=== PATIENT | male | born 1955 | race Caucasian/White ===

== ENCOUNTER 2018-06-28 07:19 | Emergency (ER) | payer MEDICAID, SELFPAY ==
[2018-06-28] VITALS (34 sets, daily range): BP systolic 137–163; BP diastolic 65–87; PULSE 65–80; RESP 13–34; TEMP 36; O2SAT 84–98
--- NOTE | 2018-06-28 07:36 | DI.RPTCT_ITS ---
SYMPTOMS/DIAGNOSIS: VERTIGO NONCONTRAST HEAD CT: There are no prior comparison exams. There is an old right parietal infarct. No acute infarct, hemorrhage or mass is seen. The ventricles are normal in size. There is no evidence of skull fracture. The sinuses appear clear. IMPRESSION: Old right parietal infarct. No acute abnormality.
[2018-06-28] MEDS: Normal Saline 1,000 ML 150 ML IV (07:43)
[2018-06-28] MEDS: Ondansetron 4 MG/2 ML VIAL IVP (07:44)
[2018-06-28 07:45] LABS: Abs Immature Grans 0.04 k/cumm (0.0-0.09); Absolute Basophil Count 0.03 k/cumm (0.0-0.2); Absolute Eosinophil Count 0.27 k/cumm (0.0-0.7); Absolute Lymphocyte Count 2.46 k/cumm (1.2-3.4); Absolute Monocyte Count 1.19 k/cumm (0.11-0.7); Basophils % 0.3; Eosinophils % 2.4; HCT 48.4 % (40.0-50.0); HGB 16.5 g/dL (13.5-17.5); Immature Grans % 0.4; Lymphocytes % 21.9; Mean Corp. HGB Concentration 34.1 g/dL (32.0-36.0); Mean Corpuscular Volume 85.1 fL (80-95); Mean Platelet Volume 10.6 fL (8.0-11.0); Monocytes % 10.6; Neutrophils % 64.4; Platelet Count 197 x1000/uL (130-400); RBC 5.69 m/cumm (4.50-6.00); RBC Distribution Width 14.9 % (11.8-14.1); White Blood Cell Count 11.25 k/cumm (4.4-10.8)
[2018-06-28 07:46] LABS: Absolute Neutrophil Count 7.25 k/cumm (1.2-6.7)
[2018-06-28 08:00] LABS: ALT 47 U/L (12-78); AST 25 U/L (15-37); Albumin 3.7 g/dL (3.4-5.0); Alkaline Phosphatase 72 U/L (46-116); Anion Gap 10.2 mmol/L (3-11); BUN 27 mg/dL (7-18); Bilirubin, Total 0.6 mg/dL (0.2-1.0); CO2 26.8 mmol/L (21.0-32.0); CREATININE 0.74 mg/dL (0.70-1.30); Calcium 9.5 mg/dL (8.5-10.1); Chloride 105 mmol/L (98-107); Glucose 179 mg/dL (70-100); Potassium 4.2 mmol/L (3.5-5.1); Sodium 142 mmol/L (136-145); Total Protein 7.6 g/dL (6.4-8.2)
[2018-06-28 08:02] LABS: Troponin I < 0.02 ng/mL (0.00-0.06)
--- NOTE | 2018-06-28 09:30 | DI.VRAD_ITS ---
EXAM: CT Head Without Intravenous Contrast EXAM DATE/TIME: 06/28/2018 7:38 AM CLINICAL HISTORY: 63 years old, male; Signs and symptoms; Other: Vertigo TECHNIQUE: Axial computed tomography images of the head/brain without intravenous contrast. All CT scans at this facility use at least one of these dose optimization techniques: automated exposure control; mA and/or kV adjustment per patient size (includes targeted exams where dose is matched to clinical indication); or iterative reconstruction. Coronal and sagittal reformatted images were created and reviewed. COMPARISON: No relevant prior studies available. FINDINGS: Brain: No acute intracranial hemorrhage. Well delineated low attenuation in the posterior right parietal region consistent with prior infarction. There is mild diffuse heterogeneity of the white matter attenuation, consistent with chronic white matter ischemic changes. Mild cerebral atrophy Ventricles: Normal. No ventriculomegaly. Bones/joints: Normal. No acute fracture. Sinuses: Minimal mucosal thickening in the ethmoid sinuses. Mastoid air cells: Normal as visualized. No mastoid effusion. Soft tissues: Normal. Vasculature: Falcine calcifications IMPRESSION: 1. No acute intracranial hemorrhage. 2. Well delineated low attenuation in the posterior right parietal region consistent with prior infarction. Dictated and Authenticated by: Abe Hart MD. Ordering:ISABEL RAYO MD
--- NOTE | 2018-06-28 10:12 | ED.GENADUL_ITS ---
Disposition Clinical Impression: Vertigo Disposition: HOME Condition: Good Instructions: Vertigo (ED) Additional Instructions: Drink plenty of fluids and get plenty of rest. Take your regular medications as directed. Take the meclizine as needed and directed for any further dizziness. Follow-up with your primary care doctor within the next week. Return to the emergency department with any worsening or new concerning symptoms. Prescriptions: Meclizine [Antivert] 12.5 mg PO TID PRN #12 tab PRN Reason: Vertigo Medical Decision Making - Lab Data Laboratory Tests 06/28/18 06/28/18 07:35 07:35 WBC 11.25 H RBC 5.69 Hgb 16.5 Hct 48.4 MCV 85.1 MCH 29.0 MCHC 34.1 RDW 14.9 H Plt Count 197 MPV 10.6 Immature Gran % 0.4 Neutrophils % 64.4 Lymphocytes % 21.9 Monocytes % 10.6 Eosinophils % 2.4 Basophils % 0.3 Absolute Neutrophils 7.25 H Absolute Lymphocytes 2.46 Absolute Monocytes 1.19 H Absolute Eosinophils 0.27 Absolute Basophils 0.03 Sodium 142 Potassium 4.2 Chloride 105 Carbon Dioxide 26.8 Anion Gap 10.2 BUN 27 H Creatinine 0.74 Estimated GFR/1.73 m2 >= 60.00 Glucose 179 H Calcium 9.5 Magnesium 2.0 Total Bilirubin 0.6 AST 25 ALT 47 Alkaline Phosphatase 72 Troponin I < 0.02 Total Protein 7.6 Albumin 3.7 06/28/18 0730: 71bpm. Sinus. PVCs. T-wave inversion in V3 to V3 and right bundle branch block which have been seen in previous EKG. No acute ST elevation. - Radiology Data Radiology results: report reviewed, image reviewed CT head: 1. No acute intracranial hemorrhage. 2. Well delineated low attenuation in the posterior right parietal region consistent with prior infarction. - Medical Decision Making 0800 -- 63-year-old male w/ CVA, diabetes, chronic cluster migraines, hypertension, hyperlipidemia, obesity and obstructive sleep apnea who presents with an episode of near syncope and vertigo this morning. Patient admitted to a spinning sensation and almost passing out after getting up suddenly out of bed this morning. Patient had 10 episodes of vomiting this morning but none here in the emergency department. He states he felt great yesterday and walked 4 miles and mowed the lawn and plan to do this this morning until he felt his symptoms upon getting out of bed. Patient had labs, CT head, IV fluids and Valium ordered per Dr. Schulz prior to my arrival. Plan was for reassessment and follow-up on workup. 1000 --labs and imaging reviewed. No acute significant findings. CT head notes an old infarction but no acute findings. Patient feels much better and is requesting to go home. He has no focal deficits. Patient was given sekou emeterio and crackers and was able to ambulate in room and feels much better. Discussed with patient that his symptoms may be due to BPPV, vasovagal syncope, dehydration, etc. We will send home with prescription for meclizine, encouraged increased fluid intake and to call the primary care doctor's office tomorrow to schedule follow-up appointment for reevaluation and return here with any concerns. History of Present Illness - General Chief complaint: Dizzy/Sync Stated complaint: VOMITING/ DIZZINESS Time Seen by Provider: 06/28/18 07:36 Source: patient Mode of arrival: ambulatory Limitations: no limitations - History of Present Illness Initial comments: A 63-year-old male with a history of asthma, diabetes, chronic cluster migraines , hypertension, hyperlipidemia, obesity and obstructive sleep apnea who presents with an episode of vertigo this morning. Patient states he sat up quickly in bed and fell backwards due to a spinning sensation and almost passed out. States he vomited 10 times as well as dry heaving after this. Patient denies any chest pain, shortness of breath or palpitations at anytime this morning or at present. Patient admits to chronic daily cluster migraines which she has had for several years and states it has been at his baseline 5/10 all morning and no worse than usual. Patient had lab work, CT and fluids and Valium ordered by Dr. Schulz prior to my arrival. Plan was for reevaluation after workup and meds. - Related Data Aspirin [Ecotrin] 1 tab PO DAILY tab-cap 02/05/13 Botox 50 unit IJ [id number] 02/05/13 Promethazine HCl 1 supp.rect RC Q6H PRN supp 02/05/13 C Pap 04/08/16 Candesartan Cilexetil 16 mg PO DAILY #60 cap 07/06/17 Sitagliptin Phosphate [Januvia] 100 mg PO DAILY #90 tab-cap 01/13/18 Albuterol Sulfate [Proair Hfa] 2 puff IH QID PRN #3 inh 02/09/18 Blood Sugar Diagnostic [Onetouch Ultra Blue Test Strp] 1 each MC QID #100 strip 02/09/18 Lancets [Freestyle Lancets] 1 each ID QID #100 each 02/09/18 Empagliflozin [Jardiance] 25 mg PO DAILY #30 cap 04/01/18 Diltiazem HCl [Cardizem Cd] 1 cap PO DAILY #90 cap 04/15/18 MetFORMIN [Glucophage] 1 tab PO BID #180 tab-cap 04/15/18 Glyburide 5 mg PO BID #360 tab-cap 04/20/18 Naproxen 1 tab PO TID PRN #270 tab-cap 04/22/18 Meclizine [Antivert] 12.5 mg PO TID PRN #12 tab 06/28/18 Allergies Allergy/AdvReac Type Severity Reaction Status Date / Time No Known Allergies Allergy Unverified 06/15/18 15:18 Review of Systems Constitutional: denies: chills, fever Eyes: denies: eye pain ENT: denies: ear pain, dental pain Respiratory: denies: cough, shortness of breath Cardiovascular: denies: chest pain, dyspnea on exertion Gastrointestinal: denies: abdominal pain, nausea, vomiting Genitourinary: denies: urgency, dysuria, frequency Musculoskeletal: denies: back pain Skin: denies: rash, lesions Neurological: vertigo. denies: headache, weakness, numbness Past Medical History - Past Medical History Medical history: asthma, CVA/TIA, diabetes, hyperlipidemia, hypertension Migraine, Obesity, LEAH Surgical history: other (Toe surgery, Eye surgery) - Social History Smoking status: never smoker Alcohol use: none Drug use: none General Exam - General Limitations: no limitations General appearance: alert, in no apparent distress - Eye Eye exam: Present: PERRL, EOMI - ENT ENT exam: Present: mucous membranes moist - Respiratory Respiratory exam: Present: normal lung sounds bilaterally. Absent: respiratory distress, wheezes, rales, rhonchi, stridor - Cardiovascular Cardiovascular Exam: Present: regular rate, normal rhythm. Absent: bradycardia , tachycardia - GI/Abdominal GI/Abdominal exam: Present: soft, normal bowel sounds. Absent: distended, tenderness, guarding, rebound, rigid - Neurological Exam Neurological exam: Present: alert, oriented X3, other (MS 5/5 b/l UE/LE). Absent: motor sensory deficit - Psychiatric Psychiatric exam: Present: normal affect - Skin Skin exam: Present: warm, dry, intact Course Vital Signs - 24 hr 06/28/18 06/28/18 06/28/18 07:20 07:22 07:28 Temperature 96.8 F L Pulse 69 71 Respiratory 25 H 27 H 20 Rate Blood Pressure 155/71 155/71 Pulse Oximetry 94 L 98 06/28/18 06/28/18 06/28/18 07:30 07:31 07:40 Temperature Pulse 70 Respiratory 15 Rate Blood Pressure 155/73 Pulse Oximetry 96 95 97 06/28/18 06/28/18 06/28/18 07:46 07:55 08:09 Temperature Pulse 73 Respiratory 19 20 16 Rate Blood Pressure 146/74 Pulse Oximetry 84 L 94 L 06/28/18 06/28/18 06/28/18 08:10 08:11 08:16 Temperature Pulse 73 71 Respiratory 22 20 Rate Blood Pressure 155/74 148/65 Pulse Oximetry 93 L 94 L 96 06/28/18 06/28/18 06/28/18 08:20 08:30 08:32 Temperature Pulse 72 Respiratory 21 13 21 Rate Blood Pressure 157/81 Pulse Oximetry 88 L 90 L 89 L 06/28/18 06/28/18 06/28/18 08:40 08:47 08:50 Temperature Pulse 74 Respiratory 20 18 25 H Rate Blood Pressure 163/87 Pulse Oximetry 90 L 97 94 L 06/28/18 06/28/18 06/28/18 09:00 09:04 09:10 Temperature Pulse 72 Respiratory 23 24 16 Rate Blood Pressure 150/82 Pulse Oximetry 91 L 91 L 96 06/28/18 06/28/18 06/28/18 09:16 09:20 09:30 Temperature Pulse 72 Respiratory 34 H 13 18 Rate Blood Pressure 155/78 Pulse Oximetry 92 L 94 L 95 06/28/18 06/28/18 06/28/18 09:31 09:40 09:46 Temperature Pulse 75 72 Respiratory 30 H 19 18 Rate Blood Pressure 137/86 143/84 Pulse Oximetry 97 90 L 93 L 08/12/18 09:50 Temperature Pulse Respiratory 19 Rate Blood Pressure Pulse Oximetry 92 L
== END 2018-06-28 10:56 | disposition home or self-care (01) ==
PROVIDERS: Emergency Medicine; Emergency Provider Physician Assistant; PCP Internal Medicine
DX: R42 Dizziness and giddiness (principal); R11.10 Vomiting, unspecified; E11.9 Type 2 diabetes mellitus without complications; Z79.84 Long term (current) use of oral hypoglycemic drugs; I10 Essential (primary) hypertension
CPT/HCPCS: 36415; 80053; 93005; 96361; 96374; 96375; 99285; 70450; 83735; 84484; 85025; 93010; J2405

== ENCOUNTER → 2018-07-07 03:00 | Outpatient (CLI) | payer MEDICAID, SELFPAY ==
[2018-07-07 08:24] LABS: Abs Immature Grans 0.05 k/cumm (0.0-0.09); Absolute Lymphocyte Count 2.21 k/cumm (1.2-3.4); Absolute Monocyte Count 1.09 k/cumm (0.11-0.7); Absolute Neutrophil Count 7.71 k/cumm (1.2-6.7); Basophils % 0.4; Eosinophils % 2.6; HCT 48.4 % (40.0-50.0); HGB 16.5 g/dL (13.5-17.5); Immature Grans % 0.4; Lymphocytes % 19.4; Mean Corp. HGB Concentration 34.1 g/dL (32.0-36.0); Mean Corpuscular Hemoglobin 28.6 pg (27.0-33.0); Mean Platelet Volume 10.4 fL (8.0-11.0); Monocytes % 9.6; Neutrophils % 67.6; Platelet Count 186 x1000/uL (130-400); RBC 5.76 m/cumm (4.50-6.00); RBC Distribution Width 14.9 % (11.8-14.1)
[2018-07-07 08:25] LABS: Absolute Basophil Count 0.05 k/cumm (0.0-0.2)
[2018-07-07 08:37] LABS: Hemoglobin A1C 6.7 % (4.5-6.2)
[2018-07-07 09:48] LABS: ALT 61 U/L (12-78); AST 31 U/L (15-37); Albumin 3.8 g/dL (3.4-5.0); Alkaline Phosphatase 56 U/L (46-116); Anion Gap 9.2 mmol/L (3-11); BUN 28 mg/dL (7-18); CO2 27.8 mmol/L (21.0-32.0); CREATININE 0.81 mg/dL (0.70-1.30); Calcium 8.9 mg/dL (8.5-10.1); Chloride 105 mmol/L (98-107); Glucose 88 mg/dL (70-100); Potassium 4.3 mmol/L (3.5-5.1); Sodium 142 mmol/L (136-145); Total Protein 7.4 g/dL (6.4-8.2)
[2018-07-07 09:54] LABS: COMMENT (LAB VIEW ONLY) 118.01 mg/dL; Microalb ug/mg Crea 712.7 ug/mg Cr
[2018-07-07 10:14] LABS: Bilirubin, Total 0.7 mg/dL (0.2-1.0)
== END ==
PROVIDERS: PCP Internal Medicine; Visit Provider Internal Medicine
DX: E11.65 Type 2 diabetes mellitus with hyperglycemia (principal); D64.9 Anemia, unspecified
CPT/HCPCS: 36415; 80053; 82043; 82570; 83036; 85025

== ENCOUNTER 2018-07-29 14:30 | Outpatient (CLI) | payer MEDICAID, SELFPAY ==
--- NOTE | 2018-07-29 14:42 | DI.RAD_ITS ---
SYMPTOMS/DIAGNOSIS: RIGHT KNEE PAIN BONE LENGTH EXAMINATION: The right lower extremity measures 91 cm in length, the left lower extremity measures 91.5 cm. There is narrowing of the medial femorotibial joint spaces bilaterally. Degenerative changes of the hips are seen bilaterally.
== END 2018-07-29 14:50 ==
PROVIDERS: PCP Internal Medicine; Visit Provider Physician Assistant
DX: M25.561 Pain in right knee (principal); M16.0 Bilateral primary osteoarthritis of hip
CPT/HCPCS: 77073

== ENCOUNTER 2018-08-19 11:34 | Outpatient (CLI) | payer MEDICAID, SELFPAY ==
[2018-08-19 14:09] LABS: ALT 50 U/L (12-78); AST 24 U/L (15-37); Albumin 3.7 g/dL (3.4-5.0); Alkaline Phosphatase 61 U/L (46-116); Anion Gap 9.2 mmol/L (3-11); BUN 26 mg/dL (7-18); Bilirubin, Total 0.5 mg/dL (0.2-1.0); CO2 26.8 mmol/L (21.0-32.0); CREATININE 0.65 mg/dL (0.70-1.30); Chloride 105 mmol/L (98-107); Glucose 154 mg/dL (70-100); Potassium 4.3 mmol/L (3.5-5.1); Sodium 141 mmol/L (136-145); Total Protein 6.9 g/dL (6.4-8.2)
== END 2018-08-19 11:54 ==
PROVIDERS: PCP Internal Medicine; Visit Provider Internal Medicine
DX: E11.9 Type 2 diabetes mellitus without complications (principal)
CPT/HCPCS: 36415; 80053

== ENCOUNTER 2018-09-16 14:12 | Outpatient (CLI) | payer MEDICAID, SELFPAY ==
[2018-09-16 16:46] LABS: HCT 47.4 % (40.0-50.0); HGB 16.3 g/dL (13.5-17.5); Mean Corp. HGB Concentration 34.4 g/dL (32.0-36.0); Mean Corpuscular Hemoglobin 28.8 pg (27.0-33.0); Mean Corpuscular Volume 83.9 fL (80-95); Mean Platelet Volume 10.5 fL (8.0-11.0); Platelet Count 231 x1000/uL (130-400); RBC 5.65 m/cumm (4.50-6.00); RBC Distribution Width 15.1 % (11.8-14.1)
[2018-09-16 17:19] LABS: Hemoglobin A1C 6.2 % (4.5-6.2)
[2018-09-16 19:33] LABS: BUN 30 mg/dL (7-18); CREATININE 0.75 mg/dL (0.70-1.30); Chloride 104 mmol/L (98-107); Glucose 82 mg/dL (70-100); Potassium 4.2 mmol/L (3.5-5.1); Sodium 141 mmol/L (136-145)
--- NOTE | 2018-09-17 18:40 | W.PREOPHP ---
Date of service: 09/16/18 Assessment and Plan (1) Primary osteoarthritis of right knee: Current visit: Yes Status: Acute Right total knee replacement. Details of surgery were discussed with patient as well as risks and pertinent anatomy. All questions were answered. History of Present Illness Chief Complaint: Right knee pain Narrative: Jose is a 63-year-old male who is been complaining of right knee pain for a couple of years. He has had multiple orthopedic complaints over the last 2 years, however his right knee has been the most significant. He states that it bothers him with every step at this point, but also increases when he goes up stairs or gets up from a seated position. He has resorted to walking with a walking stick. X-rays show severe arthritis of the right knee, with 0 joint space in the medial side. There are bone spurs and bony cyst throughout. Due to his altered gait because of pain in his right knee, he has had hip pain that is bothering him as well. He has been struggling with controlling his diabetes and weight over the past 3 years, however over the past many months he has met with a dietitian who has helped him with both. He has made significant progress in both weight loss and his diabetes control. Injections have helped with the knee pain in the past, however they do not last very long anymore. At this point he was instructed that he needed a total knee replacement in order to control his pain. He has been working on his diet and exercise in order to show a decrease in weight and better control of his diabetes in order to have this joint replacement. Since he is now stable in both regards, he would like to move forward with a right total knee replacement. Pertinent Surgical Information Jose has had an incidental finding of a stroke on a CAT scan after routine CAT scan regarding his Botox injections. He has never had symptoms from this. Jose been able to control his diabetes to under 7.0 hemoglobin A1c in the last 4 months, his most recent hemoglobin A1c done on 09/16/2018 was 6.2. 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 He also has severe migraines and cluster headaches, for which she previously used Botox injections however now he is going to start on Aimovig, however he was instructed not to start this until after his total knee replacement because of its immune depressant properties. Patient denies history of CA, angina, asthma, COPD, renal or liver disorders, hepatitis, bleeding disorders, immune or thyroid disorders. No complications from anesthesia. Review of Systems Review of Systems All systems reviewed & are unremarkable except as noted in HPI and below Constitutional Denies fever(s) ENT Denies dizziness and Denies sore throat Cardiovascular Denies chest pain, Denies palpitations and Denies dyspnea Respiratory Denies dyspnea Gastrointestinal Denies abdominal pain, Denies melena, Denies hematochezia, Denies diarrhea, Denies nausea and Denies vomiting Genitourinary Denies hematuria and Denies dysuria Neurologic Denies dizziness Endocrine Denies palpitations PFS Family History Mother Depression Hyperlipidemia Father Heart disease Sister No problems noted. 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 frequency: does not exercise Smoking/Tobacco Use Status: Former Tobacco Use second hand exposure: Yes substance use type: does not use barbara/catholic: [employer] special barbara needs: No Surgical History History of ankle surgery (Chronic) Tonsillectomy Meds Home Medications Medication Instructions Recorded Confirmed Type Botox 50 unit IJ [id number] 02/05/13 09/16/18 History aspirin [Ecotrin Low Strength] 1 tab PO DAILY tab-cap 02/05/13 09/16/18 History promethazine 1 supp.rect RC Q6H PRN supp 02/05/13 09/16/18 History C Pap 04/08/16 09/16/18 History sitagliptin [Januvia] 100 mg PO DAILY #90 tab-cap 01/13/18 09/16/18 Rx albuterol sulfate [ProAir HFA] 2 puff INHALATION QID PRN #3 inh 02/09/18 09/16/18 History blood sugar diagnostic [OneTouch #100 strip 02/09/18 09/16/18 Rx Ultra Test] lancets [FreeStyle Lancets] #100 ea 02/09/18 09/16/18 Rx empagliflozin [Jardiance] 25 mg PO DAILY #30 cap 04/01/18 09/16/18 Rx diltiazem HCl [Cardizem CD] 1 cap PO DAILY #90 cap 04/15/18 09/16/18 Rx metformin [Glucophage] 1 tab PO BID #180 tab-cap 04/15/18 09/16/18 Rx glyburide 5 mg PO BID #360 tab-cap 04/20/18 09/16/18 Rx naproxen 1 tab PO TID PRN #270 tab-cap 04/22/18 09/16/18 History meclizine [Antivert] 12.5 mg PO TID PRN #12 tab 06/28/18 09/16/18 Rx candesartan 16 mg tablet 16 mg PO DAILY #90 tab 08/13/18 09/16/18 Rx Allergies Allergy/AdvReac Type Severity Reaction Status Date / Time No Known Allergies Allergy Unverified 09/16/18 14:34 Exam [facility] Head: normocephalic and atraumatic General nose exam: no nasal discharge Throat: uvula midline and no uvular edema Other: soft palate rises symmetrically, no erythema Eyes Conjunctivae: conjunctivae normal Sclera: sclerae normal Pupils: PERRL Resp Effort & Inspection: normal respiratory effort Auscultation: clear to auscultation bilaterally and no wheezes Cardio Rate: regular rate Rhythm: regular rhythm Heart Sounds: S1 normal, S2 normal and no murmurs Other: BP: 138/70 Results Labs : 09/16/18 16:23 09/16/18 16:23 Laboratory Results - last 24 hr 09/16/18 16:23 Sodium 141 Potassium 4.2 Chloride 104 Carbon Dioxide 25.0 Anion Gap 12.0 H BUN 30 H Creatinine 0.75 Estimated GFR/1.73 m2 >= 60.00 Glucose 82 Calcium 10.0
--- NOTE | 2018-09-17 18:43 | HPE_ITS ---
Date of service: 09/16/18 Assessment and Plan (1) Primary osteoarthritis of right knee: Current visit: Yes Status: Acute Right total knee replacement. Details of surgery were discussed with patient as well as risks and pertinent anatomy. All questions were answered. History of Present Illness Chief Complaint: Right knee pain Narrative: Jose is a 63-year-old male who is been complaining of right knee pain for a couple of years. He has had multiple orthopedic complaints over the last 2 years, however his right knee has been the most significant. He states that it bothers him with every step at this point, but also increases when he goes up stairs or gets up from a seated position. He has resorted to walking with a walking stick. X-rays show severe arthritis of the right knee, with 0 joint space in the medial side. There are bone spurs and bony cyst throughout. Due to his altered gait because of pain in his right knee, he has had hip pain that is bothering him as well. He has been struggling with controlling his diabetes and weight over the past 3 years, however over the past many months he has met with a dietitian who has helped him with both. He has made significant progress in both weight loss and his diabetes control. Injections have helped with the knee pain in the past, however they do not last very long anymore. At this point he was instructed that he needed a total knee replacement in order to control his pain. He has been working on his diet and exercise in order to show a decrease in weight and better control of his diabetes in order to have this joint replacement. Since he is now stable in both regards, he would like to move forward with a right total knee replacement. Pertinent Surgical Information Jose has had an incidental finding of a stroke on a CAT scan after routine CAT scan regarding his Botox injections. He has never had symptoms from this. Jose been able to control his diabetes to under 7.0 hemoglobin A1c in the last 4 months, his most recent hemoglobin A1c done on 09/16/2018 was 6.2. 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 He also has severe migraines and cluster headaches, for which she previously used Botox injections however now he is going to start on Aimovig, however he was instructed not to start this until after his total knee replacement because of its immune depressant properties. Patient denies history of [place], angina, asthma, COPD, renal or liver disorders, hepatitis, bleeding disorders, immune or thyroid disorders. No complications from anesthesia. Review of Systems Review of Systems All systems reviewed & are unremarkable except as noted in HPI and below Constitutional Denies fever(s) ENT Denies dizziness and Denies sore throat Cardiovascular Denies chest pain, Denies palpitations and Denies dyspnea Respiratory Denies dyspnea Gastrointestinal Denies abdominal pain, Denies melena, Denies hematochezia, Denies diarrhea, Denies nausea and Denies vomiting Genitourinary Denies hematuria and Denies dysuria Neurologic Denies dizziness Endocrine Denies palpitations PFS Family History Mother Depression Hyperlipidemia Father Heart disease Sister No problems noted. 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 frequency: does not exercise Smoking/Tobacco Use Status: Former Tobacco Use second hand exposure: Yes substance use type: does not use barbara/catholic: Taoist special barbara needs: No Surgical History History of ankle surgery (Chronic) Tonsillectomy Meds Home Medications Medication Instructions Recorded Confirmed Type Botox 50 unit IJ [id number] 02/05/13 09/16/18 History aspirin [Ecotrin Low Strength] 1 tab PO DAILY tab-cap 02/05/13 09/16/18 History promethazine 1 supp.rect RC Q6H PRN supp 02/05/13 09/16/18 History C Pap 04/08/16 09/16/18 History sitagliptin [Januvia] 100 mg PO DAILY #90 tab-cap 01/13/18 09/16/18 Rx albuterol sulfate [ProAir HFA] 2 puff INHALATION QID PRN #3 inh 02/09/18 History blood sugar diagnostic [OneTouch #100 strip 02/09/18 09/16/18 Rx Ultra Test] lancets [FreeStyle Lancets] #100 ea 02/09/18 09/16/18 Rx empagliflozin [Jardiance] 25 mg PO DAILY #30 cap 04/01/18 09/16/18 Rx diltiazem HCl [Cardizem CD] 1 cap PO DAILY #90 cap 04/15/18 09/16/18 Rx metformin [Glucophage] 1 tab PO BID #180 tab-cap 04/15/18 09/16/18 Rx glyburide 5 mg PO BID #360 tab-cap 04/20/18 09/16/18 Rx naproxen 1 tab PO TID PRN #270 tab-cap 04/22/18 09/16/18 History meclizine [Antivert] 12.5 mg PO TID PRN #12 tab 06/28/18 09/16/18 Rx candesartan 16 mg tablet 16 mg PO DAILY #90 tab 08/13/18 09/16/18 Rx Allergies Allergy/AdvReac Type Severity Reaction Status Date / Time No Known Allergies Allergy Unverified 09/16/18 14:34 Exam [facility] Head: normocephalic and atraumatic General nose exam: no nasal discharge Throat: uvula midline and no uvular edema Other: soft palate rises symmetrically, no erythema Eyes Conjunctivae: conjunctivae normal Sclera: sclerae normal Pupils: PERRL Resp Effort & Inspection: normal respiratory effort Auscultation: clear to auscultation bilaterally and no wheezes Cardio Rate: regular rate Rhythm: regular rhythm Heart Sounds: S1 normal, S2 normal and no murmurs Other: BP: 138/70 Results Labs : 09/16/18 16:23 09/16/18 16:23 Laboratory Results - last 24 hr 09/16/18 16:23 Sodium 141 Potassium 4.2 Chloride 104 Carbon Dioxide 25.0 Anion Gap 12.0 H BUN 30 H Creatinine 0.75 Estimated GFR/1.73 m2 >= 60.00 Glucose 82 Calcium 10.0
== END 2018-09-16 14:32 ==
PROVIDERS: PCP Internal Medicine; Visit Provider Student in an Organized Health Care Education/Training Program
DX: M16.11 Unilateral primary osteoarthritis, right hip (principal); M25.551 Pain in right hip; Z01.818 Encounter for other preprocedural examination
CPT/HCPCS: 36415; 80048; 85027; NC; 83036

== ENCOUNTER 2018-09-22 08:34 | Inpatient (IN) | payer MEDICAID, SELFPAY ==
[2018-09-16 14:40] VITALS: BP 138/70; PULSE 72; RESP 18; TEMP 37.2; O2SAT 96
--- NOTE | 2018-09-16 15:38 | CMPROGNOTE_ITS ---
- If Service Date Differs Date of service: 09/16/18 Time of Service: 15:31 Care Management Progress Note Jose will be having a R knee surgery with Dr. Hopson on 09/22/2018. 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 He is independent with his ADLs and transportation. Jose has access to a walker and raised toilet seat so will not be needing equipment upon discharge. Jose will transport home via private vehicle with his friend, Milena. CM will offer support to patient and family regarding discharge planning and disposition upon Jose's arrival at [facility].
[2018-09-22] VITALS (13 sets, daily range): BP systolic 100–154; BP diastolic 53–80; PULSE 55–68; RESP 14–20; TEMP 35.6–36.7; O2SAT 92–98
[2018-09-22] MEDS: oxyCODONE-CR 10 MG TABCR PO (09:30)
[2018-09-22] MEDS: Celecoxib 200 MG CAP 400 MG PO (09:30)
[2018-09-22] MEDS: Lactated Ringers 1,000 ML 80 ML IV ×3 (09:30→14:45)
[2018-09-22] MEDS: Acetaminophen 500 MG TAB 1000 MG PO ×3 (09:30→20:46)
[2018-09-22] MEDS: Gabapentin 300 MG CAP PO ×2 (09:31→21:34)
[2018-09-22] MEDS: Bupivacaine LIPOSOME/PF 133 MG/10 ML VIAL IJ ×2 (10:19→12:10)
[2018-09-22] MEDS: Bupivacaine 0.25% Pres-Free 30 ML VIAL (12:10)
[2018-09-22] MEDS: Ketorolac 30 MG/ML VIAL (12:10)
--- NOTE | 2018-09-22 13:53 | W.PM.OP ---
Date of service: 09/22/18 Time of Service: 13:53 Operative Note DATE OF PROCEDURE: 09/22/18 PRE-OP DIAGNOSIS: Right knee osteoarthritis POST-OP DIAGNOSIS: same PROCEDURE: Right Total Knee Replacement SURGEON: Torsten Hopson INTERACTIVE DEVELOPER: Eugenia Luz ANESTHESIA: regional and spinal ESTIMATED BLOOD LOSS: 100 PATHOLOGY: none sent TOURNIQUET TIME: 27 COMPLICATIONS: None Patient was transported to: PACU Patient's condition: stable Implants: 1. Depuy Attune Posterior Stabilized Femoral Component, Size 7 2. Depuy Attune Fixed Platform Tibial Component, Size 6 3. Depuy Attune 7 x 7 mm fixed, Stabilized Poly 4. Depuy Attune Patellar Component, Size 35 mm Indications: I have seen Jose in clinic for symptoms of RIGHT knee arthritis, confirmed with radiographic findings. Jose has exhausted nonoperative methods and was having significant limitations in daily function and desired better function and less pain. I discussed the technical details of a knee replacement. I explained the risks of the procedure to include, but not limited to, bleeding, infection, pain, stiffness, fracture, damage to nerves and vessels, damage to muscles and tendons, loosening, need for repeat procedure, blood clot and cardiopulmonary demise. Despite these risks, he elected to proceed. Findings: There was significant signs of arthritis throughout the knee. Procedure Description: Jose was greeted in the preoperative holding area where the correct side was identified and marked. The consent was reviewed with the patient and signed. The history and physical was updated. All questions were answered. Preoperative mediacations were administered: Acetaminophen 1000mg, Celebrex 400mg, Gabapentin 300mg, and Oxycontin 10mg. An adductor canal block was then administered by the anesthesia team in the PACU. He was taken back to the operating room. A spinal anesthestic was then administered. The patient was placed into the supine position on the operating room table. A nonsterile tourniquet was placed high onto the leg but only used for cementing. Posts were placed for positioning during the procedure. All bony prominences were well padded. Prophylactic antibiotics in the form of cefazolin were administered. 1g of Tranxemic Acid was given intravenously within 30 minutes of incision. The right leg was then prepped with Chloraprep and draped in a standard fashion with impervious stockinette and extremity drape with Iodine impregnated skin protection. A timeout to confirm correct identity, side and site, procedure, allergies, anesthesia, and medical concerns was performed. With the knee in some flexion, a midline incision was made overlying the knee. Full thickness skin flaps were raised once the extensor mechanism was encountered. These were raised medially and laterally. Any bleeding was controlled with electrocautery. Once the extensor mechanism was fully exposed, a medial parapatellar arthrotomy was performed in a flexed position. All bleeding from the arthrotomy and the geniculate arteries was coagulated. A medial subperiosteal peel was performed with electrocautery to the midcoronal plane. The fat pad was removed while keeping the patellar tendon protected. The anterior distal femur synovium was removed for later visualization. The ACL and PCL were resected and the anterior horn of the lateral meniscus was transected. The knee was then flexed with the patella everted. Large osteophytes from the tibia were removed. Large osteophytes from the femur were removed. Using a step drill, and based on preoperative templating, the femoral canal was entered. This was done with a step drill without any difficulty. The intramedullary distal femoral cut guide was inserted, set to a 6 degree valgus cut and 10mm cut thickness. There was some hypoplasia of the lateral femoral condyle and any remnant cartilage of the medial femoral condyle was removed for appropriate thickness. The distal femoral cut guide was then held in position and pinned. With the soft tissues protected, the distal cut was performed. This was passed over a few times to ensure a planar cut. I then turned attention to the tibia. The extramedullary guide was placed onto the leg. The distal aspect was slid medial to adjust for position of center of ankle and stay in line with shaft of the tibia. Approximately 3-5 degrees of posterior slope was kept in the proximal cutting guide. The center of the guide was aligned with the PCL. The stylus was used to assess cut thickness. The medial side, most involved side, was set for a 5mm cut. This was then held in position and pinned into place with 2 additional pins and a cross pin for stability. The medial and lateral collateral ligaments were protected and the cut was performed. With this completed, it was assessed and noted to be of appropriate dimensions. The guide was removed. A spacer block was inserted and the knee was brought into extension. The 6mm spacer block provided full extension, without hyperextension and with stability of both the medial and lateral collateral ligaments was assessed. The pins from the femur and the tibia were then removed. The distal femur was then sized. The anterior stylus was placed onto the lateral ridge of the anterior femur. This indicated a size 7 femur. The external rotation of the guide was adjusted to 5 degrees to match the epicondylar axis, perpendicular to Solange?s line. The 4-in-1 cutting guide was the placed. The posterior medial femur cut was evaluated and appeared of good thickness. The spacer block was inserted underneath the cutting guide and stability was confirmed in 90 degrees of flexion. An jeffery wing was used to confirm appropriate position of the anterior cut to avoid notching. This cutting guide was ensured to be flush on the cut surface and then pinned into place with headed pins. While protecting the soft tissues, quad tendon, and collateral ligaments, the anterior and posterior cuts were performed with a saw. The central two pins were removed and the posterior and anterior chamfers were cut next. The notch-cutting guide was placed. This was pinned to lateralize the femoral component as much as possible while keeping it flush on the cut surface. This was then pinned into position. A reciprocating saw was used to make the notch cut. A rasp smoothed the cut surfaces. A trial posterior stabilized femoral component was then inserted, impacted down to the cut surfaces, and the lug holes were drilled. A provisional trial tibial component was placed and the knee was brought through range of motion. The polyethylene was trialed until there was good flexion and extension with excellent stability to the medial and lateral collaterals. The patella was tracking without thumbs. The tibial cut surface was fully exposed. The medial and lateral menisci were removed. The tibia was then sized as a 6. The tibia had been previously marked during trialing to correspond to the center of the tibial component to help with rotation. The trial was aligned to this eugenia, approximately rotated to the medial 1/3rd of the tibial tubercle. The trial was pinned into place. The tibia was prepared with a reamer and a keel punch. The knee was then brought into extension and the patella was measured as 25 mm. Using the patellar clamp and cut guide, this was resected to a flat surface with at least 13mm of thickness remaining. The size 35 mm patella fit the best. This was oriented and then clamped into position. The lugs were drilled. The trial components were removed. The final components, except for the polyethylene were opened on the back table. The periosteal and capsular tissues, especially posteriorly, around the knee were then systematically injected with a periarticular cocktail consisting of 50cc 0.25% Marcaine, 30mg Ketorolac, 20cc of Exparal and 50cc of injectable saline. The tourniquet was then inflated to 275mmHg. The knee was thoroughly irrigated with a pulse lavage and dried. On the back table, with the implants opened, the cement was mixed. 2 batches of antibiotic laden cement were prepared with vacuum assistance. After the cement was ready a small amount was placed on to the back side of the tibial component at the keel. A small amount was placed onto the posterior flange of the femur. Cement was manual pressurized and impregnated into the cut surface of the tibia. The tibial component was then inserted into the cut surface and impacted into position. Excess cement was removed and the component was reimpacted. Again, excess cement was removed and our attention was then turned to the femur. The femoral cut surface was once again dried and cement was manually impacted into the cut surface. The femoral component was lined with the lug holes and impacted. Excess cement was removed. It was ensured to be down against the cut surface. The trial polyethylene was then inserted and the leg was brought out into full extension for the duration of the cement curing process, approximately 15min. Cement was lastly manually impacted into the cut surface of the patella and the patellar button was clamped into position and held. During this process attention was turned to the gutters of the knee and for all interfaces for any excess cement. After the cement had finally cured, approximately 15min, the clamp was removed from the patella and the knee was taken through range of motion. A size 6mm polyethylene component provided the best range of motion and stability with less than 2mm gapping with medial and lateral stress and full extension without significant hyperextension. The patella was tracking with a no-thumbs technique. The trial poly was removed and once again the knee was checked for any loose, excess, or errant cement. The poly component was then inserted and impacted into position after cleaning and drying the tibial tray. The capsule was then reapproximated with a No. 1 Vicryl at multiple locations. The capsule was finally closed with a No. 2 Stratafix, barbed suture. The tourniquet was then released and the arthrotomy appeared watertight without significant bleeding. The second dosing of 1g TXA was started. Deep tissues were then reapproximated with 0 Vicryl and 2-0 Vicryl. The skin was closed with a running 3-0 Monocryl in a subcuticular fashion. This was reinforced with skin glue. A Mepilex silver dressing was applied along with a yczj-on-ikoea SANDY wrap. A CryoCuff was applied. Jose was transferred to the hospital bed without difficulty an suffering no apparent complication. He has a good prognosis. Physical therapy will start today and without restrictions, weight-bearing as tolerated. Aspirin 81mg BID will be used for DVT prophylaxis.
--- NOTE | 2018-09-22 14:00 | HOME_ITS ---
Home Ventilator Equipment Home care company [employer] Reason: Obstructive Sleep Apnea Make: Respironics Model: System One Mask type: Face mask Mask size: Medium Mode: BiPAP Settings: IPAP - 16 / EPAP - 12 Oxygen bleed in (lpm): 0 Condition: Good Date last checked: 09/22/18 Year of last sleep study: 2010 Compliance Daily Comments:
--- NOTE | 2018-09-22 15:20 | PT.INIE ---
Date of service: 09/22/18 Time of Service: 15:21 PT Notes Inpatient Physical Therapy Evaluation Date: 09/22/18 Referring Doctor: Torsten Hopson PT Orders: PT CONSULT: s/p R TKA Precautions: WBAT R LE Patient Profile/Admitting Diagnosis: Pt is a 63yr old male s/p right total knee arthroplasty by Dr. Hopson 09/22/18 PMHX: osteoarthritis right knee, obesity, trochanteric bursitis right hip, traumatic eye injury legally blind left eye, diabetes mellitus, cerebrovascular accident, migraines, asthma, sleep apnea, restless leg syndrome, hypertension Social History/Home Situation: Lives in handicap accessible home, ramp to enter no stairs, baseline mobility independent gait with no device occasionally uses walking stick, independent with ADLS Equipment Owned/DME: FWW, raised toilet seat, walking stick Subjective: Pt lying in bed with lights off, shade closed. Agreeable to PT Consult. Objective: General Observation: IV L UE, sabrina wrap R LE, cryocuff R LE, valiente catheter Mental Status: A&O x3 Pain: no c/o pain Bed Mobility/Transfers: Supine-sit: HOB 30 degrees, independent Sit-stand: CGA with FWW Stand-sit: minAX1 due to lightheadedness Sit-supine: HOB flat, Karin for LE's Gait: Pt stood at bedside with CGA/minAx1 support for 10 seconds then became lightheaded and began to lean forward requiring therapist to weight shift him posteriorly to sit on bed to prevent falling. Pt states he felt dizzy, transferred back to bed with RN in room to assess vital signs. Therex: ankle pumps, quad sets, glute sets x 20 reps. Pt has issued home exercise program. Balance: Static Sitting:normal Dynamic Sitting: normal Static Standing: fair Dynamic Standing: fair Special Tests: Mobility Limitations Standardized Measure [facility] AM-PAC 6 clicks Basic Mobility Inpatient Short Form: Raw Score: 13 Standardized Score: 36.74 CMS Score: 64.91% CMS Modifier: CL Informed Consent/Education: Patient instructed in purpose of PT consult and plan of care. Assessment: Pt is a 63yr old male s/p right total knee arthroplasty by Dr. Hopson 09/22/18 in setting of osteoarthritis right knee, obesity, trochanteric bursitis right hip, traumatic eye injury legally blind left eye, diabetes mellitus. Patient presents with the following impairment level findings: lightheaded, dizzy symptoms post operatively limiting his mobility, decreased strength R LE, decreased strength with bed transfers requiring assist to lift leg into bed, decreased strength and balance with standing transfers requiring one person assist for stability to prevent falls and unable to gait train at time of evaluation. Pt will benefit from skilled therapy intervention for strengthening and progressive mobility training. Anticipate return to home setting once goals met. Impairments are contributing to the following functional limitations: AMPAC score CMS Score: 64.91% Patient is assessed as a High [id number] complexity based on the following: History: see above Examination: see above Presentation: evolving Decision Making: AMPAC score CMS Score: 64.91% Goals: Goals X1 week 1. Supine-Sit : independent 2. Sit-Supine : independent 3. Sit-Stand : supervision with FWW 4. Stand-Sit : supervision with FWW 5. Bed-Chair : SBA with FWW 6. Chair-Bed : SBA with FWW 7. Gait : SBA with FWW 75ft WBAT R LE Plan of Care/Treatment Plan: 1-2x/day, 7 days/week x 1 week. Plan of care has been reviewed with the STORE DETECTIVE providing the service under Physical Therapy direction. Initiate Physical Therapy intervention for strengthening, bed mobility, transfers, gait, stairs, balance training, use of assistive device. DISCHARGE RECOMMENDATIONS: Home TREATMENT CODE/TIME: 24 IE 1319 G Codes in the area mobility of walking and moving around: current status [id number] []; projected status GP [id number]-[]. Discharge status (if discharging) GP [id number] CL based on AMPAC score CMS Score: 64.91% Katheryn Gibbs PT
--- NOTE | 2018-09-22 15:34 | IN_ITS ---
Date of service: 09/22/18 Time of Service: 15:21 PT Notes Inpatient Physical Therapy Evaluation Date: 09/22/18 Referring Doctor: Torsten Hopson PT Orders: PT CONSULT: s/p R TKA Precautions: WBAT R LE Patient Profile/Admitting Diagnosis: Pt is a 63yr old male s/p right total knee arthroplasty by Dr. Hopson 09/22/18 PMHX: osteoarthritis right knee, obesity, trochanteric bursitis right hip, traumatic eye injury legally blind left eye, diabetes mellitus, cerebrovascular accident, migraines, asthma, sleep apnea, restless leg syndrome, hypertension Social History/Home Situation: Lives in handicap accessible home, ramp to enter no stairs, baseline mobility independent gait with no device occasionally uses walking stick, independent with ADLS Equipment Owned/DME: FWW, raised toilet seat, walking stick Subjective: Pt lying in bed with lights off, shade closed. Agreeable to PT Consult. Objective: General Observation: IV L UE, sabrina wrap R LE, cryocuff R LE, valiente catheter Mental Status: A&O x3 Pain: no c/o pain Bed Mobility/Transfers: Supine-sit: HOB 30 degrees, independent Sit-stand: CGA with FWW Stand-sit: minAX1 due to lightheadedness Sit-supine: HOB flat, Karin for LE's Gait: Pt stood at bedside with CGA/minAx1 support for 10 seconds then became lightheaded and began to lean forward requiring therapist to weight shift him posteriorly to sit on bed to prevent falling. Pt states he felt dizzy, transferred back to bed with RN in room to assess vital signs. Therex: ankle pumps, quad sets, glute sets x 20 reps. Pt has issued home exercise program. Balance: Static Sitting:normal Dynamic Sitting: normal Static Standing: fair Dynamic Standing: fair Special Tests: Mobility Limitations Standardized Measure [facility] AM-PAC 6 clicks Basic Mobility Inpatient Short Form: Raw Score: 13 Standardized Score: 36.74 CMS Score: 64.91% CMS Modifier: CL Informed Consent/Education: Patient instructed in purpose of PT consult and plan of care. Assessment: Pt is a 63yr old male s/p right total knee arthroplasty by Dr. Hopson 09/22/18 in setting of osteoarthritis right knee, obesity, trochanteric bursitis right hip, traumatic eye injury legally blind left eye, diabetes mellitus. Patient presents with the following impairment level findings: lightheaded, dizzy symptoms post operatively limiting his mobility, decreased strength R LE, decreased strength with bed transfers requiring assist to lift leg into bed, decreased strength and balance with standing transfers requiring one person assist for stability to prevent falls and unable to gait train at time of evaluation. Pt will benefit from skilled therapy intervention for strengthening and progressive mobility training. Anticipate return to home setting once goals met. Impairments are contributing to the following functional limitations: AMPAC score CMS Score: 64.91% Patient is assessed as a High [id number] complexity based on the following: History: see above Examination: see above Presentation: evolving Decision Making: AMPAC score CMS Score: 64.91% Goals: Goals X1 week 1. Supine-Sit : independent 2. Sit-Supine : independent 3. Sit-Stand : supervision with FWW 4. Stand-Sit : supervision with FWW 5. Bed-Chair : SBA with FWW 6. Chair-Bed : SBA with FWW 7. Gait : SBA with FWW 75ft WBAT R LE Plan of Care/Treatment Plan: 1-2x/day, 7 days/week x 1 week. Plan of care has been reviewed with the INTERNAL AFFAIRS INVESTIGATOR providing the service under Physical Therapy direction. Initiate Physical Therapy intervention for strengthening, bed mobility, transfers, gait, stairs, balance training, use of assistive device. DISCHARGE RECOMMENDATIONS: Home TREATMENT CODE/TIME: 24 IE 1319 G Codes in the area mobility of walking and moving around: current status [id number] []; projected status GP [id number]-[]. Discharge status (if discharging) GP [id number] CL based on AMPAC score CMS Score: 64.91% Katheryn Gibbs PT
[2018-09-22] MEDS: glyBURIDE 5 MG TAB PO (16:20)
[2018-09-22] MEDS: metFORMIN 500 MG TAB 1000 MG PO (16:20)
[2018-09-22] MEDS: oxyCODONE 5 MG TAB PO (18:06)
[2018-09-22] MEDS: Aspirin E.C. 81 MG TABEC PO (20:47)
[2018-09-22] MEDS: Celecoxib 200 MG CAP PO (20:47)
[2018-09-23] VITALS (7 sets, daily range): BP systolic 125–165; BP diastolic 67–82; PULSE 62–99; RESP 16–20; TEMP 35.7–37.5; O2SAT 92–98
[2018-09-23] MEDS: oxyCODONE 5 MG TAB PO ×5 (01:59→22:42)
[2018-09-23] MEDS: Lactated Ringers 1,000 ML 80 ML IV (03:52)
[2018-09-23] MEDS: HYDROmorphone 2 MG/ML VIAL 0.5 MG IVP (07:29)
[2018-09-23] MEDS: glyBURIDE 5 MG TAB PO ×2 (08:02→17:39)
[2018-09-23] MEDS: metFORMIN 500 MG TAB 1000 MG PO ×2 (08:02→17:39)
[2018-09-23] MEDS: Aspirin E.C. 81 MG TABEC PO ×2 (08:02→20:29)
[2018-09-23] MEDS: Acetaminophen 500 MG TAB 1000 MG PO ×3 (08:02→20:29)
[2018-09-23] MEDS: Celecoxib 200 MG CAP PO ×2 (08:02→20:29)
[2018-09-23] MEDS: Pantoprazole 40 MG TABCR PO (08:03)
--- NOTE | 2018-09-23 08:17 | W.PM.DS.N ---
Date of service: 09/23/18 Time of Service: 08:18 DS: Diagnosis Discharge Diagnosis (1) Primary osteoarthritis of right knee: Status: Acute (2) Urinary retention: Status: Acute Discharge Plan Disposition Patient Disposition: HOME Condition: Good Discharge Details Reason For Visit: RIGHT KNEE DJD Admit Date/Time: 09/22/18 08:34 Admit Provider: Torsten Hopson Attending Provider: Torsten Hopson Primary Care Provider: Joan Orosco Hospital Course Hospital Course: Patient was admitted to the medical/surgical floor following the procedure. It was tolerated well without any notable medical, surgical, or anesthetic complications. Mobilization began postoperatively. The valiente catheter was removed on POD#1. However, he was unable to void. He was straight-cathed x 2 with > 1000cc retention. After inability to void, a valiente catheter was placed. It drained clear appearing urine and his discomfort was much improved. Vitals remained stable. Physical therapy worked with the patient and was cleared for discharge home although he struggeld wtih quad strength in the acute recovery phase. No acute medical issues. Home Meds and New Rx's Prescriptions: New pantoprazole 40 mg tablet,delayed release (DR/EC) 40 mg PO DAILY Qty: 30 RF: 0 acetaminophen 500 mg capsule 1,000 mg PO Q8H PRN (Reason: pain) Qty: 90 RF: 0 oxycodone 5 mg tablet 5 - 10 mg PO Q4H Qty: 20 RF: 0 polyethylene glycol 3350 17 gram Powder In Packet 34 g PO BID Qty: 24 RF: 1 docusate sodium [Colace] 100 mg Capsule 100 mg PO BID Qty: 10 RF: 0 Continue BOTOX 100 UNIT VIAL 50 unit IJ [id number] RF: 0 C PAP RF: 0 sitagliptin [Januvia] 100 MG tablet 100 mg PO DAILY Qty: 90 RF: 4 blood sugar diagnostic [OneTouch Ultra Test] 1 EACH strip 1 ea Miscellaneous QID Qty: 100 RF: 11 albuterol sulfate [ProAir HFA] 8.5 GM HFA aerosol inhaler 2 puff Inhalation QID PRNQty: 3 RF: 4 lancets [FreeStyle Lancets] 1 EACH misc 1 ea Intradermal QID Qty: 100 RF: 11 empagliflozin [Jardiance] 25 MG tablet 25 mg PO DAILY Qty: 30 RF: 11 diltiazem HCl [Cardizem CD] 240 MG capsule,extended release 24hr 1 cap PO DAILY Qty: 90 RF: 4 metformin [Glucophage] 1,000 MG tablet 1 tab PO BID Qty: 180 RF: 4 glyburide 5 MG tablet 5 mg PO BID Qty: 360 RF: 2 candesartan 16 mg tablet 16 mg PO DAILY Qty: 90 RF: 3 meclizine [Antivert] 12.5 MG tablet 12.5 mg PO TID PRN (Reason: Vertigo) Qty: 12 RF: 0 naproxen 375 MG tablet,delayed release (DR/EC) 1 tab PO TID PRNQty: 270 RF: 4 Changed aspirin [Ecotrin Low Strength] 81 MG tablet,delayed release (DR/EC) 1 tab PO BID Qty: 80 RF: 0 Discontinued promethazine 12.5 MG suppository 1 supp.rect RC Q6H PRN RF: 0 Discharge Instructions Additional Instructions: Dr. Hopson?s Total Knee Discharge Instructions Activity: The most important activity is to walk. You should try to take short walks a few times a day. It is important that when resting you work on keeping the knee straight. Avoid putting a pillow behind the knee as this will encourage flexion. Work on range of motion exercises as provided by Physical Therapy. - Start outpatient physical therapy within 2 weeks. - You should wear the YAN hose on both legs for 2 weeks. Dressing: Keep the surgical dressing in place for at least one week. After the first week it may be removed and replace with light gauze and tape or nothing. It may get wet after 3 days but avoid soaking the dressing. If it gets wet, just lightly pat dry. Medications: - You should take Tylenol and anti-inflammatory (Naproxen) as your primary pain control medications - You have been prescribed a stronger pain medication (Oxycodone or Dilaudid) for breakthrough pain, take as needed as prescribed. - You will be taking Aspirin 81mg twice a day for DVT prevention unless instructed otherwise. - You should take Colace or Miralax (or both) until you begin having regular bowel movements. It takes most people 3-4 days to have a bowel movement. - You have been prescribed Pantoprazole to assist with stomach acid reduction. Stand Alone Forms: Nursing Discharge Form, DSU Valiente Care Instructiions Referrals: UROLOGY,[facility] [OTHER] - 09/29/18 8:00 am (They will remove your catheter at 8am. You will see Vero at 3pm for a follow up appointment.) Torsten Hopson MD [ [facility] STAFF PHYSICIAN] - 10/07/18 1:00 pm Activity:: Activity as Tolerated Equipment/Supplies:: Walker Diet:: As Tolerated Discharge Orders Discharge Orders: Discharge Order (Routine); Ordered 09/25/18 Ordered By: oTrsten Hopson DS: Data Vitals/I&O Vitals and I&O: Vital Signs Temperature 36.5 C 09/23/18 07:25 Temperature Source Tympanic 09/23/18 07:25 Pulse 83 09/23/18 07:25 Pulse Rhythm Regular 09/22/18 23:12 Respiratory Rate 16 09/23/18 07:25 Respiratory Effort Non-Labored 09/22/18 23:12 Respiratory Depth Shallow 09/22/18 23:12 Respiratory Pattern Normal 09/22/18 23:12 Blood Pressure 149/81 H 09/23/18 07:25 Pulse Oximetry 96 09/23/18 07:25 Respiratory End-tidal CO2 32 09/22/18 13:37 Oxygen Delivery Method Room Air 09/23/18 07:25 Oxygen Flow Rate 0 09/23/18 07:25 Pain Level 7 09/23/18 08:03 Comment 09/22/18 09:15 Intake & Output 09/22/18 09/22/18 09/23/18 11:59 23:59 11:59 Intake Total 110 / 110 3535.333 / 3535.333 1274.667 / 1274.667 Output Total 525 / 525 600 / 600 Balance 110 / 110 3010.333 / 3010.333 674.667 / 674.667 Weight 133.4 kg Intake: IV 110 / 110 1555.333 / 1555.333 774.667 / 774.667 Oral 1979 / 1979 500 / 500 Output: Urine 425 / 425 600 / 600 Estimated Blood Loss 100 / 100 Other: Urine Color Yellow Dark Hilda Dark Hilda Urine Appearance Clear Clear Clear Comment MCPHERSON COLORED URINE IN TUBING Emesis Description None
--- NOTE | 2018-09-23 08:20 | DSE_ITS ---
Date of service: 09/23/18 Time of Service: 08:18 DS: Diagnosis Discharge Diagnosis (1) Primary osteoarthritis of right knee: Status: Acute (2) Urinary retention: Status: Acute Discharge Plan Disposition Patient Disposition: HOME Condition: Good Discharge Details Reason For Visit: RIGHT KNEE DJD Admit Date/Time: 09/22/18 08:34 Admit Provider: Torsten Hopson Attending Provider: Torsten Hopson Primary Care Provider: Joan Orosco Hospital Course Hospital Course: Patient was admitted to the medical/surgical floor following the procedure. It was tolerated well without any notable medical, surgical, or anesthetic complications. Mobilization began postoperatively. The valiente catheter was removed on POD#1. However, he was unable to void. He was straight-cathed x 2 with > 1000cc retention. After inability to void, a valiente catheter was placed. It drained clear appearing urine and his discomfort was much improved. Vitals remained stable. Physical therapy worked with the patient and was cleared for discharge home although he struggeld wtih quad strength in the acute recovery phase. No acute medical issues. Home Meds and New Rx's Prescriptions: New pantoprazole 40 mg tablet,delayed release (DR/EC) 40 mg PO DAILY Qty: 30 RF: 0 acetaminophen 500 mg capsule 1,000 mg PO Q8H PRN (Reason: pain) Qty: 90 RF: 0 oxycodone 5 mg tablet 5 - 10 mg PO Q4H Qty: 20 RF: 0 polyethylene glycol 3350 17 gram Powder In Packet 34 g PO BID Qty: 24 RF: 1 docusate sodium [Colace] 100 mg Capsule 100 mg PO BID Qty: 10 RF: 0 Continue BOTOX 100 UNIT VIAL 50 unit IJ [id number] RF: 0 C PAP RF: 0 sitagliptin [Januvia] 100 MG tablet 100 mg PO DAILY Qty: 90 RF: 4 blood sugar diagnostic [OneTouch Ultra Test] 1 EACH strip 1 ea Miscellaneous QID Qty: 100 RF: 11 albuterol sulfate [ProAir HFA] 8.5 GM HFA aerosol inhaler 2 puff Inhalation QID PRNQty: 3 RF: 4 lancets [FreeStyle Lancets] 1 EACH misc 1 ea Intradermal QID Qty: 100 RF: 11 empagliflozin [Jardiance] 25 MG tablet 25 mg PO DAILY Qty: 30 RF: 11 diltiazem HCl [Cardizem CD] 240 MG capsule,extended release 24hr 1 cap PO DAILY Qty: 90 RF: 4 metformin [Glucophage] 1,000 MG tablet 1 tab PO BID Qty: 180 RF: 4 glyburide 5 MG tablet 5 mg PO BID Qty: 360 RF: 2 candesartan 16 mg tablet 16 mg PO DAILY Qty: 90 RF: 3 meclizine [Antivert] 12.5 MG tablet 12.5 mg PO TID PRN (Reason: Vertigo) Qty: 12 RF: 0 naproxen 375 MG tablet,delayed release (DR/EC) 1 tab PO TID PRNQty: 270 RF: 4 Changed aspirin [Ecotrin Low Strength] 81 MG tablet,delayed release (DR/EC) 1 tab PO BID Qty: 80 RF: 0 Discontinued promethazine 12.5 MG suppository 1 supp.rect RC Q6H PRN RF: 0 Discharge Instructions Additional Instructions: Dr. Hopson?s Total Knee Discharge Instructions Activity: The most important activity is to walk. You should try to take short walks a few times a day. It is important that when resting you work on keeping the knee straight. Avoid putting a pillow behind the knee as this will encourage flexion. Work on range of motion exercises as provided by Physical Therapy. - Start outpatient physical therapy within 2 weeks. - You should wear the YAN hose on both legs for 2 weeks. Dressing: Keep the surgical dressing in place for at least one week. After the first week it may be removed and replace with light gauze and tape or nothing. It may get wet after 3 days but avoid soaking the dressing. If it gets wet, just lightly pat dry. Medications: - You should take Tylenol and anti-inflammatory (Naproxen) as your primary pain control medications - You have been prescribed a stronger pain medication (Oxycodone or Dilaudid) for breakthrough pain, take as needed as prescribed. - You will be taking Aspirin 81mg twice a day for DVT prevention unless instructed otherwise. - You should take Colace or Miralax (or both) until you begin having regular bowel movements. It takes most people 3-4 days to have a bowel movement. - You have been prescribed Pantoprazole to assist with stomach acid reduction. Stand Alone Forms: Nursing Discharge Form, [facility]SU [facility] Care Instructiions Referrals: UROLOGY,[facility] [OTHER] - 09/29/18 8:00 am (They will remove your catheter at 8am. You will see Vero at 3pm for a follow up appointment.) Torsten Hopson MD [ [facility] STAFF PHYSICIAN] - 10/07/18 1:00 pm Activity:: Activity as Tolerated Equipment/Supplies:: Walker Diet:: As Tolerated Discharge Orders Discharge Orders: Discharge Order (Routine); Ordered 09/25/18 Ordered By: Torsten Hopson DS: Data Vitals/I&O Vitals and I&O: Vital Signs Temperature 36.5 C 09/23/18 07:25 Temperature Source Tympanic 09/23/18 07:25 Pulse 83 09/23/18 07:25 Pulse Rhythm Regular 09/22/18 23:12 Respiratory Rate 16 09/23/18 07:25 Respiratory Effort Non-Labored 09/22/18 23:12 Respiratory Depth Shallow 09/22/18 23:12 Respiratory Pattern Normal 09/22/18 23:12 Blood Pressure 149/81 H 09/23/18 07:25 Pulse Oximetry 96 09/23/18 07:25 Respiratory End-tidal CO2 32 09/22/18 13:37 Oxygen Delivery Method Room Air 09/23/18 07:25 Oxygen Flow Rate 0 09/23/18 07:25 Pain Level 7 09/23/18 08:03 Comment 09/22/18 09:15 Intake & Output 09/22/18 09/22/18 09/23/18 11:59 23:59 11:59 Intake Total 110 / 110 3535.333 / 3535.333 1274.667 / 1274.667 Output Total 525 / 525 600 / 600 Balance 110 / 110 3010.333 / 3010.333 674.667 / 674.667 Weight 133.4 kg Intake: IV 110 / 110 1555.333 / 1555.333 774.667 / 774.667 Oral 1979 / 1979 500 / 500 Output: Urine 425 / 425 600 / 600 Estimated Blood Loss 100 / 100 Other: Urine Color Yellow Dark Hilda Dark Hilda Urine Appearance Clear Clear Clear Comment MCPHERSON COLORED URINE IN TUBING Emesis Description None
--- NOTE | 2018-09-23 09:20 | PDOC.CMIN ---
- If Service Date Differs Date of service: 09/23/18 Time of Service: 09:20 Care Management Initial Assess REASON FOR HOSPITALIZATION:: Right Knee DJD. PAST MEDICAL HISTORY/PAST SURGICAL HISTORY:: Asthma, CVA, diabetes, HTN, left eye trauma, restless legs, sleep apnea, throchanteric bursitis. Surgical hx: ankle surgery, tonsillectomy. PREVIOUS FUNCTIONAL STATUS/SOCIAL/FAMILY SUPPORTS:: Jose will be having a R knee surgery with Dr. Hopson on 09/22/2018. 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 He is independent with his ADLs and transportation. 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 He is independent with his ADLs and transportation. Jose and his brother, Pantera are assisting with the care of their elderly mother additionally. Jose has access to a walker and raised toilet seat so will not be needing equipment upon discharge. CURRENT FUNCTIONAL STATUS:: Jose is lying in bed when visits this morning. He is engaged in conversation, makes good eye contact, and is talkative. Jose reports that his pain has been manageable with medications however he has been vomiting and nauseous of late, likely d/t said pain meds. Jose reports that he has just received IV antiemetics and is dizzy. PT will need to work with him prior to discharge, but Jose would like to wait until he is feeling a little better. Jose's valiente was removed earlier this morning and he is due to void. Should Jose be able to work successfully with PT and void, he will likely be able to discharge later today. ADVANCE DIRECTIVES:: None on file at [facility]. Patient provided with paperwork and education. Has patient been provided with information about the portal?: Yes Did the patient sign up for the portal?: No CODE STATUS:: Full Code INSURANCE COVERAGE / FINANCIAL ISSUES:: Medicaid. CURRENT HOME/COMMUNITY SERVICES/EQUIPMENT:: No current home or community services. Jose has a walker and raised toilet seat at home. PRIMARY CARE PHYSICIAN:: Joan Orosco MD. POTENTIAL DISCHARGE NEEDS:: Follow up appointment with surgical services. PATIENT/FAMILY EDUCATION NEEDS:: Discharge education, any limitations, and follow up plan of care. Ask Me Three discussion. ANTICIPATED BARRIERS TO DISCHARGE:: No anticipated barriers to discharge. TRANSPORTATION:: Jose will transport via private vehicle with his friend, Milena. PLAN:: Jose will discharge home when medically ready per MD. Anticipate patient will discharge with no services and follow up with surgical services MD. CM will continue to offer support to patient and care team regarding discharge planning and disposition.
[2018-09-23] MEDS: Ondansetron 4 MG/2 ML VIAL IVP (09:22)
--- NOTE | 2018-09-23 11:13 | PT.INNT ---
Date of service: 09/23/18 Time of Service: 11:13 PT Notes PHYSICAL THERAPY NOTE 09/23/18 2 attempts to see patient for therapy session, pt vomiting, unable to participate in sessions this morning. Will attempt in pm Katheryn Gibbs PT
--- NOTE | 2018-09-23 11:46 | PHARADMIT ---
Addendum entered by Rosanna Urbano 09/24/18 14:15: may be staying one more night. failed voiding trial working with PT bowel meds increased tamsulosin started Original Note: Admission Pharmacy Clinical Review RIGHT NAVID DEE Code Status Full Code Current Weight Wgt-133.4 kg Renally Cleared and Narrow Therapeutic Index Meds CrCl~ 91 mL/min Meds-OK QTc Value / Action Taken QTc-450 (on 06/28/2018) BP Control, Fever BP-158/77 Tmax-37.2C Electrolytes reviewed na DVT Prophylaxis ASA Opiate Usage / Scheduled Bowel Regimen Ordered Yes Yes Plt/SCr for Heparin / Enoxaparin na INR for Warfarin na H/H stable, WBC/Bands na Antibiotic appropriateness Ancef-postOp Cultures and Sensitivities na Surgical ABX d/c within 24 hr Yes DM control / Insulin Dosing FSBS-130 Glyburide, Metformin, Jardiance, Januviaa, Aspart Heart Failure (Check EF%) (SANDY's, B-Block, Diuretics) Diltiazem-CD, IV to PO Switch NO Home Meds Reviewed Yes Home Meds Not Ordered Lisinopril Comments PatOwn Candesartan, & Jardiance
--- NOTE | 2018-09-23 12:55 | W.PM.PROGNOT ---
Date of Service Date of service: 09/23/18 Time of Service: 12:56 Assessment and Plan (1) Primary osteoarthritis of right knee: Current visit: Yes Status: Acute His pain seems to be controlled with the oral pain medications. The nausea does not seem to follow after he has a pain medication. His vital signs are stable. He has been able to ambulate from the bed back to a chair. He will work physical therapy. We will start aspirin for DVT prophylaxis. Due to the nausea, he likely will not be able to discharge until tomorrow. (2) Nausea and vomiting after administration of anesthetic agent: Current visit: Yes Status: Acute Jose does have a history of vertigo. He did undergo the procedure yesterday. I believe that the nausea vomiting is a combination of both surgery and his underlying vertigo. I do think we should continue to treat this conservatively but I would add on meclizine or scopolamine. I discussed both with him. He has used meclizine in the past and we will likely try that this afternoon. He should stay well-hydrated. Hopefully this will improve on its own by the end of the day today. Subjective Interval history since last seen: Jose has had some pain following his knee replacement. Unfortunately, he has had an episode of nausea and vomiting this morning. He also had some dizziness which he has had in the past in the form of vertigo. Sitting at bed currently, he does not have any chest pain, shortness of breath, fever, chills. He is able to eat some lunch. Exam Narrative Exam Narrative: Evaluation the right knee shows a clean, dry, and intact dressing. He does have about 10 degrees of flexion contracture. He is able straight leg raise against resistance. Sensation intact light touch over the deep and superficial peroneal nerve and tibial nerves. The foot is warm and well perfused. Objective Objective Clinical Data: Vital Signs Temperature 37.1 C 09/23/18 11:30 Temperature Source Tympanic 09/23/18 11:30 Pulse 85 09/23/18 11:30 Pulse Rhythm Regular 09/22/18 23:12 Respiratory Rate 20 09/23/18 11:30 Respiratory Effort Non-Labored 09/22/18 23:12 Respiratory Depth Shallow 09/22/18 23:12 Respiratory Pattern Normal 09/22/18 23:12 Blood Pressure 158/77 H 09/23/18 11:30 Pulse Oximetry 94 L 09/23/18 11:30 Respiratory End-tidal CO2 32 09/22/18 13:37 Oxygen Delivery Method Room Air 09/23/18 11:30 Oxygen Flow Rate 0 09/23/18 11:30 Pain Level 8 09/23/18 12:15 Comment 09/22/18 09:15 Intake & Output 09/22/18 09/23/18 09/23/18 23:59 11:59 23:59 Intake Total 3535.333 / 3535.333 1854.667 / 1854.667 Output Total 525 / 525 1100 / 1100 Balance 3010.333 / 3010.333 754.667 / 754.667 Intake: IV 1555.333 / 1555.333 874.667 / 874.667 Oral 1979 / 1979 980 / 980 Output: Urine 425 / 425 700 / 700 Emesis 400 / 400 Estimated Blood Loss 100 / 100 Other: Urine Color Dark Hilda Dark Hilda Urine Appearance Clear Clear Comment MCPHERSON COLORED URINE IN TUBING Emesis Description None Undigested Food
[2018-09-23] MEDS: Meclizine 12.5 MG TAB PO (13:58)
--- NOTE | 2018-09-23 14:07 | PT.INTREAT ---
Date of service: 09/23/18 Time of Service: 14:07 PT Notes Inpatient Physical Therapy Treatment Note Date: 09/23/18 PRECAUTIONS: WBAT on R SUBJECTIVE: Jose states that he is feeling much better than he was this morning. He is anxious to get working with PT. OBJECTIVE: PAIN: Patient complained of pain in R knee with weight bearing and ther ex BED MOBILITY/TRANSFERS Supine-sit: S with HOB flat Sit-supine: S with HOB flat Sit-stand: CGA Stand-sit: CGA Bed-Chair: [facility] Chair-bed: [facility] GAIT Assistive Device: FWW Weight bearing: WBAT on R Assist: CGA Distance: 50' x2 Deviation: Knee buckling THEREX: Patient completed a lower extremity strengthening program, as per flow sheet. Patient ends with Cryocuff to R knee. ASSESSMENT: Patient tolerated session with complaints of R knee pain with weight bearing in ther ex. Patient demonstrates several instances of right knee buckling during gait training, requiring CGA?Min A for recovery. Patient would benefit from continued gait and transfer training as well as strengthening for improved mobility. PLAN: Continue with PTs POC TREATMENT CODE/TIME: 30 minutes; TA/TP
--- NOTE | 2018-09-23 14:13 | PTTR_ITS ---
Date of service: 09/23/18 Time of Service: 14:07 PT Notes Inpatient Physical Therapy Treatment Note Date: 09/23/18 PRECAUTIONS: WBAT on R SUBJECTIVE: Jose states that he is feeling much better than he was this morning. He is anxious to get working with PT. OBJECTIVE: PAIN: Patient complained of pain in R knee with weight bearing and ther ex BED MOBILITY/TRANSFERS Supine-sit: S with HOB flat Sit-supine: S with HOB flat Sit-stand: CGA Stand-sit: CGA Bed-Chair: [facility] Chair-bed: [facility] GAIT Assistive Device: FWW Weight bearing: WBAT on R Assist: CGA Distance: 50' x2 Deviation: Knee buckling THEREX: Patient completed a lower extremity strengthening program, as per flow sheet. Patient ends with Cryocuff to R knee. ASSESSMENT: Patient tolerated session with complaints of R knee pain with weight bearing in ther ex. Patient demonstrates several instances of right knee buckling during gait training, requiring CGA?Min A for recovery. Patient would benefit from continued gait and transfer training as well as strengthening for improved mobility. PLAN: Continue with PTs POC TREATMENT CODE/TIME: 30 minutes; TA/TP
--- NOTE | 2018-09-23 15:23 | NUR.NOTE ---
Nursing Note: 1520: when in and out st cath for pt, it is noted that pt has several small blood clots when catheter was advanced in cath bag. pt reports he feels much better after being cath'd.
[2018-09-23] MEDS: Insulin Aspart 300 UNITS/3 ML PEN SC (17:39)
[2018-09-23] MEDS: Gabapentin 300 MG CAP PO (22:42)
[2018-09-24 03:45] VITALS: BP 144/76; PULSE 82; RESP 20; TEMP 36.6; O2SAT 94
[2018-09-24] MEDS: oxyCODONE 5 MG TAB PO ×4 (04:36→23:52)
[2018-09-24 07:15] VITALS: BP 151/73; PULSE 85; RESP 18; TEMP 36.1; O2SAT 97
[2018-09-24] MEDS: Celecoxib 200 MG CAP PO ×2 (07:43→20:50)
[2018-09-24] MEDS: glyBURIDE 5 MG TAB PO ×2 (07:43→16:55)
[2018-09-24] MEDS: metFORMIN 500 MG TAB 1000 MG PO ×2 (07:43→16:55)
[2018-09-24] MEDS: Pantoprazole 40 MG TABCR PO (07:44)
[2018-09-24] MEDS: Acetaminophen 500 MG TAB 1000 MG PO ×3 (07:44→20:50)
[2018-09-24] MEDS: Aspirin E.C. 81 MG TABEC PO ×2 (07:44→20:50)
[2018-09-24] MEDS: Lidocaine 2% Jelly 11 ML SYR UR (09:57)
--- NOTE | 2018-09-24 10:57 | PT.INTREAT ---
Date of service: 09/24/18 Time of Service: 10:57 PT Notes Inpatient Physical Therapy Treatment Note Date: 09/24/18 PRECAUTIONS: WBAT on L SUBJECTIVE: Jose states that he is having significant pain in his knee this morning. He believes he would benefit from staying another night and working with PT. OBJECTIVE: PAIN: Patient rates his L knee pain as 8/10 for nsg, at rest BED MOBILITY/TRANSFERS Supine-sit: I Sit-supine: I Sit-stand: SBA Stand-sit: SBA GAIT Assistive Device: FWW Weight bearing: WBAT on R Assist: CGA-SBA Distance: 100' x2 THEREX: Patient completed a seated LE strengthening program, as per flow sheet. ASSESSMENT: Patient continues to be limited by L knee pain. He would benefit from continued gait and transfer training as well as strengthening, to improve mobility and ability to perform daily functional tasks. PLAN: Continue with PT's POC TREATMENT CODE/TIME: 25 minutes; TA/ TP
[2018-09-24 11:09] VITALS: BP 151/85; PULSE 82; RESP 19; TEMP 36.4; O2SAT 96
[2018-09-24] MEDS: Insulin Aspart 300 UNITS/3 ML PEN SC (12:09)
--- NOTE | 2018-09-24 12:44 | PDOC.CMPRO ---
- If Service Date Differs Date of service: 09/24/18 Time of Service: 12:44 Care Management Progress Note S/O: Jose is sitting in his chair with his daughter, Suzanne, at bedside when CM visits this afternoon. Jose reports that he is uncomfortable and disappointed that the MD and PT are suggesting he stay an additional night prior to discharging home. Jose failed his voiding trial following his valiente being d/c'ed yesterday and had the valiente re-inserted. PT recommends that Jose work with them several more times prior to returning home. Jose agrees with this plan and is waiting to see the MD later today. 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 A: 63 year old male s/p Day 2 Right Knee DJD. P: Jose will discharge home when medically ready per MD. Anticipate patient will discharge with no services and possible outpatient PT. Jose will transport via private vehicle with his friend. CM will continue to offer support to patient, family, and care team regarding discharge planning and disposition.
[2018-09-24] MEDS: Tamsulosin 0.4 MG CAPCR PO (13:49)
--- NOTE | 2018-09-24 13:51 | PTTR_ITS ---
Date of service: 09/24/18 Time of Service: 13:48 PT Notes 09/24/18 SUBJECTIVE: Pt stating he is a little tired but he is agreeable to PT treatment. He reports that his knee has been giving out of him with walking and he does't trust it fully yet. OBJECTIVE: Pt supine in bed. Agreeble to PT treatment. BED MOBILITY/TRANSFERS: Supine to sit: I Sit to supine: Min A LE's Sit to Stand: SBA Stand to Stand: SBA GAIT: Device: FWW Weight bearing: WBAT R Assist: CGA Distance: 75'x2 Therex: Pt performs supine LE strengthening and ROM activities as noted on his flow sheet. Pt requires AA SLR today due to fatigue level. See flow sheet for specifics. ASSESSMENT: Pt quite fatigued this afternoon and we decrease ambulation distance. He continues to work on heel toe gait mechanics while relying on his UE's to walker to avoid loss of balance when knee paty. Encouraged pt to continue working on SLR throughout the afternoon as well as heel slides for ROM. PLAN: Continue current POC progressing toward's established goals. Direct time: 20 minutes Total time: 20 minutes TAx1 Marlyn Chilel, SUPERVISOR [employer]INTER
--- NOTE | 2018-09-24 15:40 | PGE_ITS ---
Date of Service Date of service: 09/24/18 Time of Service: 15:36 Assessment and Plan (1) Nausea and vomiting after administration of anesthetic agent: Current visit: Yes Status: Resolved Resolved. (2) Primary osteoarthritis of right knee: Current visit: Yes Status: Acute Status post knee replacement. He is doing well. His pain is controlled. Unfortunately, the knee is buckling somewhat anything which I think is due to his long-standing flexion contracture with the lack of current extension. He does have weakness with a quad mechanism but there is no indication there is any concern about the integrity of the extensor mechanism repair. (3) Urinary retention: Current visit: Yes Status: Acute Unfortunately, he has been unable to void on his own. I did discuss his case with Dr. Pinon, urologist, who agrees with the placement of Valiente catheter. Will be leave the catheter in place for at least 3 days. He will be seen in the urology clinic for a voiding trial. We will start Flomax today. I want to aggressively treat his bowels as well to encourage a bowel movement so this does not interfere with normal voiding patterns. We will continue to watch the catheter today and work with physical therapy with likely discharge home tomorrow. Subjective Interval history since last seen: Jose unfortunately had a rough night last night. He has significant amount of pain in his abdomen he was straight cathed twice, each time for over 1000 cc. He has been unable to void. Given that he has been straight cathed now 3 times, I recommend the Valiente be placed. He now has a Valiente catheter in place and feels much better. He does have some pain in the knee but this is responding well to pain medications. He has noted some buckling with the knee when he tries to ambulate. He finds it difficult to initiate knee extension. He denies any numbness or tingling. He has had no fever or chills. Exam Narrative Exam Narrative: Valiente catheter is in place draining clear, yellow urine. Evaluation of the right knee shows some swelling. There is some mild ecchymosis. The dressing is clean dry and intact. The knee is stable to varus and valgus stress. Passively I can move the knee from 10-80 degrees. Actively , he does have significant limitations. There is an extensor lag of about 40 degrees. He is able to elevate the leg though. Sensation intact light touch over the deep and superficial peroneal nerves and tibial nerve. Objective Objective Clinical Data: Vital Signs Temperature 36.4 C L 09/24/18 11:09 Temperature Source Tympanic 09/24/18 11:09 Pulse 82 09/24/18 11:09 Pulse Rhythm Regular 09/24/18 08:09 Respiratory Rate 19 09/24/18 11:09 Respiratory Effort Non-Labored 09/24/18 08:09 Respiratory Depth Normal 09/24/18 08:09 Respiratory Pattern Normal 09/24/18 08:09 Blood Pressure 151/85 H 09/24/18 11:09 Pulse Oximetry 96 09/24/18 11:09 Respiratory End-tidal CO2 32 09/22/18 13:37 Oxygen Delivery Method Room Air 09/24/18 11:09 Oxygen Flow Rate 0 09/24/18 11:09 Pain Level 8 09/24/18 10:00 Comment 09/24/18 03:45 Intake & Output 09/23/18 09/24/18 09/24/18 23:59 11:59 23:59 Intake Total 840 / 840 490 / 490 480 / 480 Output Total 3125 / 3125 1800 / 1800 Balance -2285 / -2285 -1310 / -1310 480 / 480 Intake: Oral 840 / 840 490 / 490 480 / 480 Output: Urine 3125 / 3125 1800 / 1800 Other: Urine Color Yellow Yellow Urine Appearance Clear Clear Urine Odor None Comment straight catheter used to drain bladder per MD request, pt bladder scanned at 0900 time frame. pt had over 500 cc in bladder. valiente placed at this time. no insertion difficulty noted. small amount of sediment when urine first noted to drain in tubing. leg strap attached to pt's left leg. 600 cc removed from valiente bag after approximately 10 minutes as urine continued to drain. Emesis Description None
[2018-09-24 15:50] VITALS: BP 166/69; PULSE 87; RESP 20; TEMP 37.4; O2SAT 96
[2018-09-24] MEDS: Normal Saline Flush 10 ML SYR IV (19:04)
[2018-09-24] MEDS: Polyethylene Glycol 3350 17 GM PACKET 34 GM PO (20:57)
[2018-09-24 21:10] VITALS: BP 136/67; PULSE 99; RESP 20; TEMP 37.5; O2SAT 95
[2018-09-24] MEDS: Gabapentin 300 MG CAP PO (21:40)
[2018-09-24 23:37] VITALS: BP 114/67; PULSE 97; RESP 20; TEMP 36.6; O2SAT 96
[2018-09-25 03:30] VITALS: BP 181/64; PULSE 84; RESP 20; TEMP 36.7; O2SAT 92
[2018-09-25] MEDS: oxyCODONE 5 MG TAB PO ×2 (03:39→08:47)
[2018-09-25 06:00] VITALS: BP 125/76; PULSE 89
[2018-09-25 07:45] VITALS: BP 148/77; PULSE 85; RESP 20; TEMP 36.7; O2SAT 96
[2018-09-25] MEDS: Aspirin E.C. 81 MG TABEC PO (08:47)
[2018-09-25] MEDS: glyBURIDE 5 MG TAB PO (08:47)
[2018-09-25] MEDS: Tamsulosin 0.4 MG CAPCR PO (08:47)
[2018-09-25] MEDS: Celecoxib 200 MG CAP PO (08:47)
[2018-09-25] MEDS: metFORMIN 500 MG TAB 1000 MG PO (08:48)
[2018-09-25] MEDS: Acetaminophen 500 MG TAB 1000 MG PO (08:48)
[2018-09-25] MEDS: Docusate Sodium 100 MG CAP PO (08:48)
[2018-09-25] MEDS: Pantoprazole 40 MG TABCR PO (08:48)
--- NOTE | 2018-09-25 09:16 | PT.INTREAT ---
Date of service: 09/25/18 Time of Service: 09:18 PT Notes Inpatient Physical Therapy Treatment Note Date: 09/25/18 PRECAUTIONS: WBAT on R SUBJECTIVE: Jose states he had a rough night last night, did not get much sleep. Jose states that he feels he is ready to return home today. OBJECTIVE: PAIN: Patient complained of pain in R knee with transfers and ther ex BED MOBILITY/TRANSFERS Sit-stand: SBA Stand-sit: SBA GAIT Assistive Device: FWW Weight bearing: WBAT on R Assist: SBA Distance: 75' x2 THEREX: Patient completed a lower extremity strengthening program, as per flow sheet. Ther ex was performed in seated position. ASSESSMENT: Patient tolerated session with complaints of right knee pain with transfers in ther ex. Patient was able to tolerate a slight progression in his ther ex program today. Patient would benefit from continued gait and transfer training as well as strengthening for improved mobility and ability to perform daily functional tasks. PLAN: Continue with PTs POC TREATMENT CODE/TIME: 25 minutes; TA/TP
--- NOTE | 2018-09-25 10:11 | PT.INDS ---
Date of service: 09/25/18 Time of Service: 10:11 PT Notes Inpatient Physical Therapy Discharge Summary Date: 09/25/18 Dates of Service: 09/22/18-09/25/18 SUBJECTIVE: NT OBJECTIVE: 09/22/18-09/25/18 Bed Mobility/Transfers: Supine-sit: independent Sit-supine: independent-Karin for LE's Sit-stand: SBA with FWW Stand-sit: SBA Bed-chair: CGA with FWW Chair-bed: CGA with FWW Gait: SBA with FWW [id number] Balance: Static Sitting:normal Dynamic Sitting: normal Static Standing: fair Dynamic Standing: fair Assessment: Pt is a 63yr old male s/p right total knee arthroplasty by Dr. Hopson 09/22/18 in setting of osteoarthritis right knee, obesity, trochanteric bursitis right hip, traumatic eye injury legally blind left eye, diabetes mellitus. Patient progressed from Karin bed transfers to independent, from CGA gait with FWW to SBA, from minx1 with FWW standing at bedside to SBA gait with FWW [id number]. Pt is being discharged to home today, recommend continued PT at discharge. Goals: Goals X1 week 1. Supine-Sit : independent 2. Sit-Supine : independent 3. Sit-Stand : supervision with FWW 4. Stand-Sit : supervision with FWW 5. Bed-Chair : SBA with FWW 6. Chair-Bed : SBA with FWW 7. Gait : SBA with FWW 75ft WBAT R LE Pt met goals # 1, 5, 6, 7 DISCHARGE RECOMMENDATIONS: Home, recommend follow up PT G Codes in the area mobility of walking and moving around; projected status GP [id number]. Discharge status (if discharging) GP [id number] CL Katheryn Gibbs PT
--- NOTE | 2018-09-25 10:17 | INDS_ITS ---
Date of service: 09/25/18 Time of Service: 10:11 PT Notes Inpatient Physical Therapy Discharge Summary Date: 09/25/18 Dates of Service: 09/22/18-09/25/18 SUBJECTIVE: NT OBJECTIVE: 09/22/18-09/25/18 Bed Mobility/Transfers: Supine-sit: independent Sit-supine: independent-Karin for LE's Sit-stand: SBA with FWW Stand-sit: SBA Bed-chair: CGA with FWW Chair-bed: CGA with FWW Gait: SBA with FWW [id number] Balance: Static Sitting:normal Dynamic Sitting: normal Static Standing: fair Dynamic Standing: fair Assessment: Pt is a 63yr old male s/p right total knee arthroplasty by Dr. Hopson 09/22/18 in setting of osteoarthritis right knee, obesity, trochanteric bursitis right hip, traumatic eye injury legally blind left eye, diabetes mellitus. Patient progressed from Karin bed transfers to independent, from CGA gait with FWW to SBA, from minx1 with FWW standing at bedside to SBA gait with FWW [id number]. Pt is being discharged to home today, recommend continued PT at discharge. Goals: Goals X1 week 1. Supine-Sit : independent 2. Sit-Supine : independent 3. Sit-Stand : supervision with FWW 4. Stand-Sit : supervision with FWW 5. Bed-Chair : SBA with FWW 6. Chair-Bed : SBA with FWW 7. Gait : SBA with FWW 75ft WBAT R LE Pt met goals # 1, 5, 6, 7 DISCHARGE RECOMMENDATIONS: Home, recommend follow up PT G Codes in the area mobility of walking and moving around; projected status GP [id number]. Discharge status (if discharging) GP [id number] CL Katheryn Gibbs PT
--- NOTE | 2018-09-25 12:38 | PDOC.CMDIS ---
- If Service Date Differs Date of service: 09/25/18 Time of Service: 12:38 LACE Index Scoring Tool - Questions: Length of Stay (in days): 4 - 6 Acuity (Admit via E.D.?): No Comorbidities: Diabetes w/o Complication, Connective Tissue Disease E.D. Visits: 1 - Answers: Total Score: 10 Risk of Readmission: High Risk Care Management Discharge Reason for Hospitalization: Right Knee DJD. Discharge Plan: Jose will discharge home when medically ready per MD. Jose will discharge home with a valiente and follow up with urology and surgical services. Patient will discharge with no services, as he is familiar with valiente maintenance and has an appointment scheduled with urology in one week. Jose will transport via private vehicle with his friend, Milena. Patient/Family Education Needs: Discharge education, any limitations, and follow up plan of care. Ask Me Three discussion.
[2018-09-30] MEDS: Normal Saline Flush 10 ML SYR IV (15:09)
== END 2018-09-25 10:17 | disposition home or self-care (01) | DRG 470 ==
LOC: PDS 08:36 → MS 13:45
PROVIDERS: Admitting Provider Student in an Organized Health Care Education/Training Program; PCP Internal Medicine; Visit Provider Student in an Organized Health Care Education/Training Program
PROC: 0SRC0J9 Replacement of Right Knee Joint with Synthetic Substitute, Cemented, Open Approach (ICD-10-PCS; CPT 27447; principal; 2018-09-22 10:45)
DX: Z68.41 Body mass index [BMI] 40.0-44.9, adult (principal); M17.11 Unilateral primary osteoarthritis, right knee; T88.59XA Other complications of anesthesia, initial encounter; R11.2 Nausea with vomiting, unspecified; Z96.651 Presence of right artificial knee joint; N99.89 Other postprocedural complications and disorders of genitourinary system; R33.8 Other retention of urine; G47.33 Obstructive sleep apnea (adult) (pediatric); H81.10 Benign paroxysmal vertigo, unspecified ear; E11.9 Type 2 diabetes mellitus without complications; G25.81 Restless legs syndrome; I10 Essential (primary) hypertension; E66.01 Morbid (severe) obesity due to excess calories
CPT/HCPCS: 27447; 76942; 97110; 97163; 97530; NC; J0690; J1885; J2250; J2405; J3010; J3490

== ENCOUNTER 2018-10-07 13:31 | Outpatient (CLI) | payer MEDICAID, SELFPAY ==
--- NOTE | 2018-10-07 13:11 | DI.RAD_ITS ---
SYMPTOM/DIAGNOSIS: RT TKA BILATERAL LOWER EXTREMITIES: AP views of both lower extremities were obtained for leg length determination. There is a total knee joint replacement in position on the right. There are marked degenerative changes involving the medial tibiofemoral joint on the left. There appear to be mild degenerative changes of both hips. LEFT KNEE: Lateral view only was obtained and shows total knee joint replacement in position. The components appear well seated. No other bony abnormality is seen.
== END 2018-10-07 13:51 ==
PROVIDERS: PCP Internal Medicine; Visit Provider Physician Assistant
DX: M17.12 Unilateral primary osteoarthritis, left knee (principal); Z96.653 Presence of artificial knee joint, bilateral; M16.0 Bilateral primary osteoarthritis of hip
CPT/HCPCS: 73560; 77073

== ENCOUNTER 2018-10-13 15:35 | Outpatient (CLI) | payer MEDICAID, SELFPAY ==
[2018-10-13 17:22] LABS: CREATININE 0.94 mg/dL (0.70-1.30)
[2018-10-15 09:43] LABS: PSA, Screening 3.3 ng/ml (0-4.5)
== END 2018-10-13 15:55 ==
PROVIDERS: Nurse Practitioner Gerontology; PCP Internal Medicine; Visit Provider Urology
DX: N40.1 Benign prostatic hyperplasia with lower urinary tract symptoms (principal); N13.8 Other obstructive and reflux uropathy; Z12.5 Encounter for screening for malignant neoplasm of prostate; R31.29 Other microscopic hematuria
CPT/HCPCS: 36415; 84153; 81015; 82565

== ENCOUNTER 2018-10-13 15:54 | Outpatient (REF) | payer MEDICAID, SELFPAY ==
[2018-10-13 16:48] LABS: Bacteria Few HPF (Negative); C & S Indicated? Yes; Casts Negative LPF (Negative); Crystals Negative HPF (Negative); Epithelial Cells Negative HPF (Negative); Mucus Negative (Negative); Other Cells Negative (Negative); RBC 20-50 (0-2); WBC 20-50 HPF (0-5)
== END 2018-10-13 16:14 ==
LOC: LBN 15:54
PROVIDERS: PCP Internal Medicine; Visit Provider Nurse Practitioner Gerontology
DX: R33.9 Retention of urine, unspecified (principal)
CPT/HCPCS: 36415; 84153; 87077; 81015; 82565; 87086; 87186

== ENCOUNTER 2018-12-14 11:31 | Outpatient (REF) | payer MEDICAID, SELFPAY ==
[2018-12-14 12:26] LABS: Bilirubin Negative (Negative); Blood Trace-lysed (Negative); Clarity Clear; Glucose 500 mg/dL (Negative); Ketones Negative (Negative); Leukocyte Esterase Negative (Negative); Nitrite Negative (Negative); Specific Gravity 1.025 (1.005-1.025); Urobilinogen 0.2 EU/dL (Up TO 0.2)
[2018-12-14 13:01] LABS: Bacteria Few HPF (Negative); C & S Indicated? Yes; Casts Negative LPF (Negative); Crystals Few Calcium Oxalate HPF (Negative); Epithelial Cells Negative HPF (Negative); Mucus Negative (Negative); RBC 0-2 (0-2)
== END 2018-12-14 11:51 ==
LOC: LBN 11:31
PROVIDERS: PCP Internal Medicine; Visit Provider Nurse Practitioner Gerontology
DX: R31.9 Hematuria, unspecified (principal); R33.9 Retention of urine, unspecified
CPT/HCPCS: 81003; 81015; 87086

== ENCOUNTER 2018-12-21 09:44 | Outpatient (CLI) | payer MEDICAID, SELFPAY | END 2018-12-21 10:04 | PROVIDERS: PCP Internal Medicine; Visit Provider Internal Medicine | DX: E11.9 Type 2 diabetes mellitus without complications (principal); I10 Essential (primary) hypertension | CPT/HCPCS: 36415; 83036 ==

== ENCOUNTER 2019-01-15 09:31 | Outpatient (CLI) | payer MEDICAID, SELFPAY ==
--- NOTE | 2019-01-15 08:54 | HPE_ITS ---
Documented by User: Aliza Kohli 01/15/19 10:33 Assessment and Plan (1) Trochanteric bursitis, right hip: Current visit: Yes Status: Acute Plan: Skin examination was not not today's appointment since patient is reliable historian and denies any lesions, rashes or areas of skin breakdown. Counseled patient on surgery covering surgical technique, recovery, benefits and risks including but not limited to risk of infection, blood clot, damage to soft tissue/nerves/blood vessels in detail. After discussion patient gives verbal understanding and elects to proceed with scheduling surgery. Patient had opportunity to have questions answered to his satisfaction. Patient will contact office if issues arise, he will continue to be scheduled for right IT band release and bursal debridement with Dr. Hopson on 01/21/19. Mr. Jacobo is a 63-year-old male who presents to clinic for preoperative visit for scheduled right IT band release and bursal debridement with Dr. Hopson on 01/21/19. Patient has a long-standing history of lateral right hip pain that first began after an injury when he landed on his right hip over 30 years ago. Patient reports his right hip pain has been severely aggravated over the past several years. Patient has previously been seen in orthopedic clinic and has received bursal injections which did not provide significant relief. Unfortunately, patient's last trochanteric bursa injection on 06/15/18 only provided pain relief for 3 days. Patient has been managing his pain with naproxen as well as Biofreeze application. He has also been attending physical therapy status post right total knee replacement as well as for right trochanteric bursitis which patient believes has helped with pain. Despite these therapies patient continues to have severe lateral right hip pain that is aggravated when moving from a sitting to a sitting position, stairs and with prolonged walking. Patient reports his right lateral hip pain has been aggravated recently and he had to rent a scooter after walking approximately 15 minutes [place] an amusement park several weeks ago. Patient denies any recent falls or injuries. Due to patient's continued pain despite adequate trials of therapy he was offered surgical intervention and elected to proceed with scheduling right IT band release and bursal debridement. Pertinent Surgical Information Unfortunately, following patient's right total knee replacement he experienced urinary issues. Patient was unable to void and had to be straight cathed while in the hospital. He was discharged with a Hanson catheter that remained in place for 4 days. Following placement of Hanson patient reports developing UTI for which he has completed treatment for. Patient has had recent follow-up with urology and was diagnosed with urinary urgency. Patient reports prior to right total knee replacement he never had urinary urgency or difficulty voiding. He has scheduled urology follow-up in 1 month. Due to these new urinary developments following surgery patient does not wish to proceed with spinal anesthesia. Denies hematuria, difficulty voiding, dysuria, burning sensation with urination or fevers. Jose has had an incidental finding of a stroke on a CAT scan after routine CAT scan regarding his Botox injections. He has never had symptoms from this. Patient's last A1c was 7.0 H taken on 12/21/18. Prior to and following his right total knee replacement he has been working with primary care provider in order to get better diabetic control. Patient's previous hemoglobin A1c on 09/16/2018 had been 6.2. 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 He also has severe migraines and cluster headaches, for which he previously used Botox injections however he has been on Aimovig (Erenumab-aooe) for the past four months without any adverse reactions. Patient had not taken this medication around the time of his right total knee replacement due to its immune depressant properties. However, as per patient reports his neurologist informed him it is okay to stay on his medication for the right IT band release and bursal debridement. Patient does report history of heart murmur as a high school student. He denies any continued cardiac murmur as an adult. Denies any cardiac issues or pertinent cardiac symptoms in recent months. Denies history of [place], angina, asthma, COPD, renal or liver disorders, hepatitis, bleeding disorders, immune or thyroid disorders. Review of Systems Constitutional Denies fever(s), Denies frequent falls and Reports headache(s) Comments: reports continued balance issues that is believed to be related to his stroke Eyes Denies change in vision Comments: reports blindness in his left eye ENT Denies dizziness, Denies ear discharge, Reports headache(s), Denies epistaxis, Denies nasal discharge and Denies sore throat Cardiovascular Denies chest pain, Denies rapid heart rate, Denies irregular heart rhythm, Denies dyspnea, Denies dyspnea on exertion, Denies orthopnea (Denies symptoms when wearing CPAP), Denies paroxysmal nocturnal dyspnea (Denies symptoms when wearing CPAP) and Denies slow heart rate Respiratory Denies cough, Denies dyspnea, Denies dyspnea on exertion and Denies wheezing Gastrointestinal Denies abdominal pain, Denies melena, Denies hematochezia, Denies constipation, Denies diarrhea, Denies nausea and Denies vomiting Genitourinary Denies hematuria, Denies dysuria and Reports urinary urgency Musculoskeletal Reports as per HPI Neurologic Denies dizziness, Denies frequent falls and Reports headache(s) Allergic/Immunologic Denies wheezing PFSH Medical History Urinary retention (Acute) Nausea and vomiting after administration of anesthetic agent (Resolved) Varicose veins of lower extremity (Acute) Tubular adenoma (Acute) Trochanteric bursitis, right hip (Acute 06/15/18) Restless legs (Acute) Obstructive sleep apnea syndrome (Acute) Morbid obesity (Acute 04/26/13) Migraine (Acute) Hypercholesterolemia (Acute 04/26/13) Essential hypertension (Acute 08/11/13) Erectile dysfunction (Acute 10/31/14) DM (diabetes mellitus), type 2, uncontrolled (Acute) CVA (cerebral vascular accident) (Acute 07/20/14) Blindness of one eye (Acute) Bilateral primary osteoarthritis of knee (Acute 03/17/17) Primary osteoarthritis of right knee (Resolved) Asthma (Chronic) CVA (cerebral vascular accident) (Chronic) Diabetes (Chronic) HTN (hypertension) (Chronic) Left eye trauma (Chronic) Migraine (Chronic) Sleep apnea (Chronic) Surgical History Tonsillectomy History of ankle surgery (Chronic) History of total right knee replacement (TKR) (Chronic) Social History household members: none highest education level completed: high school graduate current occupational status: employed 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 what type of physical activity do you participate in: none frequency: does not exercise Smoking and Tabacco status: Former Tobacco Use pack-years: 4 second hand exposure: Yes alcohol intake: never details: denies alcohol use substance use type: does not use barbara/sikhism: Yazidi special barbara needs: No Meds Home Medications Medication Instructions Recorded Confirmed Type C Pap 04/08/16 12/21/18 History [employer] (TMG)Touch Ultra Test #100 strip 02/09/18 12/21/18 Rx albuterol sulfate [ProAir HFA] 2 puff INHALATION QID PRN #3 inh 02/09/18 01/15/19 History lancets [FreeStyle Lancets] #100 ea 02/09/18 12/21/18 Rx meclizine [Antivert] 12.5 mg PO TID PRN #12 tab 06/28/18 01/15/19 Rx candesartan 16 mg tablet 16 mg PO DAILY #90 tab 08/13/18 01/15/19 Rx acetaminophen 1,000 mg PO Q8H PRN #90 cap 09/23/18 01/15/19 Rx aspirin [Ecotrin Low Strength] 1 tab PO BID #80 tab-cap 09/23/18 01/15/19 Rx naproxen 1 tab PO TID PRN #270 tab-cap 09/23/18 01/15/19 Rx pantoprazole 40 mg PO DAILY #30 tab 09/23/18 01/15/19 Rx empagliflozin 25 mg tablet 25 mg PO DAILY #30 cap 10/12/18 01/15/19 Rx sitagliptin 100 mg tablet 100 mg PO DAILY #28 tab-cap 10/14/18 01/15/19 Rx diltiazem CD 240 mg 240 mg PO DAILY #90 cap 11/11/18 01/15/19 Rx capsule,extended release 24 hr metformin 1,000 mg tablet 1,000 mg PO BID #180 tab-cap 11/11/18 01/15/19 Rx erenumab-aooe 70 mg/mL 140 mg SC QMONTH 11/12/18 01/15/19 History subcutaneous auto-injector glyburide 5 mg tablet 5 mg PO BID #360 tab-cap 12/16/18 01/15/19 Rx docusate sodium [Colace] 100 mg PO BID PRN 01/15/19 01/15/19 History oxycodone 5 - 10 mg PO Q4H PRN 01/15/19 01/15/19 History polyethylene glycol 3350 34 g PO BID PRN 01/15/19 01/15/19 History Allergies Allergy/AdvReac Type Severity Reaction Status Date / Time No Known Allergies Allergy Verified 01/15/19 10:09 Exam Const General: cooperative and no acute distress HENSD Head: normal to inspection, normocephalic and atraumatic Ears: external ears normal General nose exam: external nose normal and no nasal discharge Face and sinus: face symmetric Mouth: oral mucosae normal, lip normal, tongue normal and moist mucous membranes Teeth and gingiva: other (Few lower teeth are present with poor dentition) Throat: posterior oropharynx normal Eyes General: appearance normal, both eyes and all related structures Pupils: PERRL EOM: EOM abnormal (left eye does not move in abduction fully; Right eye EOM intact) Neck Neck: trachea midline Carotids: normal carotid upstroke Lymphatic: no lymphadenopathy noted Resp Effort & Inspection: normal respiratory effort and able to speak in complete sentences Auscultation: clear to auscultation bilaterally, no rales, no rhonchi and no wheezes Cardio Heart Sounds: S1 normal, S2 normal and no murmurs Pulses: radial pulses present bilaterally GI Palpation: soft, no hepatosplenomegaly and nontender Auscultation: normal bowel sounds Skin General skin exam: no rashes or lesions noted Extrem Other: Right hip examination: Tenderness palpation on trochanteric bursa and slight tenderness to palpation along IT band. Passive hip range of motion is smooth, intact and non-irritable. With patient laying on contralateral side he is able to actively abduct his right hip approximately 15 degrees with slight discomfort elicited. Muscle strength tested in resisted abduction with patient laying on contralateral side was 4 out of 5 and elicited discomfort over trochanteric bursa and along the IT band. Documented by User: Torsten Hopson MD 01/16/19 08:12 Mr. Jacobo is a 63-year-old male who presents to clinic for preoperative visit for scheduled right IT band release and bursal debridement with Dr. Hopson on 01/21/19. Patient has a long-standing history of lateral right hip pain that first began after an injury when he landed on his right hip over 30 years ago. Patient reports his right hip pain has been severely aggravated over the past several years. Patient has previously been seen in orthopedic clinic and has received bursal injections which did not provide significant relief. Unfortunately, patient's last trochanteric bursa injection on 06/15/18 only provided pain relief for 3 days. Patient has been managing his pain with naproxen as well as Biofreeze application. He has also been attending physical therapy status post right total knee replacement as well as for right trochanteric bursitis which patient believes has helped with pain. Despite these therapies patient continues to have severe lateral right hip pain that is aggravated when moving from a sitting to a sitting position, stairs and with prolonged walking. Patient reports his right lateral hip pain has been aggravated recently and he had to rent a scooter after walking approximately 15 minutes [place] an amusement park several weeks ago. Patient denies any recent falls or injuries. Due to patient's continued pain despite adequate trials of therapy he was offered surgical intervention and elected to proceed with scheduling right IT band release and bursal debridement. [facility] Medical History Urinary retention (Acute) Nausea and vomiting after administration of anesthetic agent (Resolved) Varicose veins of lower extremity (Acute) Tubular adenoma (Acute) Trochanteric bursitis, right hip (Acute 06/15/18) Restless legs (Acute) Obstructive sleep apnea syndrome (Acute) Morbid obesity (Acute 04/26/13) Migraine (Acute) Hypercholesterolemia (Acute 04/26/13) Essential hypertension (Acute 08/11/13) Erectile dysfunction (Acute 10/31/14) DM (diabetes mellitus), type 2, uncontrolled (Acute) CVA (cerebral vascular accident) (Acute 07/20/14) Blindness of one eye (Acute) Bilateral primary osteoarthritis of knee (Acute 03/17/17) Primary osteoarthritis of right knee (Resolved) Asthma (Chronic) CVA (cerebral vascular accident) (Chronic) Diabetes (Chronic) HTN (hypertension) (Chronic) Left eye trauma (Chronic) Migraine (Chronic) Sleep apnea (Chronic) Surgical History Tonsillectomy History of ankle surgery (Chronic) History of total right knee replacement (TKR) (Chronic) Social History household members: none highest education level completed: high school graduate current occupational status: employed 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 what type of physical activity do you participate in: none frequency: does not exercise Smoking and Tabacco status: Former Tobacco Use pack-years: 4 second hand exposure: Yes alcohol intake: never details: denies alcohol use substance use type: does not use barbara/sikhism: Yazidi special barbara needs: No Meds Home Medications Medication Instructions Recorded Confirmed Type C Pap 04/08/16 12/21/18 History OneTouch Ultra Test #100 strip 02/09/18 12/21/18 Rx albuterol sulfate [ProAir HFA] 2 puff INHALATION QID PRN #3 inh 02/09/18 01/15/19 History lancets [FreeStyle Lancets] #100 ea 02/09/18 12/21/18 Rx meclizine [Antivert] 12.5 mg PO TID PRN #12 tab 06/28/18 01/15/19 Rx candesartan 16 mg tablet 16 mg PO DAILY #90 tab 08/13/18 01/15/19 Rx acetaminophen 1,000 mg PO Q8H PRN #90 cap 09/23/18 01/15/19 Rx aspirin [Ecotrin Low Strength] 1 tab PO BID #80 tab-cap 09/23/18 01/15/19 Rx naproxen 1 tab PO TID PRN #270 tab-cap 09/23/18 01/15/19 Rx pantoprazole 40 mg PO DAILY #30 tab 09/23/18 01/15/19 Rx empagliflozin 25 mg tablet 25 mg PO DAILY #30 cap 10/12/18 01/15/19 Rx sitagliptin 100 mg tablet 100 mg PO DAILY #28 tab-cap 10/14/18 01/15/19 Rx diltiazem CD 240 mg 240 mg PO DAILY #90 cap 11/11/18 01/15/19 Rx capsule,extended release 24 hr metformin 1,000 mg tablet 1,000 mg PO BID #180 tab-cap 11/11/18 01/15/19 Rx erenumab-aooe 70 mg/mL 140 mg SC QMONTH 11/12/18 01/15/19 History subcutaneous auto-injector glyburide 5 mg tablet 5 mg PO BID #360 tab-cap 12/16/18 01/15/19 Rx docusate sodium [Colace] 100 mg PO BID PRN 01/15/19 01/15/19 History oxycodone 5 - 10 mg PO Q4H PRN 01/15/19 01/15/19 History polyethylene glycol 3350 34 g PO BID PRN 01/15/19 01/15/19 History Allergies Allergy/AdvReac Type Severity Reaction Status Date / Time No Known Allergies Allergy Verified 01/15/19 10:09
== END 2019-01-15 09:51 ==
PROVIDERS: PCP Internal Medicine; Visit Provider Student in an Organized Health Care Education/Training Program
DX: M25.551 Pain in right hip (principal); M70.61 Trochanteric bursitis, right hip; Z01.818 Encounter for other preprocedural examination
CPT/HCPCS: NC

== ENCOUNTER 2019-01-21 08:19 | Day surgery (SDC) | payer MEDICAID, SELFPAY ==
[2019-01-21] VITALS (8 sets, daily range): BP systolic 128–154; BP diastolic 57–107; PULSE 69–82; RESP 14–24; TEMP 36.3–36.6; O2SAT 92–97
[2019-01-21] MEDS: Lactated Ringers 1,000 ML 80 ML IV ×2 (09:14→11:41)
--- NOTE | 2019-01-21 10:40 | W.PM.DSUDISC ---
Discharge Plan Disposition Patient Disposition: HOME Condition: Good Discharge Details Reason For Visit: R Trochanteric Bursitis Attending Provider: Torsten Hopson Primary Care Provider: Joan Orosco Home Meds and New Rx's Prescriptions: New oxycodone 5 mg tablet 5 mg PO Q4H Qty: 18 RF: 0 Continued erenumab-aooe 70 mg/mL auto-injector 140 mg SC QMONTH RF: 0 C PAP RF: 0 OneTouch Ultra Test 1 EACH strip 1 ea Miscellaneous QID Qty: 100 RF: 11 albuterol sulfate [ProAir HFA] 8.5 GM HFA aerosol inhaler 2 puff Inhalation QID PRNQty: 3 RF: 4 lancets [FreeStyle Lancets] 1 EACH misc 1 ea Intradermal QID Qty: 100 RF: 11 candesartan 16 mg tablet 16 mg PO DAILY Qty: 90 RF: 3 Jardiance 25 mg tablet 25 mg PO DAILY Qty: 30 RF: 11 Januvia 100 mg tablet 100 mg PO DAILY Qty: 28 RF: 11 metformin [Glucophage] 1,000 mg tablet 1,000 mg PO BID Qty: 180 RF: 4 diltiazem HCl [Cardizem CD] 240 mg capsule,extended release 24hr 240 mg PO DAILY Qty: 90 RF: 4 glyburide 5 mg tablet 5 mg PO BID Qty: 360 RF: 2 meclizine [Antivert] 12.5 MG tablet 12.5 mg PO TID PRN (Reason: Vertigo) Qty: 12 RF: 0 pantoprazole 40 mg tablet,delayed release (DR/EC) 40 mg PO DAILY Qty: 30 RF: 0 naproxen 375 MG tablet,delayed release (DR/EC) 1 tab PO TID PRNQty: 270 RF: 4 polyethylene glycol 3350 17 gram powder in packet 34 g PO BID PRNRF: 0 docusate sodium [Colace] 100 mg capsule 100 mg PO BID PRNRF: 0 aspirin [Ecotrin Low Strength] 81 MG tablet,delayed release (DR/EC) 1 tab PO BID Qty: 60 RF: 0 acetaminophen 500 mg capsule 1,000 mg PO Q8H PRN (Reason: pain) Qty: 90 RF: 0 Discontinued oxycodone 5 mg tablet 5 - 10 mg PO Q4H PRNRF: 0 Discharge Instructions Additional Instructions: Dr. Hopson?s Discharge Instructions Activity: The most important activity is to walk. You should try to take short walks a few times a day. You have no restrictions on movement or positioning, but do not try to force what you do. You will find some stiffness and weakness with hip flexion (lifting your knee). Do not try to strengthen this too early, continue to practice walking and stairs and this will come. - Outpatient physical therapy can be helpful to help return you to a normal gait and improve your flexibility and strength. This can start around 2 weeks. - You should wear the YAN hose on both legs for 2 weeks. Dressing: Keep the surgical dressing in place for at least one week. After the first week it may be removed and replace with light gauze and tape or nothing. It may get wet after 3 days but avoid soaking the dressing. If it gets wet, just lightly pat dry. It is important to always keep some gauze between skin folds, especially when you are sitting. Spend some time with the wound exposed when you are lying flat as the incision does wrinkle onto itself. Medications: - You should take Tylenol and an anti-inflammatory, Naproxen, as your primary pain control medications - You have been prescribed a stronger pain medication Oxycodone for breakthrough pain, take as needed as prescribed. - You will be taking Aspirin 81mg twice a day for DVT prevention unless instructed otherwise. - If you have constipation you should take Colace or Miralax (both [id number]). It takes most people 3-4 days to have a bowel movement. Follow-up: 2 weeks Stand Alone Forms: DSU Post op Instructions, Vega Dangelo (DSU) Equipment/Supplies: Partial Weight Bearing Crutches Activity:: Walker at all times Remove Dressings/Wound Care:: 72 hours Shower/Bathe:: 72 hours Diet:: As Tolerated Discharge Orders Discharge Orders: Discharge Order (Routine); Ordered 01/21/19 Ordered By: Torsten Hopson DS: Diagnosis Discharge Diagnosis (1) Trochanteric bursitis, right hip: Status: Acute
[2019-01-21] MEDS: Bupivacaine 0.25% Pres-Free 30 ML VIAL (11:07)
[2019-01-21] MEDS: fentaNYL 100 MCG/2 ML VIAL IVP ×2 (12:16→12:21)
[2019-01-21] MEDS: oxyCODONE 5 MG TAB PO (13:20)
[2019-01-21] MEDS: Ketorolac 30 MG/ML VIAL IVP (14:12)
[2019-01-21] MEDS: Normal Saline Flush 10 ML SYR IV (14:13)
--- NOTE | 2019-01-21 23:55 | W.PM.OP ---
Date of service: 01/21/19 Time of Service: 13:55 Operative Note DATE OF PROCEDURE: 01/21/19 PRE-OP DIAGNOSIS: Right recalcitrant Trochanteric Bursitis POST-OP DIAGNOSIS: same PROCEDURE: Trochanteric bursa excision with IT band lengthening, RIGHT side SURGEON: Torsten Hopson CLERICAL AND OFFICE SUPPORT WORKERS: Aliza Kohli ANESTHESIA: GETA ESTIMATED BLOOD LOSS: 50 PATHOLOGY: none sent TOURNIQUET TIME: 0 COMPLICATIONS: None Patient was transported to: PACU Patient's condition: stable Indications: Jose is a 63-year-old male who has had persistent symptoms of trochanteric bursitis. This has been treated with a host of conservative treatment options including injection, time, activity modification, anti-inflammatories, and exercises. Despite this, there is continued pain and dysfunction. Therefore, I recommended operative bursal debridement with IT band lengthening. I reviewed the risk of the procedure to include bleeding, infection, pain, stiffness, damage to nerves and vessels, damage to muscles and tendons, blood clot. Despite these risks, Jose elects to proceed. Procedure Description: Jose was greeted in the preoperative holding area. Identity was confirmed the correct site was identified and marked. The consent was reviewed the patient and signed. History and physical was updated. Patient was taken back to the operating room. A general anesthetic was administered. The patient was then placed into the left lateral decubitus position. An axillary roll was placed. All bony problems were well padded. The patient was secured in this lateral position using a beanbag and chest strap. The right surgical field was then prepped with ChloraPrep and draped in a standard fashion. Prophylactic antibiotics in the form of cefazolin were administered. A timeout was performed for safe surgery. Approximately 10 cm incision was made overlying the tip of the greater trochanter. This was taken down sharply through skin and soft tissue until the IT band and gluteus laura fascia was reached. This was identified in the point of maximal tenderness was marked over the IT band, corresponding to the greater trochanter approximately at the level of the vastus ridge. The retractor was were used to identify the lateral hip anatomy. Electrocautery was used for any bleeding in the skin and fat. A deep knife was then used to incise the IT band and gluteus fascia. A Charnley retractor was placed deep to expose the lateral aspect of the proximal femur, trochanteric bursa, and short external rotators. There was a notable bursitis in this area. The bursal tissue was removed down to the lateral femur to fully expose the abductor tendon insertion as well as the short external rotators. Any excessive fat or synovitis in this area was debrided both sharply and with a rongeur. The abductor tendons were then inspected both visually and also there palpated deep from their medial side. There is no clear detachment of the abductor tendons that needed repair. The wound was then thoroughly irrigated. There is no excessive bleeding. The IT band and gluteus fascia was closed with #1 Vicryl. Once this was completely reapproximated the eugenia from earlier showing the point of maximal tightness was then use as a reference point. This area of maximal tightness was released with a transverse tenotomy. This allowed the IT band tissue to separate by about a centimeter and a half. The wound was then irrigated again. The surgical field was then anesthetized with a mixture of 0.5% bupivacaine and 20 cc of Exparel L. This was injected into the IT band, lateral femur, and fat. The deep tissues were closed with 0 and 2-0 Vicryl. The skin was closed with a running Monocryl suture in a subcuticular fashion. A Mepilex silver dressing was applied. The patient was then returned to a supine position where they were awoken from anesthesia. There were no notable complications. Patient is transferred back to the hospital stretcher and into the PACU in a stable condition.
== END 2019-01-21 14:52 | disposition home or self-care (01) ==
PROVIDERS: PCP Internal Medicine; Visit Provider Student in an Organized Health Care Education/Training Program
PROC: (CPT 27062; principal; 2019-01-21 10:45)
DX: M70.61 Trochanteric bursitis, right hip (principal); Z96.651 Presence of right artificial knee joint; E11.9 Type 2 diabetes mellitus without complications
CPT/HCPCS: 27062; 27305; J0690; J1100; J2250; J2405; J3010

== ENCOUNTER 2019-04-14 00:41 | Emergency (ER) | payer MEDICAID, SELFPAY ==
[2019-04-14 00:42] VITALS: BP 167/59; PULSE 80; RESP 18; TEMP 36.5; O2SAT 96
[2019-04-14] MEDS: Silver Nitrate Stick 1 EACH (00:53)
--- NOTE | 2019-04-14 01:05 | ED.GENADUL_ITS ---
Discharge Plan Disposition Patient Disposition: HOME Condition: Stable Discharge Details Chief Complaint: Vascular Clinical Impression: Bleeding from varicose veins of right lower extremity Primary Care Provider: Joan Orosco ED Provider: Marcos Tony Waskom Meds and New Rx's Prescriptions: No Action glimepiride 4 mg tablet 4 mg PO QAM Qty: 30 RF: 2 erenumab-aooe 70 mg/mL auto-injector 140 mg SC QMONTH RF: 0 C PAP RF: 0 OneTouch Ultra Test 1 EACH strip 1 ea Miscellaneous QID Qty: 100 RF: 11 albuterol sulfate [ProAir HFA] 8.5 GM HFA aerosol inhaler 2 puff Inhalation QID PRNQty: 3 RF: 4 lancets [FreeStyle Lancets] 1 EACH misc 1 ea Intradermal QID Qty: 100 RF: 11 Jardiance 25 mg tablet 25 mg PO DAILY Qty: 30 RF: 11 Januvia 100 mg tablet 100 mg PO DAILY Qty: 28 RF: 11 metformin [Glucophage] 1,000 mg tablet 1,000 mg PO BID Qty: 180 RF: 4 diltiazem HCl [Cardizem CD] 240 mg capsule,extended release 24hr 240 mg PO DAILY Qty: 90 RF: 4 glyburide 5 mg tablet 5 mg PO BID Qty: 360 RF: 2 Hold Instructions: None candesartan 16 mg tablet 16 mg PO DAILY Qty: 90 RF: 3 meclizine [Antivert] 12.5 mg tablet 12.5 mg PO TID PRN (Reason: Vertigo) Qty: 60 RF: 0 pantoprazole 40 mg tablet,delayed release (DR/EC) 40 mg PO DAILY Qty: 30 RF: 0 naproxen 375 MG tablet,delayed release (DR/EC) 1 tab PO TID PRNQty: 270 RF: 4 polyethylene glycol 3350 17 gram powder in packet 34 g PO BID PRNRF: 0 docusate sodium [Colace] 100 mg capsule 100 mg PO BID PRNRF: 0 aspirin [Ecotrin Low Strength] 81 MG tablet,delayed release (DR/EC) 1 tab PO BID Qty: 60 RF: 0 acetaminophen 500 mg capsule 1,000 mg PO Q8H PRN (Reason: pain) Qty: 90 RF: 0 oxycodone 5 mg tablet 5 mg PO Q4H PRNRF: 0 Discharge Instructions Additional Instructions: return in 7 days to have the wound evaluated for suture removal if you have bleeding that recurs and you can't stop with direct pressure return to the emergency department for reevaluation Medical Decision Making Pt states he itched his right leg and had bleeding that he couldn't stop so came here. He has a small 0.5cm area in the right lateral mid lower leg that is over a varice that is bleeding, is not spraying like an artery. I tried direct pressure without stopping the bleeding so I placed a figure of 8 stitch and some dermabond and this stopped the bleeding. Will d/c home. Has normal hr and no symptoms to suggest anemia so do not feel h/h needs to be drawn. Advised return in 7 days to have suture removed or sooner if bleeding recurds Differential Diagnosis bleeding varice, skin tear HPI General Mode of arrival: EMS . Date/Time Provider Initiated Documentation: 04/14/19 00:42 . Limitations to Documentation: no limitations . Information obtained by: patient . History of Present Illness 63 year old M presents to the emergency department with the chief complaint of bleeding from right leg, described as moderate, and is localized to the right and lower extremity. Patient started experiencing this hour(s) (1) and it has been constant. No relieving factors improve symptom(s), No exacerbating factors reported . Patient did receive the following treatments prior to arrival, none and other (direct pressure) Related Data Home Medications Medication Instructions Recorded Confirmed C Pap 04/08/16 03/03/19 OneTouch Ultra Test #100 strip 02/09/18 03/03/19 albuterol sulfate [ProAir HFA] 2 puff INHALATION QID PRN #3 inh 02/09/18 04/14/19 lancets [FreeStyle Lancets] #100 ea 02/09/18 03/03/19 naproxen 1 tab PO TID PRN #270 tab-cap 09/23/18 04/14/19 pantoprazole 40 mg PO DAILY #30 tab 09/23/18 04/14/19 empagliflozin 25 mg tablet 25 mg PO DAILY #30 cap 10/12/18 04/14/19 sitagliptin 100 mg tablet 100 mg PO DAILY #28 tab-cap 10/14/18 04/14/19 diltiazem CD 240 mg 240 mg PO DAILY #90 cap 11/11/18 04/14/19 capsule,extended release 24 hr metformin 1,000 mg tablet 1,000 mg PO BID #180 tab-cap 11/11/18 04/14/19 erenumab-aooe 70 mg/mL 140 mg SC QMONTH 11/12/18 04/14/19 subcutaneous auto-injector glyburide 5 mg tablet 5 mg PO BID #360 tab-cap 12/16/18 03/03/19 docusate sodium [Colace] 100 mg PO BID PRN 01/15/19 04/14/19 polyethylene glycol 3350 34 g PO BID PRN 01/15/19 04/14/19 acetaminophen 1,000 mg PO Q8H PRN #90 cap 01/21/19 04/14/19 aspirin [Ecotrin Low Strength] 1 tab PO BID #60 tab-cap 01/21/19 04/14/19 candesartan 16 mg tablet 16 mg PO DAILY #90 tab 02/10/19 04/14/19 glimepiride 4 mg tablet 4 mg PO QAM #30 tab 03/31/19 04/14/19 meclizine 12.5 mg tablet 12.5 mg PO TID PRN #60 tab 04/07/19 04/14/19 oxycodone 5 mg PO Q4H PRN 04/14/19 04/14/19 Previous Rx's Medication Instructions Recorded OneTouch Ultra Test #100 strip 02/09/18 lancets [FreeStyle Lancets] #100 ea 02/09/18 naproxen 1 tab PO TID PRN #270 tab-cap 09/23/18 pantoprazole 40 mg PO DAILY #30 tab 09/23/18 empagliflozin 25 mg tablet 25 mg PO DAILY #30 cap 10/12/18 sitagliptin 100 mg tablet 100 mg PO DAILY #28 tab-cap 10/14/18 diltiazem CD 240 mg 240 mg PO DAILY #90 cap 11/11/18 capsule,extended release 24 hr metformin 1,000 mg tablet 1,000 mg PO BID #180 tab-cap 11/11/18 glyburide 5 mg tablet 5 mg PO BID #360 tab-cap 12/16/18 acetaminophen 1,000 mg PO Q8H PRN #90 cap 01/21/19 aspirin [Ecotrin Low Strength] 1 tab PO BID #60 tab-cap 01/21/19 candesartan 16 mg tablet 16 mg PO DAILY #90 tab 02/10/19 glimepiride 4 mg tablet 4 mg PO QAM #30 tab 03/31/19 meclizine 12.5 mg tablet 12.5 mg PO TID PRN #60 tab 04/07/19 Allergies Allergy/AdvReac Type Severity Reaction Status Date / Time No Known Allergies Allergy Verified 04/14/19 00:48 Review of Systems Review of Systems All systems reviewed & are unremarkable except as noted in HPI and below Constitutional Denies chills, Denies fever(s) and Denies weakness Cardiovascular Denies chest pain and Denies dyspnea Respiratory Denies cough and Denies dyspnea Gastrointestinal Denies abdominal pain, Denies nausea and Denies vomiting Musculoskeletal Denies joint swelling Neurologic Denies weakness PFSH Medical History Urinary retention (Acute) Nausea and vomiting after administration of anesthetic agent (Resolved) Varicose veins of lower extremity (Acute) Tubular adenoma (Acute) Restless legs (Acute) Obstructive sleep apnea syndrome (Acute) Morbid obesity (Acute 04/26/13) Migraine (Acute) Hypercholesterolemia (Acute 04/26/13) Essential hypertension (Acute 08/11/13) Erectile dysfunction (Acute 10/31/14) DM (diabetes mellitus), type 2, uncontrolled (Acute) CVA (cerebral vascular accident) (Acute 07/20/14) Blindness of one eye (Acute) Bilateral primary osteoarthritis of knee (Acute 03/17/17) Asthma (Chronic) CVA (cerebral vascular accident) (Chronic) Diabetes (Chronic) HTN (hypertension) (Chronic) Left eye trauma (Chronic) Migraine (Chronic) Sleep apnea (Chronic) Primary osteoarthritis of right knee (Resolved) Surgical History Tonsillectomy History of ankle surgery (Chronic) History of total right knee replacement (TKR) (Chronic) Trochanteric bursitis, right hip (Chronic 06/15/18) Social History Smoking/Tobacco Use Status: Former Tobacco Use Pack-years: 4 Second Hand Exposure: Yes Alcohol Intake: never Details: denies alcohol use Drug use: Never Substance use type: does not use Household members: none current occupation: [employer] What type of physical activity do you participate in: none Frequency: does not exercise Sulema/Zoroastrian: Baptist Special sulema needs: No Do you feel safe in your relationship?: Yes Exam Const General: no acute distress Orientation: alert HENMT Head: normal to inspection Ears: external ears normal General nose exam: external nose normal Mouth: moist mucous membranes Eyes General: appearance normal, both eyes and all related structures Neck Neck: normal visual inspection Resp Effort & Inspection: normal respiratory effort and able to speak in complete sentences Cardio Rate: regular rate Skin General skin exam: elasticity normal Neuro General: alert and oriented x3 Extrem General: normal to inspection Psych Mental Status: mental status grossly normal Procedures Laceration Laceration 1: Site: lower extremity Side (If applicable): right Size (cm): 0.5 Description: linear Depth: simple, single layer Skin layer closed with: nylon and other Size (cm): 5-0 Number of sutures: 1 Technique: other (figure of 8)
== END 2019-04-14 01:21 | disposition home or self-care (01) ==
LOC: ER 01:33
PROVIDERS: Emergency Provider Emergency Medicine; PCP Internal Medicine
DX: I83.012 Varicose veins of right lower extremity with ulcer of calf (principal); E11.9 Type 2 diabetes mellitus without complications; I10 Essential (primary) hypertension; Z79.84 Long term (current) use of oral hypoglycemic drugs
CPT/HCPCS: 12001

== ENCOUNTER 2019-04-27 09:56 | Emergency (ER) | payer MEDICAID, SELFPAY ==
[2019-04-27 10:03] VITALS: BP 147/63; PULSE 75; RESP 14; TEMP 36.3; O2SAT 96
--- NOTE | 2019-04-27 10:22 | W.ED.GENAD ---
Discharge Plan Disposition Patient Disposition: HOME Condition: Fair Discharge Details Chief Complaint: Orthopedic Clinical Impression: Arm contusion Primary Care Provider: Joan Orosco ED Provider: Marti Arizmendi Home Meds and New Rx's Prescriptions: New ibuprofen 600 mg tablet 600 mg PO QID PRN (Reason: pain) Qty: 20 RF: 0 Continued glimepiride 4 mg tablet 4 mg PO QAM Qty: 30 RF: 2 erenumab-aooe 70 mg/mL auto-injector 140 mg SC QMONTH RF: 0 C PAP RF: 0 albuterol sulfate [ProAir HFA] 8.5 GM HFA aerosol inhaler 2 puff Inhalation QID PRNQty: 3 RF: 4 lancets [FreeStyle Lancets] 1 EACH misc 1 ea Intradermal QID Qty: 100 RF: 11 metformin [Glucophage] 1,000 mg tablet 1,000 mg PO BID Qty: 180 RF: 4 diltiazem HCl [Cardizem CD] 240 mg capsule,extended release 24hr 240 mg PO DAILY Qty: 90 RF: 4 glyburide 5 mg tablet 5 mg PO BID Qty: 360 RF: 2 candesartan 16 mg tablet 16 mg PO DAILY Qty: 90 RF: 3 meclizine [Antivert] 12.5 mg tablet 12.5 mg PO TID PRN (Reason: Vertigo) Qty: 60 RF: 0 OneTouch Ultra Test strip 1 ea Miscellaneous QID Qty: 100 RF: 11 Januvia 100 mg tablet 100 mg PO DAILY Qty: 28 RF: 11 Jardiance 25 mg tablet 25 mg PO DAILY Qty: 90 RF: 4 pantoprazole 40 mg tablet,delayed release (DR/EC) 40 mg PO DAILY Qty: 30 RF: 0 polyethylene glycol 3350 17 gram powder in packet 34 g PO BID PRNRF: 0 docusate sodium [Colace] 100 mg capsule 100 mg PO BID PRNRF: 0 aspirin [Ecotrin Low Strength] 81 MG tablet,delayed release (DR/EC) 1 tab PO BID Qty: 60 RF: 0 acetaminophen 500 mg capsule 1,000 mg PO Q8H PRN (Reason: pain) Qty: 90 RF: 0 oxycodone 5 mg tablet 5 mg PO Q4H PRNRF: 0 Discontinued naproxen 375 MG tablet,delayed release (DR/EC) 1 tab PO TID PRNQty: 270 RF: 4 Discharge Instructions Instructions: Contusion in Adults (ED) Additional Instructions: There is no evidence of fracture on your x-ray. Please encourage rest, ice, elevation. Tylenol and/or ibuprofen as needed for discomfort. You may continue with Gurpreet wrap to help with swelling. Please take sling off frequently and work on range of motion of elbow and shoulder. When not out in public do not use sling. Please follow-up with primary care next week for reevaluation if pain persists. Referral for physical therapy is attached, please call today to schedule follow-up appointment. If you develop increased pain, fever/chills or other new/worsening symptoms please seek care urgently once again. Stand Alone Forms: Physical Therapy Referral Referrals: Joan Orosco MD [Primary Care Provider] - Discharge Data Discharge Date/Time-TO BE ENTERED AT DEPARTURE: 04/27/19 12:34 Medical Decision Making Patient is 64-year-old [id number] male presenting today with chief complaint of right arm pain. He reports that last night he tripped getting into the shower and landed with his right arm underneath him putting maximal weight on his right forearm. He endorses pain that radiates from the elbow to the fingertips. Is unclear as to where the exact trauma may have occurred along this area. There is no evidence of ecchymosis, swelling, deformity. Patient is feeling improved with immobilization but has severe pain with any type of movement. He has very limited range of motion of the elbow. Will only flex approximately 90 and extension to approximately 140 degrees. He is able to supinate and pronate but does have pain with this, these are fully intact. Full range of motion of the wrist. He is able to extend against resistance, abduct all his fingers against resistance. No sensory deficit. We will obtain radiographic images to ensure no bony abnormality. Discussed with the patient that I am concerned with having developing adhesions were taken the elbow. Discussed that he will need referral to PT. XR reviewed by radiologist: RIGHT HAND: There is no evidence of a fracture or dislocation. The bony structures are normally mineralized. The joint space is intact. RIGHT ELBOW: There is no evidence of a fracture or dislocation. There are mild periarticular degenerative changes and a 9 mm olecranon spur is demonstrated. Discussed findings with the patient. Encourage rest, ice, elevation. Tylenol and/or ibuprofen as needed for discomfort. Patient will be fitted with an Gurpreet wrap to help with any swelling and help with gentle mobilization. Patient is requesting a sling. Advised that he may use this when out and about to help prevent any further trauma but that he should take this off on at home to work on range of motion. He was given range of motion exercises, referral for physical therapy. We did discuss the risks associated with this limited range of motion he is demonstrating at this time. I advised close follow-up with primary care for reevaluation of pain next week. We discussed new/worsening symptoms when to seek care urgently once again. All his questions and concerns were addressed and he is in agreement with this plan. [facility] General Mode of arrival: ambulatory. Date/Time Provider Initiated Documentation: 04/27/19 10:21. Limitations to Documentation: no limitations. Information obtained by: patient and RN notes reviewed. History of Present Illness 64 year old M presents to the emergency department with the chief complaint of right arm pain, described as severe, with intensity rated at 10. Quality is described as burning, and is localized to the right and upper extremity. Patient reports no radiation. Patient started experiencing this day(s) (1) and it has been constant. Immobilization improves symptom(s), Movement worsens symptoms . Patient notes no other symptoms.. Patient did receive the following treatments prior to arrival, none Related Data Home Medications Medication Instructions Recorded Confirmed C Pap 04/08/16 03/03/19 albuterol sulfate [ProAir HFA] 2 puff INHALATION QID PRN #3 inh 02/09/18 04/14/19 lancets [FreeStyle Lancets] #100 ea 02/09/18 03/03/19 pantoprazole 40 mg PO DAILY #30 tab 09/23/18 04/14/19 diltiazem CD 240 mg 240 mg PO DAILY #90 cap 11/11/18 04/14/19 capsule,extended release 24 hr metformin 1,000 mg tablet 1,000 mg PO BID #180 tab-cap 11/11/18 04/14/19 erenumab-aooe 70 mg/mL 140 mg SC QMONTH 11/12/18 04/14/19 subcutaneous auto-injector glyburide 5 mg tablet 5 mg PO BID #360 tab-cap 12/16/18 03/03/19 docusate sodium [Colace] 100 mg PO BID PRN 01/15/19 04/14/19 polyethylene glycol 3350 34 g PO BID PRN 01/15/19 04/14/19 acetaminophen 1,000 mg PO Q8H PRN #90 cap 01/21/19 04/14/19 aspirin [Ecotrin Low Strength] 1 tab PO BID #60 tab-cap 01/21/19 04/14/19 candesartan 16 mg tablet 16 mg PO DAILY #90 tab 02/10/19 04/14/19 glimepiride 4 mg tablet 4 mg PO QAM #30 tab 03/31/19 04/14/19 meclizine 12.5 mg tablet 12.5 mg PO TID PRN #60 tab 04/07/19 04/14/19 blood sugar diagnostic strips #100 strip 04/14/19 oxycodone 5 mg PO Q4H PRN 04/14/19 04/14/19 sitagliptin 100 mg tablet 100 mg PO DAILY #28 tab-cap 04/21/19 empagliflozin 25 mg tablet 25 mg PO DAILY #90 cap 04/26/19 ibuprofen 600 mg PO QID PRN #20 tab 04/27/19 Previous Rx's Medication Instructions Recorded lancets [FreeStyle Lancets] #100 ea 02/09/18 pantoprazole 40 mg PO DAILY #30 tab 09/23/18 diltiazem CD 240 mg 240 mg PO DAILY #90 cap 11/11/18 capsule,extended release 24 hr metformin 1,000 mg tablet 1,000 mg PO BID #180 tab-cap 11/11/18 glyburide 5 mg tablet 5 mg PO BID #360 tab-cap 12/16/18 acetaminophen 1,000 mg PO Q8H PRN #90 cap 01/21/19 aspirin [Ecotrin Low Strength] 1 tab PO BID #60 tab-cap 01/21/19 candesartan 16 mg tablet 16 mg PO DAILY #90 tab 02/10/19 glimepiride 4 mg tablet 4 mg PO QAM #30 tab 03/31/19 meclizine 12.5 mg tablet 12.5 mg PO TID PRN #60 tab 04/07/19 blood sugar diagnostic strips #100 strip 04/14/19 sitagliptin 100 mg tablet 100 mg PO DAILY #28 tab-cap 04/21/19 empagliflozin 25 mg tablet 25 mg PO DAILY #90 cap 04/26/19 ibuprofen 600 mg PO QID PRN #20 tab 04/27/19 Allergies Allergy/AdvReac Type Severity Reaction Status Date / Time No Known Allergies Allergy Verified 04/14/19 00:48 General Stated Complaint: Orthopedic JAI: 4 Review of Systems Constitutional Reports as per HPI, Denies chills, Denies fever(s), Denies headache(s) and Denies weakness ENT Denies headache(s) Cardiovascular Reports as per HPI Respiratory Reports as per HPI and Denies cough Musculoskeletal Reports as per HPI and Denies tingling Integumentary/Breasts Reports as per HPI, Denies rash and Denies wounds Neurologic Reports as per HPI, Denies headache(s), Denies tingling, Denies paresthesias and Denies weakness PFS Medical History Urinary retention (Acute) Nausea and vomiting after administration of anesthetic agent (Resolved) Varicose veins of lower extremity (Acute) Tubular adenoma (Acute) Restless legs (Acute) Obstructive sleep apnea syndrome (Acute) Morbid obesity (Acute 04/26/13) Migraine (Acute) Hypercholesterolemia (Acute 04/26/13) Essential hypertension (Acute 08/11/13) Erectile dysfunction (Acute 10/31/14) DM (diabetes mellitus), type 2, uncontrolled (Acute) CVA (cerebral vascular accident) (Acute 07/20/14) Blindness of one eye (Acute) Bilateral primary osteoarthritis of knee (Acute 03/17/17) Asthma (Chronic) CVA (cerebral vascular accident) (Chronic) Diabetes (Chronic) HTN (hypertension) (Chronic) Left eye trauma (Chronic) Migraine (Chronic) Sleep apnea (Chronic) Primary osteoarthritis of right knee (Resolved) Surgical History Tonsillectomy History of ankle surgery (Chronic) History of total right knee replacement (TKR) (Chronic) Trochanteric bursitis, right hip (Chronic 06/15/18) Social History Smoking/Tobacco Use Status: Former Tobacco Use Pack-years: 4 Second Hand Exposure: Yes Alcohol Intake: never Details: denies alcohol use Drug use: Never Substance use type: does not use Household members: none current occupation: [employer] What type of physical activity do you participate in: none Frequency: does not exercise Sulema/Oriental Orthodox: Jainism Special sulema needs: No Do you feel safe in your relationship?: Yes Exam Const General: cooperative, healthy appearing, comfortable, no acute distress, well developed and well groomed Nutritional Appearance: average body habitus and well nourished Orientation: alert and awake Resp Effort & Inspection: normal respiratory effort, able to speak in complete sentences and no respiratory distress Cardio Rate: regular rate Rhythm: regular rhythm Skin General skin exam: no rashes or lesions noted Lesions: no lesions Rashes: no rashes Trauma: no lacerations or abrasions Neuro General: alert and awake Cognition: normal cognition Speech: speech normal Gait: normal gait Motor: muscle tone normal throughout Sensory Exam: no sensory deficits noted Extrem General: normal capillary refill and no joint enlargement Right upper extremity: normal capillary refill, no joint enlargement, shoulder/upper arm Details: normal to inspection and axillary nerve sensory function normal; no tenderness and no swelling, elbow/forearm (limited ROM, 90*flex, 140*extension, diffuse pain) Details: tenderness Location: of the distal humerus, of the olecranon, of the lateral epicondyle and of the medial epicondyle; not of the mid-shaft forearm, proximal forearm and not of the radial head and distal pulses intact; no swelling, ROM abnormal, no unusual warmth and no ecchymosis, wrist Details: normal to inspection, normal ROM and normal vascular exam; no tenderness (no snuffbox tenderness), no swelling, no unusual warmth, no abrasions, no crepitus and no deformity and hand Details: normal capillary refill, neuromotor exam normal, neurosensory exam normal, tenderness (diffuse discomfort with palpation, worse along dorsal side of the hand), normal ROM of fingers and no swelling; no unusual warmth; ROM limited Psych Appearance: grossly normal and well kempt Mental Status: mental status grossly normal Speech and Movement: speech and movement normal Course Vital Signs Temperature 36.3 C L 04/27/19 10:03 Pulse 75 04/27/19 10:03 Respiratory Rate 14 04/27/19 10:03 Blood Pressure 147/63 H 04/27/19 10:03 Pulse Oximetry 96 04/27/19 10:03 Temperature 36.3 C L 04/27/19 10:03 Temperature Source Temporal Artery Scan 04/27/19 10:03 Pulse 75 04/27/19 10:03 Respiratory Rate 14 04/27/19 10:03 Respiratory Effort Non-Labored 04/27/19 10:13 Blood Pressure 147/63 H 04/27/19 10:03 Blood Pressure Position Sitting 04/27/19 10:03 Pulse Oximetry 96 04/27/19 10:03 Oxygen Delivery Method Room Air 04/27/19 10:03 Oxygen Flow Rate 0 04/27/19 10:03 Pain Level 10 04/27/19 10:13
--- NOTE | 2019-04-27 10:37 | DI.RAD_ITS ---
SYMPTOMS/DIAGNOSIS: FALL ON OUTSTRETCHED HAND RIGHT HAND: There is no evidence of a fracture or dislocation. The bony structures are normally mineralized. The joint space is intact. RIGHT ELBOW: There is no evidence of a fracture or dislocation. There are mild periarticular degenerative changes and a 9 mm olecranon spur is demonstrated.
--- NOTE | 2019-04-27 10:44 | ED.GENADUL_ITS ---
Discharge Plan Disposition Patient Disposition: HOME Condition: Fair Discharge Details Chief Complaint: Orthopedic Clinical Impression: Arm contusion Primary Care Provider: Joan Orosco ED Provider: Marti Arizmendi Home Meds and New Rx's Prescriptions: New ibuprofen 600 mg tablet 600 mg PO QID PRN (Reason: pain) Qty: 20 RF: 0 Continued glimepiride 4 mg tablet 4 mg PO QAM Qty: 30 RF: 2 erenumab-aooe 70 mg/mL auto-injector 140 mg SC QMONTH RF: 0 C PAP RF: 0 albuterol sulfate [ProAir HFA] 8.5 GM HFA aerosol inhaler 2 puff Inhalation QID PRNQty: 3 RF: 4 lancets [FreeStyle Lancets] 1 EACH misc 1 ea Intradermal QID Qty: 100 RF: 11 metformin [Glucophage] 1,000 mg tablet 1,000 mg PO BID Qty: 180 RF: 4 diltiazem HCl [Cardizem CD] 240 mg capsule,extended release 24hr 240 mg PO DAILY Qty: 90 RF: 4 glyburide 5 mg tablet 5 mg PO BID Qty: 360 RF: 2 candesartan 16 mg tablet 16 mg PO DAILY Qty: 90 RF: 3 meclizine [Antivert] 12.5 mg tablet 12.5 mg PO TID PRN (Reason: Vertigo) Qty: 60 RF: 0 OneTouch Ultra Test strip 1 ea Miscellaneous QID Qty: 100 RF: 11 Januvia 100 mg tablet 100 mg PO DAILY Qty: 28 RF: 11 Jardiance 25 mg tablet 25 mg PO DAILY Qty: 90 RF: 4 pantoprazole 40 mg tablet,delayed release (DR/EC) 40 mg PO DAILY Qty: 30 RF: 0 polyethylene glycol 3350 17 gram powder in packet 34 g PO BID PRNRF: 0 docusate sodium [Colace] 100 mg capsule 100 mg PO BID PRNRF: 0 aspirin [Ecotrin Low Strength] 81 MG tablet,delayed release (DR/EC) 1 tab PO BID Qty: 60 RF: 0 acetaminophen 500 mg capsule 1,000 mg PO Q8H PRN (Reason: pain) Qty: 90 RF: 0 oxycodone 5 mg tablet 5 mg PO Q4H PRNRF: 0 Discontinued naproxen 375 MG tablet,delayed release (DR/EC) 1 tab PO TID PRNQty: 270 RF: 4 Discharge Instructions Instructions: Contusion in Adults (ED) Additional Instructions: There is no evidence of fracture on your x-ray. Please encourage rest, ice, elevation. Tylenol and/or ibuprofen as needed for discomfort. You may continue with Gurpreet wrap to help with swelling. Please take sling off frequently and work on range of motion of elbow and shoulder. When not out in public do not use sling. Please follow-up with primary care next week for reevaluation if pain persists. Referral for physical therapy is attached, please call today to schedule follow-up appointment. If you develop increased pain, fever/chills or other new/worsening symptoms please seek care urgently once again. Stand Alone Forms: Physical Therapy Referral Referrals: Joan Orosco MD [Primary Care Provider] - Discharge Data Discharge Date/Time-TO BE ENTERED AT DEPARTURE: 04/27/19 12:34 Medical Decision Making Patient is 64-year-old [id number]-iuccatkc male presenting today with chief complaint of right arm pain. He reports that last night he tripped getting into the shower and landed with his right arm underneath him putting maximal weight on his right forearm. He endorses pain that radiates from the elbow to the fingertips. Is unclear as to where the exact trauma may have occurred along this area. There is no evidence of ecchymosis, swelling, deformity. Patient is feeling improved with immobilization but has severe pain with any type of movement. He has very limited range of motion of the elbow. Will only flex a pproximately 90 and extension to approximately 140 degrees. He is able to supinate and pronate but does have pain with this, these are fully intact. Full range of motion of the wrist. He is able to extend against resistance, abduct all his fingers against resistance. No sensory deficit. We will obtain radiographic images to ensure no bony abnormality. Discussed with the patient that I am concerned with having developing adhesions were taken the elbow. Discussed that he will need referral to PT. XR reviewed by radiologist: RIGHT HAND: There is no evidence of a fracture or dislocation. The bony structures are normally mineralized. The joint space is intact. RIGHT ELBOW: There is no evidence of a fracture or dislocation. There are mild periarticular degenerative changes and a 9 mm olecranon spur is demonstrated. Discussed findings with the patient. Encourage rest, ice, elevation. Tylenol and/or ibuprofen as needed for discomfort. Patient will be fitted with an Gurpreet wrap to help with any swelling and help with gentle mobilization. Patient is requesting a sling. Advised that he may use this when out and about to help prevent any further trauma but that he should take this off on at home to work on range of motion. He was given range of motion exercises, referral for physical therapy. We did discuss the risks associated with this limited range of motion he is demonstrating at this time. I advised close follow-up with primary care for reevaluation of pain next week. We discussed new/worsening symptoms when to seek care urgently once again. All his questions and concerns were addressed and he is in agreement with this plan. HPI General Mode of arrival: ambulatory . Date/Time Provider Initiated Documentation: 04/27/19 10:21 . Limitations to Documentation: no limitations . Information obtained by: patient and RN notes reviewed . History of Present Illness 64 year old M presents to the emergency department with the chief complaint of right arm pain, described as severe, with intensity rated at 10. Quality is described as burning, and is localized to the right and upper extremity. Patient reports no radiation. Patient started experiencing this day(s) (1) and it has been constant. Immobilization improves symptom(s), Movement worsens symptoms . Patient notes no other symptoms.. Patient did receive the following treatments prior to arrival, none Related Data Home Medications Medication Instructions Recorded Confirmed C Pap 04/08/16 03/03/19 albuterol sulfate [ProAir HFA] 2 puff INHALATION QID PRN #3 inh 02/09/18 04/14/19 lancets [FreeStyle Lancets] #100 ea 02/09/18 03/03/19 pantoprazole 40 mg PO DAILY #30 tab 09/23/18 04/14/19 diltiazem CD 240 mg 240 mg PO DAILY #90 cap 11/11/18 04/14/19 capsule,extended release 24 hr metformin 1,000 mg tablet 1,000 mg PO BID #180 tab-cap 11/11/18 04/14/19 erenumab-aooe 70 mg/mL 140 mg SC QMONTH 11/12/18 04/14/19 subcutaneous auto-injector glyburide 5 mg tablet 5 mg PO BID #360 tab-cap 12/16/18 03/03/19 docusate sodium [Colace] 100 mg PO BID PRN 01/15/19 04/14/19 polyethylene glycol 3350 34 g PO BID PRN 01/15/19 04/14/19 acetaminophen 1,000 mg PO Q8H PRN #90 cap 01/21/19 04/14/19 aspirin [Ecotrin Low Strength] 1 tab PO BID #60 tab-cap 01/21/19 04/14/19 candesartan 16 mg tablet 16 mg PO DAILY #90 tab 02/10/19 04/14/19 glimepiride 4 mg tablet 4 mg PO QAM #30 tab 03/31/19 04/14/19 meclizine 12.5 mg tablet 12.5 mg PO TID PRN #60 tab 04/07/19 04/14/19 blood sugar diagnostic strips #100 strip 04/14/19 oxycodone 5 mg PO Q4H PRN 04/14/19 04/14/19 sitagliptin 100 mg tablet 100 mg PO DAILY #28 tab-cap 04/21/19 empagliflozin 25 mg tablet 25 mg PO DAILY #90 cap 04/26/19 ibuprofen 600 mg PO QID PRN #20 tab 04/27/19 Previous Rx's Medication Instructions Recorded lancets [FreeStyle Lancets] #100 ea 02/09/18 pantoprazole 40 mg PO DAILY #30 tab 09/23/18 diltiazem CD 240 mg 240 mg PO DAILY #90 cap 11/11/18 capsule,extended release 24 hr metformin 1,000 mg tablet 1,000 mg PO BID #180 tab-cap 11/11/18 glyburide 5 mg tablet 5 mg PO BID #360 tab-cap 12/16/18 acetaminophen 1,000 mg PO Q8H PRN #90 cap 01/21/19 aspirin [Ecotrin Low Strength] 1 tab PO BID #60 tab-cap 01/21/19 candesartan 16 mg tablet 16 mg PO DAILY #90 tab 02/10/19 glimepiride 4 mg tablet 4 mg PO QAM #30 tab 03/31/19 meclizine 12.5 mg tablet 12.5 mg PO TID PRN #60 tab 04/07/19 blood sugar diagnostic strips #100 strip 04/14/19 sitagliptin 100 mg tablet 100 mg PO DAILY #28 tab-cap 04/21/19 empagliflozin 25 mg tablet 25 mg PO DAILY #90 cap 04/26/19 ibuprofen 600 mg PO QID PRN #20 tab 04/27/19 Allergies Allergy/AdvReac Type Severity Reaction Status Date / Time No Known Allergies Allergy Verified 04/14/19 00:48 General Stated Complaint: Orthopedic AJI: 4 Review of Systems Constitutional Reports as per HPI, Denies chills, Denies fever(s), Denies headache(s) and Denies weakness ENT Denies headache(s) Cardiovascular Reports as per HPI Respiratory Reports as per HPI and Denies cough Musculoskeletal Reports as per HPI and Denies tingling Integumentary/Breasts Reports as per HPI, Denies rash and Denies wounds Neurologic Reports as per HPI, Denies headache(s), Denies tingling, Denies paresthesias and Denies weakness [facility] Medical History Urinary retention (Acute) Nausea and vomiting after administration of anesthetic agent (Resolved) Varicose veins of lower extremity (Acute) Tubular adenoma (Acute) Restless legs (Acute) Obstructive sleep apnea syndrome (Acute) Morbid obesity (Acute 04/26/13) Migraine (Acute) Hypercholesterolemia (Acute 04/26/13) Essential hypertension (Acute 08/11/13) Erectile dysfunction (Acute 10/31/14) DM (diabetes mellitus), type 2, uncontrolled (Acute) CVA (cerebral vascular accident) (Acute 07/20/14) Blindness of one eye (Acute) Bilateral primary osteoarthritis of knee (Acute 03/17/17) Asthma (Chronic) CVA (cerebral vascular accident) (Chronic) Diabetes (Chronic) HTN (hypertension) (Chronic) Left eye trauma (Chronic) Migraine (Chronic) Sleep apnea (Chronic) Primary osteoarthritis of right knee (Resolved) Surgical History Tonsillectomy History of ankle surgery (Chronic) History of total right knee replacement (TKR) (Chronic) Trochanteric bursitis, right hip (Chronic 06/15/18) Social History Smoking/Tobacco Use Status: Former Tobacco Use Pack-years: 4 Second Hand Exposure: Yes Alcohol Intake: never Details: denies alcohol use Drug use: Never Substance use type: does not use Household members: none 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 What type of physical activity do you participate in: none Frequency: does not exercise Sulema/Anglican: Faith Special sulema needs: No Do you feel safe in your relationship?: Yes Exam Const General: cooperative, healthy appearing, comfortable, no acute distress, well developed and well groomed Nutritional Appearance: average body habitus and well nourished Orientation: alert and awake Resp Effort & Inspection: normal respiratory effort, able to speak in complete sentences and no respiratory distress Cardio Rate: regular rate Rhythm: regular rhythm Skin General skin exam: no rashes or lesions noted Lesions: no lesions Rashes: no rashes Trauma: no lacerations or abrasions Neuro General: alert and awake Cognition: normal cognition Speech: speech normal Gait: normal gait Motor: muscle tone normal throughout Sensory Exam: no sensory deficits noted Extrem General: normal capillary refill and no joint enlargement Right upper extremity: normal capillary refill, no joint enlargement, shoulder/upper arm Details: normal to inspection and axillary nerve sensory function normal; no tenderness and no swelling, elbow/forearm (limited ROM, 90*flex, 140*extension, diffuse pain) Details: tenderness Location: of the distal humerus, of the olecranon, of the lateral epicondyle and of the medial epicondyle; not of the mid-shaft forearm, proximal forearm and not of the radial head and distal pulses intact; no swelling, ROM abnormal, no unusual warmth and no ecchymosis, wrist Details: normal to inspection, normal ROM and normal vascular exam; no tenderness (no snuffbox tenderness), no swelling, no unusual warmth, no abrasions, no crepitus and no deformity and hand Details: normal capillary refill, neuromotor exam normal, neurosensory exam normal, tenderness (diffuse discomfort with palpation, worse along dorsal side of the hand), normal ROM of fingers and no swelling; no unusual warmth; ROM limited Psych Appearance: grossly normal and well kempt Mental Status: mental status grossly normal Speech and Movement: speech and movement normal Course Vital Signs Temperature 36.3 C L 04/27/19 10:03 Pulse 75 04/27/19 10:03 Respiratory Rate 14 04/27/19 10:03 Blood Pressure 147/63 H 04/27/19 10:03 Pulse Oximetry 96 04/27/19 10:03 Temperature 36.3 C L 04/27/19 10:03 Temperature Source Temporal Artery Scan 04/27/19 10:03 Pulse 75 04/27/19 10:03 Respiratory Rate 14 04/27/19 10:03 Respiratory Effort Non-Labored 04/27/19 10:13 Blood Pressure 147/63 H 04/27/19 10:03 Blood Pressure Position Sitting 04/27/19 10:03 Pulse Oximetry 96 04/27/19 10:03 Oxygen Delivery Method Room Air 04/27/19 10:03 Oxygen Flow Rate 0 04/27/19 10:03 Pain Level 10 04/27/19 10:13
[2019-04-27] MEDS: Acetaminophen 325 MG TAB 650 MG PO (10:56)
--- NOTE | 2019-04-27 11:00 | NUR.NOTE ---
pt medicated as per mdo tolorating po intake pt transported to xray Nursing Note:
[2019-04-27] MEDS: Ibuprofen 600 MG TAB PO (12:27)
--- NOTE | 2019-04-27 12:32 | NUR.NOTE ---
pt dc home Nursing Note:
== END 2019-04-27 12:34 | disposition home or self-care (01) ==
PROVIDERS: Emergency Provider Physician Assistant; PCP Internal Medicine
DX: S50.11XA Contusion of right forearm, initial encounter (principal); W18.2XXA Fall in (into) shower or empty bathtub, initial encounter
CPT/HCPCS: 99284; 73080; 73130; 99282; L3650

== ENCOUNTER 2019-07-14 07:31 | Outpatient (CLI) | payer MEDICAID, SELFPAY ==
[2019-07-14 11:47] LABS: Abs Immature Grans 0.04 k/cumm (0.0-0.09); Absolute Basophil Count 0.04 k/cumm (0.0-0.2); Absolute Eosinophil Count 0.16 k/cumm (0.0-0.7); Absolute Lymphocyte Count 2.27 k/cumm (1.2-3.4); Absolute Monocyte Count 0.76 k/cumm (0.11-0.7); Absolute Neutrophil Count 5.63 k/cumm (1.2-6.7); Basophils % 0.4; Eosinophils % 1.8; HCT 46.9 % (40.0-50.0); HGB 15.9 g/dL (13.5-17.5); Immature Grans % 0.4; Lymphocytes % 25.5; Mean Corp. HGB Concentration 33.9 g/dL (32.0-36.0); Mean Corpuscular Hemoglobin 27.8 pg (27.0-33.0); Mean Platelet Volume 10.3 fL (8.0-11.0); Monocytes % 8.5; Neutrophils % 63.4; Platelet Count 252 x1000/uL (130-400); RBC 5.72 m/cumm (4.50-6.00); RBC Distribution Width 15.3 % (11.8-14.1)
[2019-07-14 12:08] LABS: Hemoglobin A1C 7.8 % (4.5-6.2)
[2019-07-14 12:28] LABS: ALT 54 U/L (16-63); AST 21 U/L (15-37); Albumin 3.9 g/dL (3.4-5.0); Alkaline Phosphatase 71 U/L (46-116); Anion Gap 11.9 mmol/L (3-11); BUN 28 mg/dL (7-18); Bilirubin, Total 0.4 mg/dL (0.2-1.0); CO2 24.1 mmol/L (21.0-32.0); CREATININE 0.87 mg/dL (0.70-1.30); Calcium 9.1 mg/dL (8.5-10.1); Chloride 103 mmol/L (98-107); Glucose 186 mg/dL (70-100); Potassium 4.6 mmol/L (3.5-5.1); Sodium 139 mmol/L (136-145); Total Protein 7.8 g/dL (6.4-8.2)
== END 2019-07-14 07:51 ==
PROVIDERS: PCP Internal Medicine; Visit Provider Internal Medicine
DX: E66.01 Morbid (severe) obesity due to excess calories (principal); E11.65 Type 2 diabetes mellitus with hyperglycemia; G43.909 Migraine, unspecified, not intractable, without status migrainosus
CPT/HCPCS: 36415; 80053; 83036; 85025

== ENCOUNTER 2019-09-30 10:39 | Outpatient (CLI) | payer MEDICAID, SELFPAY ==
--- NOTE | 2019-09-30 09:00 | DI.RAD_ITS ---
EXAM: XR KNEE RT 2V AP,LAT INDICATION: 1 year post-op right knee. COMPARISON: XR knee RT 1V from 10/07/2018 TECHNIQUE: 2D digital imaging was performed. FINDINGS: There has been no change in the appearance of the total knee prosthesis. No abnormal bony lucencies are seen.
== END 2019-09-30 10:59 ==
PROVIDERS: PCP Internal Medicine; Visit Provider Physician Assistant
DX: Z96.651 Presence of right artificial knee joint (principal); Z47.1 Aftercare following joint replacement surgery
CPT/HCPCS: 73560

== ENCOUNTER 2019-10-26 09:32 | Outpatient (CLI) | payer MEDICAID, SELFPAY ==
[2019-10-26 13:01] LABS: Hemoglobin A1C 7.9 % (4.5-6.2)
== END 2019-10-26 09:52 ==
PROVIDERS: PCP Internal Medicine; Visit Provider Internal Medicine
DX: E11.65 Type 2 diabetes mellitus with hyperglycemia (principal)
CPT/HCPCS: 36415; 83036

== ENCOUNTER 2020-01-04 01:12 | Outpatient (CLI) | payer MEDICAID, SELFPAY ==
--- NOTE | 2020-01-04 07:00 | DI.NM_ITS ---
APPROVED REPORT Exam: Pharmacologic Patient Location: Out-Patient Room/Bed: Stress Nurse: Cassie Dobson RN BMI: 47.13 Baseline Rhythm: Sinus Rhythm with R BBB Comment: Intermittent Bigeminy noted. Indications: Patient testing today for further risk stratification. He also reports having intermitte nt ???sharp??? left sided chest pain over the last 4 weeks. He states this chest pain is not associat ed with activity and occasionally wakes him up from sleep. The pain lasts approximately 1 minute and goes away on its own. Medical History Medical History: Diabetic retinopathy, Blindness of Left Eye, Obstructive Sleep Apnea, Morbid obesity , CVA. Cardiac Medications: Cartia XT, Candesartan, Aspirin Allergies: No known drug allergies Cardiac Risk Factors: FHX of CAD, HTN, Hyperlipidemia, Diabetes, Asthma Previous Cardiac Procedures: None Pretest Chest Pain Characteristics: No chest pain Exercise History: Sedentary Physical Disabilities: Legs Lung Sounds: Clear to auscultation Heart Sounds: Regular Stress Test Details Test: Pharmacologic stress testing performed using 0.4 mg of regadenoson per 5 mL given IV over 10 s econds. Reason for pharmacologic stress test: physical limitation. Nuclear Acquisition: Rest Tc-99m/Stress Tc-99m 1 day Rest Isotope: Tc-99m Sestamibi. Dose: 14.6 Date: 01/04/2020 Injection Time: 0825 Stress Isotope: Tc-99m Sestamibi. Dose: 40.3 Date: 01/04/2020 Injection Time: 1005 HR Resting HR Supine: 64 bpm Max Heart Rate (APMHR): 156 bpm Target HR (85% APMHR): 132 bpm Max HR Achieved: 74 bpm % of APMHR: 47 BP Resting BP Supine: 142/74 mmHg Max BP: 142/74 mmHg ECG Clinical Stress Symptoms: None Stress ECG Conclusion 1. Patient underwent pharmacologic stress. His resting electrocardiogram showed right bundle branch block. Peak heart rate was 47% of maximum predicted for age 2. Clinically there were no symptoms suggestive of angina 3. Electrocardiographically the test was nondiagnostic due to inadequate heart rate Protocol Used: Regadenoson Stress Test Summary STAGE HR BP Symptoms NOTES Supine 64 142/74 1 min post Lexiscan injection 73 132/80 3 min post Lexiscan injection 69 138/80 6 min post Lexiscan injection 69 126/70 9 min post Lexiscan injection 12 min post Lexiscan injection 15 min post Lexiscan injection MPI Conclusion Apical thinning versus infarction. No additional myocardial ischemia
[2020-01-04] MEDS: Regadenoson 0.4 MG/5 ML SYR IVP (10:19)
== END 2020-01-04 01:32 ==
PROVIDERS: PCP Internal Medicine; Visit Provider Internal Medicine
DX: R07.89 Other chest pain (principal); I10 Essential (primary) hypertension; I45.10 Unspecified right bundle-branch block; E11.9 Type 2 diabetes mellitus without complications; E78.5 Hyperlipidemia, unspecified; G47.33 Obstructive sleep apnea (adult) (pediatric); Z82.49 Family history of ischemic heart disease and other diseases of the circulatory system
CPT/HCPCS: 78452; 93017; J2785

== ENCOUNTER 2020-01-12 09:18 | Outpatient (CLI) | payer MEDICAID, SELFPAY | END 2020-01-12 09:38 | PROVIDERS: PCP Internal Medicine; Visit Provider Internal Medicine Cardiovascular Disease | DX: R07.89 Other chest pain (principal); I10 Essential (primary) hypertension; E11.9 Type 2 diabetes mellitus without complications; Z79.84 Long term (current) use of oral hypoglycemic drugs | CPT/HCPCS: 93005; 93010 ==

== ENCOUNTER 2020-03-28 18:21 | Outpatient (REF) | payer MEDICAID, SELFPAY ==
[2020-03-28 20:24] LABS: Calculated LDL 60 mg/dL (<100); Cholesterol 156 mg/dL (<200); Estimated GFR 51.02 (mL/min/1.73m2); HDL Cholesterol 28 mg/dL (40-60); Triglyceride 341 mg/dL (<150)
[2020-03-28 20:34] LABS: Hemoglobin A1C 8.3 % (3.8-5.6)
[2020-03-28 21:32] LABS: COMMENT (LAB VIEW ONLY) 71.41 mg/dL
[2020-03-28 21:36] LABS: Microalb ug/mg Crea 465.6 ug/mg Cr
[2020-03-30 08:33] LABS: PSA, Screening 1.5 ng/mL (0.0-4.5)
== END 2020-03-28 18:41 ==
LOC: LBN 18:21
PROVIDERS: Internal Medicine; PCP Nurse Practitioner; Referring Provider Nurse Practitioner; Visit Provider Nurse Practitioner
DX: E78.5 Hyperlipidemia, unspecified (principal); I10 Essential (primary) hypertension; E11.9 Type 2 diabetes mellitus without complications; R53.1 Weakness
CPT/HCPCS: 80061; 84153; 82043; 82565; 82570; 83036

== ENCOUNTER 2020-10-17 22:15 | Outpatient (REF) | payer MEDICARE, MEDICAID, SELFPAY ==
[2020-10-17 23:10] LABS: ESR 29 mm/hr (1-20)
== END 2020-10-17 22:35 ==
LOC: LBN 22:15
PROVIDERS: PCP Nurse Practitioner; Visit Provider Physician Assistant
DX: G43.909 Migraine, unspecified, not intractable, without status migrainosus (principal)
CPT/HCPCS: 85652

== ENCOUNTER → 2020-10-26 10:19 | Outpatient (BNVA) | payer MEDICARE, MEDICAID, SELFPAY | PROVIDERS: PCP Nurse Practitioner; Referring Provider Nurse Practitioner; Visit Provider Physical Therapy Assistant | DX: Z12.11 Encounter for screening for malignant neoplasm of colon (principal); Z86.010 Personal history of colon polyps; E11.9 Type 2 diabetes mellitus without complications; Z79.4 Long term (current) use of insulin ==

== ENCOUNTER 2020-10-27 10:32 | Outpatient (CLI) | payer MEDICARE, MEDICAID, SELFPAY ==
--- NOTE | 2020-10-27 09:30 | DI.RAD_ITS ---
EXAM: XR KNEE LT 4V AP,LAT,RICHY,PAT CLINICAL HISTORY: eval L knee. TECHNIQUE: 2D digital imaging was performed. COMPARISON: CR XR knee RT 1V from 10/07/2018 CR XR standing alignment from 10/07/2018 CR XR KNEE RT 2V AP,LAT from 09/30/2019 FINDINGS: BONES: No acute fracture is present. No bony destructive lesion is seen. JOINTS: There is moderate to severe narrowing of the medial femoral-tibial joint. There is mild litzy articular spurring. There are adjacent calcifications. There is varus angulation. There is moderat e narrowing of the lateral patellofemoral joint. With moderate periarticular spurring. SOFT TISSUE: Normal. IMPRESSION: Moderate to severe degenerative changes. DATA REPOSITORY: RADIATION DOSE DELIVERED:
--- NOTE | 2020-10-27 09:30 | DI.RAD_ITS ---
EXAM: XR KNEE RT 3V AP,LAT,RICHY INDICATION: pain after fall, s/p TKA. COMPARISON: CR XR KNEE RT 2V AP,LAT from 09/30/2019 CR XR KNEE LT 4V AP,LAT,RICHY,PAT from 10/27/2020 TECHNIQUE: 2D digital imaging was performed. FINDINGS: There has been no change in the appearance of the total knee prosthesis or surrounding bone. No new abnormalities are seen. DATA REPOSITORY: RADIATION DOSE DELIVERED:
== END 2020-10-27 10:52 ==
PROVIDERS: PCP Nurse Practitioner; Referring Provider Internal Medicine; Visit Provider Student in an Organized Health Care Education/Training Program
DX: M17.12 Unilateral primary osteoarthritis, left knee (principal); Z96.651 Presence of right artificial knee joint; M25.561 Pain in right knee
CPT/HCPCS: 20610; 73562; 99213; 73564; J1040

== ENCOUNTER 2020-10-31 02:38 | Outpatient (CLI) | payer MEDICARE, MEDICAID, SELFPAY ==
[2020-11-02 21:35] LABS: COVID-19 RT-PCR Result NEGATIVE (Negative)
== END 2020-10-31 02:58 ==
PROVIDERS: PCP Nurse Practitioner; Visit Provider Surgery
DX: Z11.59 Encounter for screening for other viral diseases (principal); Z01.818 Encounter for other preprocedural examination
CPT/HCPCS: U0003

== ENCOUNTER 2020-11-03 09:04 | Day surgery (SDC) | payer MEDICARE, MEDICAID, SELFPAY ==
[2020-11-03 09:48] VITALS: BP 138/87; PULSE 72; RESP 22; TEMP 37.9; O2SAT 96
[2020-11-03] MEDS: Lactated Ringers 1,000 ML 80 ML IV (10:10)
--- NOTE | 2020-11-03 10:24 | W.PM.DSUDISC ---
Discharge Plan Disposition Patient Disposition: HOME Condition: Good Discharge Details Reason For Visit: Colonoscopy Attending Provider: Leigh Berg Primary Care Provider: Suzanne Andres Home Meds and New Rx's Prescriptions: Continued albuterol sulfate [ProAir HFA] 90 mcg/actuation HFA aerosol inhaler 2 puff Inhalation QID PRN (Reason: bronchospasm) Qty: 3 RF: 0 polyethylene glycol 3350 17 gram/dose powder 17 g PO ONCE PRNRF: 0 Levemir FlexTouch U-100 Insuln 100 unit/mL (3 mL) insulin pen 62 unit SC QHS RF: 0 Emgality Pen 120 mg/mL pen injector 120 mg SC QMONTH Qty: 1 RF: 0 C PAP RF: 0 aspirin [Ecotrin Low Strength] 81 mg tablet,delayed release (DR/EC) 81 mg PO DAILY Qty: 90 RF: 3 glyburide 5 mg tablet 5 mg PO BID Qty: 180 RF: 4 Hold Instructions: Home Medication placed on hold at Doctor's office meclizine 12.5 mg tablet 12.5 mg PO TID PRN (Reason: Vertigo) Qty: 60 RF: 3 naproxen 500 mg tablet 500 mg PO BID PRN (Reason: pain) Qty: 30 RF: 3 diltiazem HCl [Cardizem CD] 240 mg capsule,extended release 24hr 240 mg PO DAILY Qty: 90 RF: 4 metformin [Glucophage] 1,000 mg tablet 1,000 mg PO BID Qty: 180 RF: 4 insulin lispro [Humalog KwikPen Insulin] 100 unit/mL insulin pen See Rx Instructions SC TID Qty: 15 RF: 3 (DME) lancets [FreeStyle Lancets] 28 gauge misc 1 ea Intradermal QID Qty: 200 RF: 11 (DME) blood sugar diagnostic Strip 1 ea Miscellaneous QID Qty: 200 RF: 11 (DME) pen needle, diabetic [1st Tier Unifine Pentips] 32 gauge x 5/32 needle See Rx Instructions .ROUTE .MEDSUPPLY Qty: 100 RF: 3 rosuvastatin 10 mg tablet 10 mg PO DAILY Qty: 90 RF: 11 amlodipine 5 mg tablet 5 mg PO DAILY Qty: 90 RF: 3 candesartan 32 mg tablet 32 mg PO DAILY Qty: 90 RF: 3 docusate sodium [Colace] 100 mg capsule 100 mg PO BID PRNRF: 0 acetaminophen 500 mg capsule 1,000 mg PO Q8H PRN (Reason: pain) Qty: 90 RF: 0 Discontinued polyethylene glycol 3350 17 gram/dose powder 238 g PO ONCE Qty: 238 RF: 0 bisacodyl [Dulcolax (bisacodyl)] 5 mg tablet,delayed release (DR/EC) 5 mg PO ONCE Qty: 4 RF: 0 Discharge Instructions Additional Instructions: Findings: A possible polyp or thick fold was biopsied in the cecum. If the biopsies show a polyp, the area will need close follow up for this reason as well as related to a marginal prep. My office will contact you with biopsy results. Follow up: Plan for a colonoscopy in 1-3 year depending on biopsy results. Please call if you develop: fevers >101.5 Nausea or Vomiting Abdominal pain that is not transient DAY SURGERY UNIT POST COLONOSCOPY INSTRUCTIONS 1. Because there will be medication in your system for the next 24 hours, you may feel a little sleepy. Your coordination will be affected. Therefore: a. Do not drive or operate dangerous equipment for 24 hours. b. Do not drink alcohol beverages for 24 hours (not even beer). c. Plan to go home and rest for the day. 2. Generally there are no restrictions on your activity after a day or so has gone by, but you may feel a bit fatigued for a few days. 3 After you arrive home you may have a light meal and return to a normal diet as you can tolerate it without feeling sick to your stomach. 4. After surgery, you may feel pain or discomfort. This should be only transient, but if it persists please contact your doctor. 5. If there are any questions regarding the findings of your procedure, please feel free to contact your doctor. 6. If you are unable to contact your doctor with a problem, contact the hospital at [phone]. 7. Continue all your regular medications unless directed otherwise. I understand the above instructions and have no questions. Signature of Patient or Responsible Adult Escort Date/Time Name of Responsible Adult Escort Signature of Nurse Date/Time Activity:: Activity as Tolerated Diet:: As Tolerated Discharge Orders Discharge Orders: Discharge Order (Routine); Ordered 11/03/20 Ordered By: Leigh Berg DS: Diagnosis Discharge Diagnosis (1) Diverticulosis: Status: Acute
[2020-11-03 10:25] VITALS: TEMP 37.1
--- NOTE | 2020-11-03 10:26 | W.COLOREPORT ---
Date of service: 11/03/20 Time of Service: 11:26 Colonoscopy Report Date of procedure: 11/03/20 Pre-op diagnosis general: History of polyps Post-op diagnosis procedure note: other (Possible cecal polyp, diverticulosis) Procedure: Colonoscopy with biopsy Surgeon: Leigh Berg Anesthesia proc note operative: MAC Indications: This 65 year old man presents for colonoscopy. His last procedure in 2014 showed a tubular adenoma in the transverse colon No symptoms or FH colon cancer. Procedure Description: The patient was placed in the left Dean position. Propofol was titrated to sedation. Digital rectal examination revealed no abnormalities. The scope was advanced to the cecum with some abdominal pressure required. The ileocecal valve and appendiceal orifice were clearly identified. The prep was marginal with thick stool present in some areas. There was prominent tissue right at the ileocecal valve which may represent a polyp or prolapsing tissue. This was biopsied. The scope was slowly withdrawn over the course of greater than 6 minutes with no abnormalities seen in the ascending, transverse, descending, sigmoid colon or rectum including on retroflexed view. The patient tolerated the procedure well and was stable to recovery. Due to the marginal prep and possible polyp, he will need close follow up in 1-3 years depending on biopsy results.
--- NOTE | 2020-11-03 11:04 | BOWEL_PTH ---
PATIENT: Jose Jacobo LOC: [facility] U#:[id number] AGE/SX: 65/M ROOM: RE11/03/[address]: Leigh Berg MD : [id number] BED: DIS: 11/03/2020 SPEC #: [id number] RECD: 11/03/20 13:02 STATUS: [place] RECastro #: [id number] BECKY: 11/03/20 11:[address]: Leigh Berg DEPT: Surgical Specimen RECD BY: Allison Ramirez ENTERED: 11/03/20 13:02 SP TYPE: Bowel OTHR DR: Suzanne Andres, PhD SET UP OPERATOR Tissues: 1 - BIOPSY BOWEL Procedures: GROSS AND MICRO LEVEL 4 Comments: [id number]
[2020-11-03 11:55] VITALS: BP 131/71; PULSE 72; RESP 20; TEMP 36.5; O2SAT 92
== END 2020-11-03 12:14 | disposition home or self-care (01) ==
PROVIDERS: PCP Nurse Practitioner; Visit Provider Surgery
PROC: 0DJD8ZZ Inspection of Lower Intestinal Tract, Via Natural or Artificial Opening Endoscopic (ICD-10-PCS; CPT 45378; principal; 2020-11-03 10:45)
DX: Z12.11 Encounter for screening for malignant neoplasm of colon (principal); Z86.010 Personal history of colon polyps; D12.0 Benign neoplasm of cecum; K57.30 Diverticulosis of large intestine without perforation or abscess without bleeding
CPT/HCPCS: 45380; 88305; J2001; J2704

== ENCOUNTER 2020-11-08 03:25 | Outpatient (CLI) | payer MEDICARE, MEDICAID, SELFPAY ==
--- OUTSIDE RECORDS SUMMARY | 2020-11-08 03:30 | XMS_ITS | Encounter Summary ---
:1955 Author Care Team Providers Name Role Phone Suzanne Andres Primary Care Provider [phone] Suzanne Andres Referring Provider [phone] Reason for Visit podiatry nail debridement Assessment and Plan Assessment Note Assessment/Plan: 1. Diabetes Mellitus with Peripheral riki ropathy 2. Onychomycosis -10 3. Keratoderma -Discussed symptoms and etiology with greer nichols. -Pared lesions as courtesy with #15 blad e x 4. Pt tolerated procedure well with negative trauma to skin. all skin intact -Rx: Urea cream 20%. Apply BID after usi ng pumice stone -Counseled patient on his at risk stat us. -Counseled patient on diabetic foot care : drying feet well, especially between toes, apply cream to top and bottom of feet and not between, and never walking without shoes or hard bottom slippers. -Under aseptic technique, debrided nails 1-10, of all devitalized tissue, using sterile nail nipper and curettage, to he althy nail as possible. Patient tolerated procedure well, without compli cations. -Continue diabetic shoes and inserts. -Rec to patient that he wears socks. Pt states his feet sweat too much. -Advised patient on proper foot hygiene and shoe gear for condition. -Advised patient to perform daily foot c hecks. -Advised patient to f/u with PCP as dire cted. -RTC every 3 months 1. Acquired keratoderma ? urea 20 % topical cream 2. Polyneuropathy due to type 2 diabetes mellitus 3. Onychomycosis of toenails Discussion Note: None recorded.Patient educational handouts: No information available. Plan of Care Reminders Provider Appointments Podiatry Nail J annie Lopez, Jessy 12/28/2020 1:15PM Lab None recorded. ? ? Referral None recorded. ? ? Procedures None recorded. ? ? Surgeries None recorded. ? ? Imaging None recorded. ? ? Medications Name Start Date ? ? aspirin 81 mg tablet,delayed release ? Take 1 tablet every day by oral route. Botox 100 unit injection ? Take 50 units every 3 months by injection route. cyclobenzaprine 10 mg tablet ? Take 1 tablet every day by oral route at bedtime. DILT-XR 240 mg capsule, extended release ? Take 1 capsule every day by oral route. glyburide 5 mg tablet ? Take 1 tablet twice a day by oral route. Januvia 100 mg tablet ? Take 1 tablet every day by oral route. lancets ? lovastatin 40 mg tablet ? Take 1 tablet every day by oral route. metformin 1,000 mg tablet ? Take 1 tablet twice a day by oral route. naproxen 375 mg tablet ? Take 1 tablet twice a day by oral route. One Touch Ultra Test Strips ? test 4 times daily ProAir HFA 90 mcg/actuation aerosol inhaler ? Inhale 2 puffs 4 times a day by inhalation route as n eeded. promethazine 12.5 mg rectal suppository ? Insert 1 suppository every 6 hours by rectal route as needed. urea 20 % topical cream ? Apply twice daily to calloused area on feet Medications Administered None recorded. Vitals Height Weight BMI 5 ft 8 in 298 lbs 45.3 kg/m2 Results Lab Results None recorded. Allergies Code Code System Name Reaction Severity Onset NKDA ? ? ? Problems Name Status Onset Date Source ? Tubular Adenoma Active 02/28/2017 ? Type 2 Diabetes Mellitus Active 02/28/2017 ? Hypercholesterolemia Active 02/28/2017 ? Morbid Obesity Active 02/28/2017 ? Obstructive Sleep Apnea Syndrome Active 02/28/2017 ? Restless Legs Active 02/28/2017 ? Migraine Active 02/28/2017 ? Blindness of One Eye Active 02/28/2017 ? Hypertensive Disorder Active 02/28/2017 ? Cerebrovascular Accident Active 02/28/2017 ? Venous Varices Active 02/28/2017 ? History of Male Erectile Disorder Active 02/28/2017 ? Procedures None recorded. Vaccine List Vaccine Type influenza, injectable, quadrivalent 08/21/2016 Tdap 09/04/2011 Social History Tobacco Smoking Status Former Smoker Notes: 05/25/19 Are you currently waiting on N results of a COVID-19 test? Are you isolating or N quarantining because you may have been exposed to a person with COVID-19 or are worried that you may be sick with COVID-19? Most Recent Tobacco Use 10/26/2020 Screening E-cigarette/Vape Status Never used electronic cigarettes In the 14 days before symptom N onset, did the patient spend time in [facility]? Have you travelled outside of [facility] in the past 14 days? Have you experienced any of the N following symptoms in the past 48 hours? Fever/Chills, Cough, Shortness of breath or difficulty breathing, fatigue, muscle or body aches, headache, new loss of taste or smell, sore throat, congestion or runny nose, nausea or vomiting and/or diarrhea Smokeless Tobacco Status Never used smokeless tobacco Within the past 14 days, have N you been in close physical contact (6 feet or closer for a cumulative total of 15 minutes) with anyone that is known to have laboratory-confirmed COVID-19? OR Anyone who has any symptoms consistent with COVID-19? Has patient visited an area known to be high risk for 2019 n-CoV? If patient spent time in [facility] - Does the patient live in [facility]? Functional Status Unknown. Past Encounters 10/26/2020 Acquired Keratoderma; Polyneuropathy Due to Type 2 Diabetes Mellitus; Onychomycosis of Toenails Prema Hardin, DPM: [address] [place] [phone], Ph. History of Present Illness Note: Subjective: Patient is 65 y/o NIDDM male PTC for at risk nail and callous care.
<div>Patient denies any new pain or problems to his feet today.
</div><div>Chart and medications reviewed and Documented.</div> Review of Systems ? Notes: all neg at this time Physical Exam ? Notes: P/E:
<div>VASC:
</div> <div>Right DP/PT 1/4; Right DP 2/4; Right PT 0/4; trace/4 pitting edema to b/l LE. Skin temp
</div><div>warm to warm prox to distal b/l LE. intact digita l and pedal hair growth b/l LE.
</div><div>Capillary Fill time 1 sec bilateral; + Varicosities b/l; neg Rubor b/l
</div><div>
</div><div>DERM:
</div><div>Grade zero skin bilateral; Neg open lesions noted b/l.
</div><div>b/l medial hallux and b/l medial 1st MTPJ hpk lesi on: neg intralesional hemorrhage neg POP
</div><div>Nails 1-10 th ickened, elongated, dystrophic, incurvated, crumbling, splitting, with s ubungual debris.
</div><div>
</div> <div>MUSC:
</div><div>MMT 4/5 to all major muscle groups b/l LE with de creased AJ, STJ, and pedal
</div><div>joint ROM b/l. + equinus b/l. Neg POP to b/l Achilles tendon insertions, plantar fascial insertions,
< /div><div>medial to lateral compression of b/l os calcis. Neg POP along PT, pe roneal or Achilles tendons.
</div><div>+ digital contracture b/l.
</div><div>
</ div><div>NEURO:
</div><div>Protective threshold diminished b/l LE as per 5.0 7 monofilament(1020).
</div>
--- OUTSIDE RECORDS SUMMARY | 2020-11-08 03:30 | XMS_ITS ---
:1955 Author Care Team Providers Name Role Phone MONICA WINCHESTER Primary Care Provider [phone] MONICA WINCHESTER Referring Provider [phone] Allergies Code Code System Name Reaction Severity Status Onset NKDA ? Medications Name Status Start Date Stop Date ? ? aspirin 81 mg tablet,delayed release Active ? Not available Take 1 tablet every day by oral route. Botox 100 unit injection Active ? Not mila ilable Take 50 units every 3 months by injection route. cyclobenzaprine 10 mg tablet Active ? Not available Take 1 tablet every day by oral route at bedtime. DILT-XR 240 mg capsule, extended release Active ? Not available Take 1 capsule every day by oral route. glyburide 5 mg tablet Active ? Not availa ble Take 1 tablet twice a day by oral route. Januvia 100 mg tablet Active ? Not availa ble Take 1 tablet every day by oral route. lancets Active ? Not available lisinopril 40 mg tablet Completed ? 02/06/20 18 Take 1 tablet every day by oral route. lovastatin 40 mg tablet Active ? Not avai lable Take 1 tablet every day by oral route. metformin 1,000 mg tablet Active ? Not av ailable Take 1 tablet twice a day by oral route. naproxen 375 mg tablet Active ? Not avail able Take 1 tablet twice a day by oral route. One Touch Ultra Test Strips Active ? Not available test 4 times daily ProAir HFA 90 mcg/actuation aerosol inhaler Active ? Not available Inhale 2 puffs 4 times a day by inhalation route as needed. promethazine 12.5 mg rectal suppository Active ? Not available Insert 1 suppository every 6 hours by rectal route as needed. urea 20 % topical cream Active ? Not avai lable Apply twice daily to calloused area on feet Problems Name Status Onset Date Source ? [...] Disorder Active 02/28/2017 ? Procedures None recorded. Results Lab Results None recorded. Past Encounters 10/26/2020 Acquired Keratoderma; Polyneuropathy Due to Type 2 Diabetes Mellitus; Onychomycosis of Toenails Prema Hardin, DPM: [address] [place] [phone], Ph. 06/13/2020 Onychomycosis of Toenails; Pain in Toe Jasper Bibi: [address] [place] [phone], Ph. 04/12/2020 Onychomycosis of Toenails; Pain in Toe Jasper Bibi: [address] [place] [phone], Ph. 01/10/2020 Onychomycosis of Toenails; Pain in Toe Jasper Bibi: [address] [place] [phone], Ph. 10/21/2019 Onychomycosis; Pain in Toe; Fissure in S kin Jasper Bibi: [address] [place] [phone], Ph. 05/25/2019 Onychomycosis; Pain in Toe; Fissure in S kin Jasper Bibi: [address] [place] [phone], Ph. Social History Tobacco Smoking Status Former Smoker Notes: 05/25/19 Vaccine List Vaccine Type influenza, injectable, quadrivalent 08/21/2016 Tdap 09/04/2011 Plan of Care Reminders Provider Appointments None ? ? recorded. Lab None ? ? recorded. Referral None ? ? recorded. Procedures None ? ? recorded. Surgeries None ? ? recorded. Imaging None ? ? recorded. Vitals 10/26/2020 01:30PM PODIATRY NAIL DEBRIDEMENT Height Weight BMI 172.72 cm 135.17 kg 45.3 kg/m2 06/13/2020 02:15PM PODIATRY NAIL DEBRIDEMENT Height Weight BMI Blood Pressure 172.72 cm 135.17 kg 45.3 kg/m2 134/72 mm[Hg] 04/12/2020 12:30PM PODIATRY NAIL DEBRIDEMENT Height Weight BMI Blood Pressure 172.72 cm 135.17 kg 45.3 kg/m2 134/72 mm[Hg] 01/10/2020 01:00PM PODIATRY NAIL DEBRIDEMENT Height Weight BMI Blood Pressure 172.72 cm 135.17 kg 45.3 kg/m2 134/72 mm[Hg] 10/21/2019 01:00PM PODIATRY NAIL DEBRIDEMENT Height Weight BMI Blood Pressure 172.72 cm 135.17 kg 45.3 kg/m2 132/70 mm[Hg] 05/25/2019 01:45PM PODIATRY NAIL DEBRIDEMENT Height Weight BMI Blood Pressure 172.72 cm 135.17 kg 45.3 kg/m2 138/72 mm[Hg] 01/18/2019 12:30PM PODIATRY NAIL DEBRIDEMENT Height Weight BMI Blood Pressure 172.72 cm 135.17 kg 45.3 kg/m2 140/68 mm[Hg] 10/26/2018 12:30PM PODIATRY NAIL DEBRIDEMENT Height Weight BMI Blood Pressure 172.72 cm 135.17 kg 45.3 kg/m2 128/50 mm[Hg] 08/24/2018 01:15PM PODIATRY NAIL DEBRIDEMENT Height Weight BMI Blood Pressure 172.72 cm 137.89 kg 46.2 kg/m2 132/72 mm[Hg] 06/22/2018 01:00PM PODIATRY FOLLOW UP Height Weight BMI Blood Pressure 172.72 cm 137.89 kg 46.2 kg/m2 122/62 mm[Hg] 03/24/2018 12:30PM PODIATRY DIABETIC FOOT CARE Height Weight BMI Blood Pressure 172.72 cm 137.89 kg 46.2 kg/m2 134/66 mm[Hg] 02/05/2018 01:00PM PODIATRY DIABETIC FOOT CARE Weight Blood Pressure 141.97 kg 148/86 mm[Hg] 03/11/2017 02:30PM PODIATRY NEW PATIENT Weight Blood Pressure 141.97 kg 128/72 mm[Hg]
[2020-11-08 13:33] LABS: ESR 31 mm/hr (1-20)
== END 2020-11-08 03:45 ==
PROVIDERS: PCP Nurse Practitioner; Visit Provider Nurse Practitioner Family
DX: G43.909 Migraine, unspecified, not intractable, without status migrainosus (principal)
CPT/HCPCS: 36415; 85652

== ENCOUNTER 2021-01-03 11:34 | Emergency (ER) | payer MEDICARE, MEDICAID, SELFPAY ==
[2021-01-03] VITALS (48 sets, daily range): BP systolic 153–201; BP diastolic 75–98; PULSE 65–89; RESP 13–26; TEMP 36.4; O2SAT 93–98
--- NOTE | 2021-01-03 11:45 | RT.EKG_ITS ---
APPROVED REPORT Exam: Resting ECG Patient Location: E HR:86 bpm ECG Measurements Heart Rate 86 AXIS OK [id number] P [id number] QRSd 163 QRS 107 QT 409 T 52 QTc 490 Conclusion Atrial fibrillation...V-rate 85- 87, irreg A-activity RBBB and LPFB...QRSd >120mS, axis(90,210). P waves visible. Regular. RBBB. Doubt afib. No STEMI. I have reviewed and interpreted ECG and agree with software generated interpretation.
--- NOTE | 2021-01-03 12:03 | W.ED.GENAD ---
Discharge Plan Disposition Patient Disposition: HOME Condition: Good Discharge Details Clinical Impression: Ureterolithiasis Primary Care Provider: Suzanne Andres ED Provider: Allison Slaughter Home Meds and New Rx's Prescriptions: New oxycodone-acetaminophen [Percocet] 5-325 mg tablet 1 tab PO Q8H PRNQty: 7 RF: 0 metoclopramide HCl [Reglan] 5 mg tablet 5 mg PO QAC Qty: 7 RF: 0 No Action albuterol sulfate [ProAir HFA] 90 mcg/actuation HFA aerosol inhaler 2 puff Inhalation QID PRN (Reason: bronchospasm) Qty: 3 RF: 0 polyethylene glycol 3350 17 gram/dose powder 17 g PO ONCE PRNRF: 0 Emgality Pen 120 mg/mL pen injector 120 mg SC QMONTH Qty: 1 RF: 0 (DME) lancets [FreeStyle Lancets] 28 gauge misc 1 ea Intradermal QID Qty: 200 RF: 11 (DME) blood sugar diagnostic Strip 1 ea Miscellaneous QID Qty: 200 RF: 11 carbamazepine 200 mg tablet extended release 12 hr 200 mg PO BID RF: 0 C PAP RF: 0 aspirin [Ecotrin Low Strength] 81 mg tablet,delayed release (DR/EC) 81 mg PO DAILY Qty: 90 RF: 3 glyburide 5 mg tablet 5 mg PO BID Qty: 180 RF: 4 Hold Instructions: Home Medication placed on hold at Doctor's office meclizine 12.5 mg tablet 12.5 mg PO TID PRN (Reason: Vertigo) Qty: 60 RF: 3 naproxen 500 mg tablet 500 mg PO BID PRN (Reason: pain) Qty: 30 RF: 3 diltiazem HCl [Cardizem CD] 240 mg capsule,extended release 24hr 240 mg PO DAILY Qty: 90 RF: 4 metformin [Glucophage] 1,000 mg tablet 1,000 mg PO BID Qty: 180 RF: 4 insulin lispro [Humalog KwikPen Insulin] 100 unit/mL insulin pen See Rx Instructions SC TID Qty: 15 RF: 3 rosuvastatin 10 mg tablet 10 mg PO DAILY Qty: 90 RF: 11 amlodipine 5 mg tablet 5 mg PO DAILY Qty: 90 RF: 3 Levemir FlexTouch U-100 Insuln 100 unit/mL (3 mL) insulin pen 80 unit SC QHS Qty: 15 RF: 4 (DME) pen needle, diabetic [1st Tier Unifine Pentips] 32 gauge x 5/32 needle See Rx Instructions .ROUTE .MEDSUPPLY Qty: 100 RF: 3 lisinopril 40 mg tablet 40 mg PO DAILY Qty: 90 RF: 3 COVID-19 vacc,mRNA(Moderna)-PF 100 mcg/0.5 mL suspension 0.5 ml IM ONCE Qty: 0.5 RF: 0 acetaminophen 500 mg capsule 1,000 mg PO Q8H PRN (Reason: pain) Qty: 90 RF: 0 docusate sodium [Colace] 100 mg capsule 100 - 200 mg PO BID RF: 0 Discharge Instructions Additional Instructions: I suspect you had a kidney stone that you passed, strain your urine Follow-up with the urologist listed You may take the pain medication as needed Take pain medication with MiraLAX you do not become constipated, I recommend taking the MiraLAX daily Take Reglan as needed for nausea and vomiting Follow-up with urologist listed Please return with fever, chills, worsening pain, or with any new or progressing symptoms Recommend you call for follow-up tomorrow Your Covid test will be rescheduled, they will call you to reschedule this test Referrals: Eddie Pinon MD [ [facility] STAFF PHYSICIAN] - Discharge Data Discharge Date/Time-TO BE ENTERED AT DEPARTURE: 01/03/21 16:44 Medical Decision Making Patient initially quite uncomfortable but feeling symptomatically improved Able to tolerate p.o. CT results discussed with radiologist, suspect recently passed stone, patient's pain is improved Instructed to follow-up with urology and his primary care physician regarding CT findings including cyst in his kidney Patient is afebrile and nontoxic He is urinating and able to drink in the emergency room Feels comfortable with discharge home He was supposed to receive the Covid vaccine today, I think given that he has already uncomfortable having a Covid vaccine today will make him quite ill, this was rescheduled patient He is discharged home in stable condition with stable vitals Small amount of opiate analgesia with risk of addiction discussed with patient and sedation side effect Antiemetic, Reglan administered given history of QTC prolongation Urine was sent for culture although no evidence of urinary tract infection No diverticulitis Differential Diagnosis Differential Diagnosis: Appendicitis, diverticulitis, urinary tract infection, gastroenteritis Medical Records Medical records reviewed: Yes I reviewed the patient's medical records. Lab Data Lab results reviewed: Yes I reviewed the patient's lab results. HPI This 65-year-old gentleman with history of CVA, uncontrolled type II diabetic, migraine, tubular adenoma presents for evaluation of right lower quadrant pain which woke patient from sleep, nausea, vomiting, diarrhea. Denies prior history of similar symptoms in the past. He has pain with any sort of position change and movement. He denies any blood in vomitus. He denies any chest pain or shortness of breath. He denies dizziness or weakness. He vomited several times. Denies any associated diarrhea. He denies any known sick contacts. He denies any dysuria or frequency. He has had some sediment post urination but he is noted in full over the course of the past several days per patient. He denies any flank pain. The pain awoke him at approximately 4 AM this morning. Prior to this he felt reportedly fine. General Date/Time Provider Initiated Documentation: 01/03/21 11:49. Related Data Home Medications Medication Instructions Recorded Confirmed C Pap 04/08/16 12/15/20 acetaminophen 1,000 mg PO Q8H PRN #90 cap 01/21/19 01/03/21 aspirin 81 mg tablet,delayed 81 mg PO DAILY #90 tab-cap 03/14/20 01/03/21 release galcanezumab-gnlm 120 mg/mL 120 mg SC QMONTH #1 ml 03/28/20 01/03/21 subcutaneous pen injector glyburide 5 mg tablet 5 mg PO BID #180 tab-cap 03/31/20 01/03/21 diltiazem HCl 240 mg 240 mg PO DAILY #90 cap 04/13/20 01/03/21 capsule,extended release 24 hr meclizine 12.5 mg tablet 12.5 mg PO TID PRN #60 tab 04/13/20 01/03/21 naproxen 500 mg tablet 500 mg PO BID PRN #30 tab 04/13/20 01/03/21 metformin 1,000 mg tablet 1,000 mg PO BID #180 tab-cap 05/11/20 01/03/21 insulin lispro 100 unit/mL See Rx Instructions SC TID #15 ml 06/19/20 01/03/21 subcutaneous pen albuterol sulfate 90 mcg/actuation 2 puff INHALATION QID PRN #3 inh 07/07/20 01/03/21 aerosol inhaler polyethylene glycol 3350 17 17 g PO ONCE PRN gm 08/04/20 01/03/21 gram/dose oral powder rosuvastatin 10 mg tablet 10 mg PO DAILY #90 tab 10/24/20 01/03/21 amlodipine 5 mg tablet 5 mg PO DAILY #90 tab 10/25/20 01/03/21 blood sugar diagnostic #200 strip 11/27/20 12/15/20 lancets 28 gauge #200 each 11/27/20 12/15/20 insulin detemir U-100 100 unit/mL 80 unit SC QHS #15 ml 12/05/20 01/03/21 (3 mL) subcutaneous pen pen needle, diabetic 32 gauge x #100 ea 12/06/20 12/15/20 docusate sodium 100 mg capsule 100 - 200 mg PO BID cap 12/15/20 01/03/21 lisinopril 40 mg tablet 40 mg PO DAILY #90 tab 12/19/20 01/03/21 carbamazepine 200 mg 200 mg PO BID 12/28/20 01/03/21 tablet,extended release,12 hr metoclopramide HCl [Reglan] 5 mg PO QAC #7 tab 01/03/21 oxycodone-acetaminophen [Percocet] 1 tab PO Q8H PRN #7 tab 01/03/21 Previous Rx's Medication Instructions Recorded acetaminophen 1,000 mg PO Q8H PRN #90 cap 01/21/19 aspirin 81 mg tablet,delayed 81 mg PO DAILY #90 tab-cap 03/14/20 release galcanezumab-gnlm 120 mg/mL 120 mg SC QMONTH #1 ml 03/28/20 subcutaneous pen injector glyburide 5 mg tablet 5 mg PO BID #180 tab-cap 03/31/20 diltiazem HCl 240 mg 240 mg PO DAILY #90 cap 04/13/20 capsule,extended release 24 hr meclizine 12.5 mg tablet 12.5 mg PO TID PRN #60 tab 04/13/20 naproxen 500 mg tablet 500 mg PO BID PRN #30 tab 04/13/20 metformin 1,000 mg tablet 1,000 mg PO BID #180 tab-cap 05/11/20 insulin lispro 100 unit/mL See Rx Instructions SC TID #15 ml 06/19/20 subcutaneous pen albuterol sulfate 90 mcg/actuation 2 puff INHALATION QID PRN #3 inh 07/07/20 aerosol inhaler rosuvastatin 10 mg tablet 10 mg PO DAILY #90 tab 10/24/20 amlodipine 5 mg tablet 5 mg PO DAILY #90 tab 10/25/20 blood sugar diagnostic #200 strip 11/27/20 lancets 28 gauge #200 each 11/27/20 insulin detemir U-100 100 unit/mL 80 unit SC QHS #15 ml 12/05/20 (3 mL) subcutaneous pen pen needle, diabetic 32 gauge x #100 ea 12/06/20 lisinopril 40 mg tablet 40 mg PO DAILY #90 tab 12/19/20 metoclopramide HCl [Reglan] 5 mg PO QAC #7 tab 01/03/21 oxycodone-acetaminophen [Percocet] 1 tab PO Q8H PRN #7 tab 01/03/21 Allergies Allergy/AdvReac Type Severity Reaction Status Date / Time No Known Allergies Allergy Verified 11/03/20 09:35 General Stated Complaint: Abd Prob JAI: 3 Review of Systems Narrative: Review of systems negative x7 aside from where indicated in HPI, nausea, vomiting, no diarrhea PFSH Medical History (Updated 01/03/21 @ 16:04 by FADY Daley) Asthma Bilateral primary osteoarthritis of knee (03/17/17) Blindness of one eye LEFT Cluster headache, chronic CVA (cerebral vascular accident) (07/20/14) crpytogenic Diabetes Diabetic retinopathy (~08/2019) [facility] retinologist: Dr. Trejo- [facility] non- proliferative ([facility])-07/13/20 DM (diabetes mellitus), type 2, uncontrolled titrating insulin to achieve control Dr. Mtz every 3 months for foot care Erectile dysfunction (10/31/14) Essential hypertension (08/11/13) Hyperlipidemia Left eye trauma resulting in surgery many years ago Migraine Morbid obesity (04/26/13) Nausea and vomiting after administration of anesthetic agent Obstructive sleep apnea syndrome [place] sleep study 08/14/11 - CPAP recommended Primary osteoarthritis of right knee Restless legs Right hip pain Sleep apnea Uses CPAP machine Trochanteric bursitis, left hip Tubular adenoma 02/03/15-Dr. Luly Stafford Urinary retention Varicose veins of lower extremity Surgical History History of ankle surgery as a child History of total right knee replacement (TKR) 09/22/2018 Status post right knee replacement (09/22/18) Status post tonsillectomy Trochanteric bursitis, right hip (06/15/18) Right IT band lengthening and bursal debridement DOS: 01/21/19 Family History Mother Depression Hyperlipidemia Father Heart disease Brother Diabetes Depression Hyperlipidemia Brother Substance abuse Depression Heart disease Hyperlipidemia Brother , Gunshot wound No problems noted. 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 Current gender identity: male What type of physical activity do you participate in: none Frequency: does not exercise Sulema/Yazidi: Cheondoism Special sulema needs: No Do you feel safe at home: Yes Do you feel safe in your relationship?: Yes Exam Const General: cooperative and no acute distress HENMT Mouth: oral mucosae normal Resp Effort & Inspection: normal respiratory effort Auscultation: clear to auscultation bilaterally Cardio Rate: regular rate Rhythm: regular rhythm Other: Distal pulses intact GI Other: Morbidly obese abdomen, exquisitely tender right lower quadrant without rebound or guarding, no CVA tenderness Skin General skin exam: no rashes or lesions noted Neuro General: patient alert and patient oriented x3 Extrem Other: No peripheral edema Course Vital Signs Vital signs: Vital Signs Temperature 36.4 C L 01/03/21 11:38 Pulse 71 01/03/21 11:38 Respiratory Rate 18 01/03/21 11:38 Blood Pressure 177/81 H 01/03/21 11:38 Pulse Oximetry 98 01/03/21 11:38 Temperature 36.4 C L 01/03/21 11:38 Temperature Source Skin 01/03/21 11:38 Pulse 71 01/03/21 11:38 Respiratory Rate 18 01/03/21 11:38 Respiratory Effort 01/03/21 11:44 Blood Pressure 177/81 H 01/03/21 11:38 Pulse Oximetry 98 01/03/21 11:38 Oxygen Delivery Method Room Air 01/03/21 11:38 Oxygen Flow Rate 0 01/03/21 11:38 Pain Level 8 01/03/21 11:47
[2021-01-03] MEDS: Normal Saline 1,000 ML 1000 ML IV (12:10)
[2021-01-03 12:14] LABS: Abs Immature Grans 0.05 10^3/uL (0.0-0.06); Absolute Basophil Count 0.03 10^3/uL (0.0-0.2); Absolute Eosinophil Count 0.11 10^3/uL (0.0-0.7); Absolute Lymphocyte Count 1.06 10^3/uL (1.2-3.4); Absolute Monocyte Count 0.56 10^3/uL (0.1-0.8); Basophils % 0.3; HCT 46.9 % (40.0-50.0); HGB 15.3 g/dL (13.5-17.5); Immature Grans % 0.5; Lymphocytes % 9.6; MCH 27.9 pg (27.0-33.0); MCHC 32.6 % (32.0-36.0); MCV 85.4 fL (80-95); Monocytes % 5.1; Neutrophils % 83.5; Nucleated RBC 0 %; Platelet Count 252 10^3/uL (130-400); RBC 5.49 10^6/uL (4.36-5.78); RDW 14.7 % (11.8-14.1); RDW-SD 45.2 fL; WBC 11.02 10^3/uL (4.4-10.8)
[2021-01-03] MEDS: Ondansetron 4 MG/2 ML VIAL IVP (12:16)
[2021-01-03] MEDS: fentaNYL 100 MCG/2 ML VIAL 50 MCG IVP (12:17)
[2021-01-03 12:18] LABS: Bilirubin Negative (Negative); Blood Large (Negative); Clarity Cloudy (Clear); Glucose 100 mg/dL (Negative); Ketones Negative (Negative); Leukocyte Esterase Negative (Negative); Nitrite Negative (Negative); Specific Gravity >= 1.030 (1.005-1.025); Urobilinogen 0.2 EU/dL (Up TO 0.2); pH 5.5 (5-8)
[2021-01-03 12:30] LABS: Lipase 105 U/L (73-393)
[2021-01-03 12:37] LABS: C & S Indicated? Yes; Crystals Rare Uric Acid HPF (Negative); RBC >50 HPF (0-2)
[2021-01-03 12:37] LABS: ALT 32 U/L (16-63); AST 14 U/L (15-37); Albumin 3.8 g/dL (3.4-5.0); Alkaline Phosphatase 67 U/L (46-116); Anion Gap 10.1 mmol/L (3-11); BUN 24 mg/dL (7-18); Bilirubin, Total 0.3 mg/dL (0.2-1.0); CO2 27.9 mmol/L (21.0-32.0); CREATININE 0.9 mg/dL (0.70-1.30); Calcium 9.6 mg/dL (8.5-10.1); Chloride 102 mmol/L (98-107); Glucose 204 mg/dL (74-106); Magnesium 1.9 mg/dL (1.8-2.4); Potassium 4.2 mmol/L (3.5-5.1); Sodium 140 mmol/L (136-145); Total Protein 8.2 g/dL (6.4-8.2); Troponin I < 0.05 ng/mL (<0.06)
--- NOTE | 2021-01-03 14:59 | DI.CT_ITS ---
EXAM: CT ABDOMEN PELVIS W CLINICAL HISTORY: rlq pain. TECHNIQUE: Imaging Protocol: Axial computed tomography images with coronal and sagittal reformatted images were created and reviewed CONTRAST MATERIAL: Intravenous: Omnipaque 100cc Oral: None COMPARISON: No exams were available for comparison FINDINGS: VISUALIZED LUNG BASES: No nodules nor pleural effusions evident. ABDOMEN: There is no ascites. There is very subtle streaking in the central mesenteric fat, not associated wi th mesenteric mass nor omental cake nor prominent mesenteric lymphadenopathy. There is no bowel obst ruction or free air nor abscess. No mesenteric swirl sign evident. LIVER: There are no obvious focal hepatic lesions evident. Mild steatosis evident. GALLBLADDER/BILIARY: No obvious gallbladder pathology. CBD is not dilated. PANCREAS: No evidence of pancreatic mass nor dilatation of the pancreatic duct. Mild streaking aroun d the pancreatic head but this is more in keeping with the mesenteric streaking and less consistent w ith obvious pancreatitis. SPLEEN: Spleen is not enlarged. No obvious intrasplenic lesions. Splenic and portal veins are paten t. ADRENALS: There are no significant adrenal masses. KIDNEYS:There is a 3 x 2.5 centimeter benign cyst in the posterior cortex of the right kidney. There is also a 10 x 11 millimeter smaller cyst anteriorly in the inferior pole region of the right kidney . There are no calculi in the right kidney. No solid masses. The right ureter is slightly prominen t at its mid aspect. No evidence of calculus at the ureterovesical junction but there is layering ca lcific density in the posterior aspect of the bladder as well as some calcification in the anterior w all of the bladder. Possibly representing pat recently passed right-sided calculus. In the opposite -left kidney is a small punctate calculus in the lower pole calyx. There is also a benign cyst in th e posterior inferior pole measuring 4 x 4 cm. The left ureter is not dilated. Urinary bladder is no t distended. ABDOMINAL AORTA: Abdominal aorta is not enlarged and there is no hvhowyjtgebpfgz-ablh-kikoir adenopat hy. ABDOMINAL WALL/GI: No evidence of significant anterior abdominal wall hernia. No bowel obstruction. PELVIS: GI: No evidence of appendicitis.No evidence of sigmoid diverticulitis. LYMPH NODES: There is no intrapelvic nor inguinal adenopathy. REPRODUCTIVE: Prostate gland size upper normal. URINARY BLADDER: Calcification in the dependent aspect, probably calculi. 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 There is also sac roiliitis. No ankylosis of the SI joints. IMPRESSION: 1. Bilateral benign renal cysts. Tiny punctate nonobstructive calculus in the left kidney. No calcu li in the right kidney but slightly prominent right ureter with some periureteral streaking and calci fications urinary bladder or possibly recently passed calculi. Correlation the history of ureteral c olic the right side is recommended. 2. There is mild central mesenteric streaking, not associated with obvious lymphadenopathy nor omenta l cake nor ascites. There are no ischemic appearing bowel loops. 3. There appears to be bilateral sacroiliitis. No ankylosis of the SI joints evident. 4. Pars defects at L5 with mild anterolisthesis L5 upon S1. RADIATION DOSE DELIVERED: 3,490.12mGy.cm Total DLP DATA REPOSITORY: All CT scans at this facility are submitted to the National Radiology Data Registry (NRDR) Dose Index Registry (DIR) with the [employer] (ACR). RADIATION OPTIMIZATION: All CT scans at this facility use at least one of these dose optimization te chniques: automated exposure control; mA and/or kV adjustment per patient size (includes targeted exa ms where dose is matched to clinical indication); or iterative reconstruction.
[2021-01-03] MEDS: Normal Saline - Diluent 50 ML VIAL IV (15:19)
[2021-01-03] MEDS: Normal Saline 500 ML IV (15:20)
[2021-01-03] MEDS: Omnipaque 350 MG/ML 100 ML BTL IJ (15:20)
[2021-01-03] MEDS: Normal Saline Flush 10 ML SYR IVP (15:22)
[2021-01-03] MEDS: oxyCODONE 5 mg/Acetaminophen 325 mg TAB 1 TAB PO (16:13)
== END 2021-01-03 16:44 | disposition home or self-care (01) ==
PROVIDERS: Emergency Provider Physician Assistant; PCP Nurse Practitioner
DX: N20.1 Calculus of ureter (principal); E11.69 Type 2 diabetes mellitus with other specified complication; Z79.4 Long term (current) use of insulin
CPT/HCPCS: 80053; 83690; 93005; 96361; 96374; 96375; 99285; 74177; 81003; 81015; 83735; 84484; 85025; 87086; 93010; 99284; J2405; J3010; J3490

== ENCOUNTER 2021-01-24 04:19 | Outpatient (CLI) | payer MEDICARE, MEDICAID, SELFPAY ==
--- NOTE | 2021-01-24 13:00 | NS.NUTBLAN_ITS ---
ASSESSMENT: Jose presents with referral for DM management and [facility] for CGM placement. He arrived with his Dexcom -6 device and his caregiver Milena, who assists him due to his vision impairment. Most recent DM related labs reveal A1c 8.0 (01/12/21) and BG 204mg/dl ( 01/03/21). He has documented retinopathy. He and his caregiver report that he uses finger sticks 3x/day and he has hx hyperglycemia with numbers running in the high 180's with intermittent episodes of 200-300mg/dl. He reports no hypoglycemia. On 80 u Levemir HS and uses sliding scale for Humalog boluses 3x/day before meals ~ 3-5 units prn. He is on 1000mg metformin BID. He has working knowledge of counting CHO's. We reviewed his eating habits which were not found to be heavy in CHO's. He does present with obesity and stated that his physical activity is limited to to bi-lateral knee replacements. INTERVENTION: Educated patient and caregiver on placement of Dexcom-6. He was able to place the device but needed assistance from caregiver to prep the placement site and adjust the alarms to 80-180 mg/dl. We reviewed action plans for hyperglycemic episodes and discussed advanced complications associated with prolonged elevated BG. Reiterated the importance of avoiding processed foods and eating fresh , whole foods along with planrt based food items as 50% of meals. Jose was able to successfully place the device, has support from his caregiver to utilize the Clarity feature which will help with data collection for future evaluation and self- management of DM. MONITOR/EVAL: Jose has agreed to return in ~11 days to replace sensor and review data to check TIR, GV and how meals, insulin use and food choices effect his time in range and BG average.We wiill print reports for PCP review at that time also.
== END 2021-01-24 04:20 | disposition home or self-care (01) ==
LOC: DS 04:19
PROVIDERS: PCP Nurse Practitioner; Visit Provider Dietitian, Registered
DX: E11.65 Type 2 diabetes mellitus with hyperglycemia (principal); Z79.4 Long term (current) use of insulin; Z71.3 Dietary counseling and surveillance
CPT/HCPCS: 97802

== ENCOUNTER → 2021-02-21 10:56 | Outpatient (BNVA) | payer MEDICARE, MEDICAID, SELFPAY | PROVIDERS: PCP Nurse Practitioner; Referring Provider Nurse Practitioner; Visit Provider Physician Assistant Surgical | DX: M17.12 Unilateral primary osteoarthritis, left knee (principal); M70.62 Trochanteric bursitis, left hip; Z96.651 Presence of right artificial knee joint; E11.69 Type 2 diabetes mellitus with other specified complication | CPT/HCPCS: 20610; J1040 ==

== ENCOUNTER 2021-03-11 13:51 | Emergency (ER) | payer MEDICARE, MEDICAID, SELFPAY ==
[2021-03-11] VITALS (18 sets, daily range): BP systolic 139–175; BP diastolic 57–89; PULSE 65–75; RESP 14–27; TEMP 37.4; O2SAT 91–97
--- NOTE | 2021-03-11 14:00 | DI.CT_ITS ---
EXAM: CT RENAL COLIC WO CLINICAL HISTORY: right flank plain, r/o stone. TECHNIQUE: Imaging Protocol: Axial computed tomography images with coronal and sagittal reformatted images were created and reviewed CONTRAST MATERIAL: Intravenous: none Oral: None COMPARISON: CT CT ABDOMEN PELVIS W from 01/03/2021 FINDINGS: VISUALIZED LUNG BASES: No nodules nor pleural effusions evident. ABDOMEN: There is no ascites. LIVER: There are no obvious focal hepatic lesions evident of this noninfused study. GALLBLADDER/BILIARY: No obvious gallbladder pathology. CBD is not dilated. PANCREAS: No evidence of pancreatic mass nor dilatation of the pancreatic duct. SPLEEN: Spleen is not enlarged. No obvious intrasplenic lesions. ADRENALS: There is a 2.2 by 2.2 cm nodule in the left adrenal gland, unchanged. Slight thickening of the right adrenal gland genu also noted. KIDNEYS:Cysts again noted in both kidneys.. There is a 3 x 2.5 cm benign cyst in the posterior codie x of the right kidney and a smaller 10 x 11 millimeter cyst inferior pole of the right kidney. Also 2 small 2-3 millimeter calculi inferiorly inferior pole right kidney with some perinephric streaking. There is a calculus in the after there are calculi in the inferior pole of the opposite-left kidney also noted, largest measuring 4 millimeters. There is also a cyst posteriorly in the left kidney me asuring 4.3 x 3.8 cm. No solid renal masses evident. Right ureter is dilated down to the ureteroves ical junction. There multiple small calculi seen within the dependent aspect of the urinary bladder more so on the right than the left side.. ABDOMINAL AORTA: Abdominal aorta is not enlarged. LYMPH NODES: There is no retroperitoneal nor paraaortic adenopathy. ABDOMINAL WALL/GI: No evidence of significant anterior abdominal wall hernia. No bowel obstruction. PELVIS: LYMPH NODES: There is no intrapelvic nor inguinal adenopathy. GI: No evidence of appendicitis.No evidence of sigmoid diverticulitis. URINARY BLADDER: Contains multiple small calculi in its dependent wall. REPRODUCTIVE: Unremarkable OSSEOUS: Sacroiliitis noted. No ankylosis. No lytic osseous lesions evident Bilateral pars interarticularis defects evident at L5 level with mild anterolisthesis L5 upon S1. IMPRESSION: 1. Right perinephric and periureteral edema most probably is secondary to passage of a calculus from the kidney down the ureter into the urinary bladder. There are multiple small calculi seen within th e dependent aspect of the urinary bladder. Calculi are also seen in both kidneys. 2. Also noted are bilateral simple benign renal cysts. 3. There is a 2.2 x 2.2 cm left adrenal nodule which is unchanged from 01/03/2021. Requires follow-u p 4. Sacroiliac joint findings consistent with sacroiliitis. No ankylosis evident. RADIATION DOSE DELIVERED: 1,542.62mGy.cm Total DLP DATA REPOSITORY: All CT scans at this facility are submitted to the National Radiology Data Registry (NRDR) Dose Index Registry (DIR) with the [employer] (ACR). RADIATION OPTIMIZATION: All CT scans at this facility use at least one of these dose optimization te chniques: automated exposure control; mA and/or kV adjustment per patient size (includes targeted exa ms where dose is matched to clinical indication); or iterative reconstruction.
--- NOTE | 2021-03-11 14:09 | ED.GENADUL_ITS ---
Discharge Plan Disposition Patient Disposition: HOME Condition: Good Discharge Details Clinical Impression: Adrenal mass, Kidney stone Primary Care Provider: Suzanne Andres ED Provider: Darrick Knight Home Meds and New Rx's Prescriptions: Continued albuterol sulfate [ProAir HFA] 90 mcg/actuation HFA aerosol inhaler 2 puff Inhalation QID PRN (Reason: bronchospasm) Qty: 3 RF: 0 Emgality Pen 120 mg/mL pen injector 120 mg SC QMONTH Qty: 1 RF: 0 (DME) lancets [FreeStyle Lancets] 28 gauge misc 1 ea Intradermal QID Qty: 200 RF: 11 (DME) blood sugar diagnostic Strip 1 ea Miscellaneous QID Qty: 200 RF: 11 carbamazepine 200 mg tablet extended release 12 hr 200 mg PO BID RF: 0 C PAP RF: 0 glyburide 5 mg tablet 5 mg PO BID Qty: 180 RF: 4 Hold Instructions: Home Medication placed on hold at Doctor's office meclizine 12.5 mg tablet 12.5 mg PO TID PRN (Reason: Vertigo) Qty: 60 RF: 3 naproxen 500 mg tablet 500 mg PO BID PRN (Reason: pain) Qty: 30 RF: 3 Hold Instructions: Home Medication placed on hold at Doctor's office diltiazem HCl [Cardizem CD] 240 mg capsule,extended release 24hr 240 mg PO DAILY Qty: 90 RF: 4 metformin [Glucophage] 1,000 mg tablet 1,000 mg PO BID Qty: 180 RF: 4 insulin lispro [Humalog KwikPen Insulin] 100 unit/mL insulin pen See Rx Instructions SC TID Qty: 15 RF: 3 rosuvastatin 10 mg tablet 10 mg PO DAILY Qty: 90 RF: 11 (DME) pen needle, diabetic [1st Tier Unifine Pentips] 32 gauge x 5/32 needle See Rx Instructions .ROUTE .MEDSUPPLY Qty: 100 RF: 3 lisinopril 40 mg tablet 40 mg PO DAILY Qty: 90 RF: 3 (DME) Dexcom G4 Transplant Worker Misc See Rx Instructions .ROUTE .MEDSUPPLY Qty: 1 RF: 0 amlodipine 10 mg tablet 10 mg PO DAILY Qty: 30 RF: 0 aspirin [Ecotrin Low Strength] 81 mg tablet,delayed release (DR/EC) 81 mg PO DAILY Qty: 90 RF: 3 Levemir FlexTouch U-100 Insuln 100 unit/mL (3 mL) insulin pen 80 unit SC QHS Qty: 15 RF: 4 prednisone 20 mg tablet 20 - 40 mg PO .daily as prescribed Qty: 12 RF: 0 oxycodone-acetaminophen [Percocet] 5-325 mg tablet 1 tab PO Q8H PRNQty: 7 RF: 0 metoclopramide HCl [Reglan] 5 mg tablet 5 mg PO QAC Qty: 7 RF: 0 acetaminophen 500 mg capsule 1,000 mg PO Q8H PRN (Reason: pain) Qty: 90 RF: 0 docusate sodium [Colace] 100 mg capsule 100 - 200 mg PO BID RF: 0 Discharge Instructions Instructions: Kidney Stones (ED) Additional Instructions: At this time it appears that your kidney stone has passed. Your laboratory work-up is otherwise very reassuring. Urinalysis shows no evidence of infection. Please stay well-hydrated and drink 10 to 12 cups of water per day. Additionally you have a small adrenal mass near your kidney, and this has gotten slightly bigger than on your last visit. Please follow-up closely with your primary care provider in regards to this. If you notice any worsening of your symptoms, or any new symptoms such as vomiting, diarrhea, fever, chills, shortness of breath, chest pain, numbness, weakness, or fainting , please return immediately to the emergency department for reevaluation. Please follow up with your primary care provider as soon as possible for reassessment and reevaluation. As always, it was a pleasure participating in your medical care today. Referrals: Suzanne Andres NP [Primary Care Provider] - Medical Decision Making 65-year-old male with a past medical history of asthma, diabetes, GERD, hypertension, high cholesterol, migraine, who presents today for evaluation of right-sided flank pain. Patient states that about a month ago he had flank pain at that time, was diagnosed with kidney stone discharge. Pain resolved, however yesterday he had a sudden return of his pain which she describes as sharp and on the right-hand side. Pain radiates down to the groin. He admits to vomiting. He denies diarrhea. He denies any fever or chills. He has no other complaints at this time. He denies any chest pain or shortness of breath. Physical exam demonstrates right-sided flank and CVA and abdominal tenderness. Differential is highest for repeat stone, but also includes appendicitis. Will get CT scan, monitor manage his pain, monitor closely and reassess. Symptoms inconsistent with ACS or cardiac etiology. Inconsistent with aortic dissection. Pain does not seem to reflect mesenteric ischemia clinically. Thank you for [address] scan results have returned, no evidence of acute process. It does appear that the patient recently passed a kidney stone. His pain is resolved. No evidence of infection. Patient stable for discharge. He does have a slight increase in size of his adrenal gland mass. Recommend he follows up closely with his PCP in regard to this. I have extensively reviewed the treatment plan and discharge instructions with the patient. I have addressed all patient concerns at this time. The patient was made aware of what symptoms to monitor for that would warrant a return to the emergency department. Discussed the plan with the patient, they demonstrate verbal understanding and agreement with our assessment and plan at this time. The documentation in this chart was dictated using [employer] dictation software. Please excuse any dictation errors. FINDINGS: Liver: Normal. No mass. Gallbladder and bile ducts: Normal. No calcified stones. No ductal dilation. Pancreas: Normal. No ductal dilation. Spleen: Normal. No splenomegaly. Adrenal glands: There is a 2.1 cm diameter left adrenal mass with a density of 21 Hounsfield units, unchanged since the previous exam. Kidneys and ureters: There is a simple cyst of the right kidney measuring 2.7 cm in diameter. There is a simple cyst of the left kidney measuring 5.0 cm in diameter. Right perinephric edema is present as well as periureteral edema. Nonobstructing calculi are noted within the right and left kidneys measuring up to 5 mm in diameter. Stomach and bowel: Unremarkable. No obstruction. No mucosal thickening. Appendix: The appendix is well-visualized and appears normal. Intraperitoneal space: Unremarkable. No free air. No significant fluid collection. Vasculature: Unremarkable. No abdominal aortic aneurysm. Lymph nodes: Unremarkable. No enlarged lymph nodes. Urinary bladder: Multiple small calculi are seen within the dependent aspect of the urinary bladder. Reproductive: Unremarkable as visualized. Bones/joints: Chronic degenerative changes of the spine are present Soft tissues: Unremarkable. IMPRESSION: 1. Right perinephric and periureteral edema likely secondary to recent passage of a calculus through the ureter. Multiple small calculi are seen within the urinary bladder. 2. Bilateral non-obstructing nephrolithiasis. 3. Bilateral simple renal cysts. 4. 2.1 cm diameter left adrenal mass because is masses greater than 2 cm, a follow-up adrenal CT is recommended. REFERENCES: Management of Incidental Adrenal Masses: A White Paper of the ACR Incidental Findings Committee, VOLUME 14, ISSUE 8, [id number], JUNE 17, 2017 Thank you for allowing us to participate in the care of your patient. Dictated and Authenticated by: Henry Sahni MD 03/11/2021 4:27 PM Eastern Time ([place] & [place]) HPI General Date/Time Provider Initiated Documentation: 03/11/21 13:52 . HPI Narrative: 65-year-old male with a past medical history of asthma, diabetes, GERD, hypertension, high cholesterol, migraine, who presents today for evaluation of right-sided flank pain. Patient states that about a month ago he had flank pain at that time, was diagnosed with kidney stone discharge. Pain resolved, however yesterday he had a sudden return of his pain which she describes as sharp and on the right-hand side. Pain radiates down to the groin. He admits to vomiting. He denies diarrhea. He denies any fever or chills. He has no other complaints at this time. He denies any chest pain or shortness of breath. Related Data Home Medications Medication Instructions Recorded Confirmed C Pap 04/08/16 01/12/21 acetaminophen 1,000 mg PO Q8H PRN #90 cap 01/21/19 03/11/21 galcanezumab-gnlm 120 mg/mL 120 mg SC QMONTH #1 ml 03/28/20 03/11/21 subcutaneous pen injector glyburide 5 mg tablet 5 mg PO BID #180 tab-cap 03/31/20 03/11/21 diltiazem HCl 240 mg 240 mg PO DAILY #90 cap 04/13/20 03/11/21 capsule,extended release 24 hr meclizine 12.5 mg tablet 12.5 mg PO TID PRN #60 tab 04/13/20 03/11/21 naproxen 500 mg tablet 500 mg PO BID PRN #30 tab 04/13/20 03/11/21 metformin 1,000 mg tablet 1,000 mg PO BID #180 tab-cap 05/11/20 03/11/21 insulin lispro 100 unit/mL See Rx Instructions SC TID #15 ml 06/19/20 03/11/21 subcutaneous pen albuterol sulfate 90 mcg/actuation 2 puff INHALATION QID PRN #3 inh 07/07/20 03/11/21 aerosol inhaler rosuvastatin 10 mg tablet 10 mg PO DAILY #90 tab 10/24/20 03/11/21 blood sugar diagnostic #200 strip 11/27/20 01/12/21 lancets 28 gauge #200 each 11/27/20 01/12/21 pen needle, diabetic 32 gauge x #100 ea 12/06/20 01/12/21 docusate sodium 100 mg capsule 100 - 200 mg PO BID cap 12/15/20 03/11/21 lisinopril 40 mg tablet 40 mg PO DAILY #90 tab 12/19/20 03/11/21 carbamazepine 200 mg 200 mg PO BID 12/28/20 03/11/21 tablet,extended release,12 hr metoclopramide HCl [Reglan] 5 mg PO QAC #7 tab 01/03/21 03/11/21 oxycodone-acetaminophen [Percocet] 1 tab PO Q8H PRN #7 tab 01/03/21 03/11/21 blood-glucose meter,continuous #1 ea 01/30/21 amlodipine 10 mg tablet 10 mg PO DAILY #30 tab 02/13/21 03/11/21 aspirin 81 mg tablet,delayed 81 mg PO DAILY #90 tab-cap 02/13/21 03/11/21 release insulin detemir U-100 100 unit/mL 80 unit SC QHS #15 ml 03/05/21 03/11/21 (3 mL) subcutaneous pen prednisone 20 mg tablet 20 - 40 mg PO .daily as prescribed 03/07/21 03/11/21 #12 tab Previous Rx's Medication Instructions Recorded acetaminophen 1,000 mg PO Q8H PRN #90 cap 01/21/19 galcanezumab-gnlm 120 mg/mL 120 mg SC QMONTH #1 ml 03/28/20 subcutaneous pen injector glyburide 5 mg tablet 5 mg PO BID #180 tab-cap 03/31/20 diltiazem HCl 240 mg 240 mg PO DAILY #90 cap 04/13/20 capsule,extended release 24 hr meclizine 12.5 mg tablet 12.5 mg PO TID PRN #60 tab 04/13/20 naproxen 500 mg tablet 500 mg PO BID PRN #30 tab 04/13/20 metformin 1,000 mg tablet 1,000 mg PO BID #180 tab-cap 05/11/20 insulin lispro 100 unit/mL See Rx Instructions SC TID #15 ml 06/19/20 subcutaneous pen albuterol sulfate 90 mcg/actuation 2 puff INHALATION QID PRN #3 inh 07/07/20 aerosol inhaler rosuvastatin 10 mg tablet 10 mg PO DAILY #90 tab 10/24/20 blood sugar diagnostic #200 strip 11/27/20 lancets 28 gauge #200 each 11/27/20 pen needle, diabetic 32 gauge x #100 ea 12/06/20 lisinopril 40 mg tablet 40 mg PO DAILY #90 tab 12/19/20 metoclopramide HCl [Reglan] 5 mg PO QAC #7 tab 01/03/21 oxycodone-acetaminophen [Percocet] 1 tab PO Q8H PRN #7 tab 01/03/21 blood-glucose meter,continuous #1 ea 01/30/21 amlodipine 10 mg tablet 10 mg PO DAILY #30 tab 02/13/21 aspirin 81 mg tablet,delayed 81 mg PO DAILY #90 tab-cap 02/13/21 release insulin detemir U-100 100 unit/mL 80 unit SC QHS #15 ml 03/05/21 (3 mL) subcutaneous pen prednisone 20 mg tablet 20 - 40 mg PO .daily as prescribed 03/07/21 #12 tab Allergies Allergy/AdvReac Type Severity Reaction Status Date / Time No Known Allergies Allergy Verified 02/26/21 08:22 General Stated Complaint: Abd Prob JAI: 3 Review of Systems All systems reviewed & are unremarkable except as noted in HPI and below PFSH Medical History Asthma Bilateral primary osteoarthritis of knee (03/17/17) Blindness of one eye LEFT Cluster headache, chronic CVA (cerebral vascular accident) (07/20/14) crpytogenic Diabetes Diabetic retinopathy (~08/2019) [facility] retinologist: Dr. Trejo- [facility] non- proliferative (SEVERE)-07/13/20 DM (diabetes mellitus), type 2, uncontrolled titrating insulin to achieve control Dr. Mtz every 3 months for foot care Erectile dysfunction (10/31/14) Essential hypertension (08/11/13) Hyperlipidemia Left eye trauma resulting in surgery many years ago Migraine Morbid obesity (04/26/13) Nausea and vomiting after administration of anesthetic agent Obstructive sleep apnea syndrome [place] sleep study 08/14/11 - CPAP recommended Primary osteoarthritis of right knee Restless legs Right hip pain Sleep apnea Uses CPAP machine Trochanteric bursitis, left hip Tubular adenoma 02/03/15-Dr. Luly Stafford Urinary retention Varicose veins of lower extremity Surgical History History of ankle surgery as a child History of total right knee replacement (TKR) 09/22/2018 Status post right knee replacement (09/22/18) Status post tonsillectomy Trochanteric bursitis, right hip (06/15/18) Right IT band lengthening and bursal debridement DOS: 01/21/19 Family History Mother Depression Hyperlipidemia Father Heart disease Brother Diabetes Depression Hyperlipidemia Brother Substance abuse Depression Heart disease Hyperlipidemia Brother , Gunshot wound No problems noted. Brother Heart disease Diabetes Social History Smoking/Tobacco Use Status: Former Tobacco Use Quit Date: 11/17/69 Pack-years: 4 Second Hand Exposure: Yes Smoking risk assessment performed?: Yes Alcohol Intake: never Details: denies alcohol use Drug use: Never Substance use type: does not use Household members: none current occupation: [employer] Current gender identity: male What type of physical activity do you participate in: none Frequency: does not exercise Sulema/Quaker: Denominational Special sulema needs: No Do you feel safe at home: Yes Do you feel safe in your relationship?: Yes Exam Narrative Exam Narrative: 1.Const: Well-nourished, Well-developed, appearing stated age 2.Eyes: PERRL, no conjunctival injection, and symmetrical lids. 3.ENT: Atraumatic external nose and ears. Moist MM. Neck: Symmetric, trachea mi dline, No thyromegaly. 4.CVS: +S1/S2, No murmurs or gallops. Peripheral pulses 2+ and equal in all extremities. Brisk capillary refill in all extremities. 5.RESP: Unlabored respiratory effort. Clear to auscultation bilaterally. No wheezes rales or rhonchi 6.GI: Soft, nondistended, mild reproducible right sided abdominal tenderness, right CVA tenderness. Genital exam demonstrates normal cremasteric reflex, no reproducible testicular or penile tenderness 7.MSK: Normocephalic/Atraumatic, Extremities w/o deformity or ttp No cyanosis or clubbing, Normal movement of all extremities 8.Skin: Warm, Dry. No rashes or lesions. 9.Neuro: color grinder II-XII grossly intact. Sensation grossly intact, no focal neurologic deficits. 10.Psych: (AAO) x3. Appropriate mood and affect Course Vital Signs Vital signs: Vital Signs Temperature 37.4 C 03/11/21 13:58 Pulse 75 03/11/21 13:58 Respiratory Rate 20 03/11/21 13:58 Blood Pressure 175/89 H 03/11/21 13:58 Pulse Oximetry 97 03/11/21 13:58 Temperature 37.4 C 03/11/21 13:58 Temperature Source Skin 03/11/21 13:58 Pulse 75 03/11/21 13:58 Respiratory Rate 20 03/11/21 13:58 Respiratory Effort Non-Labored 03/11/21 14:05 Blood Pressure 175/89 H 03/11/21 13:58 Blood Pressure Position Supine 03/11/21 13:58 Pulse Oximetry 97 03/11/21 13:58 Oxygen Delivery Method Room Air 03/11/21 13:58 Oxygen Flow Rate 0 03/11/21 13:58 Pain Level 10 03/11/21 13:58
[2021-03-11 14:27] LABS: Bilirubin Negative (Negative); Blood Large (Negative); Clarity Clear (Clear); Glucose 500 mg/dL (Negative); Ketones Negative (Negative); Leukocyte Esterase Negative (Negative); Nitrite Negative (Negative); Specific Gravity 1.015 (1.005-1.025); Urobilinogen 0.2 EU/dL (Up TO 0.2); pH 5.5 (5-8)
[2021-03-11 14:38] LABS: Lactate 1.4 mmol/L (0.6-1.4)
[2021-03-11 14:40] LABS: Bacteria Negative HPF (Negative); C & S Indicated? No; Casts Negative LPF (Negative); Crystals Negative HPF (Negative); Epithelial Cells Few HPF (Negative); Mucus Negative (Negative); RBC 20-50 HPF (0-2)
[2021-03-11 14:40] LABS: Abs Immature Grans 0.07 10^3/uL (0.0-0.06); Absolute Basophil Count 0.03 10^3/uL (0.0-0.2); Absolute Eosinophil Count 0.01 10^3/uL (0.0-0.7); Absolute Lymphocyte Count 1.01 10^3/uL (1.2-3.4); Absolute Monocyte Count 1.05 10^3/uL (0.1-0.8); Absolute Neutrophil Count 11.16 10^3/uL (1.2-6.7); Basophils % 0.2; Eosinophils % 0.1; HCT 43.8 % (40.0-50.0); HGB 14.3 g/dL (13.5-17.5); Immature Grans % 0.5; Lymphocytes % 7.6; MCHC 32.6 % (32.0-36.0); MCV 85.7 fL (80-95); Monocytes % 7.9; Neutrophils % 83.7; Nucleated RBC 0 %; Platelet Count 207 10^3/uL (130-400); RBC 5.11 10^6/uL (4.36-5.78); RDW 13.6 % (11.8-14.1); RDW-SD 42.3 fL; WBC 13.33 10^3/uL (4.4-10.8)
[2021-03-11] MEDS: HYDROmorphone 2 MG/ML VIAL 1 MG IVP (14:54)
[2021-03-11] MEDS: Normal Saline 1,000 ML 1000 ML IV (14:55)
[2021-03-11] MEDS: Ondansetron 4 MG/2 ML VIAL IVP (14:55)
[2021-03-11] MEDS: Ketorolac 30 MG/ML VIAL IVP (14:55)
[2021-03-11 14:58] LABS: ALT 29 U/L (16-63); AST 11 U/L (15-37); Albumin 3.3 g/dL (3.4-5.0); Alkaline Phosphatase 76 U/L (46-116); Anion Gap 9.3 mmol/L (3-11); BUN 47 mg/dL (7-18); Bilirubin, Total 0.4 mg/dL (0.2-1.0); CO2 25.7 mmol/L (21.0-32.0); CREATININE 1.2 mg/dL (0.70-1.30); Calcium 9.4 mg/dL (8.5-10.1); Chloride 102 mmol/L (98-107); Glucose 348 mg/dL (74-106); Lipase 256 U/L (73-393); Potassium 4.6 mmol/L (3.5-5.1); Sodium 137 mmol/L (136-145); Total Protein 7.2 g/dL (6.4-8.2)
--- NOTE | 2021-03-11 16:28 | DI.VRAD_ITS ---
PROCEDURE INFORMATION: Exam: CT Abdomen And Pelvis Without Contrast Exam date and time: 03/11/2021 3:30 PM Age: 65 years old Clinical indication: Other: Eight sided flank pain TECHNIQUE: Imaging protocol: Computed tomography of the abdomen and pelvis without contrast. COMPARISON: CT ABDOMEN PELVIS W 01/03/2021 2:42 PM FINDINGS: Liver: Normal. No mass. Gallbladder and bile ducts: Normal. No calcified stones. No ductal dilation. Pancreas: Normal. No ductal dilation. Spleen: Normal. No splenomegaly. Adrenal glands: There is a 2.1 cm diameter left adrenal mass with a density of 21 Hounsfield units, unchanged since the previous exam. Kidneys and ureters: There is a simple cyst of the right kidney measuring 2.7 cm in diameter. There is a simple cyst of the left kidney measuring 5.0 cm in diameter. Right perinephric edema is present as well as periureteral edema. Nonobstructing calculi are noted within the right and left kidneys measuring up to 5 mm in diameter. Stomach and bowel: Unremarkable. No obstruction. No mucosal thickening. Appendix: The appendix is well-visualized and appears normal. Intraperitoneal space: Unremarkable. No free air. No significant fluid collection. Vasculature: Unremarkable. No abdominal aortic aneurysm. Lymph nodes: Unremarkable. No enlarged lymph nodes. Urinary bladder: Multiple small calculi are seen within the dependent aspect of the urinary bladder. Reproductive: Unremarkable as visualized. Bones/joints: Chronic degenerative changes of the spine are present. Soft tissues: Unremarkable. IMPRESSION: 1. Right perinephric and periureteral edema likely secondary to recent passage of a calculus through the ureter. Multiple small calculi are seen within the urinary bladder. 2. Bilateral non-obstructing nephrolithiasis. 3. Bilateral simple renal cysts. 4. 2.1 cm diameter left adrenal mass because is masses greater than 2 cm, a follow-up adrenal CT is recommended. REFERENCES: Management of Incidental Adrenal Masses: A White Paper of the ACR Incidental Findings Committee, VOLUME 14, ISSUE 8, [id number], JUNE 17, 2017 Dictated and Authenticated by: Henry Sahni MD. Ordering:GUILLERMO Hollingsworth MD
== END 2021-03-11 16:57 | disposition home or self-care (01) ==
PROVIDERS: Emergency Provider Student in an Organized Health Care Education/Training Program; PCP Nurse Practitioner
DX: N20.0 Calculus of kidney (principal); E27.8 Other specified disorders of adrenal gland
CPT/HCPCS: 80053; 83690; 96374; 96375; 99284; 74176; 81003; 81015; 83605; 85025; 99283; J1885; J2405

== ENCOUNTER → 2021-04-18 14:42 | Outpatient (BNVA) | payer MEDICARE, MEDICAID, SELFPAY | PROVIDERS: PCP Nurse Practitioner; Referring Provider Nurse Practitioner; Visit Provider Nurse Practitioner Gerontology | DX: N20.0 Calculus of kidney (principal); E27.8 Other specified disorders of adrenal gland; K59.00 Constipation, unspecified | CPT/HCPCS: 99214 ==

== ENCOUNTER 2021-05-09 03:07 | Outpatient (CLI) | payer MEDICARE, MEDICAID, SELFPAY ==
--- NOTE | 2021-05-09 13:00 | NS.NUTBLAN_ITS ---
ASSESSMENT: Jose returns place dexcom -6 sensor and replace 90 day transmitter. He is accompanied by caregiver Milena due to his impaired vision r/t DM retinopathy and hx migraines. He reports having a strawberry shake at lunch today which is not the norm. This is verified by Milena as well. Randonm finger stick at this encounter revealed 245 mg/dl. He reports that his BG has been variable between 125 and 225 mg/dl which he equates with food choices. He is on 80 units basal insulin and 3-8 units rapid acting bolus per sliding scale. He receives good support from Milena who helps with his Dexcom reader and insulin admin. The primary purpose for today's visit was to re-group as Jose had cancelled several appointments due to his work commitments. INTERVENTION: Placed new CGM sensor and replaced transmitter with additional training for Milena who helps Jose due to vision issues. Reiterated correction complications associated with high BG levels and discussed desired range ( 70-180mg/dl) along with desired Time in Range (> 70% / 16hrs 48min/day). Re-sent shared data Dexcom Clarity invite for uploading BG hx for review and analysis. MONITOR/EVAL: Jose and Milena have agreed to set up F/U appointment with this RD and/or enable data sharing to help track BG levels and optimize TIR.
== END 2021-05-09 03:08 | disposition home or self-care (01) ==
LOC: DS 03:07
PROVIDERS: PCP Nurse Practitioner; Visit Provider Dietitian, Registered
DX: E11.9 Type 2 diabetes mellitus without complications (principal); Z79.4 Long term (current) use of insulin; Z71.3 Dietary counseling and surveillance
CPT/HCPCS: 97803

== ENCOUNTER 2021-06-11 12:57 | Outpatient (REF) | payer MEDICARE, MEDICAID, SELFPAY ==
[2021-06-12 11:28] LABS: COVID-19 RT-PCR UVMMC Result Negative (Negative)
== END 2021-06-11 12:58 | disposition home or self-care (01) ==
LOC: LBN 12:57
PROVIDERS: PCP Nurse Practitioner; Visit Provider Nurse Practitioner Family
DX: Z20.822 Contact with and (suspected) exposure to COVID-19 (principal)
CPT/HCPCS: U0003; U0005

== ENCOUNTER 2021-06-20 02:19 | Outpatient (CLI) | payer MEDICARE, MEDICAID, SELFPAY ==
--- NOTE | 2021-06-20 | DI.US_ITS ---
Exam(s) US RENAL EXAM: US RENAL CLINICAL HISTORY: monitoring kidney stones,ADRENAL MASS,N20.0,E27.8 TECHNIQUE: Ultrasound of both kidneys performed using standard protocol. COMPARISON: US US OR ANESTHESIA from 09/22/2018 FINDINGS: RIGHT KIDNEY: Measures 16 cm in length. There is a 2 5 x 2.9 cm cyst in lateral cortex of right kidney. Normal cor tical thickness and corticomedullary differentiation .No solid masses No intrarenal calculi nor hydronephrosis. LEFT KIDNEY: Measures 15 cm in length. There is a 4 x 3.6 cm cyst towards the inferior pole. Normal cortical thi ckness and corticomedullary differentiaion. No solids masses. No intrarenal calculi nor hydonephrosi s. URINARY BLADDER: Prevoid volume is 375 cc Postvoid volume is 6 cc No evidence of bladder mass nor diverticuli. Ureterovesical jets: Both identified and appear symmetrical IMPRESSION: 1. Single cyst in each kidney, as described above. No solid renal masses. 2. Both kidneys are slightly prominent in size. There is no hydronephrosis. No obvious mass in the visualized urinary bladder. DATA REPOSITORY:
== END 2021-06-20 02:39 ==
PROVIDERS: PCP Nurse Practitioner; Visit Provider Nurse Practitioner Gerontology
DX: N20.0 Calculus of kidney (principal); E27.8 Other specified disorders of adrenal gland; N28.1 Cyst of kidney, acquired
CPT/HCPCS: 76770

== ENCOUNTER 2021-06-20 08:55 | Outpatient (CLI) | payer MEDICARE, MEDICAID, SELFPAY ==
[2021-06-20 13:19] LABS: COMMENT (LAB VIEW ONLY) 37.26 mg/dL
[2021-06-20 13:21] LABS: Microalb ug/mg Crea 1867.4 ug/mg Cr
== END 2021-06-20 08:56 | disposition home or self-care (01) ==
LOC: LBO 08:58
PROVIDERS: PCP Nurse Practitioner; Visit Provider Nurse Practitioner
DX: E11.65 Type 2 diabetes mellitus with hyperglycemia (principal); N20.0 Calculus of kidney; E27.8 Other specified disorders of adrenal gland; N28.1 Cyst of kidney, acquired
CPT/HCPCS: 76770; 82043; 82570

== ENCOUNTER → 2021-06-21 09:12 | Outpatient (BNVA) | payer MEDICARE, MEDICAID, SELFPAY | PROVIDERS: PCP Nurse Practitioner; Referring Provider Nurse Practitioner; Visit Provider Nurse Practitioner Gerontology | DX: E27.8 Other specified disorders of adrenal gland (principal); N20.0 Calculus of kidney; R39.89 Other symptoms and signs involving the genitourinary system; E11.69 Type 2 diabetes mellitus with other specified complication | CPT/HCPCS: 99214 ==

== ENCOUNTER → 2021-09-13 10:03 | Outpatient (BNVA) | payer MEDICARE, MEDICAID, SELFPAY | PROVIDERS: PCP Nurse Practitioner; Referring Provider Nurse Practitioner | DX: M17.12 Unilateral primary osteoarthritis, left knee (principal) | CPT/HCPCS: 20610; J1040 ==

== ENCOUNTER 2021-11-02 15:33 | Outpatient (CLI) | payer MEDICARE, MEDICAID, SELFPAY ==
--- NOTE | 2021-11-02 15:30 | RT.EKG_ITS ---
APPROVED REPORT Exam: Resting ECG Reason for Exam: pre op Patient Location: O HR:70 bpm ECG Measurements Heart Rate 70 AXIS VT 187 P 8 QRSd 164 QRS 89 QT 430 T 23 QTc 465 Conclusion Sinus rhythm...normal P axis, V-rate 60- 99 Right bundle branch block...QRSd>120, terminal axis(90,270)
== END 2021-11-02 15:34 | disposition home or self-care (01) ==
LOC: DI.CM 15:36
PROVIDERS: PCP Nurse Practitioner; Visit Provider Nurse Practitioner
DX: Z01.818 Encounter for other preprocedural examination (principal)
CPT/HCPCS: 93010

== ENCOUNTER → 2021-11-13 10:22 | Outpatient (BNVA) | payer MEDICARE, MEDICAID, SELFPAY | PROVIDERS: PCP Nurse Practitioner; Referring Provider Nurse Practitioner; Visit Provider Nurse Practitioner Gerontology | DX: N20.0 Calculus of kidney (principal); E27.8 Other specified disorders of adrenal gland; R39.89 Other symptoms and signs involving the genitourinary system | CPT/HCPCS: 99214 ==

== ENCOUNTER 2021-12-24 07:11 | Emergency (ER) | payer MEDICARE, MEDICAID, SELFPAY ==
[2021-12-24 07:24] VITALS: BP 185/89; PULSE 86; RESP 20; TEMP 36.1; O2SAT 97
[2021-12-24 07:52] LABS: Abs Immature Grans 0.05 10^3/uL (0.0-0.06); Absolute Basophil Count 0.04 10^3/uL (0.0-0.2); Absolute Eosinophil Count 0.31 10^3/uL (0.0-0.7); Absolute Lymphocyte Count 1.28 10^3/uL (1.2-3.4); Absolute Monocyte Count 0.95 10^3/uL (0.1-0.8); Absolute Neutrophil Count 8.42 10^3/uL (1.2-6.7); Basophils % 0.4; Eosinophils % 2.8; HCT 43.2 % (40.0-50.0); HGB 14.1 g/dL (13.5-17.5); Immature Grans % 0.5; Lymphocytes % 11.6; MCH 28.3 pg (27.0-33.0); MCHC 32.6 % (32.0-36.0); MCV 86.6 fL (80-95); MPV 10.2 fL (8.0-11.0); Monocytes % 8.6; Neutrophils % 76.1; Nucleated RBC 0 %; Platelet Count 213 10^3/uL (130-400); RBC 4.99 10^6/uL (4.36-5.78); RDW 13.3 % (11.8-14.1); RDW-SD 42.1 fL; WBC 11.07 10^3/uL (4.4-10.8)
[2021-12-24 07:53] LABS: Bilirubin Negative (Negative); Blood Large (Negative); Clarity Cloudy (Clear); Glucose Negative (Negative); Ketones Negative (Negative); Leukocyte Esterase Negative (Negative); Nitrite Negative (Negative); Specific Gravity >= 1.030 (1.005-1.025); Urobilinogen 0.2 EU/dL (Up TO 0.2); pH 5.5 (5-8)
[2021-12-24] MEDS: Ondansetron 4 MG/2 ML VIAL IVP (07:54)
[2021-12-24] MEDS: Normal Saline 1,000 ML 1000 ML IV (07:54)
--- NOTE | 2021-12-24 08:00 | DI.CT_ITS ---
Exam(s) CT RENAL COLIC WO EXAM: CT RENAL COLIC WO CLINICAL HISTORY: right flank pain, h/o kidney stones. TECHNIQUE: Imaging Protocol: Axial computed tomography images with coronal and sagittal reformatted images were created and reviewed CONTRAST MATERIAL: Intravenous: none Oral: None COMPARISON: CT CT RENAL COLIC WO from 03/11/2021 FINDINGS: VISUALIZED LUNG BASES: No nodules nor pleural effusions evident. ABDOMEN: LIVER: There are no obvious focal hepatic lesions evident of this noninfused study. Hepatic steatosi s again noted. Entire liver is not included on the field of view of this renal calculus protocol antelmo dy. GALLBLADDER/BILIARY: No obvious gallbladder pathology. CBD is not dilated. PANCREAS: No evidence of pancreatic mass nor dilatation of the pancreatic duct. SPLEEN: Spleen size upper normal. Tiny calcified granulomas are noted in the spleen. ADRENALS: There is a nodule in the left adrenal gland measuring 2.3 x 2.2 cm, unchanged. Another nod ule more peripherally located in the lateral limb of the left adrenal gland is again noted, unchanged . In the right adrenal gland there is a subtle suggestion sys benign fat containing myelolipoma, unc hanged. KIDNEYS:Cysts and calculi are again noted in both kidneys. The largest cyst is again noted to be in the posterior aspect of the left kidney and measures 4.3 x 3.8 cm, unchanged. No hydronephrosis nor hydroureter on the left side. On the right side there intrarenal calculi again noted and perinephric streaking again noted. Also s treaking around the mildly prominent right ureter. There is a 2 millimeter calculus in the urinary b ladder just beyond the right ureterovesical junction, possibly a recently passed calculus. Other patience culi are also again noted in the dependent aspect of the urinary bladder lumen. Bladder itself is no t overly distended. Prostate size slightly prominent. ABDOMINAL AORTA: Abdominal aorta is not enlarged. LYMPH NODES: There is no retroperitoneal nor paraaortic adenopathy. ABDOMINAL WALL: No evidence of significant anterior abdominal wall nor inguinal hernia. GI: : Diverticuli are noted. No obvious diverticulitis. PELVIS: LYMPH NODES: There is no intrapelvic nor inguinal adenopathy. GI: No evidence of appendicitis.No evidence of sigmoid diverticulitis. URINARY BLADDER: As above REPRODUCTIVE: As above OSSEOUS: No significant osseous lesions. Bilateral pars defects at L5 noted. Mild anterolisthesis L5 upon S1. IMPRESSION: 1. Bilateral nephrolithiasis again noted. Right perinephric and periureteral stranding again noted. There are multiple calculi in the urinary bladder again noted, including a 2 millimeter calculus on the right side of the urinary bladder adjacent to the right UVJ which may represent a recently passed stone. 2. Bilateral benign renal cysts again noted. 3. Bilateral adrenal nodules again noted as described above. RADIATION DOSE DELIVERED: 2,527.29mGy.cm Total DLP DATA REPOSITORY: All CT scans at this facility are submitted to the National Radiology Data Registry (NRDR) Dose Index Registry (DIR) with the [employer] ([employer]). RADIATION OPTIMIZATION: All CT scans at this facility use at least one of these dose optimization te chniques: automated exposure control; mA and/or kV adjustment per patient size (includes targeted exa ms where dose is matched to clinical indication); or iterative reconstruction.
[2021-12-24 08:02] LABS: Epithelial Cells Few HPF (Negative); RBC 20-50 HPF (0-2); WBC 0-2 HPF (0-5)
[2021-12-24 08:03] LABS: Bacteria Negative HPF (Negative); C & S Indicated? No; Casts 5-10 Hyaline LPF (Negative); Crystals Negative HPF (Negative); Mucus Negative (Negative)
[2021-12-24 08:05] LABS: ALT 30 U/L (16-63); AST 17 U/L (15-37); Albumin 3.8 g/dL (3.4-5.0); Alkaline Phosphatase 69 U/L (46-116); Anion Gap 9.8 mmol/L (3-11); BUN 27 mg/dL (7-18); Bilirubin, Total 0.4 mg/dL (0.2-1.0); CO2 27.2 mmol/L (21.0-32.0); Calcium 9.1 mg/dL (8.5-10.1); Chloride 102 mmol/L (98-107); Glucose 189 mg/dL (74-106); Sodium 139 mmol/L (136-145); Total Protein 7.7 g/dL (6.4-8.2)
[2021-12-24] MEDS: HYDROmorphone 2 MG/ML VIAL 1 MG IVP (08:19)
--- NOTE | 2021-12-24 08:43 | W.ED.GENAD ---
Discharge Plan Disposition Patient Disposition: HOME Condition: Improving Discharge Details Clinical Impression: Acute right lower quadrant pain Primary Care Provider: Suzanne Andres ED Provider: Renata Grace Home Meds and New Rx's Prescriptions: Continued albuterol sulfate [ProAir HFA] 90 mcg/actuation HFA aerosol inhaler 2 puff Inhalation QID PRN (Reason: bronchospasm) Qty: 3 0RF (DME) Dexcom G4 Certified Court/Medical Interpreter Misc See Rx Instructions .ROUTE .MEDSUPPLY Qty: 1 4RF Rx Instructions: 4 times daily checks Botox 200 unit recon soln 200 unit IM ONCE 0RF Rx Instructions: [id number] Emgality Pen 120 mg/mL pen injector 120 mg SC QMONTH Qty: 1 0RF carbamazepine 200 mg tablet extended release 12 hr 200 mg PO BID 0RF benzonatate [Tessalon Perles] 100 mg capsule 100 mg PO BID-TID PRN (Reason: cough) Qty: 21 0RF Rx Instructions: May take 1 capsule every 8-12 hours as needed for cough C PAP 0RF meclizine 12.5 mg tablet 12.5 mg PO TID PRN (Reason: Vertigo) Qty: 60 3RF naproxen 500 mg tablet 500 mg PO BID PRN (Reason: pain) Qty: 30 3RF Hold Instructions: Home Medication placed on hold at Doctor's office aspirin [Ecotrin Low Strength] 81 mg tablet,delayed release (DR/EC) 81 mg PO DAILY Qty: 90 3RF (DME) pen needle, diabetic [1st Tier Unifine Pentips] 32 gauge x 5/32 needle See Rx Instructions .ROUTE .MEDSUPPLY Qty: 300 3RF Rx Instructions: 4 x daily insulin dosage (DME) Dexcom G5-G4 Sensor Device See Rx Instructions .ROUTE .MEDSUPPLY Qty: 4 12RF Rx Instructions: as directed (DME) Dexcom G4 Transmitter Device See Rx Instructions .ROUTE .MEDSUPPLY Qty: 1 11RF Rx Instructions: As directed diltiazem HCl [Cardizem CD] 240 mg capsule,extended release 24hr 240 mg PO DAILY Qty: 90 4RF metformin [Glucophage] 1,000 mg tablet 1,000 mg PO BID Qty: 180 4RF hydrochlorothiazide 25 mg tablet 25 mg PO QAM Qty: 90 4RF Levemir FlexTouch U-100 Insuln 100 unit/mL (3 mL) insulin pen 80 unit SC QHS Qty: 15 11RF glyburide 5 mg tablet 10 mg PO BID Qty: 180 4RF Hold Instructions: Home Medication placed on hold at Doctor's office insulin lispro [Humalog KwikPen Insulin] 100 unit/mL insulin pen See Rx Instructions SC TID Qty: 15 3RF Rx Instructions: sliding scale subcut three times a day; max dose 10 units 3 x day lisinopril 40 mg tablet 40 mg PO DAILY Qty: 90 3RF amlodipine 10 mg tablet 10 mg PO DAILY Qty: 90 4RF rosuvastatin 10 mg tablet 10 mg PO DAILY Qty: 90 4RF oxycodone-acetaminophen [Percocet] 5-325 mg tablet 1 tab PO Q8H PRNQty: 7 0RF metoclopramide HCl [Reglan] 5 mg tablet 5 mg PO QAC Qty: 7 0RF Rx Instructions: administer 30 minutes before meals acetaminophen 500 mg capsule 1,000 mg PO Q8H PRN (Reason: pain) Qty: 90 0RF docusate sodium [Colace] 100 mg capsule 100 - 200 mg PO BID PRN0RF No Action Acetaminophen [Tylenol] 650 mg PO Q4H PRN PRNQty: 0 0RF tamsulosin 0.4 mg Capsule 0.8 mg PO DAILY Qty: 14 0RF Discharge Instructions Instructions: Renal Colic (ED), Abdominal Pain (ED) Additional Instructions: Please return immediately to the emergency department if you develop any new or worsening symptoms, if your condition does not improve as expected, or if you become otherwise concerned. It is extremely important that you call soon as possible to make an appointment to be seen in follow-up for this visit by your primary care doctor and a urologist. Referrals: Eddie Pinon MD [ [facility] STAFF PHYSICIAN] - Suzanne Andres NP [Primary Care Provider] - Discharge Data Discharge Date/Time-TO BE ENTERED AT DEPARTURE: 12/24/21 11:43 Medical Decision Making Jose Jacobo is a 66-year-old man with a history of insulin-dependent diabetes, obstructive sleep apnea, CVA, kidney stones presenting to emergency department with right lower quadrant pain. Patient reports that pain began last night 11 PM, is located in his right lower quadrant and migrated to the right groin area. Patient reports that pain is exactly typical of his usual kidney stone pain. He reports that he has had multiple kidney stones in the past, the most recently being 3 weeks ago. Patient reports that he passed that stone at home and did not seek medical care at the time. He reports that prior to onset of pain last night he felt well in his usual state of health. He denies any other pain, fevers, cough, shortness of breath, weakness, numbness, rash. He reports nausea and vomiting, 2 days of constipation, and dysuria. Patient reports that his baseline is to have alternating constipation and diarrhea and has done so for years. He reports that dysuria and nausea/vomiting are typical of his usual kidney stone symptoms. Previously eating and drinking as usual. Previously taking all of his medications as usual. On physical exam patient is well and nontoxic-appearing. There is right lower quadrant and suprapubic tenderness to palpation without peritoneal signs. Concern for kidney stone versus UTI versus other. Doubt appendicitis, other acute emergent surgical abdominal process at this time. Exam/history at this time is not consistent with acute aortic pathology, sepsis, acute coronary syndrome. Plan for IV placement, screening labs, IV fluid hydration, IV Zofran, IV pain medication, CT renal. Labs reviewed UA shows blood, no UTI, WBC 11.07, creatinine 1.0, anion gap 9.8, glucose 189. CT per radiology consistent with recently passed right renal stone, no current ureterolithiasis. Patient reports that he continues to have some pain in the right lower quadrant, but was able to urinate much more easily than since 11 PM last night, also did not have dysuria. Presentation and results at this time consistent with recently passed ureterolithiasis. Plan for patient to take NSAIDs at home, and outpatient follow-up with urology and PCP. I had a discussion with Patient regarding return to emergency department precautions, home care, and importance of outpatient follow-up. Pt verbalizes understanding of the plan and is amenable. Patient discharged to home with clear plan for outpatient follow-up. All questions were answered. Disposition decision was made weighing the risks and benefits of hospitalization versus outpatient treatment, the risk for further decompensation, and the patient's wishes. Medical Records Medical records reviewed: Yes I reviewed the patient's medical records. Imaging Data Radiologic Study: Attestation: I personally reviewed and interpreted this imaging study as follows: Radiologist's impression: Exam(s) CT RENAL COLIC WO EXAM: CT RENAL COLIC WO CLINICAL HISTORY: right flank pain, h/o kidney stones. TECHNIQUE: Imaging Protocol: Axial computed tomography images with coronal and sagittal reformatted images were created and reviewed CONTRAST MATERIAL: Intravenous: none Oral: None COMPARISON: CT CT RENAL COLIC WO from 03/11/2021 FINDINGS: VISUALIZED LUNG BASES: No nodules nor pleural effusions evident. ABDOMEN: LIVER: There are no obvious focal hepatic lesions evident of this noninfused study. Hepatic steatosis again noted. Entire liver is not included on the field of view of this renal calculus protocol study. GALLBLADDER/BILIARY: No obvious gallbladder pathology. CBD is not dilated. PANCREAS: No evidence of pancreatic mass nor dilatation of the pancreatic duct. SPLEEN: Spleen size upper normal. Tiny calcified granulomas are noted in the spleen. ADRENALS: There is a nodule in the left adrenal gland measuring 2.3 x 2.2 cm, unchanged. Another nodule more peripherally located in the lateral limb of the left adrenal gland is again noted, unchanged. In the right adrenal gland there is a subtle suggestion sys benign fat containing myelolipoma, unchanged. KIDNEYS:Cysts and calculi are again noted in both kidneys. The largest cyst is again noted to be in the posterior aspect of the left kidney and measures 4.3 x 3.8 cm, unchanged. No hydronephrosis nor hydroureter on the left side. On the right side there intrarenal calculi again noted and perinephric streaking again noted. Also streaking around the mildly prominent right ureter. There is a 2 millimeter calculus in the urinary bladder just beyond the right ureterovesical junction, possibly a recently passed calculus. Other calculi are also again noted in the dependent aspect of the urinary bladder lumen. Bladder itself is not overly distended. Prostate size slightly prominent. ABDOMINAL AORTA: Abdominal aorta is not enlarged. LYMPH NODES: There is no retroperitoneal nor paraaortic adenopathy. ABDOMINAL WALL: No evidence of significant anterior abdominal wall nor inguinal hernia. GI: : Diverticuli are noted. No obvious diverticulitis. PELVIS: LYMPH NODES: There is no intrapelvic nor inguinal adenopathy. GI: No evidence of appendicitis.No evidence of sigmoid diverticulitis. URINARY BLADDER: As above REPRODUCTIVE: As above OSSEOUS: No significant osseous lesions. Bilateral pars defects at L5 noted. Mild anterolisthesis L5 upon S1. IMPRESSION: 1. Bilateral nephrolithiasis again noted. Right perinephric and periureteral stranding again noted. There are multiple calculi in the urinary bladder again noted, including a 2 millimeter calculus on the right side of the urinary bladder adjacent to the right UVJ which may represent a recently passed stone. 2. Bilateral benign renal cysts again noted. 3. Bilateral adrenal nodules again noted as described above. Lab Data Lab results reviewed: Yes I reviewed the patient's lab results. Labs: Laboratory Tests Range/Units 12/24/21 12/24/21 12/24/21 07:23 07:30 07:30 WBC (4.4-10.8) 10^3/uL 11.07 H RBC (4.36-5.78) 10^6/uL 4.99 Hgb (13.5-17.5) g/dL 14.1 Hct (40.0-50.0) % 43.2 MCV (80-95) fL 86.6 MCH (27.0-33.0) pg 28.3 MCHC (32.0-36.0) % 32.6 RDW (11.8-14.1) % 13.3 Plt Count (130-400) 10^3/uL 213 MPV (8.0-11.0) fL 10.2 Immature Gran % 0.5 Neutrophils % 76.1 Lymphocytes % 11.6 Monocytes % 8.6 Eosinophils % 2.8 Basophils % 0.4 Nucleated RBC % % 0 Absolute Neutrophils (1.2-6.7) 10^3/uL 8.42 H Absolute Lymphocytes (1.2-3.4) 10^3/uL 1.28 Absolute Monocytes (0.1-0.8) 10^3/uL 0.95 H Absolute Eosinophils (0.0-0.7) 10^3/uL 0.31 Absolute Basophils (0.0-0.2) 10^3/uL 0.04 Sodium (136-145) mmol/L 139 Potassium (3.5-5.1) mmol/L 4.0 Chloride (98-107) mmol/L 102 Carbon Dioxide (21.0-32.0) mmol/L 27.2 Anion Gap (3-11) mmol/L 9.8 BUN (7-18) mg/dL 27 H Creatinine (0.70-1.30) mg/dL 1.0 Estimated GFR/1.73 m2 (mL/min/1.73m2) >= 60.00 Glucose (74-106) mg/dL 189 H Calcium (8.5-10.1) mg/dL 9.1 Total Bilirubin (0.2-1.0) mg/dL 0.4 AST (15-37) U/L 17 ALT (16-63) U/L 30 Alkaline Phosphatase (46-116) U/L 69 Total Protein (6.4-8.2) g/dL 7.7 Albumin (3.4-5.0) g/dL 3.8 Urine Color (Yellow) Yellow Urine Clarity (Clear) Cloudy Urine pH (5-8) 5.5 Ur Specific Hunter (1.005-1.025) >= 1.030 H Urine Protein (Negative) mg/dL >=300 H Urine Ketones (Negative) mg/dL Negative Urine Blood (Negative) Large H Urine Nitrite (Negative) Negative Urine Bilirubin (Negative) Negative Urine Urobilinogen (Up TO 0.2) EU/dL 0.2 Ur Leukocyte Esterase (Negative) Negative Urine RBC (0-2) HPF 20-50 H Urine WBC (0-5) HPF 0-2 Ur Epithelial Cells (Negative) HPF Few Urine Crystals (Negative) HPF Negative Urine Bacteria (Negative) HPF Negative Urine Casts (Negative) LPF 5-10 Hyaline Urine Mucus (Negative) Negative Ur Culture Indicated? No Urine Glucose (Negative) mg/dL Negative HPI General Mode of arrival: ambulatory. Date/Time Provider Initiated Documentation: 12/24/21 07:16. Limitations to Documentation: no limitations. Information obtained by: patient, RN notes reviewed and old records reviewed. HPI Narrative: Jose Jacobo is a 66-year-old man with a history of insulin-dependent diabetes, obstructive sleep apnea, CVA, kidney stones presenting to emergency department with right lower quadrant pain. Patient reports that pain began last night 11 PM, is located in his right lower quadrant and migrated to the right groin area. Patient reports that pain is exactly typical of his usual kidney stone pain. He reports that he has had multiple kidney stones in the past, the most recently being 3 weeks ago. Patient reports that he passed that stone at home and did not seek medical care at the time. He reports that prior to onset of pain last night he felt well in his usual state of health. He denies any other pain, fevers, cough, shortness of breath, weakness, numbness, rash. He reports nausea and vomiting, 2 days of constipation, and dysuria. Patient reports that his baseline is to have alternating constipation and diarrhea and has done so for years. He reports that dysuria and nausea/vomiting are typical of his usual kidney stone symptoms. Previously eating and drinking as usual. Previously taking all of his medications as usual. Related Data Home Medications Medication Instructions Recorded Confirmed C Pap 04/08/16 12/13/21 acetaminophen 500 mg capsule 1,000 mg PO Q8H PRN #90 cap 01/21/19 12/25/21 galcanezumab-gnlm 120 mg/mL 120 mg SC QMONTH #1 ml 03/28/20 12/25/21 subcutaneous pen injector (Emgality Pen) meclizine 12.5 mg tablet 12.5 mg PO TID PRN #60 tab 04/13/20 12/25/21 naproxen 500 mg tablet 500 mg PO BID PRN #30 tab 04/13/20 12/25/21 albuterol sulfate 90 mcg/actuation 2 puff INHALATION QID PRN #3 inh 07/07/20 12/25/21 aerosol inhaler (ProAir HFA) carbamazepine 200 mg 200 mg PO BID 12/28/20 12/25/21 tablet,extended release,12 hr metoclopramide HCl 5 mg tablet 5 mg PO QAC #7 tab 01/03/21 12/25/21 (Reglan) oxycodone-acetaminophen 5 mg-325 1 tab PO Q8H PRN #7 tab 01/03/21 12/25/21 mg tablet (Percocet) aspirin 81 mg tablet,delayed 81 mg PO DAILY #90 tab-cap 02/13/21 12/25/21 release (Ecotrin Low Strength) docusate sodium 100 mg capsule 100 - 200 mg PO BID PRN cap 03/15/21 12/25/21 (Colace) pen needle, diabetic 32 gauge x #300 ea 04/02/21 12/13/21 5/32 (1st Tier Unifine Pentips) blood-glucose sensor (Dexcom G5-G4 #4 ea 05/01/21 12/13/21 Sensor) blood-glucose meter,continuous #1 ea 05/11/21 12/13/21 (Dexcom G4 Certified Court/Medical Interpreter) blood-glucose transmitter (Dexcom #1 ea 05/15/21 12/13/21 G4 Transmitter) diltiazem HCl 240 mg 240 mg PO DAILY #90 cap 06/05/21 12/25/21 capsule,extended release 24 hr (Cardizem CD) metformin 1,000 mg tablet 1,000 mg PO BID #180 tab-cap 06/05/21 12/25/21 (Glucophage) benzonatate 100 mg capsule 100 mg PO BID-TID PRN #21 cap 06/11/21 12/25/21 (Tessalon Perles) hydrochlorothiazide 25 mg tablet 25 mg PO QAM #90 tab 07/05/21 12/25/21 onabotulinumtoxinA 200 unit 200 unit IM ONCE 09/13/21 12/25/21 solution for injection (Botox) insulin detemir U-100 100 unit/mL 80 unit (0.8 mL) SC QHS #15 ml 10/04/21 12/25/21 (3 mL) subcutaneous pen (Levemir FlexTouch U-100 Insulin) glyburide 5 mg tablet 10 mg PO BID #180 tab-cap 11/20/21 12/25/21 insulin lispro 100 unit/mL See Rx Instructions SC TID #15 ml 11/20/21 12/25/21 subcutaneous pen (Humalog KwikPen (U-100) Insulin) lisinopril 40 mg tablet 40 mg PO DAILY #90 tab 11/20/21 12/25/21 amlodipine 10 mg tablet 10 mg PO DAILY #90 tab 12/18/21 12/25/21 rosuvastatin 10 mg tablet 10 mg PO DAILY #90 tab 12/18/21 12/25/21 Acetaminophen [Tylenol] 650 mg PO Q4H PRN PRN #0 12/29/21 tamsulosin 0.4 mg capsule 0.8 mg PO DAILY #14 cap 12/29/21 Previous Rx's Medication Instructions Recorded acetaminophen 500 mg capsule 1,000 mg PO Q8H PRN #90 cap 01/21/19 galcanezumab-gnlm 120 mg/mL 120 mg SC QMONTH #1 ml 03/28/20 subcutaneous pen injector (Emgality Pen) meclizine 12.5 mg tablet 12.5 mg PO TID PRN #60 tab 04/13/20 naproxen 500 mg tablet 500 mg PO BID PRN #30 tab 04/13/20 albuterol sulfate 90 mcg/actuation 2 puff INHALATION QID PRN #3 inh 07/07/20 aerosol inhaler (ProAir HFA) metoclopramide HCl 5 mg tablet 5 mg PO QAC #7 tab 01/03/21 (Reglan) oxycodone-acetaminophen 5 mg-325 1 tab PO Q8H PRN #7 tab 01/03/21 mg tablet (Percocet) aspirin 81 mg tablet,delayed 81 mg PO DAILY #90 tab-cap 02/13/21 release (Ecotrin Low Strength) pen needle, diabetic 32 gauge x #300 ea 04/02/21 (1st Tier Unifine Pentips) blood-glucose sensor (Dexcom G5-G4 #4 ea 05/01/21 Sensor) blood-glucose meter,continuous #1 ea 05/11/21 (Dexcom G4 Certified Court/Medical Interpreter) blood-glucose transmitter (Dexcom #1 ea 05/15/21 G4 Transmitter) diltiazem HCl 240 mg 240 mg PO DAILY #90 cap 06/05/21 capsule,extended release 24 hr (Cardizem CD) metformin 1,000 mg tablet 1,000 mg PO BID #180 tab-cap 06/05/21 (Glucophage) benzonatate 100 mg capsule 100 mg PO BID-TID PRN #21 cap 06/11/21 (Tessalon Perles) hydrochlorothiazide 25 mg tablet 25 mg PO QAM #90 tab 07/05/21 insulin detemir U-100 100 unit/mL 80 unit (0.8 mL) SC QHS #15 ml 10/04/21 (3 mL) subcutaneous pen (Levemir FlexTouch U-100 Insulin) glyburide 5 mg tablet 10 mg PO BID #180 tab-cap 11/20/21 insulin lispro 100 unit/mL See Rx Instructions SC TID #15 ml 11/20/21 subcutaneous pen (Humalog KwikPen (U-100) Insulin) lisinopril 40 mg tablet 40 mg PO DAILY #90 tab 11/20/21 amlodipine 10 mg tablet 10 mg PO DAILY #90 tab 12/18/21 rosuvastatin 10 mg tablet 10 mg PO DAILY #90 tab 12/18/21 Acetaminophen [Tylenol] 650 mg PO Q4H PRN PRN #0 12/29/21 tamsulosin 0.4 mg capsule 0.8 mg PO DAILY #14 cap 12/29/21 Allergies Allergy/AdvReac Type Severity Reaction Status Date / Time No Known Allergies Allergy Verified 12/25/21 16:13 General Stated Complaint: Abd Prob JAI: 3 Review of Systems Narrative: Constitutional: denies fevers Eyes: denies eye pain ENT: denies ear pain, dental pain, sore throat Cardiovascular: denies chest pain, edema Respiratory: denies SOB, cough GI: denies diarrhea, reports nausea, vomiting, right lower quadrant abdominal pain, constipation : denies flank pain, reports dysuria MSK: denies back pain, neck pain, arthralgias, myalgias Skin: denies rash Neuro: denies headaches, numbness, weakness PFSH All Active Problems (Updated 12/30/21 @ 00:03 by LAM TOLENTINO) Calculus of proximal right ureter (Acute) SUSAN (acute kidney injury) (Acute) Acute right lower quadrant pain (Acute) Adrenal mass (Acute) Left sided sciatica (Acute) Greater trochanteric bursitis (Acute) injection 02/2021 Ortho Tubular adenoma (Acute ~10/2020) Diverticulosis (Acute) Arthritis of left knee (Acute) Steroid injection: 09/13/2021; 02/21/21; 10/27/2020; 02/21/2021; 09/13/21 Status post right knee replacement (Acute 09/22/18) Migraine (Acute) Right hip pain (Acute) Obstructive sleep apnea syndrome (Acute) [place] sleep study 08/14/11 - CPAP recommended Medical History (Updated 12/30/21 @ 00:03 by LAM TOLENTINO) Asthma Bilateral primary osteoarthritis of knee (03/17/17) Blindness of one eye LEFT Cluster headache, chronic CVA (cerebral vascular accident) (07/20/14) crpytogenic Diabetes Diabetic neuropathy Diabetic retinopathy (~08/2019) [facility] retinologist: Dr. Trejo- [facility] non- proliferative (SEVERE)-07/13/20 DM (diabetes mellitus), type 2, uncontrolled titrating insulin to achieve control Dr. Mtz every 3 months for foot care Erectile dysfunction (10/31/14) Essential hypertension (08/11/13) Hydronephrosis Hydroureter Hyperlipidemia Kidney stone Left eye trauma resulting in surgery many years ago Morbid obesity (04/26/13) Nausea and vomiting after administration of anesthetic agent Nephrolithiasis Primary osteoarthritis of right knee Restless legs Sleep apnea Uses CPAP machine Trochanteric bursitis, left hip Urinary retention Varicose veins of lower extremity Surgical History History of ankle surgery as a child History of total right knee replacement (TKR) 09/22/2018 Status post tonsillectomy Trochanteric bursitis, right hip (06/15/18) Right IT band lengthening and bursal debridement DOS: 01/21/19 Family History Mother Depression Hyperlipidemia Father Heart disease Brother Diabetes Depression Hyperlipidemia Brother Substance abuse Depression Heart disease Hyperlipidemia Brother , Gunshot wound No problems noted. 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 Current gender identity: male What type of physical activity do you participate in: none Frequency: does not exercise Sulema/Bahai: Baptism Special sulema needs: No Do you feel safe at home: Yes Do you feel safe in your relationship?: Yes Exam Narrative Exam Narrative: Constitutional: well and [id number], pleasant, conversing normally HENT: head atraumatic/normocephalic/normal inspection, mucous membranes moist Eyes: conjunctiva normal, sclera normal, pupils 3mm b/l Neck: no stridor, normal ROM, trachea midline Chest: normal inspection Resp: normal work of breathing, speaking in full sentences Cardio: normal rate, normal rhythm GI: abdomen soft, right lower quadrant and suprapubic area tender to palpation, no rebound, no guarding, no mass, non-distended, no CVA tenderness bilaterally Skin: warm, dry, normal color, no rash Neuro: alert, not altered, grossly non-focal, normal tone Ext: Moving all extremities equally Psych: normal mood, normal affect, normal behavior Course Vital Signs Vital signs: Vital Signs Temperature 36.1 C L 12/24/21 07:24 Pulse 86 12/24/21 07:24 Respiratory Rate 20 12/24/21 07:24 Blood Pressure 185/89 H 12/24/21 07:24 Pulse Oximetry 97 12/24/21 07:24 Temperature 36.1 C L 12/24/21 07:24 Temperature Source Temporal Artery Scan 12/24/21 07:24 Pulse 86 12/24/21 07:24 Respiratory Rate 20 12/24/21 07:24 Respiratory Effort Non-Labored 12/24/21 07:54 Blood Pressure 185/89 H 12/24/21 07:24 Blood Pressure Position Supine 12/24/21 07:24 Pulse Oximetry 97 12/24/21 07:24 Oxygen Delivery Method Room Air 12/24/21 07:24 Oxygen Flow Rate 0 12/24/21 07:24 Lab/Test Results Lab/Test Results: Laboratory Tests Range/Units 12/24/21 12/24/21 12/24/21 07:23 07:30 07:30 WBC (4.4-10.8) 10^3/uL 11.07 H RBC (4.36-5.78) 10^6/uL 4.99 Hgb (13.5-17.5) g/dL 14.1 Hct (40.0-50.0) % 43.2 MCV (80-95) fL 86.6 MCH (27.0-33.0) pg 28.3 MCHC (32.0-36.0) % 32.6 RDW (11.8-14.1) % 13.3 Plt Count (130-400) 10^3/uL 213 MPV (8.0-11.0) fL 10.2 Immature Gran % 0.5 Neutrophils % 76.1 Lymphocytes % 11.6 Monocytes % 8.6 Eosinophils % 2.8 Basophils % 0.4 Nucleated RBC % % 0 Absolute Neutrophils (1.2-6.7) 10^3/uL 8.42 H Absolute Lymphocytes (1.2-3.4) 10^3/uL 1.28 Absolute Monocytes (0.1-0.8) 10^3/uL 0.95 H Absolute Eosinophils (0.0-0.7) 10^3/uL 0.31 Absolute Basophils (0.0-0.2) 10^3/uL 0.04 Sodium (136-145) mmol/L 139 Potassium (3.5-5.1) mmol/L 4.0 Chloride (98-107) mmol/L 102 Carbon Dioxide (21.0-32.0) mmol/L 27.2 Anion Gap (3-11) mmol/L 9.8 BUN (7-18) mg/dL 27 H Creatinine (0.70-1.30) mg/dL 1.0 Estimated GFR/1.73 m2 (mL/min/1.73m2) >= 60.00 Glucose (74-106) mg/dL 189 H Calcium (8.5-10.1) mg/dL 9.1 Total Bilirubin (0.2-1.0) mg/dL 0.4 AST (15-37) U/L 17 ALT (16-63) U/L 30 Alkaline Phosphatase (46-116) U/L 69 Total Protein (6.4-8.2) g/dL 7.7 Albumin (3.4-5.0) g/dL 3.8 Urine Color (Yellow) Yellow Urine Clarity (Clear) Cloudy Urine pH (5-8) 5.5 Ur Specific Hunter (1.005-1.025) >= 1.030 H Urine Protein (Negative) mg/dL >=300 H Urine Ketones (Negative) mg/dL Negative Urine Blood (Negative) Large H Urine Nitrite (Negative) Negative Urine Bilirubin (Negative) Negative Urine Urobilinogen (Up TO 0.2) EU/dL 0.2 Ur Leukocyte Esterase (Negative) Negative Urine RBC (0-2) HPF 20-50 H Urine WBC (0-5) HPF 0-2 Ur Epithelial Cells (Negative) HPF Few Urine Crystals (Negative) HPF Negative Urine Bacteria (Negative) HPF Negative Urine Casts (Negative) LPF 5-10 Hyaline Urine Mucus (Negative) Negative Ur Culture Indicated? No Urine Glucose (Negative) mg/dL Negative
--- NOTE | 2021-12-24 10:11 | NUR.NOTE ---
Nursing report received from Nikki Patient A&Ox3 C/O pain in groin area increasing and currently 04/26. notified. will continue to monitor. RN.Nursing Note:
[2021-12-24] MEDS: Naproxen 250 MG TAB 500 MG PO (11:26)
[2021-12-24 11:43] VITALS: BP 166/87; PULSE 84; RESP 22; TEMP 36.1
== END 2021-12-24 11:43 | disposition home or self-care (01) ==
PROVIDERS: Emergency Provider Student in an Organized Health Care Education/Training Program; PCP Nurse Practitioner
DX: R10.31 Right lower quadrant pain (principal); Z87.442 Personal history of urinary calculi
CPT/HCPCS: 36415; 80053; 96361; 96374; 96375; 99284; 74176; 81003; 81015; 85025; 99283; J2405

== ENCOUNTER 2021-12-25 16:02 | Inpatient (IN) | payer MEDICARE, MEDICAID, SELFPAY ==
[2021-12-25] VITALS (8 sets, daily range): BP systolic 148–194; BP diastolic 71–80; PULSE 71–88; RESP 14–22; TEMP 36.3–37.4; O2SAT 93–97
--- NOTE | 2021-12-25 16:17 | ED.GENADUL_ITS ---
Discharge Plan Disposition Patient Disposition: [facility] INPATIENT Condition: Stable Discharge Details Clinical Impression: Right sided abdominal pain, Intractable abdominal pain, Intractable vomiting with nausea, Elevated lactic acid level Admit Date/Time: 12/27/21 09:30 Admit Provider: Marsha Tineo Attending Provider: Marsha Tineo Primary Care Provider: Suzanne Andres ED Provider: Broderick Chavez Discharge Data Discharge Date/Time-TO BE ENTERED AT DEPARTURE: 12/25/21 20:00 Medical Decision Making <FADY Rodriguez - Last Filed: 12/25/21 19:38> 66-year-old male with a history of insulin-dependent diabetes, obstructive sleep apnea, CVA, kidney stones, hypertension, presenting with right-sided abdominal pain. Clinically he appears in moderate distress, dry heaving, uncomfortable. He was seen in the ER for the same yesterday and it appeared as though he had recently passed a kidney stone. Given his presentation today, I am concerned for renal stone, renal infarct, pyelonephritis, small bowel obstruction, incarcerated hernia, ischemic bowel, etc. Plan is to obtain IV access, obtain CTA of his abdomen and pelvis, give IV fluid, IV Dilaudid, Zofran and obtain routine screening laboratory values including a lactate. Patient denies any improvement with the initial medication. He will now be given 25 IV Phenergan and 1 mg of Dilaudid I was contacted with a critical lactate of 3.0. Patient will be given a second liter of IV fluids Laboratory values reveal no evidence of leukocytosis or anemia. His electrolytes are unremarkable. BUN of 34 which appears to be above his baseline. Creatinine 1.5 with a GFR of 46.82. This too appears worse than his baseline. LFTs are unremarkable, lipase 143. Urinalysis reveals moderate blood. Patient returned from CT, he is now able to lie back on the stretcher and appears somewhat more comfortable. Awaiting CT results. Patient is once again complaining of increased pain. Is once again dry heaving. Will give 100 of IV fentanyl and [address] imaging reveals decreased right renal perfusion with mild hydronephrosis and hydroureter. No obstructing calculus seen. Bilateral nonobstructing renal calculi. Suggestive of recently passed calculus, calculus too small to characterize, or possibly pyelonephritis. CT imaging does not reveal any obvious acute abnormality. Given this is likely renal, will provide with 15 IV Toradol as well. Patient is no longer dry heaving but does report some nausea. He reports his pain is slightly better but still moderate. Given his presentation, second visit in 24 hours, abnormal CT findings, inability to adequately control his discomfort and nausea/vomiting, I will discuss the case with our hospitalist services for admission. Case was discussed with Dr. Tineo who request a urology consultation given his presentation and abnormal CT. I was then able to speak with Dr. Pinon, urology, and he felt as though the CT findings were likely secondary to hydronephrosis and/or an obstruction, less likely pyelonephritis and or infarct. He believes admitting the patient here for pain control is reasonable. Currently there are no signs of sepsis and/or infection and he does not believe that an emergent stent would be necessary. Tomorrow if the patient's clinical situation changes then the overall situation may need to be readdressed. I relayed my conversation with Dr. Pinon to Dr. Tineo. She is now agreeable to admission and will place admission orders. This plan was discussed with patient who is also agreeable to admission. This documentation was generated using [employer] dictation system, please disregard any oddities of phrase or misspellings. Repeat lactate of 1.7 Medical Records Medical records reviewed: Yes I reviewed the patient's medical records. Imaging Data Radiologic Study: Attestation: I personally reviewed and interpreted this imaging study as follows: Imaging: CT Scan Radiologist's impression: PROCEDURE INFORMATION: Exam: CTA Abdomen and Pelvis With Contrast Exam date and time: 12/25/2021 4:49 PM Age: 66 years old Clinical indication: Other: R sided abd pain, unlike prior renal stone TECHNIQUE: Imaging protocol: Computed tomographic angiography of the abdomen and pelvis with contrast material. 3D rendering (Not supervised by radiologist): MIP and/or 3D reconstructed images were created by the technologist. Radiation optimization: All CT scans at this facility use at least one of these dose optimization techniques: automated exposure control; mA and/or kV adjustment per patient size (includes targeted exams where dose is matched to clinical indication); or iterative reconstruction. Contrast material: OMNIPAQUE 350; Contrast volume: 100 ml; Contrast route: INTRAVENOUS (IV); COMPARISON: CT ABDOMEN PELVIS W 01/03/2021 2:42 PM FINDINGS: Aorta: No aortic aneurysm. No aortic dissection. Celiac trunk and mesenteric arteries: No occlusion or significant stenosis. Renal arteries: No occlusion or significant stenosis. Right iliac arteries: No occlusion or significant stenosis. Left iliac arteries: No occlusion or significant stenosis. Liver: Fatty, enlarged liver. Gallbladder and bile ducts: Unremarkable. No calcified stones. No ductal dilation. Pancreas: Unremarkable. No mass. No ductal dilation. Spleen: Splenic calcifications again noted. Adrenal glands: Unremarkable. No mass. MCKENZIE PEÑALOZA Preliminary Radiology Report PROPOSAL REP (QA) DISCREPANCY? If there is a discrepancy between the preliminary and final interpretation, please notify [employer] via [email or web address]. If you do not have access to our QA portal, call our QA team at [phone] CONFIDENTIALITY STATEMENT This report is intended only for the use of the referring physician, and only in accordance with law, If you received this in error, call [phone] Page 2 of 2 Kidneys and ureters: Bilateral renal cysts are unchanged. There is decreased right renal perfusion with mild hydronephrosis and hydroureter. No obstructing calculus seen. Bilateral nonobstructing renal calculi. Stomach and bowel: Unremarkable. No obstruction. No mucosal thickening. Appendix: No evidence of appendicitis. Intraperitoneal space: Unremarkable. No free air. No significant fluid collection. Lymph nodes: Unremarkable. No enlarged lymph nodes. Urinary bladder: Unremarkable. No mass. Reproductive: Prostate slightly enlarged, 5.8 cm. Bones/joints: No acute fracture. No dislocation. Soft tissues: Lobular slightly elongated left adrenal soft tissue nodule unchanged 2.1 cm maximum diameter. Other findings: Respiratory motion noted. The moderate atherosclerotic change seen in the vasculature. IMPRESSION: Abnormal right renal findings suggesting recently passed calculus, calculus too small to characterize, or possible pyelonephritis. <Jarred Grace MD - Last Filed: 12/31/21 17:07> Patient seen, examined, and discussed with FADY Chavez. I agree with treatment plan as discussed/documented. HPI <FADY Rodriguez - Last Filed: 12/25/21 19:38> General Mode of arrival: ambulatory . Date/Time Provider Initiated Documentation: 12/25/21 16:13 . Limitations to Documentation: no limitations . Information obtained by: patient . HPI Narrative: This is a 66-year-old gentleman with a past medical history of insulin-dependent diabetes, obstructive sleep apnea, CVA, kidney stones, hypertension, morbid obesity, presenting to the ER for right-sided abdominal pain which he states is a 12 out of 10. Patient states he was seen in the ER yesterday, thought to have just passed a renal stone, and after treatment was feeling much improved. He states that his pain was never completely gone, this morning had some aching discomfort but over the past several hours the pain is now severe, stabbing, associate with nausea and vomiting. Patient states that yesterday the pain was lower in his abdomen and in his groin but today it is in the middle of the right side of his abdomen which is higher than usual and today does not feel like a renal stone. He states that he is fully vaccinated against COVID with a booster. He denies recent illness or trauma. No fever, chest pain, shortness of breath, dysuria, hematuria. Patient states he was able to have a small breakfast this morning. He states that he typically fluctuates between diarrhea and constipation but did have a small bowel movement this morning. He denies previous abdominal surgery. Related Data Home Medications Medication Instructions Recorded Confirmed C Pap 04/08/16 12/13/21 acetaminophen 500 mg capsule 1,000 mg PO Q8H PRN #90 cap 01/21/19 12/25/21 galcanezumab-gnlm 120 mg/mL 120 mg SC QMONTH #1 ml 03/28/20 12/25/21 subcutaneous pen injector (Emgality Pen) meclizine 12.5 mg tablet 12.5 mg PO TID PRN #60 tab 04/13/20 12/25/21 naproxen 500 mg tablet 500 mg PO BID PRN #30 tab 04/13/20 12/25/21 albuterol sulfate 90 mcg/actuation 2 puff INHALATION QID PRN #3 inh 07/07/20 12/25/21 aerosol inhaler (ProAir HFA) carbamazepine 200 mg 200 mg PO BID 12/28/20 12/25/21 tablet,extended release,12 hr metoclopramide HCl 5 mg tablet 5 mg PO QAC #7 tab 01/03/21 12/25/21 (Reglan) oxycodone-acetaminophen 5 mg-325 1 tab PO Q8H PRN #7 tab 01/03/21 12/25/21 mg tablet (Percocet) aspirin 81 mg tablet,delayed 81 mg PO DAILY #90 tab-cap 02/13/21 12/25/21 release (Ecotrin Low Strength) docusate sodium 100 mg capsule 100 - 200 mg PO BID PRN cap 03/15/21 12/25/21 (Colace) pen needle, diabetic 32 gauge x #300 ea 04/02/21 12/13/2132 (1st Tier Unifine Pentips) blood-glucose sensor (Dexcom G5-G4 #4 ea 05/01/21 12/13/21 Sensor) blood-glucose meter,continuous #1 ea 05/11/21 12/13/21 (Dexcom G4 Line Construction Supervisor) blood-glucose transmitter (Dexcom #1 ea 05/15/21 12/13/21 G4 Transmitter) diltiazem HCl 240 mg 240 mg PO DAILY #90 cap 06/05/21 12/25/21 capsule,extended release 24 hr (Cardizem CD) metformin 1,000 mg tablet 1,000 mg PO BID #180 tab-cap 06/05/21 12/25/21 (Glucophage) benzonatate 100 mg capsule 100 mg PO BID-TID PRN #21 cap 06/11/21 12/25/21 (Tessalon Perles) hydrochlorothiazide 25 mg tablet 25 mg PO QAM #90 tab 07/05/21 12/25/21 onabotulinumtoxinA 200 unit 200 unit IM ONCE 09/13/21 12/25/21 solution for injection (Botox) insulin detemir U-100 100 unit/mL 80 unit (0.8 mL) SC QHS #15 ml 10/04/21 12/25/21 (3 mL) subcutaneous pen (Levemir FlexTouch U-100 Insulin) glyburide 5 mg tablet 10 mg PO BID #180 tab-cap 11/20/21 12/25/21 insulin lispro 100 unit/mL See Rx Instructions SC TID #15 ml 11/20/21 12/25/21 subcutaneous pen (Humalog KwikPen (U-100) Insulin) lisinopril 40 mg tablet 40 mg PO DAILY #90 tab 11/20/21 12/25/21 amlodipine 10 mg tablet 10 mg PO DAILY #90 tab 12/18/21 12/25/21 rosuvastatin 10 mg tablet 10 mg PO DAILY #90 tab 12/18/21 12/25/21 Acetaminophen [Tylenol] 650 mg PO Q4H PRN PRN #0 12/29/21 tamsulosin 0.4 mg capsule 0.8 mg PO DAILY #14 cap 12/29/21 Previous Rx's Medication Instructions Recorded acetaminophen 500 mg capsule 1,000 mg PO Q8H PRN #90 cap 01/21/19 galcanezumab-gnlm 120 mg/mL 120 mg SC QMONTH #1 ml 03/28/20 subcutaneous pen injector (Emgality Pen) meclizine 12.5 mg tablet 12.5 mg PO TID PRN #60 tab 04/13/20 naproxen 500 mg tablet 500 mg PO BID PRN #30 tab 04/13/20 albuterol sulfate 90 mcg/actuation 2 puff INHALATION QID PRN #3 inh 07/07/20 aerosol inhaler (ProAir HFA) metoclopramide HCl 5 mg tablet 5 mg PO QAC #7 tab 01/03/21 (Reglan) oxycodone-acetaminophen 5 mg-325 1 tab PO Q8H PRN #7 tab 01/03/21 mg tablet (Percocet) aspirin 81 mg tablet,delayed 81 mg PO DAILY #90 tab-cap 02/13/21 release (Ecotrin Low Strength) pen needle, diabetic 32 gauge x #300 ea 04/02/21 532 (1st Tier Unifine Pentips) blood-glucose sensor (Dexcom G5-G4 #4 ea 05/01/21 Sensor) blood-glucose meter,continuous #1 ea 05/11/21 (Dexcom G4 Line Construction Supervisor) blood-glucose transmitter (Dexcom #1 ea 05/15/21 G4 Transmitter) diltiazem HCl 240 mg 240 mg PO DAILY #90 cap 06/05/21 capsule,extended release 24 hr (Cardizem CD) metformin 1,000 mg tablet 1,000 mg PO BID #180 tab-cap 06/05/21 (Glucophage) benzonatate 100 mg capsule 100 mg PO BID-TID PRN #21 cap 06/11/21 (Tessalon Perles) hydrochlorothiazide 25 mg tablet 25 mg PO QAM #90 tab 07/05/21 insulin detemir U-100 100 unit/mL 80 unit (0.8 mL) SC QHS #15 ml 10/04/21 (3 mL) subcutaneous pen (Levemir FlexTouch U-100 Insulin) glyburide 5 mg tablet 10 mg PO BID #180 tab-cap 11/20/21 insulin lispro 100 unit/mL See Rx Instructions SC TID #15 ml 11/20/21 subcutaneous pen (Humalog KwikPen (U-100) Insulin) lisinopril 40 mg tablet 40 mg PO DAILY #90 tab 11/20/21 amlodipine 10 mg tablet 10 mg PO DAILY #90 tab 12/18/21 rosuvastatin 10 mg tablet 10 mg PO DAILY #90 tab 12/18/21 Acetaminophen [Tylenol] 650 mg PO Q4H PRN PRN #0 12/29/21 tamsulosin 0.4 mg capsule 0.8 mg PO DAILY #14 cap 12/29/21 Allergies Allergy/AdvReac Type Severity Reaction Status Date / Time No Known Allergies Allergy Verified 12/25/21 16:13 General Stated Complaint: Abd Prob JAI: 3 Review of Systems <FADY Rodriguez - Last Filed: 12/25/21 19:38> Constitutional Constitutional: Denies fatigue, Denies fever(s) and Denies headache(s) ENT Ears, Nose, Mouth, and Throat: Denies headache(s) and Denies neck pain Cardiovascular Cardiovascular: Denies chest pain and Denies dyspnea Respiratory Respiratory: Denies cough and Denies dyspnea Gastrointestinal Gastrointestinal: Reports abdominal pain, Denies melena, Denies hematochezia, Reports constipation, Reports diarrhea, Reports nausea and Reports vomiting Genitourinary Genitourinary: Denies hematuria, Denies dysuria, Denies scrotal swelling and Denies testicular pain Musculoskeletal Musculoskeletal: Reports back pain and Denies neck pain Integumentary/Breasts Skin/Breast: Denies rash Neurologic Neurologic: Denies headache(s) Endocrine Endocrine: Denies fatigue [facility] <FADY Rodriguez - Last Filed: 12/25/21 19:38> All Active Problems (Updated 12/30/21 @ 00:03 by LAM TOLENTINO) Calculus of proximal right ureter (Acute) SUSAN (acute kidney injury) (Acute) Acute right lower quadrant pain (Acute) Adrenal mass (Acute) Left sided sciatica (Acute) Greater trochanteric bursitis (Acute) injection 02/2021 Ortho Tubular adenoma (Acute ~10/2020) Diverticulosis (Acute) Arthritis of left knee (Acute) Steroid injection: 09/13/2021; 02/21/21; 10/27/2020; 02/21/2021; 09/13/21 Status post right knee replacement (Acute 09/22/18) Migraine (Acute) Right hip pain (Acute) Obstructive sleep apnea syndrome (Acute) [facility] sleep study 08/14/11 - CPAP recommended Medical History (Updated 12/30/21 @ 00:03 by LAM TOLENTINO) Asthma Bilateral primary osteoarthritis of knee (03/17/17) Blindness of one eye LEFT Cluster headache, chronic CVA (cerebral vascular accident) (07/20/14) crpytogenic Diabetes Diabetic neuropathy Diabetic retinopathy (~08/2019) [facility] retinologist: Dr. Trejo- [facility] non- proliferative (SEVERE)-07/13/20 DM (diabetes mellitus), type 2, uncontrolled titrating insulin to achieve control Dr. Mtz every 3 months for foot care Erectile dysfunction (10/31/14) Essential hypertension (08/11/13) Hydronephrosis Hydroureter Hyperlipidemia Kidney stone Left eye trauma resulting in surgery many years ago Morbid obesity (04/26/13) Nausea and vomiting after administration of anesthetic agent Nephrolithiasis Primary osteoarthritis of right knee Restless legs Sleep apnea Uses CPAP machine Trochanteric bursitis, left hip Urinary retention Varicose veins of lower extremity Surgical History History of ankle surgery as a child History of total right knee replacement (TKR) 09/22/2018 Status post tonsillectomy Trochanteric bursitis, right hip (06/15/18) Right IT band lengthening and bursal debridement DOS: 01/21/19 Family History Mother Depression Hyperlipidemia Father Heart disease Brother Diabetes Depression Hyperlipidemia Brother Substance abuse Depression Heart disease Hyperlipidemia Brother , Gunshot wound No problems noted. 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 Current gender identity: male What type of physical activity do you participate in: none Frequency: does not exercise Sulema/Christianity: Sabianism Special sulema needs: No Do you feel safe at home: Yes Do you feel safe in your relationship?: Yes Exam <FADY Rodriguez - Last Filed: 12/25/21 19:38> Const General: cooperative and in distress Orientation: alert, awake and oriented x3 HENMT Head: normal to inspection, normocephalic and atraumatic Face and sinus: normal facial exam Mouth: moist mucous membranes Eyes General: appearance normal, both eyes and all related structures Conjunctivae: conjunctivae normal Neck Neck: normal visual inspection, trachea midline and supple Resp Effort & Inspection: normal respiratory effort and able to speak in complete sentences Auscultation: clear to auscultation bilaterally Cardio Rate: regular rate Rhythm: regular rhythm GI Inspection: obesity Palpation: soft, not firm, no guarding, no pulsatile masses and tender Auscultation: normal bowel sounds Back/Spine/Pelvis Back: no CVA tenderness and back tenderness (Diffuse right lumbar discomfort) Skin General skin exam: no rashes or lesions noted Neuro General: patient alert, patient awake, moves all extremities and no focal motor deficits Cognition: normal cognition Speech: speech normal Gait: normal gait Sensory Exam: no sensory deficits noted Extrem General: normal to inspection, full ROM and capillary refill normal Psych Appearance: grossly normal Mental Status: mental status grossly normal Course <FADY Rodriguez - Last Filed: 12/25/21 19:38> Vital Signs Vital signs: Vital Signs Temperature 36.3 C L 12/25/21 16:09 Pulse 71 12/25/21 16:09 Respiratory Rate 14 12/25/21 16:09 Blood Pressure 178/74 H 12/25/21 16:09 Pulse Oximetry 95 12/25/21 16:09 Temperature 36.3 C L 12/25/21 16:09 Temperature Source Tympanic 12/25/21 16:09 Pulse 71 12/25/21 16:09 Respiratory Rate 14 02/08/22 16:09 Blood Pressure 178/74 H 12/25/21 16:09 Blood Pressure Position Sitting 12/25/21 16:09 Pulse Oximetry 95 12/25/21 16:09 Oxygen Delivery Method Room Air 12/25/21 16:09 Oxygen Flow Rate 0 12/25/21 16:09 Pain Level 10 12/25/21 16:09 Critical Care Time <FADY Rodriguez - Last Filed: 12/25/21 19:38> Critical Care Time Critical Care Time: Yes Total Critical Care Time: 35 Attestation: Upon my evaluation, this patient had a high probability of clinically significant, life-threatening deterioration due to their current medical conditions, which required my direct attention, intervention, and personal management. I have personally provided greater than 30 minutes of critical care time exclusive of the time spend on separately billable procedures. Time includes obtaining a history, examining the patient, pulse oximetry, review of laboratory data, radiology results, discussion with consultants, arranging urgent treatment with development of a management plan, evaluation of patient's response to treatment, and monitoring for potential decompensation. Interventions were performed as documented above.
[2021-12-25 16:33] LABS: Abs Immature Grans 0.04 10^3/uL (0.0-0.06); Absolute Basophil Count 0.04 10^3/uL (0.0-0.2); Absolute Lymphocyte Count 1.35 10^3/uL (1.2-3.4); Absolute Monocyte Count 1.08 10^3/uL (0.1-0.8); Absolute Neutrophil Count 7.89 10^3/uL (1.2-6.7); Basophils % 0.4; Eosinophils % 1.9; HCT 42.4 % (40.0-50.0); HGB 13.9 g/dL (13.5-17.5); Immature Grans % 0.4; Lymphocytes % 12.7; MCH 28.7 pg (27.0-33.0); MCHC 32.8 % (32.0-36.0); MCV 87.4 fL (80-95); Monocytes % 10.2; Neutrophils % 74.4; Nucleated RBC 0 %; Platelet Count 216 10^3/uL (130-400); RBC 4.85 10^6/uL (4.36-5.78); RDW 13.3 % (11.8-14.1); RDW-SD 42.7 fL
[2021-12-25] MEDS: Ondansetron 4 MG/2 ML VIAL IVP (16:34)
[2021-12-25] MEDS: HYDROmorphone 2 MG/ML VIAL 1 MG IVP ×4 (16:34→22:15)
[2021-12-25] MEDS: Normal Saline 1,000 ML 1000 ML IV ×2 (16:34→17:58)
--- NOTE | 2021-12-25 16:45 | DI.CT_ITS ---
Exam(s) CT ABDOMEN PELVIS CTA EXAM: CT ABDOMEN PELVIS CTA CLINICAL HISTORY: R sided abd pain, unlike prior renal stone. TECHNIQUE: Imaging Protocol: Axial computed tomography images with coronal and sagittal reformatted images were created and reviewed CONTRAST MATERIAL: Intravenous: Omnipaque 350 Contrast volume:100 ml Oral: None COMPARISON: CT CT RENAL COLIC WO from 03/11/[address] RENAL COLIC WO from 12/24/2021 FINDINGS: ABDOMEN: There is no evidence of abdominal aortic aneurysm nor dissection.There is no aneurysmal dilatation of the common iliac arteries.The celiac and superior mesenteric arteries are patent.The inferior mesent rylie artery is patent. At the T12-L1 level the posterior wall of the aorta is extrinsically indented by an anterior disc her niation at T12-L1 level. Both renal arteries are patent without prominent stenosis. Mild atherosclerotic disease noted at the aortic bifurcation moderate atherosclerotic disease noted on the medial wall of the right common david ac artery. No critical stenosis. No aneurysm of these vessels. No stenosis on either side at the j unction of the common and external iliac arteries. Both external iliac arteries are patent as are th e common femoral arteries. Both internal iliac arteries are patent There is no ascites. LIVER: There are no focal hepatic lesions nor dilatation of intrahepatic ducts. GALLBLADDER/BILIARY: No obvious gallbladder pathology. CBD is not dilated. PANCREAS: No evidence of pancreatic mass nor dilatation of the pancreatic duct. SPLEEN: Spleen is not enlarged. There are no intrasplenic lesions. Splenic and portal veins are seth nt. ADRENALS: There is a nodule in the left adrenal gland which measures 2 by 2 cm. This is unchanged fr om the prior study of 03/11/2021 KIDNEYS: There is cysts again noted in both kidneys. There is a 3 x 3 cm cyst in the posterior codie x of the right kidney again noted and there is a slightly larger but also unchanged 4.3 x 3.9 cm cyst in the posterior cortex of the opposite-left kidney. Calculi are again noted in both kidneys. Also small calculi in the dependent wall of the urinary bladder. Tiny hyperdensity in the lower right ur eter noted, possibly tiny calculi. There is also a calculus at the right ureteropelvic junction in t he upper right ureter which measures 4 millimeters. There are no obstructing calculi in the opposite -left side.. ABDOMINAL AORTA: The abdominal aorta is not enlarged. LYMPH NODES: There is no retroperitoneal nor para-aortic adenopathy. No obvious mesenteric masses. ABDOMINAL WALL: No evidence of significant anterior abdominal wall hernia. GI: There is no evidence of bowel obstruction, free air, nor abscess. PELVIS: LYMPH NODES: There is no intrapelvic nor inguinal adenopathy. GI: No evidence of appendicitis.No evidence of sigmoid diverticulitis. URINARY BLADDER: Tiny calculi therein. No obvious mass REPRODUCTIVE: Prostate size upper normal. Seminal vesicles unremarkable. OSSEOUS: No significant osseous lesions. IMPRESSION: 1. No evidence of abdominal aortic aneurysm no other significant vascular findings in the abdomen and pelvis. However, the the aorta is indented posteriorly by an anterior disc herniation at T12-L1 dis c space, similar to the previous study. 2. On the present study there appears to be a 4 millimeter calculus in the upper right ureter at the ureteropelvic junction and there is mild hydronephrosis above this level, not previously present. Th ere may also be tiny calculi in the lower right ureter. Also tiny calculi in the urinary bladder. T here are no obstructing calculi in the opposite-left kidney. 3. Unchanged single benign cyst in both kidneys. 4. Left adrenal mass/nodule measuring 2 x 2 cm, unchanged. Possibly incidental adenoma but requires appropriate follow-up. Study 1st read by [facility] Final report called by myself to ER provider 12/26/2021 at 8:30 a.m. RADIATION DOSE DELIVERED: 1,095.22mGy.cm Total DLP DATA REPOSITORY: All CT scans at this facility are submitted to the National Radiology Data Registry (NRDR) Dose Index Registry (DIR) with the [employer] (ACR). RADIATION OPTIMIZATION: All CT scans at this facility use at least one of these dose optimization te chniques: automated exposure control; mA and/or kV adjustment per patient size (includes targeted exa ms where dose is matched to clinical indication); or iterative reconstruction.
[2021-12-25] MEDS: Omnipaque 350 MG/ML 100 ML BTL IV (17:30)
[2021-12-25 17:36] LABS: ALT 29 U/L (16-63); AST 15 U/L (15-37); Albumin 3.7 g/dL (3.4-5.0); Alkaline Phosphatase 63 U/L (46-116); Anion Gap 7.9 mmol/L (3-11); BUN 34 mg/dL (7-18); Bilirubin, Total 0.2 mg/dL (0.2-1.0); CO2 27.1 mmol/L (21.0-32.0); CREATININE 1.5 mg/dL (0.70-1.30); Calcium 8.8 mg/dL (8.5-10.1); Chloride 103 mmol/L (98-107); Estimated GFR 46.82 (mL/min/1.73m2); Glucose 188 mg/dL (74-106); Lipase 143 U/L (73-393); Sodium 138 mmol/L (136-145); Total Protein 7.4 g/dL (6.4-8.2)
[2021-12-25 18:14] LABS: Bilirubin Negative (Negative); Blood Moderate (Negative); Clarity Clear (Clear); Glucose 100 mg/dL (Negative); Ketones Negative (Negative); Leukocyte Esterase Negative (Negative); Nitrite Negative (Negative); Specific Gravity >= 1.030 (1.005-1.025); Urobilinogen 0.2 EU/dL (Up TO 0.2); pH 5.5 (5-8)
--- NOTE | 2021-12-25 18:26 | DI.VRAD_ITS ---
PROCEDURE INFORMATION: Exam: CTA Abdomen and Pelvis With Contrast Exam date and time: 12/25/2021 4:49 PM Age: 66 years old Clinical indication: Other: R sided abd pain, unlike prior renal stone TECHNIQUE: Imaging protocol: Computed tomographic angiography of the abdomen and pelvis with contrast material. 3D rendering (Not supervised by radiologist): MIP and/or 3D reconstructed images were created by the technologist. Radiation optimization: All CT scans at this facility use at least one of these dose optimization techniques: automated exposure control; mA and/or kV adjustment per patient size (includes targeted exams where dose is matched to clinical indication); or iterative reconstruction. Contrast material: OMNIPAQUE 350; Contrast volume: 100 ml; Contrast route: INTRAVENOUS (IV); COMPARISON: CT ABDOMEN PELVIS W 01/03/2021 2:42 PM FINDINGS: Aorta: No aortic aneurysm. No aortic dissection. Celiac trunk and mesenteric arteries: No occlusion or significant stenosis. Renal arteries: No occlusion or significant stenosis. Right iliac arteries: No occlusion or significant stenosis. Left iliac arteries: No occlusion or significant stenosis. Liver: Fatty, enlarged liver. Gallbladder and bile ducts: Unremarkable. No calcified stones. No ductal dilation. Pancreas: Unremarkable. No mass. No ductal dilation. Spleen: Splenic calcifications again noted. Adrenal glands: Unremarkable. No mass. Kidneys and ureters: Bilateral renal cysts are unchanged. There is decreased right renal perfusion with mild hydronephrosis and hydroureter. No obstructing calculus seen. Bilateral nonobstructing renal calculi. Stomach and bowel: Unremarkable. No obstruction. No mucosal thickening. Appendix: No evidence of appendicitis. Intraperitoneal space: Unremarkable. No free air. No significant fluid collection. Lymph nodes: Unremarkable. No enlarged lymph nodes. Urinary bladder: Unremarkable. No mass. Reproductive: Prostate slightly enlarged, 5.8 cm. Bones/joints: No acute fracture. No dislocation. Soft tissues: Lobular slightly elongated left adrenal soft tissue nodule unchanged 2.1 cm maximum diameter. Other findings: Respiratory motion noted. The moderate atherosclerotic change seen in the vasculature. IMPRESSION: Abnormal right renal findings suggesting recently passed calculus, calculus too small to characterize, or possible pyelonephritis. Dictated and Authenticated by: Savita Ferrera MD. Ordering:SHARDA Villafana MD
[2021-12-25 18:31] LABS: Epithelial Cells Negative HPF (Negative); WBC Negative HPF (0-5)
[2021-12-25 18:32] LABS: Bacteria Negative HPF (Negative); C & S Indicated? No; Crystals Few Uric Acid HPF (Negative); Mucus Trace (Negative)
[2021-12-25] MEDS: fentaNYL 100 MCG/2 ML VIAL IVP (18:43)
[2021-12-25] MEDS: Metoclopramide 10 MG/2 ML VIAL IVP (18:43)
[2021-12-25] MEDS: Ketorolac 15 MG/ML VIAL IVP (18:49)
[2021-12-25 19:26] LABS: Lactate 1.7 mmol/L (0.6-1.4)
--- NOTE | 2021-12-25 19:32 | HPE_ITS ---
Date of service: 12/25/21 Time of Service: 19:32 Assessment and Plan Assessment and plan (1) Nephrolithiasis: Status: Chronic Assessment and plan: Per CT, likely nonobstrucing vs too small to characterize. Case was reviewed by ED with urology, and it is felt that the patient does not require emergent surgical intervention at this time. Decreased perfusion in the right kidney is thought to be due to hydronephrosis/hydroureter. The patient is hemodynamically stable and has no evidence of a UTI at this time. Will provide IV, IV pain medications (toradol, dilaudid), antiemetics. (2) Hydroureter: Status: Acute Assessment and plan: R-sided As above Urology consult placed - no in-house urology until 12/27/21. (3) Hydronephrosis: Status: Acute Assessment and plan: R-sided As above (4) Right sided abdominal pain: Status: Acute Assessment and plan: Due to above As above (5) Intractable vomiting with nausea: Status: Acute Assessment and plan: Combination of nephro lithiasis/hydroureter/hydronephrosis and a migraine. Will treat with prn phenergan, zofran, tigan. The patient is on scheduled reglan at home. (6) SUSAN (acute kidney injury): Status: Acute Assessment and plan: The patient is clinically dry. Will provide IV hydration. There is a possibility of obstructive uropathy as well contributing. Will monitor Cr. (7) Elevated lactic acid level: Status: Acute Assessment and plan: In setting of dehyrdation but also metformin therapy. Hold metformin. Continue IV fluids. Lactate has already improved. (8) DVT prophylaxis: Status: Acute Assessment and plan: SC heparin (given SUSAN) (9) Discharge planning issues: Status: Acute Assessment and plan: Full code History of Present Illness History of Present Illness Chief Complaint: abdominal pain, nausea, vomiting Narrative: Mr Jacobo is a 66 year old male with PMHx of known nephrolithiasis, IDDM2, HTN, LEAH on CPAP, who presented to [facility] ED today c/o R-sided abdominal/flank pain, nausea and vomiting. The patient was evaluated in the ED yesterday, having presented with R-sided groin pain, completely different than the pain today, which is more in his right flank. He also reports having an on- going migraine, for which taking naproxen as rescue therapy usually helps (he is getting botox therapy as well as aimovig for this as outpatient). He has been feeling hot and cold. His workup in the ED yesterday was c/w a recently passed kidney stone. He responded to IV antiemetics and pain medications and was discharged home with improvement in his symptoms yesterday, but they are worse today. His CTA abdomen/pelvis done today showed decreased right renal perfusion with mild hydronephrosis and hydroureter. No obstructing calculi were seen, but there were bilateral nonobstructing renal calculi. The interpretation of the CT was: recently passed calculus, calculus too small to characterize, or possible pyelonephritis. Clinically, the patient does not have pyuria or sx of a UTI, so pyelonephritis was deemed less likely. The case was reviewed with Dr Pinon of urology who felt that there was no emergent indication for intervention based on the CT findings, and a hospitalist admission for pain control was recommended. Review of Systems All systems reviewed & are unremarkable except as noted in HPI and below PFSH All Active Problems (Updated 12/25/21 @ 19:47 by Marsha Tineo MD) SUSAN (acute kidney injury) (Acute) Discharge planning issues (Acute) DVT prophylaxis (Acute) Nephrolithiasis (Chronic) Hydroureter (Acute) Hydronephrosis (Acute) Acute right lower quadrant pain (Acute) Right sided abdominal pain (Acute) Intractable abdominal pain (Acute) Intractable vomiting with nausea (Acute) Elevated lactic acid level (Acute) Adrenal mass (Acute) Left sided sciatica (Acute) Greater trochanteric bursitis (Acute) injection 02/2021 Ortho Tubular adenoma (Acute ~10/2020) Diverticulosis (Acute) Arthritis of left knee (Acute) Steroid injection: 09/13/2021; 02/21/21; 10/27/2020; 02/21/2021; 09/13/21 Status post right knee replacement (Acute 09/22/18) Migraine (Acute) Right hip pain (Acute) Obstructive sleep apnea syndrome (Acute) [place] sleep study 08/14/11 - CPAP recommended Medical History (Updated 12/25/21 @ 19:47 by Marsha Tineo MD) Asthma Bilateral primary osteoarthritis of knee (03/17/17) Blindness of one eye LEFT Cluster headache, chronic CVA (cerebral vascular accident) (07/20/14) crpytogenic Diabetes Diabetic neuropathy Diabetic retinopathy (~08/2019) [facility] retinologist: Dr. Trejo- [facility] non- proliferative (SEVERE)-07/13/20 DM (diabetes mellitus), type 2, uncontrolled titrating insulin to achieve control Dr. Mtz every 3 months for foot care Erectile dysfunction (10/31/14) Essential hypertension (08/11/13) Hyperlipidemia Kidney stone Left eye trauma resulting in surgery many years ago Morbid obesity (04/26/13) Nausea and vomiting after administration of anesthetic agent Primary osteoarthritis of right knee Restless legs Sleep apnea Uses CPAP machine Trochanteric bursitis, left hip Urinary retention Varicose veins of lower extremity Surgical History History of ankle surgery as a child History of total right knee replacement (TKR) 09/22/2018 Status post tonsillectomy Trochanteric bursitis, right hip (06/15/18) Right IT band lengthening and bursal debridement DOS: 01/21/19 Family History Mother Depression Hyperlipidemia Father Heart disease Brother Diabetes Depression Hyperlipidemia Brother Substance abuse Depression Heart disease Hyperlipidemia Brother , Gunshot wound No problems noted. Brother Heart disease Diabetes Social History Smoking/Tobacco Use Status: Former Tobacco Use Quit Date: 11/17/69 Pack-years: 4 Second Hand Exposure: Yes Smoking risk assessment performed?: Yes Alcohol Intake: never Details: denies alcohol use Drug use: Never Substance use type: does not use Household members: none current occupation: [employer] Current gender identity: male What type of physical activity do you participate in: none Frequency: does not exercise Sulema/Synagogue: Denominational Special sulema needs: No Do you feel safe at home: Yes Do you feel safe in your relationship?: Yes Meds Allergies and Home Medications Allergies Allergy/AdvReac Type Severity Reaction Status Date / Time No Known Allergies Allergy Verified 12/25/21 16:13 Home Medications Medication Instructions Recorded Confirmed Type C Pap 04/08/16 12/13/21 History acetaminophen 1,000 mg PO Q8H PRN #90 cap 03/07/19 02/08/22 Rx galcanezumab-gnlm 120 mg/mL 120 mg SC QMONTH #1 ml 03/28/20 12/25/21 Rx subcutaneous pen injector meclizine 12.5 mg tablet 12.5 mg PO TID PRN #60 tab 04/13/20 12/25/21 Rx naproxen 500 mg tablet 500 mg PO BID PRN #30 tab 04/13/20 12/25/21 Rx albuterol sulfate 90 mcg/actuation 2 puff INHALATION QID PRN #3 inh 07/07/20 12/25/21 Rx aerosol inhaler carbamazepine 200 mg 200 mg PO BID 12/28/20 12/25/21 History tablet,extended release,12 hr metoclopramide HCl [Reglan] 5 mg PO QAC #7 tab 01/03/21 12/25/21 Rx oxycodone-acetaminophen [Percocet] 1 tab PO Q8H PRN #7 tab 01/03/21 12/25/21 Rx aspirin 81 mg tablet,delayed 81 mg PO DAILY #90 tab-cap 02/13/21 12/25/21 Rx release docusate sodium 100 mg capsule 100 - 200 mg PO BID PRN cap 03/15/21 12/25/21 History pen needle, diabetic 32 gauge x #300 ea 04/02/21 12/13/21 Rx blood-glucose sensor #4 ea 05/01/21 12/13/21 Rx blood-glucose meter,continuous #1 ea 05/11/21 12/13/21 Rx blood-glucose transmitter #1 ea 05/15/21 12/13/21 Rx diltiazem HCl 240 mg 240 mg PO DAILY #90 cap 06/05/21 12/25/21 Rx capsule,extended release 24 hr metformin 1,000 mg tablet 1,000 mg PO BID #180 tab-cap 06/05/21 12/25/21 Rx benzonatate 100 mg capsule 100 mg PO BID-TID PRN #21 cap 06/11/21 12/25/21 Rx hydrochlorothiazide 25 mg tablet 25 mg PO QAM #90 tab 07/05/21 12/25/21 Rx onabotulinumtoxinA 200 unit 200 unit IM ONCE 09/13/21 12/25/21 History solution for injection insulin detemir U-100 100 unit/mL 80 unit SC QHS #15 ml 10/04/21 12/25/21 Rx (3 mL) subcutaneous pen glyburide 5 mg tablet 10 mg PO BID #180 tab-cap 11/20/21 12/25/21 Rx insulin lispro 100 unit/mL See Rx Instructions SC TID #15 ml 11/20/21 12/25/21 Rx subcutaneous pen lisinopril 40 mg tablet 40 mg PO DAILY #90 tab 11/20/21 12/25/21 Rx amlodipine 10 mg tablet 10 mg PO DAILY #90 tab 12/18/21 12/25/21 Rx rosuvastatin 10 mg tablet 10 mg PO DAILY #90 tab 12/18/21 12/25/21 Rx Exam Narrative Exam Narrative: General: Pleasant middle-aged obese male who is visibly nauseated and uncomfortable, A&Ox3, sitting at the side of the bed Neurological: Disconjugate gaze, otherwise A&Ox3, decreased sensation in B feet; no focal deficits Psychiatric: Appropriate speech pattern/content Skin: Visible skin intact; skin on B heels dry; no lesions on B feet HEENT: Atraumatic, normocephalic, EOMI, dry MM, clear oropharynx, no submandibular or cervical lymphadenopathy, no goiter or JVD Cardiovascular: RRR, no m/r/g Lungs: Faint rhonchi at B bases Gastrointestinal: soft, + BS, tender R flank Genitourinary: deferred Extremities: +1 edema BLE's, 1+ pedal pulses B, no c/c. Skin exam as above Results Imaging Additional studies: Renal CT 12/24/21 (yesterday): 1. Bilateral nephrolithiasis again noted. Right perinephric and periureteral stranding again noted. There are multiple calculi in the urinary bladder again noted, including a 2 millimeter calculus on the right side of the urinary bladder adjacent to the right UVJ which may represent a recently passed stone. 2. Bilateral benign renal cysts again noted. 3. Bilateral adrenal nodules again noted as described above. CTA abdomen/pelvis 12/25/21: : Bilateral renal cysts are unchanged. There is decreased right renal perfusion with mild hydronephrosis and hydroureter. No obstructing calculus seen. Bilateral nonobstructing renal calculi. Abnormal right renal fin dings suggesting recently passed calculus, calculus too small to characterize, or possible pyelonephritis. Labs Result diagrams: 12/25/21 16:20 12/25/21 17:10 Labs: Laboratory Results - last 24 hr 12/25/21 12/25/21 12/25/21 16:05 16:20 16:24 WBC 10.60 RBC 4.85 Hgb 13.9 Hct 42.4 MCV 87.4 MCH 28.7 MCHC 32.8 RDW 13.3 Plt Count 216 MPV 10.0 Immature Gran % 0.4 Neutrophils % 74.4 Lymphocytes % 12.7 Monocytes % 10.2 Eosinophils % 1.9 Basophils % 0.4 Nucleated RBC % 0 Absolute Neutrophils 7.89 H Absolute Lymphocytes 1.35 Absolute Monocytes 1.08 H Absolute Eosinophils 0.20 Absolute Basophils 0.04 VBG Lactate Sodium Cancelled Potassium Cancelled Chloride Cancelled Carbon Dioxide Cancelled Anion Gap Cancelled BUN Cancelled Creatinine Cancelled Estimated GFR/1.73 m2 Cancelled Glucose Cancelled Calcium Cancelled Total Bilirubin Cancelled AST Cancelled ALT Cancelled Alkaline Phosphatase Cancelled Total Protein Cancelled Albumin Cancelled Lipase Cancelled Urine Color Yellow Urine Clarity Clear Urine pH 5.5 Ur Specific [place] >= 1.030 H Urine Protein 100 H Urine Ketones Negative Urine Blood Moderate H Urine Nitrite Negative Urine Bilirubin Negative Urine Urobilinogen 0.2 Ur Leukocyte Esterase Negative Urine RBC 3-5 H Urine WBC Negative Ur Epithelial Cells Negative Urine Crystals Few Uric Acid Urine Bacteria Negative Urine Mucus Trace Ur Culture Indicated? No Urine Glucose 100 12/25/21 12/25/21 12/25/21 16:24 17:10 19:19 WBC RBC Hgb Hct MCV MCH MCHC RDW Plt Count MPV Immature Gran % Neutrophils % Lymphocytes % Monocytes % Eosinophils % Basophils % Nucleated RBC % Absolute Neutrophils Absolute Lymphocytes Absolute Monocytes Absolute Eosinophils Absolute Basophils VBG Lactate 3.0 H* 1.7 H Sodium 138 Potassium 4.0 Chloride 103 Carbon Dioxide 27.1 Anion Gap 7.9 BUN 34 H Creatinine 1.5 H Estimated GFR/1.73 m2 46.82 Glucose 188 H Calcium 8.8 Total Bilirubin 0.2 AST 15 ALT 29 Alkaline Phosphatase 63 Total Protein 7.4 Albumin 3.7 Lipase 143 Urine Color Urine Clarity Urine pH Ur Specific [place] Urine Protein Urine Ketones Urine Blood Urine Nitrite Urine Bilirubin Urine Urobilinogen Ur Leukocyte Esterase Urine RBC Urine WBC Ur Epithelial Cells Urine Crystals Urine Bacteria Urine Mucus Ur Culture Indicated? Urine Glucose Last Vital Signs Temp 36.3 C L 12/25/21 16:09 Pulse 76 12/25/21 19:00 Resp 18 12/25/21 19:00 BP 148/76 H 12/25/21 19:00 Pulse Ox 96 12/25/21 19:00
[2021-12-25 19:40] LABS: Source Nasal/Nares
[2021-12-25 20:20] LABS: COVID-19 PCR Negative (Negative)
[2021-12-25] MEDS: Metoclopramide 10 MG TAB 5 MG PO (22:13)
[2021-12-25] MEDS: Docusate Sodium 100 MG CAP PO (22:13)
[2021-12-25] MEDS: Heparin 5,000 UNITS/ML VIAL 5000 UNITS SC (22:14)
[2021-12-25] MEDS: DEXTROSE 5%-LACTATED RINGERS 1,000 ML 150 ML IV (22:15)
[2021-12-25] MEDS: Insulin Aspart 300 UNITS/3 ML PEN SC (22:31)
[2021-12-26] VITALS (10 sets, daily range): BP systolic 98–178; BP diastolic 60–79; PULSE 54–84; RESP 18–22; TEMP 36.4–37.6; O2SAT 91–97
[2021-12-26] MEDS: HYDROmorphone 2 MG/ML VIAL 1 MG IVP ×5 (00:55→21:25)
[2021-12-26] MEDS: Ondansetron 4 MG/2 ML VIAL IVP ×3 (03:17→16:32)
[2021-12-26] MEDS: Normal Saline Flush 10 ML SYR IVP ×3 (03:17→21:26)
[2021-12-26] MEDS: Ketorolac 15 MG/ML VIAL IVP (03:17)
[2021-12-26] MEDS: DEXTROSE 5%-LACTATED RINGERS 1,000 ML 150 ML IV (04:50)
[2021-12-26] MEDS: Heparin 5,000 UNITS/ML VIAL 5000 UNITS SC ×3 (05:05→21:28)
[2021-12-26 07:10] LABS: Lactate 1.1 mmol/L (0.6-1.4)
[2021-12-26 07:14] LABS: Abs Immature Grans 0.03 10^3/uL (0.0-0.06); Absolute Basophil Count 0.02 10^3/uL (0.0-0.2); Absolute Eosinophil Count 0.06 10^3/uL (0.0-0.7); Absolute Lymphocyte Count 1.49 10^3/uL (1.2-3.4); Absolute Monocyte Count 1.09 10^3/uL (0.1-0.8); Absolute Neutrophil Count 7.51 10^3/uL (1.2-6.7); Basophils % 0.2; Eosinophils % 0.6; HCT 36.4 % (40.0-50.0); HGB 12.2 g/dL (13.5-17.5); Immature Grans % 0.3; Lymphocytes % 14.6; MCH 28.7 pg (27.0-33.0); MCHC 33.5 % (32.0-36.0); MCV 85.6 fL (80-95); MPV 10.3 fL (8.0-11.0); Monocytes % 10.7; Neutrophils % 73.6; Nucleated RBC 0 %; Platelet Count 179 10^3/uL (130-400); RBC 4.25 10^6/uL (4.36-5.78); RDW 13.3 % (11.8-14.1); RDW-SD 41.5 fL
[2021-12-26 07:28] LABS: Anion Gap 8.6 mmol/L (3-11); BUN 29 mg/dL (7-18); CO2 27.4 mmol/L (21.0-32.0); CREATININE 1.5 mg/dL (0.70-1.30); Calcium 8.6 mg/dL (8.5-10.1); Chloride 103 mmol/L (98-107); Estimated GFR 46.82 (mL/min/1.73m2); Glucose 255 mg/dL (74-106); Magnesium 1.9 mg/dL (1.8-2.4); Potassium 3.7 mmol/L (3.5-5.1); Sodium 139 mmol/L (136-145)
[2021-12-26] MEDS: Docusate Sodium 100 MG CAP PO ×2 (08:19→21:27)
[2021-12-26] MEDS: Aspirin E.C. 81 MG TABEC PO (08:20)
[2021-12-26] MEDS: Metoclopramide 10 MG TAB 5 MG PO ×4 (08:20→21:28)
[2021-12-26] MEDS: amLODIPine 10 MG TAB PO (08:20)
[2021-12-26] MEDS: dilTIAZem CD 120 MG CAPCR 240 MG PO (08:20)
[2021-12-26] MEDS: Lisinopril 20 MG TAB 40 MG PO (08:20)
[2021-12-26] MEDS: Rosuvastatin 10 MG TAB PO (08:20)
[2021-12-26] MEDS: Insulin Aspart 300 UNITS/3 ML PEN SC ×4 (08:21→21:29)
--- NOTE | 2021-12-26 09:04 | PDOC.CMIN ---
- If Service Date Differs Date of service: 12/26/21 Time of Service: 09:04 Care Management Initial Assess REASON FOR HOSPITALIZATION:: Nephrolithiasis PAST MEDICAL HISTORY/PAST SURGICAL HISTORY:: All Active Problems (Updated 12/25/21 @ 19:47 by Marsha Tineo MD). SUSAN (acute kidney injury) (Acute). Discharge planning issues (Acute). DVT prophylaxis (Acute). Nephrolithiasis (Chronic). Hydroureter (Acute). Hydronephrosis (Acute). Acute right lower quadrant pain (Acute). Right sided abdominal pain (Acute). Intractable abdominal pain (Acute). Intractable vomiting with nausea (Acute). Elevated lactic acid level (Acute). Adrenal mass (Acute). Left sided sciatica (Acute). Greater trochanteric bursitis (Acute). injection 02/2021 Ortho. Tubular adenoma (Acute ~10/2020). Diverticulosis (Acute). Arthritis of left knee (Acute). Steroid injection: 09/13/2021; 02/21/21; 10/27/2020; 02/21/2021; 09/13/21. Status post right knee replacement (Acute 09/22/18). Migraine (Acute). Right hip pain (Acute). Obstructive sleep apnea syndrome (Acute). [place] sleep study 08/14/11 - CPAP recommended. Medical History (Updated 12/25/21 @ 19:47 by Marsha Tineo MD). Asthma. Bilateral primary osteoarthritis of knee (03/17/17). Blindness of one eye. LEFT. Cluster headache, chronic. CVA (cerebral vascular accident) (07/20/14). crpytogenic. Diabetes. Diabetic neuropathy. Diabetic retinopathy (~08/2019). [facility]. retinologist: Dr. Trejo- [facility]. non- proliferative (SEVERE)-07/13/20. DM (diabetes mellitus), type 2, uncontrolled. titrating insulin to achieve control. Dr. Mtz every 3 months for foot care. Erectile dysfunction (10/31/14). Essential hypertension (08/11/13). Hyperlipidemia. Kidney stone. Left eye trauma. resulting in surgery many years ago. Morbid obesity (04/26/13). Nausea and vomiting after administration of anesthetic agent. Primary osteoarthritis of right knee. Restless legs. Sleep apnea. Uses CPAP machine. Trochanteric bursitis, left hip. Urinary retention. Varicose veins of lower extremity. Surgical History . History of ankle surgery. as a child. History of total right knee replacement (TKR). 09/22/2018. Status post tonsillectomy. Trochanteric bursitis, right hip (06/15/18). Right IT band lengthening and bursal debridement. DOS: 01/21/19 PREVIOUS FUNCTIONAL STATUS/SOCIAL/FAMILY SUPPORTS:: Jose is and lives in [place], [place]. 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 He drives and is independent at baseline. He routinely uses a cane and CPAP at night. He shares that he is blind in his left eye. CURRENT FUNCTIONAL STATUS:: Jose was sitting on the side of his bed when CM met with him. He was pleasant and engaged well in conversation. He met with Vero from Urology this morning and is aware that he has a 4mm stone and surgical intervention may not be indicated at this time. He c/o nausea and pain in his right side. RN id aware, and administered both nausea and pain medication. ADVANCE DIRECTIVES:: Not on file at [facility]. CM to discuss. Has patient been provided with info about the portal/API?: Yes Did the patient sign up for the portal?: Yes CODE STATUS:: Full Code INSURANCE COVERAGE / FINANCIAL ISSUES:: Medicaid. Medicare CURRENT HOME/COMMUNITY SERVICES/EQUIPMENT:: Cane. CPAP machine PRIMARY CARE PHYSICIAN:: [facility] POTENTIAL DISCHARGE NEEDS:: Follow up appointments PATIENT/FAMILY EDUCATION NEEDS:: Review discharge instructions, limitations, medications and plan to follow up with community providers. ask me three. TRANSPORTATION:: via private vehicle with family. PLAN:: Jose is being closely monitored and treated for Nephrolithiasis and pain. He was seen by Urology this morning. CM will continue to follow assessment and planning. Anticipate, Jose will discharge home with no new services when medically ready. He will transport via private vehicle with family. He will follow up with community providers and discharge plan of care as prescribed.
[2021-12-26] MEDS: Normal Saline 1,000 ML 125 ML IV ×2 (10:24→18:46)
[2021-12-26] MEDS: Tamsulosin 0.4 MG CAPCR 0.8 MG PO (10:25)
--- NOTE | 2021-12-26 11:40 | CHAPLAIN ---
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 He was his usual pleasant self this morning, although clearly uncomfortable because of pain and vomiting. He said he hasn't slept well because of this discomfort. He was told he has kidney stones, he said, but he believes it may be something more.
[2021-12-26] MEDS: oxyCODONE 5 mg/Acetaminophen 325 mg TAB 1 TAB PO (12:13)
--- NOTE | 2021-12-26 14:21 | PGE_ITS ---
Date of Service Date of service: 12/26/21 Time of Service: 14:21 Assessment and Plan Assessment and plan (1) Nephrolithiasis: Status: Chronic Assessment and plan: Per CT, likely nonobstrucing vs too small to characterize. urology consulted and agrees with treatment. flomax added. continue IV fluids, IV pain medications (toradol, dilaudid), antiemetics. (2) Hydroureter: Status: Acute Assessment and plan: R-sided As above Urology consulted and following (3) Hydronephrosis: Status: Acute Assessment and plan: R-sided As above (4) Intractable vomiting with nausea: Status: Acute Assessment and plan: Combination of nephrolithiasis/hydroureter/hydr onephrosis and a migraine. continue to treat with prn phenergan, zofran, tigan. The patient is on scheduled reglan at home. (5) SUSAN (acute kidney injury): Status: Acute Assessment and plan: combination of dehydration and obstructive uropathy creatinine stable, continue to monitor, avoid nephrotoxic drugs. (6) Elevated lactic acid level: Status: Acute Assessment and plan: In setting of dehyrdation but also metformin therapy. Hold metformin. Continue IV fluids. Lactate improved. (7) DVT prophylaxis: Status: Acute Assessment and plan: SC heparin (given SUSAN) (8) Discharge planning issues: Status: Acute Assessment and plan: Full code anticipate a discharge to home with no services. discussed with Dr Parrish Subjective Subjective Patient reports: no new complaints, pain is less, voiding w/o difficulty, no bowel movement and afebrile Interval history since last seen: pain improved after using percocet. Objective Last Vital Signs Temp 37 C 12/26/21 12:30 Pulse 70 12/26/21 12:30 Resp 20 12/26/21 12:30 BP 165/75 H 12/26/21 12:30 Pulse Ox 95 12/26/21 12:30 Laboratory Results - last 24 hr 12/25/21 12/25/21 12/25/21 16:05 16:20 16:24 WBC 10.60 RBC 4.85 Hgb 13.9 Hct 42.4 MCV 87.4 MCH 28.7 MCHC 32.8 RDW 13.3 Plt Count 216 MPV 10.0 Immature Gran % 0.4 Neutrophils % 74.4 Lymphocytes % 12.7 Monocytes % 10.2 Eosinophils % 1.9 Basophils % 0.4 Nucleated RBC % 0 Absolute Neutrophils 7.89 H Absolute Lymphocytes 1.35 Absolute Monocytes 1.08 H Absolute Eosinophils 0.20 Absolute Basophils 0.04 VBG Lactate Sodium Cancelled Potassium Cancelled Chloride Cancelled Carbon Dioxide Cancelled Anion Gap Cancelled BUN Cancelled Creatinine Cancelled Estimated GFR/1.73 m2 Cancelled Glucose Cancelled Calcium Cancelled Magnesium Total Bilirubin Cancelled AST Cancelled ALT Cancelled Alkaline Phosphatase Cancelled Total Protein Cancelled Albumin Cancelled Lipase Cancelled Urine Color Yellow Urine Clarity Clear Urine pH 5.5 Ur Specific [place] >= 1.030 H Urine Protein 100 H Urine Ketones Negative Urine Blood Moderate H Urine Nitrite Negative Urine Bilirubin Negative Urine Urobilinogen 0.2 Ur Leukocyte Esterase Negative Urine RBC 3-5 H Urine WBC Negative Ur Epithelial Cells Negative Urine Crystals Few Uric Acid Urine Bacteria Negative Urine Mucus Trace Ur Culture Indicated? No Urine Glucose 100 COVID-19 Source SARS-CoV-2 (PCR) 12/25/21 12/25/21 12/25/21 16:24 17:10 19:19 WBC RBC Hgb Hct MCV MCH MCHC RDW Plt Count MPV Immature Gran % Neutrophils % Lymphocytes % Monocytes % Eosinophils % Basophils % Nucleated RBC % Absolute Neutrophils Absolute Lymphocytes Absolute Monocytes Absolute Eosinophils Absolute Basophils VBG Lactate 3.0 H* 1.7 H Sodium 138 Potassium 4.0 Chloride 103 Carbon Dioxide 27.1 Anion Gap 7.9 BUN 34 H Creatinine 1.5 H Estimated GFR/1.73 m2 46.82 Glucose 188 H Calcium 8.8 Magnesium Total Bilirubin 0.2 AST 15 ALT 29 Alkaline Phosphatase 63 Total Protein 7.4 Albumin 3.7 Lipase 143 Urine Color Urine Clarity Urine pH Ur Specific [place] Urine Protein Urine Ketones Urine Blood Urine Nitrite Urine Bilirubin Urine Urobilinogen Ur Leukocyte Esterase Urine RBC Urine WBC Ur Epithelial Cells Urine Crystals Urine Bacteria Urine Mucus Ur Culture Indicated? Urine Glucose COVID-19 Source SARS-CoV-2 (PCR) 12/25/21 12/26/21 12/26/21 19:35 06:55 06:55 WBC 10.20 RBC 4.25 L Hgb 12.2 L Hct 36.4 L MCV 85.6 MCH 28.7 MCHC 33.5 RDW 13.3 Plt Count 179 MPV 10.3 Immature Gran % 0.3 Neutrophils % 73.6 Lymphocytes % 14.6 Monocytes % 10.7 Eosinophils % 0.6 Basophils % 0.2 Nucleated RBC % 0 Absolute Neutrophils 7.51 H Absolute Lymphocytes 1.49 Absolute Monocytes 1.09 H Absolute Eosinophils 0.06 Absolute Basophils 0.02 VBG Lactate Sodium 139 Potassium 3.7 Chloride 103 Carbon Dioxide 27.4 Anion Gap 8.6 BUN 29 H Creatinine 1.5 H Estimated GFR/1.73 m2 46.82 Glucose 255 H Calcium 8.6 Magnesium 1.9 Total Bilirubin AST ALT Alkaline Phosphatase Total Protein Albumin Lipase Urine Color Urine Clarity Urine pH Ur Specific [place] Urine Protein Urine Ketones Urine Blood Urine Nitrite Urine Bilirubin Urine Urobilinogen Ur Leukocyte Esterase Urine RBC Urine WBC Ur Epithelial Cells Urine Crystals Urine Bacteria Urine Mucus Ur Culture Indicated? Urine Glucose COVID-19 Source Nasal/Nares SARS-CoV-2 (PCR) Negative 12/26/21 06:55 WBC RBC Hgb Hct MCV MCH MCHC RDW Plt Count MPV Immature Gran % Neutrophils % Lymphocytes % Monocytes % Eosinophils % Basophils % Nucleated RBC % Absolute Neutrophils Absolute Lymphocytes Absolute Monocytes Absolute Eosinophils Absolute Basophils VBG Lactate 1.1 Sodium Potassium Chloride Carbon Dioxide Anion Gap BUN Creatinine Estimated GFR/1.73 m2 Glucose Calcium Magnesium Total Bilirubin AST ALT Alkaline Phosphatase Total Protein Albumin Lipase Urine Color Urine Clarity Urine pH Ur Specific [place] Urine Protein Urine Ketones Urine Blood Urine Nitrite Urine Bilirubin Urine Urobilinogen Ur Leukocyte Esterase Urine RBC Urine WBC Ur Epithelial Cells Urine Crystals Urine Bacteria Urine Mucus Ur Culture Indicated? Urine Glucose COVID-19 Source SARS-CoV-2 (PCR)
[2021-12-26] MEDS: Melatonin 3 MG TAB PO (21:28)
[2021-12-26] MEDS: Trimethobenzamide 200 MG/2 ML VIAL IM (21:30)
[2021-12-27] VITALS (7 sets, daily range): BP systolic 128–187; BP diastolic 61–86; PULSE 64–87; RESP 18–19; TEMP 36.6–37.5; O2SAT 92–95
[2021-12-27] MEDS: Ketorolac 15 MG/ML VIAL IVP ×2 (00:09→08:00)
[2021-12-27] MEDS: oxyCODONE 5 mg/Acetaminophen 325 mg TAB 1 TAB PO ×3 (00:09→20:56)
[2021-12-27] MEDS: Normal Saline Flush 10 ML SYR IVP ×3 (00:10→16:07)
[2021-12-27] MEDS: Normal Saline 1,000 ML 125 ML IV ×3 (02:24→20:55)
[2021-12-27] MEDS: HYDROmorphone 2 MG/ML VIAL 1 MG IVP ×2 (02:41→11:24)
[2021-12-27] MEDS: Ondansetron 4 MG/2 ML VIAL IVP ×2 (02:41→16:06)
[2021-12-27] MEDS: Heparin 5,000 UNITS/ML VIAL 5000 UNITS SC ×3 (03:33→20:55)
[2021-12-27 07:07] LABS: Abs Immature Grans 0.03 10^3/uL (0.0-0.06); Absolute Basophil Count 0.04 10^3/uL (0.0-0.2); Absolute Eosinophil Count 0.08 10^3/uL (0.0-0.7); Absolute Lymphocyte Count 1.22 10^3/uL (1.2-3.4); Absolute Monocyte Count 1.12 10^3/uL (0.1-0.8); Absolute Neutrophil Count 7.66 10^3/uL (1.2-6.7); Basophils % 0.4; Eosinophils % 0.8; HCT 38.2 % (40.0-50.0); HGB 12.5 g/dL (13.5-17.5); Immature Grans % 0.3; MCH 28.5 pg (27.0-33.0); MCHC 32.7 % (32.0-36.0); MCV 87.2 fL (80-95); MPV 10.5 fL (8.0-11.0); Neutrophils % 75.5; Nucleated RBC 0 %; Platelet Count 189 10^3/uL (130-400); RBC 4.38 10^6/uL (4.36-5.78); RDW 13.3 % (11.8-14.1); RDW-SD 42.2 fL; WBC 10.15 10^3/uL (4.4-10.8)
[2021-12-27 07:20] LABS: Anion Gap 9.5 mmol/L (3-11); BUN 24 mg/dL (7-18); CO2 26.5 mmol/L (21.0-32.0); CREATININE 1.5 mg/dL (0.70-1.30); Calcium 8.5 mg/dL (8.5-10.1); Chloride 103 mmol/L (98-107); Estimated GFR 46.82 (mL/min/1.73m2); Glucose 168 mg/dL (74-106); Potassium 3.9 mmol/L (3.5-5.1); Sodium 139 mmol/L (136-145)
[2021-12-27] MEDS: dilTIAZem CD 120 MG CAPCR 240 MG PO (07:57)
[2021-12-27] MEDS: Metoclopramide 10 MG TAB 5 MG PO ×4 (07:57→20:56)
[2021-12-27] MEDS: Rosuvastatin 10 MG TAB PO (07:58)
[2021-12-27] MEDS: Aspirin E.C. 81 MG TABEC PO (07:58)
[2021-12-27] MEDS: Docusate Sodium 100 MG CAP PO ×2 (07:58→20:57)
[2021-12-27] MEDS: Tamsulosin 0.4 MG CAPCR 0.8 MG PO (07:59)
[2021-12-27] MEDS: Insulin Aspart 300 UNITS/3 ML PEN SC ×3 (08:09→17:21)
[2021-12-27] MEDS: Lisinopril 20 MG TAB 40 MG PO (08:17)
[2021-12-27] MEDS: amLODIPine 10 MG TAB PO (08:17)
--- NOTE | 2021-12-27 12:54 | PDOC.CMPRO ---
- If Service Date Differs Date of service: 12/27/21 Time of Service: 16:24 Care Management Progress Note S/O: Jose was sitting up in his chair, chatting on his cell phone when CM attempted to meet with him. He continues to be treated with IV fluids, IV pain medications (toradol, dilaudid), antiemetics. No change to overall plan, CM continues to follow. A: 66 year old male admitted to [facility] P: Jose is being closely monitored and treated for Nephrolithiasis and pain. He was seen by Urology this morning. CM will continue to follow assessment and planning. Anticipate, Jose will discharge home with no new services when medically ready. He will transport via private vehicle with family. He will follow up with community providers and discharge plan of care as prescribed.
--- NOTE | 2021-12-27 13:13 | W.INDIABCONS ---
Date of service: 12/27/21 Time of Service: 13:13 Diabetes Inpatient Consult Reason for Visit: Diabetes Consult DESCRIPTION/ASSESSMENT: Mr. Jacobo is admitted for pain management r/t kidney stone. He is currently on clear liquids and has refused PO. His BMI is 52.1 kg/m2 c/w class 3 (severe) obesity. His weight has been stable over the past few years. A1C has been consistently in the 8s over the past year. At home, Mr. Jacobo takes 100 units of Detemir as well as a correction with Aspart at meals and metformin. Here in the hospital, he is getting 4o units of Detemir at HS as well as Aspart correction at meals. Metformin is on hold. Blood sugars were above target on admission but have improved and are at target. INTERVENTION: I will check in with Mr. Jacobo today or tomorrow to assess his DSMES needs as well as his interest in coming back to us as an outpatient for diabetes education. PLAN: Will continue to monitor PO intake, BG, weight. Time Spent in Nutritional Counseling and Treatment: 0
--- NOTE | 2021-12-27 14:26 | W.PM.PROGNOT ---
Date of Service Date of service: 12/27/21 Time of Service: 17:00 Assessment and Plan Assessment and plan (1) Nephrolithiasis: Status: Chronic Assessment and plan: Per CT, likely nonobstrucing vs too small to characterize. urology consulted and agrees with treatment. flomax added. continue IV fluids, IV pain medications (toradol, dilaudid), antiemetics. (2) Hydroureter: Status: Acute Assessment and plan: R-sided As above Urology consulted and following (3) Hydronephrosis: Status: Acute Assessment and plan: R-sided As above (4) Intractable vomiting with nausea: Status: Acute Assessment and plan: Combination of nephrolithiasis/hydroureter/hydronephrosis and a migraine. continue to treat with prn phenergan, zofran, tigan. The patient is on scheduled reglan at home. (5) SUSAN (acute kidney injury): Status: Acute Assessment and plan: combination of dehydration and obstructive uropathy creatinine stable, continue to monitor, avoid nephrotoxic drugs. (6) Elevated lactic acid level: Status: Acute Assessment and plan: In setting of dehyrdation but also metformin therapy. Hold metformin. Continue IV fluids. Lactate improved. (7) DVT prophylaxis: Status: Acute Assessment and plan: SC heparin (given SUSAN) (8) Discharge planning issues: Status: Acute Assessment and plan: Full code anticipate a discharge to home with no services. discussed with Dr Parrish Subjective Subjective Patient reports: no new complaints, pain is less, voiding w/o difficulty, no bowel movement and afebrile Interval history since last seen: pain improved after using percocet. Exam Const General: cooperative Orientation: alert, awake and oriented x3 HENMT Head: normal to inspection, normocephalic and atraumatic Face and sinus: normal facial exam Mouth: moist mucous membranes Eyes General: appearance normal, both eyes and all related structures Conjunctivae: conjunctivae normal Neck Neck: supple Resp Effort & Inspection: normal respiratory effort and able to speak in complete sentences Auscultation: clear to auscultation bilaterally Cardio Rate: regular rate Rhythm: regular rhythm GI Inspection: obesity Palpation: soft, not firm and no guarding Auscultation: normal bowel sounds Back/Spine/Pelvis Back: no CVA tenderness Skin General skin exam: no rashes or lesions noted Neuro General: patient alert, patient awake, moves all extremities and no focal motor deficits Cognition: normal cognition Speech: speech normal Gait: normal gait Extrem General: normal to inspection, full ROM and capillary refill normal Psych Appearance: grossly normal Mental Status: mental status grossly normal Objective Last Vital Signs Temp 36.6 C 12/27/21 11:31 Pulse 64 12/27/21 11:31 Resp 18 12/27/21 11:31 BP 172/86 H 12/27/21 11:31 Pulse Ox 92 12/27/21 11:31 Laboratory Results - last 24 hr 12/27/21 12/27/21 06:04 06:04 WBC 10.15 RBC 4.38 Hgb 12.5 L Hct 38.2 L MCV 87.2 MCH 28.5 MCHC 32.7 RDW 13.3 Plt Count 189 MPV 10.5 Immature Gran % 0.3 Neutrophils % 75.5 Lymphocytes % 12.0 Monocytes % 11.0 Eosinophils % 0.8 Basophils % 0.4 Nucleated RBC % 0 Absolute Neutrophils 7.66 H Absolute Lymphocytes 1.22 Absolute Monocytes 1.12 H Absolute Eosinophils 0.08 Absolute Basophils 0.04 Sodium 139 Potassium 3.9 Chloride 103 Carbon Dioxide 26.5 Anion Gap 9.5 BUN 24 H Creatinine 1.5 H Estimated GFR/1.73 m2 46.82 Glucose 168 H D Calcium 8.5
[2021-12-27] MEDS: Milk of Magnesia 30 ML CUP PO (15:05)
--- NOTE | 2021-12-27 16:02 | UCONE_ITS ---
Date of service: 12/27/21 Time of Service: 16:02 Assessment and Plan Assessment and plan (1) Calculus of proximal right ureter: Status: Acute Assessment and plan: He has a ureteral stone which certainly can cause persistent nausea and vomiting. Typically, pain, nausea and vomiting are related to the obstruction/back pressure of urine into the kidney. I am not aware of any other acute finding that might be contributory at this time, so if the nausea and vomiting persist, I think it is reasonable to place a ureteral stent to see if his GI symptoms improve. I will leave him NPO after midnight and check on him early tomorrow. If he has a rough night with nausea and vomiting, I can see about placing a ureteral stent tomorrow. His BMI is over 50, so he is not a candidate for a elective ureteroscopy here at our facility. If he improves with placement of his ureteral stent, I would need to make a referral for him to have ureteroscopy/stone manipulation at a tertiary care center. History of Present Illness History of Present Illness Chief Complaint: right ureteral stone Narrative: This is a 66 year old man who presented to our ED with right sided flank pain. He has a history of kidney stones and his pain was similar to his previous renal colic episodes. He had a noncontrast CT that showed nonobstructing stones in the right lower pole. His ureter was dilated but no ureteral stone was seen. It ws suspected that he passed a ureteral stone. He returned within 24 hours with recurrent pain. A CT angiogram was initially interpreted as having decreased perfusion and hydronephrosis. In actuality, one of his lower pole stones had migrated into the proximal right ureter and was causing the hydronephrosis. He has passed multiple stone previously and has never required surgical treatment of his stones. He has had persistent nausea and his pain has migrated down to the right lower abdomen. He has not been having fever or chills. He has an adrenal mass that is followed by the Endocrinology team at [facility] [place]. He has no known history of hyperparathyroidism or gout. Review of Systems Constitutional Constitutional: Denies chills, Denies fever(s) and Reports snoring Cardiovascular Cardiovascular: Denies chest pain Respiratory Respiratory: Denies cough and Reports snoring Gastrointestinal Gastrointestinal: Reports heartburn, Denies diarrhea, Reports nausea and Reports vomiting Musculoskeletal Musculoskeletal: Reports back pain and Reports arthralgias PFSH All Active Problems (Updated 12/27/21 @ 16:12 by Eddie Pinon MD) Calculus of proximal right ureter (Acute) SUSAN (acute kidney injury) (Acute) Discharge planning issues (Acute) DVT prophylaxis (Acute) Nephrolithiasis (Chronic) Hydroureter (Acute) Hydronephrosis (Acute) Acute right lower quadrant pain (Acute) Right sided abdominal pain (Acute) Intractable abdominal pain (Acute) Intractable vomiting with nausea (Acute) Elevated lactic acid level (Acute) Adrenal mass (Acute) Left sided sciatica (Acute) Greater trochanteric bursitis (Acute) injection 02/2021 Ortho Tubular adenoma (Acute ~10/2020) Diverticulosis (Acute) Arthritis of left knee (Acute) Steroid injection: 09/13/2021; 02/21/21; 10/27/2020; 02/21/2021; 09/13/21 Status post right knee replacement (Acute 09/22/18) Migraine (Acute) Right hip pain (Acute) Obstructive sleep apnea syndrome (Acute) [place] sleep study 08/14/11 - CPAP recommended Medical History (Updated 12/27/21 @ 16:12 by Eddie Pinon MD) Asthma Bilateral primary osteoarthritis of knee (03/17/17) Blindness of one eye LEFT Cluster headache, chronic CVA (cerebral vascular accident) (07/20/14) crpytogenic Diabetes Diabetic neuropathy Diabetic retinopathy (~08/2019) [facility] retinologist: Dr. Trejo- [facility] non- proliferative (SEVERE)-07/13/20 DM (diabetes mellitus), type 2, uncontrolled titrating insulin to achieve control Dr. Mtz every 3 months for foot care Erectile dysfunction (10/31/14) Essential hypertension (08/11/13) Hyperlipidemia Kidney stone Left eye trauma resulting in surgery many years ago Morbid obesity (04/26/13) Nausea and vomiting after administration of anesthetic agent Primary osteoarthritis of right knee Restless legs Sleep apnea Uses CPAP machine Trochanteric bursitis, left hip Urinary retention Varicose veins of lower extremity Surgical History History of ankle surgery as a child History of total right knee replacement (TKR) 09/22/2018 Status post tonsillectomy Trochanteric bursitis, right hip (06/15/18) Right IT band lengthening and bursal debridement DOS: 01/21/19 Family History Mother Depression Hyperlipidemia Father Heart disease Brother Diabetes Depression Hyperlipidemia Brother Substance abuse Depression Heart disease Hyperlipidemia Brother , Gunshot wound No problems noted. Brother Heart disease Diabetes Social History Smoking/Tobacco Use Status: Former Tobacco Use Quit Date: 11/17/69 Pack-years: 4 Second Hand Exposure: Yes Smoking risk assessment performed?: Yes Alcohol Intake: never Details: denies alcohol use Drug use: Never Substance use type: does not use Household members: none current occupation: [employer] Current gender identity: male What type of physical activity do you participate in: none Frequency: does not exercise Sulema/Holiness: Church Special sulema needs: No Do you feel safe at home: Yes Do you feel safe in your relationship?: Yes Exam Narrative Exam Narrative: He is an obese gentleman. He does not appear septic or toxic. His vital signs are documented elsewhere. His abdomen has no guarding, rebound tenderness or other peritoneal signs. He is awake and alert. Results Last Vital Signs Temp 36.6 C 12/27/21 11:31 Pulse 64 12/27/21 11:31 Resp 18 12/27/21 11:31 BP 172/86 H 12/27/21 11:31 Pulse Ox 92 12/27/21 11:31 Labs Result diagrams: 12/27/21 06:04 12/27/21 06:04 Labs: Laboratory Results - last 24 hr 12/27/21 12/27/21 06:04 06:04 WBC 10.15 RBC 4.38 Hgb 12.5 L Hct 38.2 L MCV 87.2 MCH 28.5 MCHC 32.7 RDW 13.3 Plt Count 189 MPV 10.5 Immature Gran % 0.3 Neutrophils % 75.5 Lymphocytes % 12.0 Monocytes % 11.0 Eosinophils % 0.8 Basophils % 0.4 Nucleated RBC % 0 Absolute Neutrophils 7.66 H Absolute Lymphocytes 1.22 Absolute Monocytes 1.12 H Absolute Eosinophils 0.08 Absolute Basophils 0.04 Sodium 139 Potassium 3.9 Chloride 103 Carbon Dioxide 26.5 Anion Gap 9.5 BUN 24 H Creatinine 1.5 H Estimated GFR/1.73 m2 46.82 Glucose 168 H D Calcium 8.5
[2021-12-27] MEDS: Trimethobenzamide 200 MG/2 ML VIAL IM (17:37)
[2021-12-27] MEDS: Melatonin 3 MG TAB PO (20:56)
[2021-12-28] VITALS (11 sets, daily range): BP systolic 148–200; BP diastolic 75–89; PULSE 73–89; RESP 16–24; TEMP 36.5–37.2; O2SAT 92–95; BMI 52.0
--- NOTE | 2021-12-28 07:10 | W.PM.PROGNOT ---
Date of Service Date of service: 12/28/21 Time of Service: 07:10 Assessment and Plan Assessment and plan (1) Calculus of proximal right ureter: Status: Acute Assessment and plan: From his symptoms, I would suspect his stone has migrated distally, but he remains symptomatic. He is interested in going to the OR today to relieve the ureteral obstruction. With his medical issues, I may only be able to place a ureteral stent on him today safely. A more involved procedure (under general anesthesia) may need to be done at a tertiary care facility. Subjective Subjective Interval history since last seen: His pain is somewhat improved but continues (about 6/10) this morning. Nausea continues as well. he has no fever or chills Exam Narrative Exam Narrative: He does not appear septic or toxic His abdomen is soft with no peritoneal signs He is awake and alert Objective Last Vital Signs Temp 37.0 C 12/28/21 06:10 Pulse 73 12/28/21 06:10 Resp 18 12/28/21 06:10 BP 148/79 H 12/28/21 06:10 Pulse Ox 95 12/28/21 06:10 Laboratory Results - last 24 hr 12/27/21 12/27/21 06:04 06:04 WBC 10.15 RBC 4.38 Hgb 12.5 L Hct 38.2 L MCV 87.2 MCH 28.5 MCHC 32.7 RDW 13.3 Plt Count 189 MPV 10.5 Immature Gran % 0.3 Neutrophils % 75.5 Lymphocytes % 12.0 Monocytes % 11.0 Eosinophils % 0.8 Basophils % 0.4 Nucleated RBC % 0 Absolute Neutrophils 7.66 H Absolute Lymphocytes 1.22 Absolute Monocytes 1.12 H Absolute Eosinophils 0.08 Absolute Basophils 0.04 Sodium 139 Potassium 3.9 Chloride 103 Carbon Dioxide 26.5 Anion Gap 9.5 BUN 24 H Creatinine 1.5 H Estimated GFR/1.73 m2 46.82 Glucose 168 H D Calcium 8.5
--- NOTE | 2021-12-28 07:53 | ANES.PREOP_ITS ---
General Info Date of Service Date Performed: 12/28/21 Height: 5 ft 8 in Weight: 155.4 kg Body Mass Index (BMI): 52.0 Surgical Procedure: Operation Date: 12/28/21 08:40 Proposed Procedure Side Surgeon p Cystoscopy/Retrograde/Rt Ureteral Stent/Poss. Stone Extraction Right Eddie Pinon MD Meds Allergies and Home Medications Allergies Allergy/AdvReac Type Severity Reaction Status Date / Time No Known Allergies Allergy Verified 12/25/21 16:13 Home Medication Medication Instructions Recorded C Pap 04/08/16 acetaminophen 500 mg capsule 1,000 mg PO Q8H PRN #90 cap 01/21/19 galcanezumab-gnlm 120 mg/mL 120 mg SC QMONTH #1 ml 03/28/20 subcutaneous pen injector (Emgality Pen) meclizine 12.5 mg tablet 12.5 mg PO TID PRN #60 tab 04/13/20 naproxen 500 mg tablet 500 mg PO BID PRN #30 tab 04/13/20 albuterol sulfate 90 mcg/actuation 2 puff INHALATION QID PRN #3 inh 07/07/20 aerosol inhaler (ProAir HFA) carbamazepine 200 mg 200 mg PO BID 12/28/20 tablet,extended release,12 hr metoclopramide HCl 5 mg tablet 5 mg PO QAC #7 tab 01/03/21 (Reglan) oxycodone-acetaminophen 5 mg-325 1 tab PO Q8H PRN #7 tab 01/03/21 mg tablet (Percocet) aspirin 81 mg tablet,delayed 81 mg PO DAILY #90 tab-cap 02/13/21 release (Ecotrin Low Strength) docusate sodium 100 mg capsule 100 - 200 mg PO BID PRN cap 03/15/21 (Colace) pen needle, diabetic 32 gauge x #300 ea 04/02/21 5/32 (1st Tier Unifine Pentips) blood-glucose sensor (Dexcom G5-G4 #4 ea 05/01/21 Sensor) blood-glucose meter,continuous #1 ea 05/11/21 (Dexcom G4 Sales Order Administrator) blood-glucose transmitter (Dexcom #1 ea 05/15/21 G4 Transmitter) diltiazem HCl 240 mg 240 mg PO DAILY #90 cap 06/05/21 capsule,extended release 24 hr (Cardizem CD) metformin 1,000 mg tablet 1,000 mg PO BID #180 tab-cap 06/05/21 (Glucophage) benzonatate 100 mg capsule 100 mg PO BID-TID PRN #21 cap 06/11/21 (Tessalon Perles) hydrochlorothiazide 25 mg tablet 25 mg PO QAM #90 tab 07/05/21 onabotulinumtoxinA 200 unit 200 unit IM ONCE 09/13/21 solution for injection (Botox) insulin detemir U-100 100 unit/mL 80 unit (0.8 mL) SC QHS #15 ml 10/04/21 (3 mL) subcutaneous pen (Levemir FlexTouch U-100 Insulin) glyburide 5 mg tablet 10 mg PO BID #180 tab-cap 11/20/21 insulin lispro 100 unit/mL See Rx Instructions SC TID #15 ml 11/20/21 subcutaneous pen (Humalog KwikPen (U-100) Insulin) lisinopril 40 mg tablet 40 mg PO DAILY #90 tab 11/20/21 amlodipine 10 mg tablet 10 mg PO DAILY #90 tab 12/18/21 rosuvastatin 10 mg tablet 10 mg PO DAILY #90 tab 12/18/21 Current Visit Medications: Current Medications Generic Name Dose Route Start Last Admin Trade Name Freq PRN Reason Stop Dose Admin Acetaminophen 0 mg 12/25/21 19:16 Acetaminophen 325 Mg Tab PO Q4H PRN PRN Al Hydrox/Mg Hydrox/Simethicone 30 ml 12/25/21 19:16 Mylanta Suspension 30 Ml Cup PO Q2H PRN PRN Albuterol Sulfate 2 puff 12/25/21 19:24 Albuterol Hfa 8 Gm 60 Puff Inh IH QID PRN PRN bronchospasm Amlodipine Besylate 10 mg 12/26/21 08:30 12/27/21 08:17 Amlodipine 10 Mg Tab PO 10 mg DAILY ZHEN Administration Aspirin 81 mg 12/26/21 08:30 12/27/21 07:58 Aspirin E.C. 81 Mg Tabec PO 81 mg DAILY ZHEN Administration Carbamazepine 200 mg 12/26/21 08:30 12/27/21 20:57 Carbamazepine-Cr 100 Mg Tabcr PO 200 mg BID ZHEN Administration Device 1 each 12/25/21 20:00 Inhaler, Assist Device DIRECTED ZHEN Dextrose 0 gm 12/25/21 19:27 Glucose 40% Oral Solution 15 Gm/37.5 Gm Tube PO DIRECTED PRN Dextrose/Water 0 gm 12/25/21 19:27 Dextrose 50%-Water 25 Gm/50 Ml Syr IVP DIRECTED PRN Diltiazem HCl 240 mg 12/26/21 08:30 12/27/21 07:57 Diltiazem Cd 120 Mg Capcr PO 240 mg DAILY ZHEN Administration Dimethicone/Zinc Oxide 0 gm 12/25/21 19:16 Rylan Protect Cream 142 Gm Tube TP PRN PRN Docusate Sodium 100 mg 12/25/21 20:00 12/27/21 20:57 Docusate Sodium 100 Mg Cap PO 100 mg BID ZHEN Administration Heparin Sodium (Porcine) 5,000 units 12/25/21 20:00 12/27/21 20:55 Heparin 5,000 Units/Ml Vial SC 5,000 units Q8H ZHEN Administration Hydralazine HCl 10 mg 12/27/21 14:25 Hydralazine 20 Mg/Ml Vial IVP Q6H PRN PRN SBP greater than 180 Hydromorphone HCl 1 mg 12/25/21 19:22 12/27/21 11:24 Hydromorphone 2 Mg/Ml Vial IVP 1 mg Q2H PRN PRN Administration Sodium Chloride 1,000 mls @ 125 mls/hr 12/26/21 09:15 12/27/21 20:55 Saline 1000ml Bag IV 125 mls/hr INFUSION [facility] Administration Cefazolin Sodium/Dextrose 2 gm in 50 mls @ 100 mls/hr 12/28/21 07:30 Ancef Duplex IVPB 12/28/21 16:00 PREOP [facility] IV Miscellaneous Supplies 1 each 12/25/21 16:30 Iv Access IV DIRECTED [facility] Insulin Aspart 0 units 12/25/21 22:00 12/27/21 21:04 Insulin Aspart 300 Units/3 Ml Pen SC Not Given 0800,1200,1700,2200 [facility] Protocol Insulin Detemir 40 units 12/25/21 20:00 12/27/21 20:57 Insulin Detemir 300 Units/3 Ml Pen SC 40 units QPM ZHEN Administration Ketorolac Tromethamine 15 mg 12/25/21 19:27 12/27/21 08:00 Ketorolac 15 Mg/Ml Vial IVP 02/13/22 19:26 15 mg Q6H PRN PRN Administration Lisinopril 40 mg 12/26/21 08:30 12/27/21 08:17 Lisinopril 20 Mg Tab PO 40 mg DAILY ZHEN Administration Magnesium Hydroxide 30 ml 12/25/21 19:16 12/27/21 15:05 Milk Of Magnesia 30 Ml Cup PO 30 ml DAILY PRN PRN Administration Meclizine HCl 12.5 mg 12/25/21 19:24 Meclizine 12.5 Mg Tab PO TID PRN PRN Vertigo Melatonin 3 mg 12/26/21 22:00 12/27/21 20:56 Melatonin 3 Mg Tab PO 3 mg HS ZHEN Administration Metoclopramide HCl 5 mg 12/25/21 22:00 12/27/21 20:56 Metoclopramide 10 Mg Tab PO 5 mg AC & HS ZHEN Administration Metoprolol Tartrate 5 mg 12/25/21 20:19 Metoprolol 5 Mg/5 Ml Vial IVP Q6H PRN PRN Ondansetron HCl 4 mg 12/25/21 19:22 12/27/21 16:06 Ondansetron 4 Mg/2 Ml Vial IVP 4 mg Q6H PRN PRN Administration Oxycodone/Acetaminophen 1 tab 12/25/21 19:24 12/27/21 20:56 Oxycodone 5 Mg/Acetaminophen 325 Mg Tab PO 1 tab Q8H PRN PRN Administration Rosuvastatin Calcium 10 mg 12/26/21 08:30 12/27/21 07:58 Rosuvastatin 10 Mg Tab PO 10 mg DAILY ZHEN Administration Sodium Chloride 0 ml 12/26/21 00:53 12/27/21 16:07 Normal Saline Flush 10 Ml Syr IVP 10 ml PRN PRN Administration Tamsulosin HCl 0.8 mg 12/26/21 08:55 12/27/21 07:59 Tamsulosin 0.4 Mg Capcr PO 0.8 mg DAILY ZHEN Administration Trimethobenzamide HCl 200 mg 12/25/21 20:13 12/27/21 17:37 Trimethobenzamide 200 Mg/2 Ml Vial IM 200 mg QID PRN PRN Administration PFSH Active Problems Active Problems: Problem Status Onset Code Calculus of proximal right ureter N20.1 SUSAN (acute kidney injury) N17.9 Discharge planning issues Z02.9 DVT prophylaxis Z29.9 Nephrolithiasis N20.0 Hydroureter N13.4 Hydronephrosis N13.30 Acute right lower quadrant pain R10.31 Right sided abdominal pain R10.9 Intractable abdominal pain R10.9 Intractable vomiting with nausea R11.2 Elevated lactic acid level R79.89 Adrenal mass E27.8 Left sided sciatica M54.32 Greater trochanteric bursitis M70.60 Tubular adenoma ~10/2020 D36.9 Diverticulosis K57.90 Arthritis of left knee M17.12 Status post right knee replacement 09/22/18 Z96.651 Migraine G43.909 Right hip pain M25.551 Obstructive sleep apnea syndrome G47.33 Medical History Medical History (Updated 12/27/21 @ 16:12 by Eddie Pinon MD) Asthma Bilateral primary osteoarthritis of knee (03/17/17) Blindness of one eye LEFT Cluster headache, chronic CVA (cerebral vascular accident) (07/20/14) crpytogenic Diabetes Diabetic neuropathy Diabetic retinopathy (~08/2019) [facility] retinologist: Dr. Trejo- [facility] non- proliferative (SEVERE)-07/13/20 DM (diabetes mellitus), type 2, uncontrolled titrating insulin to achieve control Dr. Mtz every 3 months for foot care Erectile dysfunction (10/31/14) Essential hypertension (08/11/13) Hyperlipidemia Kidney stone Left eye trauma resulting in surgery many years ago Morbid obesity (04/26/13) Nausea and vomiting after administration of anesthetic agent Primary osteoarthritis of right knee Restless legs Sleep apnea Uses CPAP machine Trochanteric bursitis, left hip Urinary retention Varicose veins of lower extremity Surgical History Surgical History History of ankle surgery as a child History of total right knee replacement (TKR) 09/22/2018 Status post tonsillectomy Trochanteric bursitis, right hip (06/15/18) Right IT band lengthening and bursal debridement DOS: 01/21/19 Tobacco Smoking/Tobacco Use Status: Former Tobacco Use Second hand exposure: Yes Alcohol Alcohol Intake: never Details: denies alcohol use Substance Use Substance use: Never Substance use type: does not use Vital Signs and Lab Results Vital Signs Most Recent Vital Signs in EMR: Most Recent Vital Signs Temp Pulse Resp BP Pulse Ox 37 C 73 16 163/79 H 92 12/28/21 07:25 12/28/21 07:25 12/28/21 07:25 12/28/21 07:25 12/28/21 07:25 Point of Care Results Point of Care Results: Finger Stick Blood Glucose 90 12/28/21 07:49 Lab Results Result Diagrams: 12/27/21 06:04 12/27/21 06:04 Blood Type / Crossmatch: No Data to Display Complete Blood Count: White Blood Count 10.15 10^3/uL (4.4-10.8) 12/27/21 06:04 12/27/21 Red Blood Count 4.38 10^6/uL (4.36-5.78) 12/27/21 06:04 12/27/21 Hemoglobin 12.5 g/dL (13.5-17.5) L 12/27/21 06:04 12/27/21 Hematocrit 38.2 % (40.0-50.0) L 12/27/21 06:04 12/27/21 Platelet Count 189 10^3/uL (130-400) 12/27/21 06:04 12/27/21 Venous Blood Lactate 1.1 mmol/L (0.6-1.4) 12/26/21 06:55 12/26/21 Complete Metabolic Panel: Sodium Level 139 mmol/L (136-145) 12/27/21 06:04 12/27/21 Potassium Level 3.9 mmol/L (3.5-5.1) 12/27/21 06:04 12/27/21 Chloride Level 103 mmol/L (98-107) 12/27/21 06:04 12/27/21 Carbon Dioxide Level 26.5 mmol/L (21.0-32.0) 12/27/21 06:04 12/27/21 Blood Urea Nitrogen 24 mg/dL (7-18) H 12/27/21 06:04 12/27/21 Creatinine 1.5 mg/dL (0.70-1.30) H 12/27/21 06:04 12/27/21 Estimated GFR/1.73 m2 46.82 (mL/min/1.73m2) 12/27/21 06:04 12/27/21 Magnesium Level 1.9 mg/dL (1.8-2.4) 12/26/21 06:55 12/26/21 Calcium Level 8.5 mg/dL (8.5-10.1) 12/27/21 06:04 12/27/21 Albumin 3.7 g/dL (3.4-5.0) 12/25/21 17:10 12/25/21 Glucose Level 168 mg/dL (74-106) H 12/27/21 06:04 12/27/21 Liver Function Panel: Alanine Aminotransferase (ALT/SGPT) 29 U/L (16-63) 12/25/21 17:10 12/25/21 Aspartate Amino Transf (AST/SGOT) 15 U/L (15-37) 12/25/21 17:10 12/25/21 Coagulation Panel: No Data to Display Cardiac Panel: No Data to Display Arterial Blood Gas: No Data to Display Venous Blood Gas: No Data to Display Pancreas Panel: Lipase 143 U/L (73-393) 12/25/21 17:10 12/25/21 Thyroid Panel: No Data to Display Infectious Disease: Coronavirus (COVID-19)(PCR) Negative (Negative) 12/25/21 19:35 12/25/21 Coronavirus 2019 Source Nasal/Nares 12/25/21 19:35 12/25/21 Blood Cultures: No Data to Display Toxicology Panel: No Data to Display Imaging and Studies Imaging and Studies Study information below may be from another EMR and interpreted by another provider. Please see original notes in EMR for more complete details. EKG Summary: Conclusion Sinus rhythm...normal P axis, V-rate 60- 99 Right bundle branch block...QRSd>120, terminal axis(90,270) 11/02/21 Stress Test Summary: MPI Conclusion Apical thinning versus infarction. No additional myocardial ischemia 01/04/20 Anesthesia Assessment and Plan Anesthesia History Personal History: No History of Anesthesia Complications Family History: No Family History of Anesthesia Complications Exercise Tolerance Exercise Tolerance: Metabolic Equivalents<4 Pertinent Negatives Pertinent Negatives: No Symptoms of GERD, No Major Cardiovascular Symptoms or Complaints and Other (CPAP, using incentive spirometer as inpt. ) Cardiac & Pulmonary Exam Cardiac Exam: Normal S1/S2 Heart Sounds Pulmonary Exam: Clear Bilateral Breath Sounds (Diminished) Implantable Cardiac Device Does patient have a Pacemaker or an ICD?: No Airway Exam Known Difficult Airway: No Mallampati Class: 2 Mouth Opening: Normal (> 3cm) Thyromental Distance: Greater than 3 cm Neck Range of Motion: Full ROM Neck Circumference: Thick Teeth Condition: Generalized Poor Dentition (No upper teeth, 4 teeth on bottom, not loose per patient) ASA Classification ASA Score: ASA 3 Emergency Case?: No NPO Status NPO Status: NPO Clears >2 hours, Solids >8 hours Anesthesia Plan Resuscitation Status: Full Code Anesthesia Technique: General Anesthesia Airway Planned: Natural Airway Monitors Used: Standard Monitors
[2021-12-28] MEDS: DEXTROSE 5%-0.9% SALINE 1,000 ML 75 ML IV (08:37)
[2021-12-28] MEDS: HYDROmorphone 2 MG/ML VIAL 1 MG IVP (08:38)
[2021-12-28] MEDS: Ketorolac 15 MG/ML VIAL IVP (08:38)
[2021-12-28] MEDS: amLODIPine 10 MG TAB PO (08:39)
[2021-12-28] MEDS: dilTIAZem CD 120 MG CAPCR 240 MG PO (08:39)
[2021-12-28] MEDS: Metoclopramide 10 MG TAB 5 MG PO ×3 (08:40→21:07)
[2021-12-28] MEDS: Lactated Ringers 1,000 ML 80 ML IV (09:54)
[2021-12-28] MEDS: ceFAZolin 2 GM/50 ML BAG IVPB (09:59)
[2021-12-28] MEDS: Lidocaine 2% Jelly 6 ML SYR (10:08)
[2021-12-28] MEDS: Omnipaque 300 MG/ML 50 ML BTL (10:38)
--- NOTE | 2021-12-28 10:47 | ROE_ITS ---
Date of service: 12/28/21 Time of Service: 10:48 Operative Note Operative Note DATE OF PROCEDURE: 12/28/21 PRE-OP DIAGNOSIS: Right ureteral stone POST-OP DIAGNOSIS: same PROCEDURE: Flexible cystoscopy, right retrograde pyelogram, insert right ureteral stent SURGEON: Eddie Pinon ANESTHESIA TYPE: Local By Surgeon and General:No Airway Refer to Anesthesia Record ESTIMATED BLOOD LOSS: 0 PATHOLOGY: other (stone for chemical analysis) Implants: 6 Maltese by 22 to 30 cm right ureteral stent Indications: This is a 66-year-old gentleman with a history of kidney stones. He presented to our emergency department with right flank pain. He was found to have hydronephrosis and a 4 mm right proximal ureteral stone. He failed conservative management and has had persistent pain and nausea. He presents for cystoscopy, retrograde pyelogram with possible stone manipulation and stent placement Findings: Very long urethra - unable to pass standard cystoscope into bladder small stone fragments in bladder - pt voided one out and it was sent to pathology for stone analysis Procedure Description: The patient was brought to the operating room on 12/28/2021 and he was given preoperative IV antibiotics. After successful induction of general anesthesia without intubation, he was placed in the dorsal lithotomy position. His genitalia was prepped. 2% Xylocaine jelly was instilled into the urethra to act as a local anesthetic. Initially, I attempted to pass a 22 Maltese cystoscope through the urethra into the bladder. I utilized a 30 degree lens to inspect the urethral mucosa. The pendulous, bulbar and membranous urethra's appeared normal. The prostatic urethra was quite long and I was unable to pass the scope the remainder of the way into the bladder. I did not have access to it along cystoscope, so we utilized the flexible ureteroscope and passed the scope through the urethra into the bladder. Multiple small yellow-tinged stones were seen floating within the bladder. I was able to identify the right ureteral orifice and passed a Glidewire through the flexible cystoscope into the orifice. I then removed the flexible ureteroscope leaving the wire in place. I passed a 5 Maltese ureteral access catheter over the wire and injected Omnipaque through the access catheter under fluoroscopic guidance. The retrograde pyelogram confirmed a dilated right renal pelvis. I was unable to visualize a specific filling defect. I then replaced the guidewire through the access catheter and removed the catheter. I passed a 6 Maltese variable length stent over the wire and positioned the stent such that the proximal and was curled in the renal pelvis and the distal and was curled within the bladder. The positioning of the stent was confirmed both fluoroscopically and cystoscopically. We were not able to access or remove his stone today. He will require a r eferral to a tertiary care center that has access to longer instruments for any stone manipulation. He tolerated this procedure well and was taken to the recovery room in stable condition.
--- NOTE | 2021-12-28 11:03 | DI.RAD_ITS ---
Exam(s) XR RETROGRADE IN OR EXAM: XR RETROGRADE IN OR CLINICAL HISTORY: calculus right ureter TECHNIQUE: 2D and realtime digital imaging was performed. CONTRAST MATERIAL: Refer to procedure report. COMPARISON: No exams were available for comparison FINDINGS: Fluoroscopy was provided for Dr. Pinon during the performance of a retrograde evaluation of the yoana l collecting system. Please refer to the procedure report for complete details. Ka,r=40.27 mGy IMPRESSION: RADIATION DOSE DELIVERED:
--- NOTE | 2021-12-28 12:58 | W.ANESPOSTOP ---
Postoperative Evaluation Date, Time and Location Date Performed: 12/28/21 Time Performed: 11:00 Patient Location: PACU Vital Signs Most Recent Imported Vital Signs: Most Recent Vital Signs Temp Pulse Resp BP Pulse Ox 36.7 C 85 22 196/84 H 94 12/28/21 11:18 12/28/21 11:18 12/28/21 11:18 12/28/21 11:18 12/28/21 11:18 Pain Score Most Recent Pain Score: Most Recent Pain Score Pain Level [Right Lower 6 12/26/21 15:55 Anterior Abdomen] Pain Level 1 12/28/21 11:18 Assessment Mental Status: Awake (Alert & Oriented to Patient Baseline) Airway and Respiratory Function: Patent airway with normal (patient baseline) respiratory exam Cardiovascular Function: Hemodynamically Stable Hydration Status: Adequately Hydrated Nausea & Vomiting: No Nausea or Vomiting Pain: Pt. Denies Any Pain Peripheral Nerve Block: Patient did not receive a nerve block
--- NOTE | 2021-12-28 13:41 | CMPROGNOTE_ITS ---
- If Service Date Differs Date of service: 12/28/21 Time of Service: 13:41 Care Management Progress Note S/O: Joes was sitting up in his chair, chatting on his cell phone when CM attempted to meet with him. He continues to be treated with IV fluids, IV pain medications (toradol, dilaudid), antiemetics. He is anticipating being discharged home tomorrow and follow up [place] [facility] [place] as an outpatient for further surgical intervention. CM continues to follow. A: 66 year old male admitted to [facility] P: Jose is being closely monitored and treated for Nephrolithiasis and pain. He was seen by Urology this morning. CM will continue to follow assessment and planning. Anticipate, Jose will discharge home with no new services when medically ready. He will transport via private vehicle with family. He will follow up with community providers and discharge plan of care as prescribed.
[2021-12-28] MEDS: Docusate Sodium 100 MG CAP PO ×2 (14:51→21:08)
[2021-12-28] MEDS: Aspirin E.C. 81 MG TABEC PO (14:51)
[2021-12-28] MEDS: Lisinopril 20 MG TAB 40 MG PO (14:52)
[2021-12-28] MEDS: Rosuvastatin 10 MG TAB PO (14:52)
[2021-12-28] MEDS: Tamsulosin 0.4 MG CAPCR 0.8 MG PO (14:53)
[2021-12-28] MEDS: Milk of Magnesia 30 ML CUP PO (14:53)
--- NOTE | 2021-12-28 15:32 | W.PM.PROGNOT ---
Date of Service Date of service: 12/28/21 Time of Service: 15:32 Assessment and Plan Assessment and plan (1) Calculus of proximal right ureter: Status: Acute Assessment and plan: He should be able to go home tomorrow morning. I will go ahead and make a referral to the urology department down in [place] so that he can have ureteroscopy and stone manipulation. The urology department at [facility] will contact him directly to make the arrangements. Subjective Subjective Interval history since last seen: His flank pain and nausea have resolved. He does have some dysuria and hematuria following stent placement. Objective Last Vital Signs Temp 36.7 C 12/28/21 11:18 Pulse 85 12/28/21 11:18 Resp 22 12/28/21 11:18 BP 196/84 H 12/28/21 11:18 Pulse Ox 94 12/28/21 11:18 Objective Narrative Objective Narrative: He looks comfortable
[2021-12-28] MEDS: Zolpidem 5 MG TAB PO (21:09)
[2021-12-28] MEDS: Melatonin 3 MG TAB PO (21:09)
[2021-12-28] MEDS: Normal Saline Flush 10 ML SYR IVP (21:09)
[2021-12-29] MEDS: Insulin Aspart 300 UNITS/3 ML PEN SC ×2 (00:10→12:23)
[2021-12-29 03:30] VITALS: BP 172/90; PULSE 70; RESP 24; TEMP 36.7; O2SAT 91
[2021-12-29 07:50] VITALS: BP 169/84; PULSE 72; RESP 20; TEMP 36.3; O2SAT 97
[2021-12-29] MEDS: dilTIAZem CD 120 MG CAPCR 240 MG PO (08:17)
[2021-12-29] MEDS: Aspirin E.C. 81 MG TABEC PO (08:17)
[2021-12-29] MEDS: Docusate Sodium 100 MG CAP PO (08:17)
[2021-12-29] MEDS: Metoclopramide 10 MG TAB 5 MG PO ×2 (08:17→12:23)
[2021-12-29] MEDS: amLODIPine 10 MG TAB PO (08:17)
[2021-12-29] MEDS: Rosuvastatin 10 MG TAB PO (08:18)
[2021-12-29] MEDS: Tamsulosin 0.4 MG CAPCR 0.8 MG PO (08:18)
[2021-12-29] MEDS: Lisinopril 20 MG TAB 40 MG PO (08:23)
[2021-12-29] MEDS: Milk of Magnesia 30 ML CUP PO (08:31)
--- NOTE | 2021-12-29 10:34 | DSE_ITS ---
Date of service: 12/29/21 Time of Service: 10:34 DS: Diagnosis Discharge Diagnosis (1) Calculus of proximal right ureter: Status: Acute Asessment and Plan: Stent placed on 12/28/[address] Pinon will need [facility] referral to urology outpatient pain resolved, safe for discharge to home no infection. kidney function stable with creatinine of 1.5 Discharge Plan Disposition Patient Disposition: HOME Condition: Stable Discharge Details Reason For Visit: Nephrolithiasis Admit Date/Time: 12/27/21 09:30 Admit Provider: Marsha Tineo Attending Provider: Marsha Tineo Primary Care Provider: [facility] Hospital Course: This is a 66 year old male with history of nephrolithiasis, IDDM2, HTN, LEAH on CPAP, who presented to [facility] ED with R-sided abdominal/flank pain, nausea and vomiting. The patient was evaluated in the ED the day prior with R-sided groin pain, completely different than the pain at this time, which is more in his right flank. He also reports having an on-going migraine, for which taking naproxen as rescue therapy usually helps (he is getting botox therapy as well as aimovig for this as outpatient). He has been feeling hot and cold.? His workup in the ED on the first visit was consistent with recently passed kidney stone. He responded to IV antiemetics and pain medications and was discharged home with improvement in his symptoms, but they became worse so re-presented. His CTA abdomen/pelvis showed decreased right renal perfusion with mild hydronephrosis and hydroureter. No obstructing calculi were seen, but there were bilateral nonobstructing renal calculi. The interpretation of the CT was: recently passed calculus, calculus too small to characterize, or possible pyelonephritis. Clinically, the patient does not have pyuria or sx of a UTI, so pyelonephritis was deemed less likely. The case was reviewed with Dr Pinon of urology who felt that there was no emergent indication for intervention based on the CT findings, and he was admitted to the hospitalist services for pain control. After re-read of imaging by our radiologist it was determined that he did have a right sided 4 mm stone in right proximal ureter. He was started on tamsulosin and IV fluids continued. He continued to have pain and nausea/vomiting, r equiring IV narcotics and antiemetics to control. He was ultimately taken to the OR by Dr Pinon for ureteral stent placement. post operatively he symptoms resolved. He was eating and drinking and experiencing little to no pain. Instrumentation at this facility did not allow for stone extraction so he will be referred to urology at [facility]. Dr Pinon will facilitate this follow up. He is hemodynamically stable and ready for discharge to home with no services. discharge discussed with DR Tineo Home Meds and New Rx's Prescriptions: New Acetaminophen [Tylenol] 650 mg PO Q4H PRN PRNQty: 0 0RF tamsulosin 0.4 mg Capsule 0.8 mg PO DAILY Qty: 14 0RF Continued albuterol sulfate [ProAir HFA] 90 mcg/actuation HFA aerosol inhaler 2 puff Inhalation QID PRN (Reason: bronchospasm) Qty: 3 0RF (DME) Dexcom G4 Station Mechanic Misc See Rx Instructions .ROUTE .MEDSUPPLY Qty: 1 4RF Rx Instructions: 4 times daily checks Botox 200 unit recon soln 200 unit IM ONCE 0RF Rx Instructions: [id number] Emgality Pen 120 mg/mL pen injector 120 mg SC QMONTH Qty: 1 0RF carbamazepine 200 mg tablet extended release 12 hr 200 mg PO BID 0RF benzonatate [Tessalon Perles] 100 mg capsule 100 mg PO BID-TID PRN (Reason: cough) Qty: 21 0RF Rx Instructions: May take 1 capsule every 8-12 hours as needed for cough C PAP 0RF meclizine 12.5 mg tablet 12.5 mg PO TID PRN (Reason: Vertigo) Qty: 60 3RF naproxen 500 mg tablet 500 mg PO BID PRN (Reason: pain) Qty: 30 3RF Hold Instructions: Home Medication placed on hold at Doctor's office aspirin [Ecotrin Low Strength] 81 mg tablet,delayed release (DR/EC) 81 mg PO DAILY Qty: 90 3RF (DME) pen needle, diabetic [1st Tier Unifine Pentips] 32 gauge x /32 needle See Rx Instructions .ROUTE .MEDSUPPLY Qty: 300 3RF Rx Instructions: 4 x daily insulin dosage (DME) Dexcom G5-G4 Sensor Device See Rx Instructions .ROUTE .MEDSUPPLY Qty: 4 12RF Rx Instructions: as directed (DME) Dexcom G4 Transmitter Device See Rx Instructions .ROUTE .MEDSUPPLY Qty: 1 11RF Rx Instructions: As directed diltiazem HCl [Cardizem CD] 240 mg capsule,extended release 24hr 240 mg PO DAILY Qty: 90 4RF metformin [Glucophage] 1,000 mg tablet 1,000 mg PO BID Qty: 180 4RF hydrochlorothiazide 25 mg tablet 25 mg PO QAM Qty: 90 4RF Levemir FlexTouch U-100 Insuln 100 unit/mL (3 mL) insulin pen 80 unit SC QHS Qty: 15 11RF glyburide 5 mg tablet 10 mg PO BID Qty: 180 4RF Hold Instructions: Home Medication placed on hold at Doctor's office insulin lispro [Humalog KwikPen Insulin] 100 unit/mL insulin pen See Rx Instructions SC TID Qty: 15 3RF Rx Instructions: sliding scale subcut three times a day; max dose 10 units 3 x day lisinopril 40 mg tablet 40 mg PO DAILY Qty: 90 3RF amlodipine 10 mg tablet 10 mg PO DAILY Qty: 90 4RF rosuvastatin 10 mg tablet 10 mg PO DAILY Qty: 90 4RF oxycodone-acetaminophen [Percocet] 5-325 mg tablet 1 tab PO Q8H PRNQty: 7 0RF metoclopramide HCl [Reglan] 5 mg tablet 5 mg PO QAC Qty: 7 0RF Rx Instructions: administer 30 minutes before meals acetaminophen 500 mg capsule 1,000 mg PO Q8H PRN (Reason: pain) Qty: 90 0RF docusate sodium [Colace] 100 mg capsule 100 - 200 mg PO BID PRN0RF Discharge Instructions Instructions: Kidney Stones (DC) Additional Instructions: strain urine as directed. Stand Alone Forms: Nursing Discharge Form Referrals: Eddie Pinon MD [ [facility] STAFF PHYSICIAN] - (Call Friday for an Appointment in the next 2 Weeks ) Suzanne Andres NP [Primary Care Provider] - (Call Friday for an Appointment in the next 2 Weeks ) Activity:: Activity as Tolerated Equipment/Supplies:: No Equipment Needed Diet:: As Tolerated Discharge Orders Discharge Orders: Discharge Order (Routine); Ordered 12/29/21 Ordered By: Ting Woodruff Discharge Data Discharge Date/Time-TO BE ENTERED AT DEPARTURE: 12/29/21 13:50 DS: Summary Time Spent with Patient providing and/or coordinating discharge services: Less than 30 minutes Status at Discharge Functional status at discharge: independent ambulation Overall status at discharge: patient is progressing back to baseline Mental Status: mental status grossly normal Speech and Movement: speech and movement normal Mood: congruent mood Affect: normal affect Exam Const General: cooperative Orientation: alert, awake and oriented x3 HENMT Head: normal to inspection, normocephalic and atraumatic Face and sinus: normal facial exam Mouth: moist mucous membranes Eyes General: appearance normal, both eyes and all related structures Conjunctivae: conjunctivae normal Neck Neck: supple Resp Effort & Inspection: normal respiratory effort and able to speak in complete sentences Auscultation: clear to auscultation bilaterally Cardio Rate: regular rate Rhythm: regular rhythm GI Inspection: obesity Palpation: soft, not firm and no guarding Auscultation: normal bowel sounds Skin General skin exam: no rashes or lesions noted Neuro General: patient alert, patient awake, moves all extremities and no focal motor deficits Cognition: normal cognition Speech: speech normal Gait: normal gait Extrem General: normal to inspection, full ROM and capillary refill normal Psych Appearance: grossly normal Mental Status: mental status grossly normal Speech and Movement: speech and movement normal Mood: congruent mood Affect: normal affect DS: Data Vitals/I&O Vitals and I&O: Vital Signs Temperature 36.3 C L 12/29/21 07:50 Temperature Source Tympanic 12/29/21 07:50 Pulse 72 12/29/21 07:50 Pulse Rhythm Regular 12/29/21 02:35 Respiratory Rate 20 12/29/21 07:50 Respiratory Effort Non-Labored 12/29/21 02:35 Respiratory Depth Normal 12/29/21 02:35 Respiratory Pattern Normal 12/29/21 02:35 Blood Pressure 169/84 H 12/29/21 07:50 Blood Pressure Position Sitting 12/25/21 16:09 Pulse Oximetry 97 12/29/21 07:50 Oxygen Delivery Method Room Air 12/29/21 07:50 Oxygen Flow Rate 0 12/29/21 07:50 Pain Level 0 12/28/21 23:19 Comment 12/28/21 23:34 Intake & Output 12/28/21 12/28/21 12/29/21 11:59 23:59 11:59 Intake Total 1450 / 3825.083 2375.083 / 3825.083 Output Total 1000 / 2650 1650 / 2650 400 / 400 Balance 450 / 1175.083 725.083 / 1175.083 -400 / -400 Weight 155.4 kg Intake: IV 1450 / 2625.083 1175.083 / 2625.083 Oral 1200 / 1200 Output: Urine 1000 / 2650 1650 / 2650 400 / 400 Other: Urine Color Yellow Lei Lei Urine Appearance Clear Hematuria Cloudy Urine Odor Normal None None Strain Urine Result Positive-Gravel Seen Comment pt is experiencing pain when urinating No stones\gravel noticed at this time Emesis Description None Voiding Methods Toilet Urinal Toilet Urinal Data Completed and Pending Labs on day of discharge: Labs from last 24 hours 12/28/21 10:41 Stone Source Pending Stone Comment Pending Kidney Stone Analysis Pending PFS All Active Problems (Updated 12/30/21 @ 00:03 by LAM TOLENTINO) Calculus of proximal right ureter (Acute) SUSAN (acute kidney injury) (Acute) Acute right lower quadrant pain (Acute) Adrenal mass (Acute) Left sided sciatica (Acute) Greater trochanteric bursitis (Acute) injection 02/2021 Ortho Tubular adenoma (Acute ~10/2020) Diverticulosis (Acute) Arthritis of left knee (Acute) Steroid injection: 09/13/2021; 02/21/21; 10/27/2020; 02/21/2021; 09/13/21 Status post right knee replacement (Acute 09/22/18) Migraine (Acute) Right hip pain (Acute) Obstructive sleep apnea syndrome (Acute) [place] sleep study 08/14/11 - CPAP recommended Medical History (Updated 12/30/21 @ 00:03 by LAM TOLENTINO) Asthma Bilateral primary osteoarthritis of knee (03/17/17) Blindness of one eye LEFT Cluster headache, chronic CVA (cerebral vascular accident) (07/20/14) crpytogenic Diabetes Diabetic neuropathy Diabetic retinopathy (~08/2019) [facility] retinologist: Dr. Trejo- [facility] non- proliferative (SEVERE)-07/13/20 DM (diabetes mellitus), type 2, uncontrolled titrating insulin to achieve control Dr. Mtz every 3 months for foot care Erectile dysfunction (10/31/14) Essential hypertension (08/11/13) Hydronephrosis Hydroureter Hyperlipidemia Kidney stone Left eye trauma resulting in surgery many years ago Morbid obesity (04/26/13) Nausea and vomiting after administration of anesthetic agent Nephrolithiasis Primary osteoarthritis of right knee Restless legs Sleep apnea Uses CPAP machine Trochanteric bursitis, left hip Urinary retention Varicose veins of lower extremity Surgical History History of ankle surgery as a child History of total right knee replacement (TKR) 09/22/2018 Status post tonsillectomy Trochanteric bursitis, right hip (06/15/18) Right IT band lengthening and bursal debridement DOS: 01/21/19 Family History Mother Depression Hyperlipidemia Father Heart disease Brother Diabetes Depression Hyperlipidemia Brother Substance abuse Depression Heart disease Hyperlipidemia Brother , Gunshot wound No problems noted. Brother Heart disease Diabetes Social History Smoking/Tobacco Use Status: Former Tobacco Use Quit Date: 11/17/69 Pack-years: 4 Second Hand Exposure: Yes Smoking risk assessment performed?: Yes Alcohol Intake: never Details: denies alcohol use Drug use: Never Substance use type: does not use Household members: none current occupation: [employer] Current gender identity: male What type of physical activity do you participate in: none Frequency: does not exercise Sulema/Presybeterian: Shinto Special sulema needs: No Do you feel safe at home: Yes Do you feel safe in your relationship?: Yes
--- NOTE | 2021-12-29 10:34 | CMDISCH_ITS ---
- If Service Date Differs Date of service: 12/29/21 Time of Service: 10:34 LACE Index Scoring Tool - Questions: Length of Stay (in days): 2 Acuity (Admit via E.D.?): Yes Comorbidities: Cerebrovascular Disease, Diabetes w/o Complication E.D. Visits: 4 - Answers: Total Score: 11 Risk of Readmission: High Risk Care Management Discharge Reason for Hospitalization: Nephrolithiasis Discharge Plan: Discharge home with no new services and follow up with [facility] Urology. Per Dr. Pinon, [facility] urology will contact pt directly to schedule. Jose will transport home via private vehicle with family and follow discharge plan of care as prescribed. Patient/Family Education Needs: Review discharge instructions, limitations, medications and plan to follow up with [facility] Urology and community providers. ask me three.
[2021-12-29 11:45] VITALS: BP 148/73; PULSE 66; RESP 19; TEMP 37.1; O2SAT 95
[2022-01-01 21:26] LABS: Interpretation 100% Uric acid; Source: Right Ureter
== END 2021-12-29 13:50 | disposition home or self-care (01) | DRG 660 ==
LOC: ER 19:38 → MS 20:13
PROVIDERS: Nurse Practitioner Acute Care; Urology; Admitting Provider Internal Medicine; Emergency Provider Physician Assistant; PCP Nurse Practitioner; Visit Provider Internal Medicine
PROC: 0T768DZ Dilation of Right Ureter with Intraluminal Device, Via Natural or Artificial Opening Endoscopic (ICD-10-PCS; CPT 52332; principal; 2021-12-28 08:30)
DX: N13.0 Hydronephrosis with ureteropelvic junction obstruction (principal); E87.2 Acidosis; N17.9 Acute kidney failure, unspecified; R11.2 Nausea with vomiting, unspecified; E11.9 Type 2 diabetes mellitus without complications; I10 Essential (primary) hypertension; G47.33 Obstructive sleep apnea (adult) (pediatric); G43.909 Migraine, unspecified, not intractable, without status migrainosus; E27.8 Other specified disorders of adrenal gland; M54.32 Sciatica, left side; M17.12 Unilateral primary osteoarthritis, left knee; E86.0 Dehydration; Z79.84 Long term (current) use of oral hypoglycemic drugs; Z96.651 Presence of right artificial knee joint
CPT/HCPCS: 52332; 36415; 80048; 80053; 83690; 87635; 96361; 96365; 96375; 96376; 99222; 99232; 99291; 74174; 74420; 81003; 81015; 82365; 83605; 83735; 85025; 99220; 99226; 99233; 99238; J0690; J1644; J1885; J2001; J2250; J2405; J2765; J3010; J3490; J7042; Q9967

== ENCOUNTER → 2021-12-26 07:44 | Outpatient (BNVA) | payer MEDICARE, MEDICAID, SELFPAY | PROVIDERS: PCP Nurse Practitioner; Referring Provider Nurse Practitioner; Visit Provider Nurse Practitioner Gerontology | DX: R69 Illness, unspecified (principal) ==

== ENCOUNTER → 2021-12-27 07:34 | Outpatient (BNVA) | payer MEDICARE, MEDICAID, SELFPAY | PROVIDERS: PCP Nurse Practitioner; Referring Provider Nurse Practitioner; Visit Provider Urology | DX: R69 Illness, unspecified (principal) ==

== ENCOUNTER → 2021-12-28 07:54 | Outpatient (BNVA) | payer MEDICARE, MEDICAID, SELFPAY | PROVIDERS: PCP Nurse Practitioner; Referring Provider Nurse Practitioner; Visit Provider Urology | DX: R69 Illness, unspecified (principal) ==

== ENCOUNTER 2022-01-24 01:22 | Outpatient (CLI) | payer MEDICARE, MEDICAID, SELFPAY ==
--- NOTE | 2022-01-24 07:15 | DI.US_ITS ---
Exam(s) US RENAL EXAM: US RENAL CLINICAL HISTORY: monitoring hydro to right kidney/? passed stone.n20.1,calculus proximal rt TECHNIQUE: Ultrasound performed using standard protocol. COMPARISON: US US RENAL from 06/20/[address] ABDOMEN PELVIS CTA from 12/25/2021 FINDINGS: Kidneys are normal in size and shape. There is no hydronephrosis. There is 3.2 cm in diameter simpl e cyst of the midpole of the right kidney. There is a 4.8 cm in diameter simple cyst of the midpole of the left kidney. There is a 5 millimeter in diameter calculus of the lower pole of the left kidney with posterior acou stic shadowing and twinkle artifact no additional nephrolithiasis. IMPRESSION: Nonobstructing lower pole left renal calculus noted. No evidence of right or left hydronephrosis DATA REPOSITORY:
== END 2022-01-24 01:42 ==
PROVIDERS: PCP Nurse Practitioner; Visit Provider Nurse Practitioner Gerontology
DX: N20.0 Calculus of kidney (principal)
CPT/HCPCS: 76770

== ENCOUNTER → 2022-02-12 10:43 | Outpatient (BNVA) | payer MEDICARE, MEDICAID, SELFPAY | PROVIDERS: PCP Nurse Practitioner; Referring Provider Nurse Practitioner; Visit Provider Urology | DX: N20.1 Calculus of ureter (principal) | CPT/HCPCS: 52000 ==

== ENCOUNTER 2022-03-06 13:35 | Outpatient (REF) | payer MEDICARE, MEDICAID, SELFPAY ==
[2022-03-08 15:49] LABS: Interpretation 100% Uric acid; Source: Passed Stone
== END 2022-03-06 13:36 | disposition home or self-care (01) ==
LOC: LBN 13:35
PROVIDERS: PCP Nurse Practitioner; Visit Provider Urology
DX: N20.1 Calculus of ureter (principal)
CPT/HCPCS: 82365

== ENCOUNTER 2022-09-06 12:43 | Emergency (ER) | payer MEDICARE, MEDICAID, SELFPAY ==
[2022-09-06 12:59] VITALS: BP 123/52; PULSE 72; RESP 20; TEMP 37.6; O2SAT 98
--- NOTE | 2022-09-06 13:00 | DI.RAD_ITS ---
Exam(s) XR CHEST 2V PA LATERAL EXAM: XR CHEST 2V PA LATERAL CLINICAL HISTORY: cough, sob, r/o acute disease. TECHNIQUE: 2D digital imaging was performed. COMPARISON: CR from 07/25/2016 FINDINGS: 2 views: Heart size is normal. The mediastinum is not widened. Lungs are clear. No infiltrates nor pleural effusions. IMPRESSION: No acute pulmonary findings. DATA REPOSITORY: RADIATION DOSE DELIVERED:
[2022-09-06 14:30] LABS: Bilirubin Negative (Negative); Blood Moderate (Negative); Clarity Clear (Clear); Glucose >=1000 mg/dL (Negative); Ketones Negative (Negative); Leukocyte Esterase Negative (Negative); Nitrite Negative (Negative); Urobilinogen 0.2 EU/dL (Up TO 0.2)
[2022-09-06 14:36] LABS: Bacteria Negative HPF (Negative); C & S Indicated? No; Casts Negative LPF (Negative); Crystals Negative HPF (Negative); Epithelial Cells Few HPF (Negative); Mucus Negative (Negative); WBC 0-2 HPF (0-5)
[2022-09-06 14:38] VITALS: RESP 20
[2022-09-06 14:43] LABS: BE (Venous) 1 mmol/L (-2-3); HCO3 (Venous) 27 mmol/L (23-28); O2 Sat (Venous) 74 %; TCO2 (Venous) 24 mmol/L (24-29); pCO2 (Venous) 48 mmHg (41-51); pH (Venous) 7.36 (7.31-7.41); pO2 (Venous) 40 mmHg
[2022-09-06 14:46] LABS: Abs Immature Grans 0.02 10^3/uL (0.0-0.06); Absolute Basophil Count 0.03 10^3/uL (0.0-0.2); Absolute Eosinophil Count 0.23 10^3/uL (0.0-0.7); Absolute Lymphocyte Count 1.68 10^3/uL (1.2-3.4); Absolute Monocyte Count 0.71 10^3/uL (0.1-0.8); Absolute Neutrophil Count 5.04 10^3/uL (1.2-6.7); Basophils % 0.4; HCT 45.6 % (40.0-50.0); HGB 15.3 g/dL (13.5-17.5); Immature Grans % 0.3; Lymphocytes % 21.8; MCH 28.8 pg (27.0-33.0); MCHC 33.6 % (32.0-36.0); MCV 86 fL (80-95); MPV 10.3 fL (8.0-11.0); Monocytes % 9.2; Neutrophils % 65.3; Platelet Count 226 10^3/uL (130-400); RBC 5.32 10^6/uL (4.36-5.78); RDW 13.6 % (11.8-14.1); RDW-SD 42.7 fL; WBC 7.71 10^3/uL (4.4-10.8)
--- NOTE | 2022-09-06 15:00 | DI.CT_ITS ---
Exam(s) CT CHEST PE CTA EXAM: CT CHEST PE CTA CLINICAL HISTORY: cough, sob, covid +, r/o PE. TECHNIQUE: Imaging Protocol: CT angiography of the chest was performed using pulmonary embolus mao col. Multi planar reconstructions were performed. CONTRAST MATERIAL: Intravenous: Omnipaque 350 Contrast volume: 100 cc COMPARISON: CT CT ABDOMEN PELVIS CTA from 12/25/2021 FINDINGS: CHEST: PULMONARY ARTERIES: Less than optimal opacification of the pulmonary arterial tree.There are no centr al pulmonary emboli is difficult to determine more distally due to lack of sufficient IV contrast in the more distal pulmonary arteries. LUNGS: Mild increased markings in the right lower lobe probably air trapping. Doubtful for confluent infiltrates and there are no pleural effusions nor ominous pulmonary nodules.. No significant findi ngs in the trachea and mainstem bronchi. MEDIASTINUM: There is no hilar nor mediastinal adenopathy. Visualized thyroid unremarkable. CARDIAC: Heart size is upper normal. There is no pericardial effusion.Caliber of the thoracic aorta is within normal limits. No evidence of aortic dissection. There is no significant shift of the inte rventricular septum. PARTIALLY VISUALIZED UPPERMOST ABDOMEN: Hepatic steatosis. Calcified splenic granulomas. OSSEOUS: No significant osseous lesions.. IMPRESSION: 1. No evidence of central pulmonary emboli. Opacification of more peripheral pulmonary arteries is i nsufficient 4 adequate interpretation. There is no aortic dissection..No pericardial effusion. 2. Mild increased markings right lower lobe. No confluent infiltrates nor pleural effusions. Called by myself to ER physician. RADIATION DOSE DELIVERED: 733.13mGy.cm Total DLP DATA REPOSITORY: All CT scans at this facility are submitted to the National Radiology Data Registry (NRDR) Dose Index Registry (DIR) with the [employer] (ACR). RADIATION OPTIMIZATION: All CT scans at this facility use at least one of these dose optimization te chniques: automated exposure control; mA and/or kV adjustment per patient size (includes targeted exa ms where dose is matched to clinical indication); or iterative reconstruction.
[2022-09-06 15:06] LABS: ALT 29 U/L (16-63); AST 13 U/L (15-37); Albumin 3.9 g/dL (3.4-5.0); Alkaline Phosphatase 85 U/L (46-116); Anion Gap 10.7 mmol/L (3-11); BUN 37 mg/dL (7-18); Bilirubin, Total 0.3 mg/dL (0.2-1.0); CO2 27.3 mmol/L (21.0-32.0); CREATININE 1.5 mg/dL (0.70-1.30); Calcium 9.6 mg/dL (8.5-10.1); Chloride 96 mmol/L (98-107); Estimated GFR 50.71 (mL/min/1.73m2); Glucose 396 mg/dL (74-106); Magnesium 2.2 mg/dL (1.8-2.4); Potassium 4.9 mmol/L (3.5-5.1); Sodium 134 mmol/L (136-145); Total Protein 8.3 g/dL (6.4-8.2); Troponin I < 50 ng/L (<or=60)
--- NOTE | 2022-09-06 15:12 | ED.GENADUL_ITS ---
Discharge Plan Disposition Patient Disposition: HOME Condition: Stable Discharge Details Clinical Impression: COVID-19, Shortness of breath, Vomiting and diarrhea, Hyperglycemia Primary Care Provider: Kenton Pitts ED Provider: Marcos Tony Home Meds and New Rx's Prescriptions: New levofloxacin 750 mg tablet 750 mg PO DAILY Qty: 5 0RF Continued albuterol sulfate [ProAir HFA] 90 mcg/actuation HFA aerosol inhaler 2 puff Inhalation QID PRN (Reason: bronchospasm) Qty: 3 0RF Botox 200 unit recon soln 200 unit IM ONCE Rx Instructions: [id number] Emgality Pen 120 mg/mL pen injector 120 mg SC QMONTH Qty: 1 0RF carbamazepine 200 mg tablet extended release 12 hr 200 mg PO BID molnupiravir 200 mg capsule 800 mg PO Q12H 5 Days Qty: 40 0RF C PAP naproxen 500 mg tablet 500 mg PO BID PRN (Reason: pain) Qty: 30 3RF Hold Instructions: Home Medication placed on hold at Doctor's office amlodipine 10 mg tablet 10 mg PO DAILY Qty: 90 4RF rosuvastatin 10 mg tablet 10 mg PO DAILY Qty: 90 4RF aspirin [Ecotrin Low Strength] 81 mg tablet,delayed release (DR/EC) 81 mg PO DAILY Qty: 90 3RF (DME) blood-glucose meter [OneTouch Ultra2 Meter] Misc See Rx Instructions .Route Qty: 1 0RF Rx Instructions: once daily (DME) pen needle, diabetic [1st Tier Unifine Pentips] 32 gauge x 5/32 needle See Rx Instructions .ROUTE .MEDSUPPLY Qty: 300 3RF Rx Instructions: 4 x daily insulin dosage (DME) transparent dressings [Tegaderm Frame Style] 2 3/8 X 2 3/4 bandage See Rx Instructions .Route Qty: 20 11RF Rx Instructions: Use to hold continuous glucose monitor in place (DME) Dexcom G6 Technical Solutions Engineer Misc See Rx Instructions .ROUTE .COMPLEX Qty: 1 0RF Dose Instruction: 4 TIMES DAILY CHECKS Rx Instructions: 4 TIMES DAILY CHECKS (DME) Dexcom G6 Sensor Device See Rx Instructions .ROUTE .COMPLEX Qty: 3 0RF Dose Instruction: FOR DIABETES; DIRECTED Rx Instructions: FOR DIABETES; DIRECTED (DME) Dexcom G6 Transmitter Device See Rx Instructions .ROUTE .COMPLEX Qty: 1 0RF Dose Instruction: DIRECTED Rx Instructions: DIRECTED (DME) OneTouch Ultra Test Strip See Rx Instructions .Route Qty: 100 4RF Rx Instructions: 4 x daily meclizine 12.5 mg tablet 12.5 mg PO TID PRN (Reason: Vertigo) Qty: 60 3RF diltiazem HCl [Cardizem CD] 240 mg capsule,extended release 24hr 240 mg PO DAILY Qty: 90 3RF metformin 1,000 mg tablet 1,000 mg PO BID Qty: 180 3RF Jardiance 25 mg tablet 25 mg PO QAM Qty: 30 11RF insulin lispro [Humalog KwikPen Insulin] 100 unit/mL insulin pen See Rx Instructions SC TID Qty: 30 3RF Rx Instructions: sliding scale subcut three times a day; max dose 20units 3 x day hydrochlorothiazide 25 mg tablet 25 mg PO QAM Qty: 90 4RF Levemir FlexTouch U-100 Insuln 100 unit/mL (3 mL) insulin pen 80 unit SC QHS Qty: 15 5RF lisinopril 40 mg tablet 40 mg PO DAILY Qty: 90 0RF metoclopramide HCl [Reglan] 5 mg tablet 5 mg PO QAC Qty: 7 0RF Rx Instructions: administer 30 minutes before meals acetaminophen 500 mg capsule 1,000 mg PO Q8H PRN (Reason: pain) Qty: 90 0RF docusate sodium [Colace] 100 mg capsule 100 - 200 mg PO BID PRN Discharge Instructions Instructions: Acute Cough (ED) Additional Instructions: follow up with your primary care provider within 1 week if you feel more ill, have worsening trouble breathing or severe pain return to the emergency department Medical Decision Making <Kailee Garcia DO - Last Filed: 09/06/22 15:55> 1430 -- 67-year-old male with a history of morbid obesity, hypertension, hyperlipidemia, diabetes, GERD, asthma, CVA diagnosed with COVID 8 days ago currently on antivirals presents with cough, wheezing, shortness of breath, hy perglycemia, vomiting and diarrhea for the past few days. Temp 99.7 on arrival. Vitals within normal limits. Oxygen saturation 98% on room air on arrival. Patient has slight diminished breath sounds throughout but otherwise no wheezing, rhonchi, crackles or rales. He has no lower extremity pitting edema. Differential diagnosis includes expected course for Covid, bronchitis, ACS, PE, electrolyte abnormality, DKA, UTI. Screening labs and chest x-ray obtained on arrival. Chest x-ray negative for acute disease. Labs reviewed and noted a normal white blood cell count, normal VBG. Metabolic panel pending. Urinalysis notes blood but negative for ketones or infection. He has no significant wheezing on exam with normal oxygen saturation, consider PE. Will refer for CT chest, give a DuoNeb, IV Tylenol and IV fluids and reassess. Metabolic panel reviewed and notes a glucose of 396 with normal bicarb and anion gap. 1600 -- Case endorsed to Dr. Tony to follow-up on CT chest with plan to reassess after duoneb, recheck glucose and ambulate. If patient feels better and work-up unremarkable, will plan for discharge home. If patient's breathing has not improved, consider admission for nebs and continued monitoring. Medical Records Medical records reviewed: Yes I reviewed the patient's medical records. Lab Data Lab results reviewed: Yes I reviewed the patient's lab results. ECG Data Attestation: I personally reviewed and interpreted this ECG (s) as follows: Interpretation: rate of 92, sinus, RBBB, LBBB, no stemi. <Marcos Tony MD - Last Filed: 09/06/22 18:13> 1430 -- 67-year-old male with a history of morbid obesity, hypertension, hyperlipidemia, diabetes, GERD, asthma, CVA diagnosed with COVID 8 days ago currently on antivirals presents with cough, wheezing, shortness of breath, hyperglycemia, vomiting and diarrhea for the past few days. Temp 99.7 on arrival. Vitals within normal limits. Oxygen saturation 98% on room air on arrival. Patient has slight diminished breath sounds throughout but otherwise no wheezing, rhonchi, crackles or rales. He has no lower extremity pitting edema. Differential diagnosis includes expected course for Covid, bronchitis, ACS, PE, electrolyte abnormality, DKA, UTI. Screening labs and chest x-ray obtained on arrival. Chest x-ray negative for acute disease. Labs reviewed and noted a normal white blood cell count, normal VBG. Metabolic panel pending. Urinalysis notes blood but negative for ketones or infection. He has no significant wheezing on exam with normal oxygen saturation, consider PE. Will refer for CT chest, give a DuoNeb, IV Tylenol and IV fluids and reassess. Metabolic panel reviewed and notes a glucose of 396 with normal bicarb and anion gap. 1600 -- Case endorsed to Dr. Tony to follow-up on CT chest with plan to reassess after duoneb, recheck glucose and ambulate. If patient feels better and work-up unremarkable, will plan for discharge home. If patient's breathing has not improved, consider admission for nebs and continued monitoring. pt signed out to me pending cta which was negative for central pe, unable to assess distal peripheral pe's due to timing, no obvious infiltrate. He feels better after a neb and labs show no significant acute findings other than elevated glucose without evidence of dka. He feels well enough for d/c and given reassuring workup feel this is reasonable. He has no tachycardia or hypoxia so doubt pe at this time. Will provide a dose of decadron given the cough and his asthma and given continued cough initiate cap coverage with levofloxacin. Advised to f/u with pcp and return precautions given HPI <Kailee Garcia DO - Last Filed: 09/06/22 15:55> General Mode of arrival: ambulatory . Date/Time Provider Initiated Documentation: 09/06/22 13:03 . Limitations to Documentation: no limitations . Information obtained by: patient . HPI Narrative: Patient is a 67-year-old male with a history of morbid obesity, hypertension, hyperlipidemia, diabetes, GERD, asthma, CVA who was diagnosed with COVID 8 days ago presents with persistent cough and shortness of breath. Patient states he is wheezing mostly at night. He also states his blood sugar has been much higher than normal as he is usually in the 150s to 200 range and has been in the 400s. Patient states he called his primary care doctor regarding the symptoms and was advised to come to the emergency department. He states is almost finished taking the antiviral medication for COVID. He also admits to vomiting and diarrhea, states the vomit has been a few times and mainly bile. States the diarrhea has been watery and brown occurring a few times over the last few days. He denies any known fever, chest pain, abdominal pain or urinary symptoms. He states his primary care doctor increased his insulin from 10 units to 14 units 3 times daily due to his hyperglycemia. Patient states he takes 8 units of Levemir at night. Related Data Home Medications Medication Instructions Recorded Confirmed C Pap 04/08/16 09/02/22 acetaminophen 500 mg capsule 1,000 mg PO Q8H PRN pain #90 caps 01/21/19 09/06/22 galcanezumab-gnlm 120 mg/mL 120 mg subcut QMONTH #1 mL 03/28/20 09/06/22 subcutaneous pen injector (Emgality Pen) naproxen 500 mg tablet 500 mg PO BID PRN pain #30 tabs 04/13/20 09/06/22 albuterol sulfate 90 mcg/actuation 2 puff inhalation QID PRN 07/07/20 09/06/22 aerosol inhaler (ProAir HFA) bronchospasm #3 inhalations carbamazepine 200 mg 200 mg PO BID 12/28/20 09/06/22 tablet,extended release,12 hr metoclopramide HCl 5 mg tablet 5 mg PO QAC #7 tabs 01/03/21 09/06/22 (Reglan) docusate sodium 100 mg capsule 100 - 200 mg PO BID PRN 03/15/21 09/06/22 (Colace) onabotulinumtoxinA 200 unit 200 unit IM ONCE 09/13/21 09/06/22 solution for injection (Botox) amlodipine 10 mg tablet 10 mg PO DAILY #90 tabs 12/18/21 09/06/22 rosuvastatin 10 mg tablet 10 mg PO DAILY #90 tabs 12/18/21 09/06/22 aspirin 81 mg tablet,delayed 81 mg PO DAILY #90 tab-caps 01/17/22 09/06/22 release (Ecotrin Low Strength) blood-glucose meter (OneTouch #1 ea 01/24/22 09/02/22 Ultra2 Meter) pen needle, diabetic 32 gauge x #300 ea 02/15/22 09/02/22 5/32 (1st Tier Unifine Pentips) transparent dressings 2 3/8 X 2 #20 ea 03/12/22 09/02/22 3/4 (Tegaderm Frame Style) blood-glucose meter,continuous #1 ea 05/22/22 09/02/22 (Dexcom G6 Technical Solutions Engineer misc) blood-glucose sensor (Dexcom G6 #3 ea 05/22/22 09/02/22 Sensor device) blood-glucose transmitter (Dexcom #1 ea 05/22/22 09/02/22 G6 Transmitter device) blood sugar diagnostic (OneTouch #100 ea 05/24/22 09/02/22 Ultra Test strips) meclizine 12.5 mg tablet 12.5 mg PO TID PRN Vertigo #60 tabs 05/27/22 09/06/22 diltiazem HCl 240 mg 240 mg PO DAILY #90 caps 06/24/22 09/06/22 capsule,extended release 24 hr (Cardizem CD) metformin 1,000 mg tablet 1,000 mg PO BID #180 tab-caps 06/24/22 09/06/22 empagliflozin 25 mg tablet 25 mg PO QAM #30 tabs 07/03/22 09/06/22 (Jardiance) insulin lispro 100 unit/mL See Rx Instructions subcut TID #30 07/04/22 09/06/22 subcutaneous pen (Humalog KwikPen mL (U-100) Insulin) hydrochlorothiazide 25 mg tablet 25 mg PO QAM #90 tabs 07/23/22 09/06/22 insulin detemir U-100 100 unit/mL 80 unit (0.8 mL) subcut QHS #15 mL 08/12/22 09/06/22 (3 mL) subcutaneous pen (Levemir FlexTouch U-100 Insulin) lisinopril 40 mg tablet 40 mg PO DAILY #90 tabs 08/28/22 09/06/22 molnupiravir 200 mg capsule (EUA) 800 mg PO Q12H 5 days #40 caps 09/02/22 09/06/22 levofloxacin 750 mg tablet 750 mg PO DAILY #5 tabs 09/06/22 Previous Rx's Medication Instructions Recorded acetaminophen 500 mg capsule 1,000 mg PO Q8H PRN pain #90 caps 01/21/19 galcanezumab-gnlm 120 mg/mL 120 mg subcut QMONTH #1 mL 03/28/20 subcutaneous pen injector (Emgality Pen) naproxen 500 mg tablet 500 mg PO BID PRN pain #30 tabs 04/13/20 albuterol sulfate 90 mcg/actuation 2 puff inhalation QID PRN 07/07/20 aerosol inhaler (ProAir HFA) bronchospasm #3 inhalations metoclopramide HCl 5 mg tablet 5 mg PO QAC #7 tabs 01/03/21 (Reglan) amlodipine 10 mg tablet 10 mg PO DAILY #90 tabs 12/18/21 rosuvastatin 10 mg tablet 10 mg PO DAILY #90 tabs 12/18/21 aspirin 81 mg tablet,delayed 81 mg PO DAILY #90 tab-caps 01/17/22 release (Ecotrin Low Strength) blood-glucose meter (OneTouch #1 ea 01/24/22 Ultra2 Meter) pen needle, diabetic 32 gauge x #300 ea 02/15/22 (1st Tier Unifine Pentips) transparent dressings 2 3/8 X 2 #20 ea 03/12/22 3/4 (Tegaderm Frame Style) blood-glucose meter,continuous #1 ea 05/22/22 (Dexcom G6 Technical Solutions Engineer misc) blood-glucose sensor (Dexcom G6 #3 ea 05/22/22 Sensor device) blood-glucose transmitter (Dexcom #1 ea 05/22/22 G6 Transmitter device) blood sugar diagnostic (OneTouch #100 ea 05/24/22 Ultra Test strips) meclizine 12.5 mg tablet 12.5 mg PO TID PRN Vertigo #60 tabs 05/27/22 diltiazem HCl 240 mg 240 mg PO DAILY #90 caps 06/24/22 capsule,extended release 24 hr (Cardizem CD) metformin 1,000 mg tablet 1,000 mg PO BID #180 tab-caps 06/24/22 empagliflozin 25 mg tablet 25 mg PO QAM #30 tabs 07/03/22 (Jardiance) insulin lispro 100 unit/mL See Rx Instructions subcut TID #30 07/04/22 subcutaneous pen (Humalog KwikPen mL (U-100) Insulin) hydrochlorothiazide 25 mg tablet 25 mg PO QAM #90 tabs 07/23/22 insulin detemir U-100 100 unit/mL 80 unit (0.8 mL) subcut QHS #15 mL 08/12/22 (3 mL) subcutaneous pen (Levemir FlexTouch U-100 Insulin) lisinopril 40 mg tablet 40 mg PO DAILY #90 tabs 08/28/22 molnupiravir 200 mg capsule (EUA) 800 mg PO Q12H 5 days #40 caps 09/02/22 levofloxacin 750 mg tablet 750 mg PO DAILY #5 tabs 09/06/22 Allergies Allergy/AdvReac Type Severity Reaction Status Date / Time No Known Allergies Allergy Verified 09/06/22 14:42 General Stated Complaint: GenMedical JAI: 3 Review of Systems <Kailee Garcia DO - Last Filed: 09/06/22 15:55> All systems reviewed & are unremarkable except as noted in HPI and below Constitutional Constitutional: Reports as per HPI, Denies chills and Denies fever(s) Eyes Eyes: Denies blurry vision ENT Ears, Nose, Mouth, and Throat: Denies dizziness, Denies sore throat and Denies throat swelling Cardiovascular Cardiovascular: Denies chest pain and Reports dyspnea Respiratory Respiratory: Reports cough and Reports dyspnea Gastrointestinal Gastrointestinal: Denies abdominal pain, Reports diarrhea and Reports vomiting Genitourinary Genitourinary: Denies hematuria and Denies dysuria Musculoskeletal Musculoskeletal: Denies back pain and Denies numbness Integumentary/Breasts Skin/Breast: Denies lesions and Denies rash Neurologic Neurologic: Denies dizziness, Denies localized weakness and Denies numbness Allergic/Immunologic Allergic/Immunologic: Denies throat swelling PFSH <Kailee Garcia DO - Last Filed: 09/06/22 15:55> All Active Problems (Updated 09/06/22 @ 15:52 by Kailee Garcia DO) COVID-19 (Acute) Shortness of breath (Acute) Vomiting and diarrhea (Acute) Hyperglycemia (Acute) COVID-19 (Acute) Runny nose (Acute) Fever (Acute) Cough (Acute) Right hip pain (Acute) Essential hypertension (Acute 08/11/13) Hyperlipidemia (Acute) Diabetic retinopathy (Acute ~08/2019) [facility] retinologist: Dr. Trejo- [facility] non- proliferative (SEVERE)-07/13/20 Diabetic neuropathy (Acute) both feet, balls of feet only Diabetes (Chronic) Blindness of one eye (Acute) LEFT Tubular adenoma (Acute ~10/2020) Migraine (Acute) Obstructive sleep apnea syndrome (Acute) Lani sleep study 08/14/11 - CPAP recommended Medical History (Updated 09/06/22 @ 15:52 by Kailee Garcia DO) Adrenal mass Arthritis of left knee Steroid injection: 09/13/2021; 02/21/21; 10/27/2020; 02/21/2021; 09/13/21 Asthma Bilateral primary osteoarthritis of knee (03/17/17) Cluster headache, chronic CVA (cerebral vascular accident) (07/20/14) crpytogenic Diverticulosis DM (diabetes mellitus), type 2, uncontrolled titrating insulin to achieve control Dr. Mtz every 3 months for foot care Erectile dysfunction (10/31/14) Greater trochanteric bursitis injection 02/2021 Ortho Hydronephrosis Hydroureter Kidney stone Left eye trauma resulting in surgery many years ago Left sided sciatica Morbid obesity (04/26/13) Nausea and vomiting after administration of anesthetic agent Nephrolithiasis Primary osteoarthritis of right knee Restless legs Sleep apnea Uses CPAP machine Trochanteric bursitis, left hip Urinary retention Varicose veins of lower extremity Surgical History (Updated 05/30/22 @ 16:28 by Suzanne Andres NP) History of ankle surgery as a child History of total right knee replacement (TKR) 09/22/2018 Status post right knee replacement (09/22/18) Status post tonsillectomy Trochanteric bursitis, right hip (06/15/18) Right IT band lengthening and bursal debridement DOS: 01/21/19 Family History Mother Depression Hyperlipidemia Father Heart disease Brother Diabetes Depression Hyperlipidemia Brother Substance abuse Depression Heart disease Hyperlipidemia Brother , Gunshot wound No problems noted. 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 Current gender identity: male What type of physical activity do you participate in: none Frequency: does not exercise Sulema/Mosque: Jehovah'S Witness Special sulema needs: No Do you feel safe at home: Yes Do you feel safe in your relationship?: Yes Exam <Kailee Garcia DO - Last Filed: 09/06/22 15:55> Const General: cooperative and no acute distress Orientation: alert, awake and oriented x3 [facility] Head: normal to inspection Ears: hearing grossly normal bilaterally and external ears normal Face and sinus: normal facial exam Throat: posterior oropharynx normal Eyes General: appearance normal, both eyes and all related structures Pupils: PERRL EOM: EOM intact bilaterally Neck Neck: normal visual inspection and No submandibular swelling Lymphatic: no lymphadenopathy noted Chest Chest: normal inspection of the chest and no tenderness Resp Effort & Inspection: normal respiratory effort and able to speak in complete sentences Auscultation: clear to auscultation bilaterally, no rhonchi and no wheezes Cardio Rate: regular rate Rhythm: regular rhythm GI Inspection: normal to inspection Palpation: soft, not firm, not rigid and nontender Auscultation: normal bowel sounds Skin General skin exam: no rashes or lesions noted Neuro General: patient alert, patient awake and patient oriented x3 Cognition: normal cognition Speech: speech normal Motor: muscle tone normal throughout Sensory Exam: no sensory deficits noted Extrem General: normal to inspection, full ROM, capillary refill normal, no calf tenderness bilaterally and edema (chronic skin changes with thickened epidermis, no cellulitis) Psych Appearance: grossly normal Mental Status: mental status grossly normal Speech and Movement: speech and movement normal Affect: normal affect Course <Kailee Garcia, DO - Last Filed: 09/06/22 15:55> Vital Signs Vital signs: Vital Signs Temperature 99.7 F H 09/06/22 12:59 Pulse 72 09/06/22 12:59 Respiratory Rate 20 09/06/22 12:59 Blood Pressure 123/52 L 09/06/22 12:59 Pulse Oximetry 98 09/06/22 12:59 Temperature 99.7 F H 09/06/22 12:59 Temperature Source Temporal Artery Scan 09/06/22 12:59 Pulse 72 09/06/22 12:59 Respiratory Rate 20 09/06/22 14:38 Respiratory Effort Incrsd Work of Breathing 09/06/22 14:38 Respiratory Depth Normal 09/06/22 14:38 Respiratory Pattern Tachypnea 09/06/22 14:38 Blood Pressure 123/52 L 09/06/22 12:59 Blood Pressure Position Sitting 09/06/22 12:59 Pulse Oximetry 98 09/06/22 12:59 Oxygen Delivery Method Room Air 09/06/22 12:59 Oxygen Flow Rate 0 09/06/22 12:59 Pain Level 0 09/06/22 12:59 Lab/Test Results Lab/Test Results: Laboratory Tests Range/Units 09/06/22 09/06/22 09/06/22 14:20 14:35 14:35 WBC (4.4-10.8) 10^3/uL 7.71 RBC (4.36-5.78) 10^6/uL 5.32 Hgb (13.5-17.5) g/dL 15.3 Hct (40.0-50.0) % 45.6 MCV (80-95) fL 86 MCH (27.0-33.0) pg 28.8 MCHC (32.0-36.0) % 33.6 RDW (11.8-14.1) % 13.6 Plt Count (130-400) 10^3/uL 226 MPV (8.0-11.0) fL 10.3 Immature Gran % 0.3 Neutrophils % 65.3 Lymphocytes % 21.8 Monocytes % 9.2 Eosinophils % 3.0 Basophils % 0.4 Nucleated RBC % (0.0-0.3) % 0.0 Absolute Neutrophils (1.2-6.7) 10^3/uL 5.04 Absolute Lymphocytes (1.2-3.4) 10^3/uL 1.68 Absolute Monocytes (0.1-0.8) 10^3/uL 0.71 Absolute Eosinophils (0.0-0.7) 10^3/uL 0.23 Absolute Basophils (0.0-0.2) 10^3/uL 0.03 VBG pH (7.31-7.41) 7.36 VBG pCO2 (41-51) mmHg 48 VBG pO2 mmHg 40 VBG HCO3 (23-28) mmol/L 27 VBG Total CO2 (24-29) mmol/L 24 VBG O2 Saturation % 74 VBG Base Excess (-2-3) mmol/L 1 Urine Color (Yellow) Yellow Urine Clarity (Clear) Clear Urine pH (5-8) 6.0 Ur Specific [place] (1.005-1.025) 1.010 Urine Protein (Negative) mg/dL Negative Urine Ketones (Negative) mg/dL Negative Urine Blood (Negative) Moderate H Urine Nitrite (Negative) Negative Urine Bilirubin (Negative) Negative Urine Urobilinogen (Up TO 0.2) EU/dL 0.2 Ur Leukocyte Esterase (Negative) Negative Urine RBC (0-2) HPF 5-10 H Urine WBC (0-5) HPF 0-2 Ur Epithelial Cells (Negative) HPF Few Urine Crystals (Negative) HPF Negative Urine Bacteria (Negative) HPF Negative Urine Casts (Negative) LPF Negative Urine Mucus (Negative) Negative Ur Culture Indicated? No Urine Glucose (Negative) mg/dL >=1000 H Sign Out <Kailee Garcia DO - Last Filed: 09/06/22 15:55> Sign Out Data: Sign Out Comment: Covid + 8 days ago. Glucose 400s at home. On antiviral shaka atment. Presents with cough, sob, hyperglycemia, vomiting, and diarrhea. Follow up on CT chest and reassess after duoneb and ambulation trial. If pt feels better, can consider discharge to home. If breathing not improved and pt still feels ill, consider admission to IV fluids, nebs, continued monitoring. Last updated by Kailee Garcia DO at 09/06/22 15:35
--- NOTE | 2022-09-06 15:15 | RT.EKG_ITS ---
APPROVED REPORT Exam: Resting ECG Reason for Exam: shortness of breath Patient Location: E HR:92 bpm ECG Measurements Heart Rate 92 AXIS DC 202 P -24 QRSd 174 QRS 110 QT 400 T 2 QTc 495 Conclusion Sinus rhythm...normal P axis, V-rate 60- 99 RBBB and LPFB...QRSd >120mS, axis(90,210). Sinus. Normal axis. RBBB. LBBB. No significant change from previous. I have reviewed and interpreted ECG and agree with software generated interpretation.
[2022-09-06 15:48] VITALS: RESP 18; O2SAT 95
[2022-09-06] MEDS: Albuterol/Ipratropium 3 ML UPD VIAL UPD (15:48)
[2022-09-06] MEDS: ACETAMINOPHEN 1,000 MG/100 ML BTL 400 MG IVPB (16:02)
[2022-09-06] MEDS: Normal Saline 1,000 ML 1000 ML IV (16:02)
[2022-09-06 16:14] VITALS: BP 105/67; PULSE 97; O2SAT 97
[2022-09-06] MEDS: Omnipaque 350 MG/ML 500 ML BTL-Imaging package 100 ML IJ (16:59)
--- NOTE | 2022-09-06 17:28 | DI.VRAD_ITS ---
PROCEDURE INFORMATION: Exam: CTA Chest With Contrast Exam date and time: 09/06/2022 4:53 PM Age: 67 years old Clinical indication: Cough and shortness of breath and other: Covid + TECHNIQUE: Imaging protocol: Computed tomographic angiography of the chest with contrast. 3D rendering (Not supervised by radiologist): MIP and/or 3D reconstructed images were created by the technologist. Contrast material: OMNI 350; Contrast volume: 100 ml; Contrast route: INTRAVENOUS (IV); COMPARISON: CR XR CHEST 2V PA LATERAL 09/06/2022 1:22 PM FINDINGS: Pulmonary arteries: Exam is nondiagnostic for main, lobar and segmental pulmonary arterial emboli due to inadequate contrast opacification of the pulmonary arteries. Aorta: No aortic aneurysm. Lungs: Unremarkable. No consolidation. No masses. Pleural spaces: Unremarkable. No pneumothorax. No pleural effusion. Heart: Unremarkable. No cardiomegaly. No pericardial effusion. Lymph nodes: Unremarkable. No enlarged lymph nodes. Bones/joints: Unremarkable. No acute fracture. Soft tissues: Unremarkable. IMPRESSION: Nondiagnostic for pulmonary embolism. Dictated and Authenticated by: Rene Vega MD. Ordering:BRUCE Dugan MD
[2022-09-06] MEDS: levoFLOXacin 500 MG, levoFLOXacin 250 MG 750 MG PO (18:19)
[2022-09-06] MEDS: Dexamethasone 10 MG/ML VIAL IVP (18:19)
== END 2022-09-06 18:33 | disposition home or self-care (01) ==
PROVIDERS: Physician Assistant; Emergency Provider Emergency Medicine; PCP Nurse Practitioner Family
DX: U07.1 COVID-19 (principal); E11.65 Type 2 diabetes mellitus with hyperglycemia; I10 Essential (primary) hypertension; Z87.891 Personal history of nicotine dependence; Z79.4 Long term (current) use of insulin; Z79.84 Long term (current) use of oral hypoglycemic drugs
CPT/HCPCS: 36415; 71275; 80053; 82805; 93005; 94640; 96361; 96374; 96375; 99285; 71046; 81003; 81015; 83735; 84484; 85025; 93010; 99284; J0131; J1100; J7620

== ENCOUNTER 2022-09-12 20:17 | Emergency (ER) | payer MEDICARE, MEDICAID, SELFPAY ==
--- NOTE | 2022-09-12 20:58 | DI.CT_ITS ---
Exam(s) CT CHEST/ABD/PEL WO CT THORACIC LUMBAR SPINE REC EXAM: CT CHEST/ABD/PEL WO and CT thoracic and lumbar spine recons CLINICAL HISTORY: fall on chair, L upper and lower back pain TECHNIQUE: Imaging Protocol: Axial computed tomography images with coronal and sagittal reformatted images were created and reviewed COMPARISON: CT CT ABDOMEN PELVIS CTA from 12/25/[address] CHEST PE CTA from 09/06/2022 FINDINGS: CHEST: Tracheobronchial tree: Patent where visualized. Pulmonary parenchyma: No consolidation or dominant measurable mass. No architectural distortion. Mediastinum and Sommer: No dominant adenopathy or fluid collection. The esophagus is unremarkable. Thyroid gland: Unremarkable. Pleura: No effusion or pneumothorax. Heart: The heart is not dilated. Moderate coronary artery calcification is present. No pericardial ef fusion. Aorta: Thoracic aorta non-dilated. Atherosclerosis is present. Lymph nodes: Within normal limits. Bones:Within normal limits for the patient's age. There is an acute mildly displaced fracture of the posterior aspect of the left 12th rib. There is also fracture of the lateral aspect of the left 11th rib. Soft tissues: Unremarkable. Thoracic spine CT recons: Age-appropriate degenerative changes are present throughout the thoracic sp ine. No acute fracture or subluxation is seen in the thoracic spine. ABDOMEN: Liver: Normal density. No measurable mass. Gallbladder and Biliary Tract: Cholelithiasis is present. There is no biliary ductal dilatation. Pancreas: Normal density, no abnormal calcifications or inflammatory process. Spleen: Calcified granuloma are seen in the spleen. Adrenals: There are stable adrenal nodules. These likely reflect adenomas. Kidneys: Normal size, contour and axis. Bilateral nonobstructing nephrolithiasis. Stable bilateral re nal cysts. No follow-up is recommended. Abdominal Aorta: Abdominal portion non-dilated. Atherosclerosis is present. Bowel: No obstruction or bowel wall thickening. Appendix is unremarkable. There is diverticulosis see n in the colon, but no evidence of acute diverticulitis. Peritoneal Cavity: No ascites, collection or mesenteric inflammatory response. No free air. Lymph Nodes: Within normal limits. Bones: Within normal limits for the patient's age. Soft Tissues: Unremarkable. Lumbar spine CT recons: Age-appropriate degenerative changes are present in the lumbar spine. There i s L5 spondylolysis and grade 1 spondylolisthesis of L5 on S1. No acute fractures or subluxations are seen in the lumbar spine. PELVIS: Bladder: Symmetric distention, no gross wall thickening. High density material is seen layering in th e urinary bladder which may reflect small bladder stones. Reproductive Organs: There is an enlarged prostate gland. Lymph Nodes: Within normal limits. Bones: Within normal limits for the patient's age. IMPRESSION: 1. Acute fracture involving the posterior left 12th rib and the lateral aspect of the left 11th rib. 2. No acute fracture of the thoracic or lumbar spine. 3. No acute abdominal or pelvic injury. No acute pulmonary process. 4. Additional findings in the abdomen and pelvis as described above. RADIATION DOSE DELIVERED: 2121.05 mGy.cm Total DLP DATA REPOSITORY: All CT scans at this facility are submitted to the National Radiology Data Registry (NRDR) Dose Index Registry (DIR) with the [employer] (ACR). RADIATION OPTIMIZATION: All CT scans at this facility use at least one of these dose optimization te chniques: automated exposure control; mA and/or kV adjustment per patient size (includes targeted exa ms where dose is matched to clinical indication); or iterative reconstruction.
--- NOTE | 2022-09-12 21:00 | ED.GENADUL_ITS ---
Discharge Plan Disposition Patient Disposition: HOME Condition: Stable Discharge Details Clinical Impression: Blunt trauma of multiple sites of trunk, Fracture, ribs Primary Care Provider: Kenton Pitts ED Provider: Marcos Tony Home Meds and New Rx's Prescriptions: New oxycodone 5 mg tablet 5 mg PO TID PRNQty: 7 0RF Continued albuterol sulfate [ProAir HFA] 90 mcg/actuation HFA aerosol inhaler 2 puff Inhalation QID PRN (Reason: bronchospasm) Qty: 3 0RF Botox 200 unit recon soln 200 unit IM ONCE Rx Instructions: I4DERIOG Emgality Pen 120 mg/mL pen injector 120 mg SC QMONTH Qty: 1 0RF carbamazepine 200 mg tablet extended release 12 hr 200 mg PO BID C PAP naproxen 500 mg tablet 500 mg PO BID PRN (Reason: pain) Qty: 30 3RF Hold Instructions: Home Medication placed on hold at Doctor's office amlodipine 10 mg tablet 10 mg PO DAILY Qty: 90 4RF rosuvastatin 10 mg tablet 10 mg PO DAILY Qty: 90 4RF aspirin [Ecotrin Low Strength] 81 mg tablet,delayed release (DR/EC) 81 mg PO DAILY Qty: 90 3RF (DME) blood-glucose meter [OneTouch Ultra2 Meter] Misc See Rx Instructions .Route Qty: 1 0RF Rx Instructions: once daily (DME) pen needle, diabetic [1st Tier Unifine Pentips] 32 gauge x 5/32 needle See Rx Instructions .ROUTE .MEDSUPPLY Qty: 300 3RF Rx Instructions: 4 x daily insulin dosage (DME) transparent dressings [Tegaderm Frame Style] 2 3/8 X 2 3/4 bandage See Rx Instructions .Route Qty: 20 11RF Rx Instructions: Use to hold continuous glucose monitor in place (DME) Dexcom G6 Jigger Artisan Misc See Rx Instructions .ROUTE .COMPLEX Qty: 1 0RF Dose Instruction: 4 TIMES DAILY CHECKS Rx Instructions: 4 TIMES DAILY CHECKS (DME) Dexcom G6 Sensor Device See Rx Instructions .ROUTE .COMPLEX Qty: 3 0RF Dose Instruction: FOR DIABETES; DIRECTED Rx Instructions: FOR DIABETES; DIRECTED (DME) Dexcom G6 Transmitter Device See Rx Instructions .ROUTE .COMPLEX Qty: 1 0RF Dose Instruction: DIRECTED Rx Instructions: DIRECTED (DME) OneTouch Ultra Test Strip See Rx Instructions .Route Qty: 100 4RF Rx Instructions: 4 x daily meclizine 12.5 mg tablet 12.5 mg PO TID PRN (Reason: Vertigo) Qty: 60 3RF diltiazem HCl [Cardizem CD] 240 mg capsule,extended release 24hr 240 mg PO DAILY Qty: 90 3RF metformin 1,000 mg tablet 1,000 mg PO BID Qty: 180 3RF Jardiance 25 mg tablet 25 mg PO QAM Qty: 30 11RF insulin lispro [Humalog KwikPen Insulin] 100 unit/mL insulin pen See Rx Instructions SC TID Qty: 30 3RF Rx Instructions: sliding scale subcut three times a day; max dose 20units 3 x day hydrochlorothiazide 25 mg tablet 25 mg PO QAM Qty: 90 4RF Levemir FlexTouch U-100 Insuln 100 unit/mL (3 mL) insulin pen 80 unit SC QHS Qty: 15 5RF lisinopril 40 mg tablet 40 mg PO DAILY Qty: 90 0RF metoclopramide HCl [Reglan] 5 mg tablet 5 mg PO QAC Qty: 7 0RF Rx Instructions: administer 30 minutes before meals levofloxacin 750 mg tablet 750 mg PO DAILY Qty: 5 0RF acetaminophen 500 mg capsule 1,000 mg PO Q8H PRN (Reason: pain) Qty: 90 0RF docusate sodium [Colace] 100 mg capsule 100 - 200 mg PO BID PRN Discharge Instructions Instructions: Rib Fracture (ED) Additional Instructions: follow up with your primary care provider within 1 week if pain continues if you feel more ill, have severe worsening pain or difficulty breathing return to the emergency department Medical Decision Making 67 yo male comes in with cc of left lateral lower back and mid to upper back pain s/p fall. 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 Denies hitting his head or loc. He has a 5cm hematoma on the skin of the left mid back. He has no signs of trauma to the head, perrl, no midline c spine, t or l spine tenderness or stepoffs. He has no abdominal or chest tenderness, no extremity pain. Given his location of pain and symptoms will obtain ct to evaluate for fracture and less likely intrathoracic vs intraabdominal pathology. Given no head trauma and no midline c spine tenderness will defer head ct and ct of the c spine. ct shows acute fractures of 11th and 12th ribs posteriorly otherwise no acute findings, he is stable and prefer's discharge and feel this is reasonable given lack of other findings do not feel hospitalization indicated. Will provide short course of opiates, advised to f/u with pcp, return precautions given Differential Diagnosis Differential Diagnosis: fracture, contusion Imaging Data Radiologic Study: Attestation: I personally reviewed and interpreted this imaging study as follows: Imaging: CT Scan Radiologist's impression: IMPRESSION: Acute fractures of the left 11th rib laterally and 12th rib posteriorly. No fractures of the thoracic spine are seen. Lab Data Lab results reviewed: Yes I reviewed the patient's lab results. HPI General Mode of arrival: ambulatory . Date/Time Provider Initiated Documentation: 09/12/22 20:58 . Limitations to Documentation: no limitations . Information obtained by: patient . History of Present Illness 67 year old M presents to the emergency department with the chief complaint of fall, described as moderate, Patient started experiencing this hour(s) (3) and it has been constant. No relieving factors improve symptom(s), No exacerbating factors reported . Patient did receive the following treatments prior to arrival, none Related Data Home Medications Medication Instructions Recorded Confirmed C Pap 04/08/16 09/02/22 acetaminophen 500 mg capsule 1,000 mg PO Q8H PRN pain #90 caps 01/21/19 09/06/22 galcanezumab-gnlm 120 mg/mL 120 mg subcut QMONTH #1 mL 03/28/20 09/06/22 subcutaneous pen injector (Emgality Pen) naproxen 500 mg tablet 500 mg PO BID PRN pain #30 tabs 04/13/20 09/06/22 albuterol sulfate 90 mcg/actuation 2 puff inhalation QID PRN 07/07/20 09/06/22 aerosol inhaler (ProAir HFA) bronchospasm #3 inhalations carbamazepine 200 mg 200 mg PO BID 12/28/20 09/06/22 tablet,extended release,12 hr metoclopramide HCl 5 mg tablet 5 mg PO QAC #7 tabs 01/03/21 09/06/22 (Reglan) docusate sodium 100 mg capsule 100 - 200 mg PO BID PRN 03/15/21 09/06/22 (Colace) onabotulinumtoxinA 200 unit 200 unit IM ONCE 09/13/21 09/06/22 solution for injection (Botox) amlodipine 10 mg tablet 10 mg PO DAILY #90 tabs 12/18/21 09/06/22 rosuvastatin 10 mg tablet 10 mg PO DAILY #90 tabs 12/18/21 09/06/22 aspirin 81 mg tablet,delayed 81 mg PO DAILY #90 tab-caps 01/17/22 09/06/22 release (Ecotrin Low Strength) blood-glucose meter (OneTouch #1 ea 01/24/22 09/02/22 Ultra2 Meter) pen needle, diabetic 32 gauge x #300 ea 02/15/22 09/02/22 5/32 (1st Tier Unifine Pentips) transparent dressings 2 3/8 X 2 #20 ea 03/12/22 09/02/22 3/4 (Tegaderm Frame Style) blood-glucose meter,continuous #1 ea 05/22/22 09/02/22 (Dexcom G6 Jigger Artisan misc) blood-glucose sensor (Dexcom G6 #3 ea 05/22/22 09/02/22 Sensor device) blood-glucose transmitter (Dexcom #1 ea 05/22/22 09/02/22 G6 Transmitter device) blood sugar diagnostic (OneTouch #100 ea 05/24/22 09/02/22 Ultra Test strips) meclizine 12.5 mg tablet 12.5 mg PO TID PRN Vertigo #60 tabs 05/27/22 09/06/22 diltiazem HCl 240 mg 240 mg PO DAILY #90 caps 06/24/22 09/06/22 capsule,extended release 24 hr (Cardizem CD) metformin 1,000 mg tablet 1,000 mg PO BID #180 tab-caps 06/24/22 09/06/22 empagliflozin 25 mg tablet 25 mg PO QAM #30 tabs 07/03/22 09/06/22 (Jardiance) insulin lispro 100 unit/mL See Rx Instructions subcut TID #30 07/04/22 09/06/22 subcutaneous pen (Humalog KwikPen mL (U-100) Insulin) hydrochlorothiazide 25 mg tablet 25 mg PO QAM #90 tabs 07/23/22 09/06/22 insulin detemir U-100 100 unit/mL 80 unit (0.8 mL) subcut QHS #15 mL 08/12/22 09/06/22 (3 mL) subcutaneous pen (Levemir FlexTouch U-100 Insulin) lisinopril 40 mg tablet 40 mg PO DAILY #90 tabs 08/28/22 09/06/22 levofloxacin 750 mg tablet 750 mg PO DAILY #5 tabs 09/06/22 oxycodone 5 mg tablet 5 mg PO TID PRN #7 tabs 09/12/22 Previous Rx's Medication Instructions Recorded acetaminophen 500 mg capsule 1,000 mg PO Q8H PRN pain #90 caps 01/21/19 galcanezumab-gnlm 120 mg/mL 120 mg subcut QMONTH #1 mL 03/28/20 subcutaneous pen injector (Emgality Pen) naproxen 500 mg tablet 500 mg PO BID PRN pain #30 tabs 04/13/20 albuterol sulfate 90 mcg/actuation 2 puff inhalation QID PRN 07/07/20 aerosol inhaler (ProAir HFA) bronchospasm #3 inhalations metoclopramide HCl 5 mg tablet 5 mg PO QAC #7 tabs 01/03/21 (Reglan) amlodipine 10 mg tablet 10 mg PO DAILY #90 tabs 12/18/21 rosuvastatin 10 mg tablet 10 mg PO DAILY #90 tabs 12/18/21 aspirin 81 mg tablet,delayed 81 mg PO DAILY #90 tab-caps 01/17/22 release (Ecotrin Low Strength) blood-glucose meter (OneTouch #1 ea 01/24/22 Ultra2 Meter) pen needle, diabetic 32 gauge x #300 ea 02/15/22 5/32 (1st Tier Unifine Pentips) transparent dressings 2 3/8 X 2 #20 ea 03/12/22 3/4 (Tegaderm Frame Style) blood-glucose meter,continuous #1 ea 05/22/22 (Dexcom G6 Jigger Artisan misc) blood-glucose sensor (Dexcom G6 #3 ea 05/22/22 Sensor device) blood-glucose transmitter (Dexcom #1 ea 05/22/22 G6 Transmitter device) blood sugar diagnostic (OneTouch #100 ea 05/24/22 Ultra Test strips) meclizine 12.5 mg tablet 12.5 mg PO TID PRN Vertigo #60 tabs 05/27/22 diltiazem HCl 240 mg 240 mg PO DAILY #90 caps 06/24/22 capsule,extended release 24 hr (Cardizem CD) metformin 1,000 mg tablet 1,000 mg PO BID #180 tab-caps 06/24/22 empagliflozin 25 mg tablet 25 mg PO QAM #30 tabs 07/03/22 (Jardiance) insulin lispro 100 unit/mL See Rx Instructions subcut TID #30 07/04/22 subcutaneous pen (Humalog KwikPen mL (U-100) Insulin) hydrochlorothiazide 25 mg tablet 25 mg PO QAM #90 tabs 07/23/22 insulin detemir U-100 100 unit/mL 80 unit (0.8 mL) subcut QHS #15 mL 08/12/22 (3 mL) subcutaneous pen (Levemir FlexTouch U-100 Insulin) lisinopril 40 mg tablet 40 mg PO DAILY #90 tabs 08/28/22 levofloxacin 750 mg tablet 750 mg PO DAILY #5 tabs 09/06/22 oxycodone 5 mg tablet 5 mg PO TID PRN #7 tabs 09/12/22 Allergies Allergy/AdvReac Type Severity Reaction Status Date / Time No Known Allergies Allergy Verified 09/06/22 14:42 General Stated Complaint: Orthopedic JAI: 3 Review of Systems All systems reviewed & are unremarkable except as noted in HPI and below Constitutional Constitutional: Denies chills, Denies fever(s) and Denies weakness Cardiovascular Cardiovascular: Denies chest pain and Denies dyspnea Respiratory Respiratory: Denies cough and Denies dyspnea Gastrointestinal Gastrointestinal: Denies abdominal pain and Denies vomiting Musculoskeletal Musculoskeletal: Denies joint swelling Integumentary/Breasts Skin/Breast: Denies rash Neurologic Neurologic: Denies weakness [facility] All Active Problems (Updated 09/12/22 @ 22:41 by Marcos Tony MD) COVID-19 (Acute) Shortness of breath (Acute) Vomiting and diarrhea (Acute) Hyperglycemia (Acute) Blunt trauma of multiple sites of trunk (Acute) Fracture, ribs (Acute) COVID-19 (Acute) Runny nose (Acute) Fever (Acute) Cough (Acute) Right hip pain (Acute) Essential hypertension (Acute 08/11/13) Hyperlipidemia (Acute) Diabetic retinopathy (Acute ~08/2019) [facility] retinologist: Dr. Trejo- [facility] non- proliferative (SEVERE)-07/13/20 Diabetic neuropathy (Acute) both feet, balls of feet only Diabetes (Chronic) Blindness of one eye (Acute) LEFT Tubular adenoma (Acute ~10/2020) Migraine (Acute) Obstructive sleep apnea syndrome (Acute) [place] sleep study 08/14/11 - CPAP recommended Medical History (Updated 09/12/22 @ 22:41 by Marcos Tony MD) Adrenal mass Arthritis of left knee Steroid injection: 09/13/2021; 02/21/21; 10/27/2020; 02/21/2021; 09/13/21 Asthma Bilateral primary osteoarthritis of knee (03/17/17) Cluster headache, chronic CVA (cerebral vascular accident) (07/20/14) crpytogenic Diverticulosis DM (diabetes mellitus), type 2, uncontrolled titrating insulin to achieve control Dr. Mtz every 3 months for foot care Erectile dysfunction (10/31/14) Greater trochanteric bursitis injection 02/2021 Ortho Hydronephrosis Hydroureter Kidney stone Left eye trauma resulting in surgery many years ago Left sided sciatica Morbid obesity (04/26/13) Nausea and vomiting after administration of anesthetic agent Nephrolithiasis Primary osteoarthritis of right knee Restless legs Sleep apnea Uses CPAP machine Trochanteric bursitis, left hip Urinary retention Varicose veins of lower extremity Surgical History (Updated 05/30/22 @ 16:28 by Suzanne Andres NP) History of ankle surgery as a child History of total right knee replacement (TKR) 09/22/2018 Status post right knee replacement (09/22/18) Status post tonsillectomy Trochanteric bursitis, right hip (06/15/18) Right IT band lengthening and bursal debridement DOS: 01/21/19 Family History Mother Depression Hyperlipidemia Father Heart disease Brother Diabetes Depression Hyperlipidemia Brother Substance abuse Depression Heart disease Hyperlipidemia Brother , Gunshot wound No problems noted. 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 Current gender identity: male What type of physical activity do you participate in: none Frequency: does not exercise Sulema/Scientologist: Mandaen Special sulema needs: No Do you feel safe at home: Yes Do you feel safe in your relationship?: Yes Exam Const General: no acute distress Orientation: alert HENMT Head: normal to inspection Ears: external ears normal General nose exam: external nose normal Mouth: moist mucous membranes Eyes General: appearance normal, both eyes and all related structures Neck Neck: normal visual inspection Chest Chest: tenderness Resp Effort & Inspection: normal respiratory effort and able to speak in complete sentences Cardio Rate: regular rate GI Palpation: soft and nontender Back/Spine/Pelvis Back: no CVA tenderness Skin General skin exam: no rashes or lesions noted Neuro General: patient alert and patient oriented x3 Extrem General: normal to inspection Psych Mental Status: mental status grossly normal Course Vital Signs Vital signs: Pain Level 10 09/12/22 20:34
[2022-09-12] MEDS: Ondansetron 4 MG/2 ML VIAL (21:04)
[2022-09-12] MEDS: Ketorolac 30 MG/ML VIAL (21:04)
[2022-09-12 21:10] VITALS: BP 152/73; PULSE 94; PULSE 95; RESP 24; O2SAT 92
[2022-09-12 21:11] VITALS: PULSE 94; RESP 24; O2SAT 93
[2022-09-12 21:17] VITALS: BP 157/76; PULSE 94; PULSE 97; RESP 24; O2SAT 94
[2022-09-12 21:20] VITALS: PULSE 94; RESP 24; O2SAT 92
[2022-09-12 21:27] LABS: Abs Immature Grans 0.07 10^3/uL (0.0-0.06); Absolute Basophil Count 0.03 10^3/uL (0.0-0.2); Absolute Eosinophil Count 0.23 10^3/uL (0.0-0.7); Absolute Lymphocyte Count 1.22 10^3/uL (1.2-3.4); Absolute Monocyte Count 0.81 10^3/uL (0.1-0.8); Absolute Neutrophil Count 6.91 10^3/uL (1.2-6.7); Basophils % 0.3; Eosinophils % 2.5; HCT 44.1 % (40.0-50.0); Immature Grans % 0.8; Lymphocytes % 13.2; MCH 28.8 pg (27.0-33.0); MCV 85 fL (80-95); MPV 10.6 fL (8.0-11.0); Monocytes % 8.7; Neutrophils % 74.5; Platelet Count 234 10^3/uL (130-400); RBC 5.21 10^6/uL (4.36-5.78); RDW 13.6 % (11.8-14.1); WBC 9.27 10^3/uL (4.4-10.8)
[2022-09-12 21:30] VITALS: PULSE 94; O2SAT 92
[2022-09-12 21:32] VITALS: BP 153/59; PULSE 93; PULSE 94; O2SAT 92
[2022-09-12 21:48] LABS: ALT 28 U/L (16-63); AST 15 U/L (15-37); Alkaline Phosphatase 88 U/L (46-116); Anion Gap 9.8 mmol/L (3-11); BUN 39 mg/dL (7-18); Bilirubin, Total 0.2 mg/dL (0.2-1.0); CO2 27.2 mmol/L (21.0-32.0); CREATININE 1.6 mg/dL (0.70-1.30); Chloride 96 mmol/L (98-107); Estimated GFR 46.93 (mL/min/1.73m2); Glucose 409 mg/dL (74-106); Potassium 4.8 mmol/L (3.5-5.1); Sodium 133 mmol/L (136-145); Total Protein 7.8 g/dL (6.4-8.2)
--- NOTE | 2022-09-12 22:18 | DI.VRAD_ITS ---
PROCEDURE INFORMATION: Exam: CT Chest Without Contrast; Diagnostic Exam date and time: 09/12/2022 9:49 PM Age: 67 years old Clinical indication: Other: Fall on chair, L upper and lower back pain TECHNIQUE: Imaging protocol: Diagnostic computed tomography of the chest without contrast. 3D rendering (Not supervised by radiologist): MIP and/or 3D reconstructed images were created by the technologist. COMPARISON: CT CHEST PE CTA 09/06/2022 4:53 PM FINDINGS: Lungs: The lungs are clear. Pleural spaces: Unremarkable. No pneumothorax. No pleural effusion. Heart: There is coronary artery calcification. Normal heart size. Lymph nodes: Unremarkable. No enlarged lymph nodes. Vasculature: Unremarkable. No aortic aneurysm. Bones/joints: Unremarkable. No acute fracture. Soft tissues: Unremarkable. IMPRESSION: No acute abnormality. PROCEDURE INFORMATION: Exam: CT Abdomen And Pelvis Without Contrast Exam date and time: 09/12/2022 9:49 PM Age: 67 years old Clinical indication: Other: Fall on chair, L upper and lower back pain TECHNIQUE: Imaging protocol: Computed tomography of the abdomen and pelvis without contrast. 3D rendering (Not supervised by radiologist): MIP and/or 3D reconstructed images were created by the technologist. COMPARISON: CT ABDOMEN PELVIS CTA 12/25/2021 5:35 PM FINDINGS: Liver: Normal. No mass. Gallbladder and bile ducts: Multiple calcified stones. No ductal dilation. Pancreas: Normal. No ductal dilation. Spleen: Normal. No splenomegaly. Adrenal glands: Normal. No mass. Kidneys and ureters: There are multiple simple renal cysts. There are multiple non-obstructing bilateral renal calculi. There is no hydronephrosis. Stomach and bowel: The stomach and small bowel are normal.There is diverticular disease of the colon, without evidence of acute diverticulitis. No perforation, or abscess. No signs or history of bleeding provided. Appendix: A normal appendix is identified. Intraperitoneal space: Unremarkable. No free air. No significant fluid collection. Vasculature: Unremarkable. No abdominal aortic aneurysm. Lymph nodes: Unremarkable. No enlarged lymph nodes. Urinary bladder: Unremarkable as visualized. Reproductive: The prostate gland is enlarged. Bones/joints: There are bilateral pars interarticularis defects at L5 with grade 1 anterolisthesis. Degenerative changes of the spine without acute osseous abnormality. Soft tissues: Unremarkable. IMPRESSION: No acute abnormality. Additional findings as described. Dictated and Authenticated by: Marli Trejo MD. Ordering:LAST Rodríguez MD
--- NOTE | 2022-09-12 22:25 | DI.VRAD_ITS ---
PROCEDURE INFORMATION: Exam: CT Thoracic Spine Without Contrast Exam date and time: 09/12/2022 9:49 PM Age: 67 years old Clinical indication: Other: Fall, pain; Additional info: CT machine transfer issue- aware that the L spine coronals have not sent. Will send them when available TECHNIQUE: Imaging protocol: Computed tomography of the thoracic spine without contrast. COMPARISON: CT CHEST PE CTA 09/06/2022 4:53 PM FINDINGS: Bones/joints: Acute fractures of the left 11th rib laterally and 12th rib posteriorly. No fractures of the thoracic spine are seen. Soft tissues: Unremarkable. IMPRESSION: Acute fractures of the left 11th rib laterally and 12th rib posteriorly. No fractures of the thoracic spine are seen. PROCEDURE INFORMATION: Exam: CT Lumbar Spine Without Contrast Exam date and time: 09/12/2022 9:49 PM Age: 67 years old Clinical indication: Other: Fall, pain; Additional info: CT machine transfer issue- aware that the L spine coronals have not sent. Will send them when available TECHNIQUE: Imaging protocol: Computed tomography of the lumbar spine without contrast. COMPARISON: CT ABDOMEN PELVIS CTA 12/25/2021 5:35 PM FINDINGS: Bones/joints: There are bilateral pars interarticularis defects at L5 with grade 1 anterolisthesis. L1-L2: No significant disc protrusion. No severe spinal canal stenosis. No significant neural foraminal narrowing. L2-L3: Mild disc bulge. No severe spinal canal stenosis. No significant neural foraminal narrowing. L3-L4: Mild disc bulge. No severe spinal canal stenosis. Moderate left neural foraminal narrowing. L4-L5: No significant disc protrusion. No severe spinal canal stenosis. Moderate right neural foraminal narrowing. L5-S1: There are bilateral pars interarticularis defects at L5 with grade 1 anterolisthesis. Bilateral foraminal stenosis. Soft tissues: Unremarkable. IMPRESSION: Degenerative changes as detailed. No acute fracture in the lumbar spine. Grade 1 Spondylolisthesis at L5-S1. Dictated and Authenticated by: Marli Trejo MD. Ordering:LAST Rodríguez MD
[2022-09-12] MEDS: MORPHine 4 MG/ML SYR IVP (23:00)
== END 2022-09-12 23:09 | disposition home or self-care (01) ==
PROVIDERS: Emergency Provider Emergency Medicine; PCP Nurse Practitioner Family
DX: S22.42XA Multiple fractures of ribs, left side, initial encounter for closed fracture (principal); S30.0XXA Contusion of lower back and pelvis, initial encounter; W18.39XA Other fall on same level, initial encounter
CPT/HCPCS: 71250; 80053; 96374; 96375; 99284; 74176; 85025; 99283; J1885; J2270; J2405

== ENCOUNTER → 2022-09-23 10:37 | Outpatient (BNVA) | payer MEDICARE, MEDICAID, SELFPAY | PROVIDERS: PCP Nurse Practitioner Family; Referring Provider Nurse Practitioner; Visit Provider Student in an Organized Health Care Education/Training Program | DX: M70.61 Trochanteric bursitis, right hip (principal) | CPT/HCPCS: 20610; J1040 ==

== ENCOUNTER → 2022-10-07 14:16 | Outpatient (BNVA) | payer MEDICARE, MEDICAID, SELFPAY | PROVIDERS: PCP Nurse Practitioner Family; Referring Provider Nurse Practitioner Family; Visit Provider Physician Assistant | DX: M17.12 Unilateral primary osteoarthritis, left knee (principal) | CPT/HCPCS: 20610; J1040 ==

== ENCOUNTER 2022-10-24 01:35 | Outpatient (CLI) | payer MEDICARE, MEDICAID, SELFPAY ==
[2022-10-24 12:37] LABS: COMMENT (LAB VIEW ONLY) 74.27 mg/dL; Calculated LDL 122 mg/dL (<100); Cholesterol 223 mg/dL (<200); HDL Cholesterol 37 mg/dL (40-60); Triglyceride 320 mg/dL (<150)
[2022-10-24 12:41] LABS: Microalb ug/mg Crea 486.7 ug/mg Cr
== END 2022-10-24 01:36 | disposition home or self-care (01) ==
LOC: LOS 01:35
PROVIDERS: PCP Nurse Practitioner Family; Visit Provider Nurse Practitioner Family
DX: E11.9 Type 2 diabetes mellitus without complications (principal); E78.5 Hyperlipidemia, unspecified
CPT/HCPCS: 36415; 80061; 82043; 82570

== ENCOUNTER 2023-01-17 20:26 | Emergency (ER) | payer OTHER, MEDICAID, SELFPAY ==
[2023-01-17 20:41] VITALS: BP 151/51; PULSE 82; RESP 22; TEMP 36.9; O2SAT 96
--- NOTE | 2023-01-17 20:58 | ED.GENADUL_ITS ---
Discharge Plan Disposition Patient Disposition: Home Condition: Improving Discharge Details Clinical Impression: Headache, Acute prostatitis Primary Care Provider: Kenton Pitts ED Provider: Amador Schulz Home Meds and New Rx's Prescriptions: No Action albuterol sulfate [ProAir HFA] 90 mcg/actuation HFA aerosol inhaler 2 puff Inhalation QID PRN (Reason: bronchospasm) Qty: 3 0RF Botox 200 unit recon soln 200 unit IM ONCE Rx Instructions: [id number] methylprednisolone acetate [Depo-Medrol] 40 mg/mL suspension 40 mg intra-articular ONCE Qty: 1 0RF Emgality Pen 120 mg/mL pen injector 120 mg subcut QMONTH carbamazepine 200 mg tablet extended release 12 hr 200 mg PO BID nitrofurantoin monohyd/m-cryst 100 mg capsule 100 mg PO Q12H 7 Days Qty: 14 0RF Rx Instructions: must administer with a meal/food C PAP (DME) blood-glucose meter [OneTouch Ultra2 Meter] Misc See Rx Instructions .Route Qty: 1 0RF Rx Instructions: once daily (DME) pen needle, diabetic [1st Tier Unifine Pentips] 32 gauge x 5/32 needle See Rx Instructions .ROUTE .MEDSUPPLY Qty: 300 3RF Rx Instructions: 4 x daily insulin dosage (DME) transparent dressings [Tegaderm Frame Style] 2 3/8 X 2 3/4 bandage See Rx Instructions .Route Qty: 20 11RF Rx Instructions: Use to hold continuous glucose monitor in place (DME) Dexcom G6 Airfield Operations Specialist Misc See Rx Instructions .ROUTE .COMPLEX Qty: 1 0RF Dose Instruction: 4 TIMES DAILY CHECKS Rx Instructions: 4 TIMES DAILY CHECKS (DME) Dexcom G6 Sensor Device See Rx Instructions .ROUTE .COMPLEX Qty: 3 0RF Dose Instruction: FOR DIABETES; DIRECTED Rx Instructions: FOR DIABETES; DIRECTED (DME) OneTouch Ultra Test Strip See Rx Instructions .Route Qty: 100 4RF Rx Instructions: 4 x daily meclizine 12.5 mg tablet 12.5 mg PO TID PRN (Reason: Vertigo) Qty: 60 3RF diltiazem HCl [Cardizem CD] 240 mg capsule,extended release 24hr 240 mg PO DAILY Qty: 90 3RF metformin 1,000 mg tablet 1,000 mg PO BID Qty: 180 3RF Jardiance 25 mg tablet 25 mg PO QAM Qty: 30 11RF insulin lispro [Humalog KwikPen Insulin] 100 unit/mL insulin pen See Rx Instructions SC TID Qty: 30 3RF Rx Instructions: sliding scale subcut three times a day; max dose 20units 3 x day hydrochlorothiazide 25 mg tablet 25 mg PO QAM Qty: 90 4RF Levemir FlexTouch U-100 Insuln 100 unit/mL (3 mL) insulin pen 80 unit SC QHS Qty: 15 5RF docusate sodium 100 mg capsule 100 mg PO BID PRN (Reason: constipation) Qty: 30 0RF sennosides [Senokot] 8.6 mg tablet 8.6 mg PO DAILY PRN (Reason: constipation) Qty: 30 0RF lisinopril 40 mg tablet 40 mg PO DAILY Qty: 90 3RF aspirin [Ecotrin Low Strength] 81 mg tablet,delayed release (DR/EC) 81 mg PO DAILY Qty: 90 3RF (DME) Dexcom G6 Transmitter Device See Rx Instructions .ROUTE .COMPLEX Qty: 1 0RF Dose Instruction: DIRECTED Rx Instructions: DIRECTED amlodipine 10 mg tablet 10 mg PO DAILY Qty: 90 4RF rosuvastatin 10 mg tablet 10 mg PO DAILY Qty: 90 4RF naproxen 500 mg tablet 500 mg PO BID PRN (Reason: pain) Qty: 30 3RF Hold Instructions: Home Medication placed on hold at Doctor's office metoclopramide HCl [Reglan] 5 mg tablet 5 mg PO QAC Qty: 7 0RF Rx Instructions: administer 30 minutes before meals acetaminophen 500 mg capsule 1,000 mg PO Q8H PRN (Reason: pain) Qty: 90 0RF Discharge Instructions Instructions: Prostatitis (ED) Additional Instructions: You were seen for headache as well as difficulty urinating and groin pain. Your headache was managed with ketorolac and prochlorperazine with significant improvement. Your CT scan did not show evidence of a kidney stone but did show evidence of prostatitis and your urine does have bacteria and minimal white cells. We will start you on ciprofloxacin to take twice a day and have you follow-up with Dr. Pinon next week, call for appointment. Return to the ED for any lethargy, confusion, vomiting, inability to urinate, increased pelvic pain, other concerns. Discharge Data Discharge Date/Time-TO BE ENTERED AT DEPARTURE: 01/17/23 23:41 Medical Decision Making <Amador Schulz MD - Last Filed: 01/18/23 16:15> Patient presenting to ED with chief complaint of headache with resulting nausea and vomiting. Has history of headaches similar to this requiring medical attention once he starts with nausea and vomiting. He has no neurologic changes. Patient also has complaint of difficulty urinating left lower groin pain for the last 2 days. He does have history of kidney stones which he feels this is similar. He has not taken anything for the headache today. Typically gets by with acetaminophen or Naprosyn. IV established and fluids, ketorolac, prochlorperazine given for headache. Laboratory studies and urinalysis obtained for difficulty urinating and groin pain. Stone study ordered. Patient laboratory studies significant for white count of 15.5. Kidney function is essentially normal, BUN a little elevated but creatinine normal. Urinalysis positive for blood and nitrates but negative for leukocytes. Micro reveals 5- 10 red cells, 5-10 white cells, urine bacteria. CT scan reveals no hydroureter or hydronephrosis or obstructing stones. Preliminary read suggest stranding a round the prostate and seminal vesicle, consistent with acute prostatitis. Given the patient's difficulty urinating, groin pain, elevated white count, dirty looking urine we will go ahead and initiate treatment with ciprofloxacin for presumed prostatitis. In regards to his headache this has improved significantly after medications. Patient requesting discharge home. He will follow-up with Dr. Pinon who he has seen in the past as well as primary care. Return precautions provided. Medical Records Medical records reviewed: Yes I reviewed the patient's medical records. Lab Data Lab results reviewed: Yes I reviewed the patient's lab results. <FADY Moran - Last Filed: 01/27/23 17:58> Patient presenting to ED with chief complaint of headache with resulting nausea and vomiting. Has history of headaches similar to this requiring medical attention once he starts with nausea and vomiting. He has no neurologic changes. Patient also has complaint of difficulty urinating left lower groin pain for the last 2 days. He does have history of kidney stones which he feels this is similar. He has not taken anything for the headache today. Typically gets by with acetaminophen or Naprosyn. IV established and fluids, ketorolac, prochlorperazine given for headache. Laboratory studies and urinalysis obtained for difficulty urinating and groin pain. Stone study ordered. Patient laboratory studies significant for white count of 15.5. Kidney function is essentially normal, BUN a little elevated but creatinine normal. Urinalysis positive for blood and nitrates but negative for leukocytes. Micro reveals 5- 10 red cells, 5-10 white cells, urine bacteria. CT scan reveals no hydroureter or hydronephrosis or obstructing stones. Preliminary read suggest stranding around the prostate and seminal vesicle, consistent with acute prostatitis. Given the patient's difficulty urinating, groin pain, elevated white count, dirty looking urine we will go ahead and initiate treatment with ciprofloxacin for presumed prostatitis. In regards to his headache this has improved significantly after medications. Patient requesting discharge home. He will follow-up with Dr. Pinon who he has seen in the past as well as primary care. Return precautions provided. [place]: My name was entered to the chart in error. I did not see this patient. HPI <Amador Schulz MD - Last Filed: 01/18/23 16:15> General Mode of arrival: ambulatory . Date/Time Provider Initiated Documentation: 01/17/23 20:57 . Limitations to Documentation: no limitations . Information obtained by: patient . HPI Narrative: Patient presents to ED with complaint of headache. Patient has history of chronic headaches. Typically manages them at home. This headache has progressed to the point where he is unable to manage at home. He has photophobia, dizziness, nausea and vomiting which started this evening. Typically once he starts vomiting he needs to seek medical attention. Headache is not different than his previous headaches. He has no neurologic changes. He does report difficulty urinating over the last couple of days as well as left groin pain. He has history of kidney stones and feels like this is similar. He denies having back pain. He denies having testicular pain. He denies any fever. Related Data Home Medications Medication Instructions Recorded Confirmed C Pap 04/08/16 01/23/23 acetaminophen 500 mg capsule 1,000 mg PO Q8H PRN pain #90 caps 01/21/19 01/23/23 albuterol sulfate 90 mcg/actuation 2 puff inhalation QID PRN 08/21/20 03/09/23 aerosol inhaler (ProAir HFA) bronchospasm #3 inhalations carbamazepine 200 mg 200 mg PO BID 12/28/20 01/23/23 tablet,extended release,12 hr metoclopramide HCl 5 mg tablet 5 mg PO QAC #7 tabs 01/03/21 01/23/23 (Reglan) onabotulinumtoxinA 200 unit 200 unit IM ONCE 09/13/21 01/23/23 solution for injection (Botox) blood-glucose meter (OneTouch #1 ea 01/24/22 01/23/23 Ultra2 Meter) pen needle, diabetic 32 gauge x #300 ea 02/15/22 01/23/23 5/32 (1st Tier Unifine Pentips) transparent dressings 2 3/8 X 2 #20 ea 03/12/22 01/23/23 3/4 (Tegaderm Frame Style) blood-glucose meter,continuous #1 ea 05/22/22 01/23/23 (Dexcom G6 Airfield Operations Specialist) blood-glucose sensor (Dexcom G6 #3 ea 05/22/22 01/23/23 Sensor device) blood sugar diagnostic (OneTouch #100 ea 05/24/22 01/23/23 Ultra Test strips) meclizine 12.5 mg tablet 12.5 mg PO TID PRN Vertigo #60 tabs 05/27/22 01/23/23 diltiazem HCl 240 mg 240 mg PO DAILY #90 caps 06/24/22 01/23/23 capsule,extended release 24 hr (Cardizem CD) metformin 1,000 mg tablet 1,000 mg PO BID #180 tab-caps 06/24/22 01/23/23 empagliflozin 25 mg tablet 25 mg PO QAM #30 tabs 07/03/22 01/23/23 (Jardiance) insulin lispro 100 unit/mL See Rx Instructions subcut TID #30 07/04/22 01/23/23 subcutaneous pen (Humalog KwikPen mL (U-100) Insulin) hydrochlorothiazide 25 mg tablet 25 mg PO QAM #90 tabs 07/23/22 01/23/23 insulin detemir U-100 100 unit/mL 80 unit (0.8 mL) subcut QHS #15 mL 08/12/22 01/23/23 (3 mL) subcutaneous pen (Levemir FlexTouch U-100 Insulin) docusate sodium 100 mg capsule 100 mg PO BID PRN constipation #30 09/16/22 01/23/23 caps sennosides 8.6 mg tablet (Senokot) 8.6 mg PO DAILY PRN constipation 09/16/22 01/23/23 #30 tabs lisinopril 40 mg tablet 40 mg PO DAILY #90 tabs 09/18/22 01/23/23 galcanezumab-gnlm 120 mg/mL 120 mg subcut QMONTH 10/07/22 01/23/23 subcutaneous pen injector (Emgality Pen) aspirin 81 mg tablet,delayed 81 mg PO DAILY #90 tab-caps 12/13/22 01/23/23 release (Ecotrin Low Strength) blood-glucose transmitter (Dexcom #1 ea 12/17/22 01/23/23 G6 Transmitter device) amlodipine 10 mg tablet 10 mg PO DAILY #90 tabs 01/08/23 01/23/23 rosuvastatin 10 mg tablet 10 mg PO DAILY #90 tabs 01/08/23 01/23/23 naproxen 500 mg tablet 500 mg PO BID PRN pain #30 tabs 01/21/23 01/23/23 nitrofurantoin 100 mg PO Q12H 7 days #14 caps 01/21/23 01/23/23 monohydrate/macrocrystals 100 mg capsule Previous Rx's Medication Instructions Recorded acetaminophen 500 mg capsule 1,000 mg PO Q8H PRN pain #90 caps 01/21/19 albuterol sulfate 90 mcg/actuation 2 puff inhalation QID PRN 07/07/20 aerosol inhaler (ProAir HFA) bronchospasm #3 inhalations metoclopramide HCl 5 mg tablet 5 mg PO QAC #7 tabs 01/03/21 (Reglan) blood-glucose meter (OneTouch #1 ea 01/24/22 Ultra2 Meter) pen needle, diabetic 32 gauge x #300 ea 02/15/2232 (1st Tier Unifine Pentips) transparent dressings 2 3/8 X 2 #20 ea 03/12/22 3/4 (Tegaderm Frame Style) blood-glucose meter,continuous #1 ea 05/22/22 (Dexcom G6 Airfield Operations Specialist) blood-glucose sensor (Dexcom G6 #3 ea 05/22/22 Sensor device) blood sugar diagnostic (OneTouch #100 ea 05/24/22 Ultra Test strips) meclizine 12.5 mg tablet 12.5 mg PO TID PRN Vertigo #60 tabs 05/27/22 diltiazem HCl 240 mg 240 mg PO DAILY #90 caps 06/24/22 capsule,extended release 24 hr (Cardizem CD) metformin 1,000 mg tablet 1,000 mg PO BID #180 tab-caps 06/24/22 empagliflozin 25 mg tablet 25 mg PO QAM #30 tabs 07/03/22 (Jardiance) insulin lispro 100 unit/mL See Rx Instructions subcut TID #30 07/04/22 subcutaneous pen (Humalog KwikPen mL (U-100) Insulin) hydrochlorothiazide 25 mg tablet 25 mg PO QAM #90 tabs 07/23/22 insulin detemir U-100 100 unit/mL 80 unit (0.8 mL) subcut QHS #15 mL 08/12/22 (3 mL) subcutaneous pen (Levemir FlexTouch U-100 Insulin) docusate sodium 100 mg capsule 100 mg PO BID PRN constipation #30 09/16/22 caps sennosides 8.6 mg tablet (Senokot) 8.6 mg PO DAILY PRN constipation 09/16/22 #30 tabs lisinopril 40 mg tablet 40 mg PO DAILY #90 tabs 09/18/22 aspirin 81 mg tablet,delayed 81 mg PO DAILY #90 tab-caps 12/13/22 release (Ecotrin Low Strength) blood-glucose transmitter (Dexcom #1 ea 12/17/22 G6 Transmitter device) amlodipine 10 mg tablet 10 mg PO DAILY #90 tabs 01/08/23 rosuvastatin 10 mg tablet 10 mg PO DAILY #90 tabs 01/08/23 naproxen 500 mg tablet 500 mg PO BID PRN pain #30 tabs 01/21/23 nitrofurantoin 100 mg PO Q12H 7 days #14 caps 01/21/23 monohydrate/macrocrystals 100 mg capsule Allergies Allergy/AdvReac Type Severity Reaction Status Date / Time ciprofloxacin AdvReac Severe Other (See Verified 01/23/23 09:19 Comment) General Stated Complaint: Headache JAI: 3 Review of Systems <Amador Schulz MD - Last Filed: 01/18/23 16:15> Narrative: per HPI PFSH <Amador Schulz MD - Last Filed: 01/18/23 16:15> All Active Problems Right hip pain (Acute) Cough (Acute) Headache (Acute) Acute prostatitis (Acute) Arthritis of left knee (Acute) Steroid injection: 10/07/2022; 09/13/2021; 02/21/21; 10/27/2020 Trochanteric bursitis, right hip (Acute 06/15/18) Right IT band lengthening and bursal debridement DOS: 01/21/19 Steroid Injection: 09/23/2022 Diabetic retinopathy (Acute ~08/2019) [facility] retinologist: Dr. Trejo- [facility] non- proliferative (SEVERE)-07/13/20 Diabetic neuropathy (Acute) both feet, balls of feet only Diabetes (Chronic) Blindness of one eye (Acute) LEFT Tubular adenoma (Acute ~10/2020) Migraine (Acute) Obstructive sleep apnea syndrome (Acute) [facility] sleep study 08/14/11 - CPAP recommended Medical History Adrenal mass Asthma Bilateral primary osteoarthritis of knee (03/17/17) Cluster headache, chronic CVA (cerebral vascular accident) (07/20/14) crpytogenic Diverticulosis DM (diabetes mellitus), type 2, uncontrolled titrating insulin to achieve control Dr. Mtz every 3 months for foot care Erectile dysfunction (10/31/14) Essential hypertension (08/11/13) Greater trochanteric bursitis injection 02/2021 Ortho Hydronephrosis Hydroureter Hyperlipidemia Kidney stone Left eye trauma resulting in surgery many years ago Left sided sciatica Morbid obesity (04/26/13) Nausea and vomiting after administration of anesthetic agent Restless legs Sleep apnea Uses CPAP machine Trochanteric bursitis, left hip Urinary retention Varicose veins of lower extremity Surgical History History of ankle surgery as a child History of total right knee replacement (TKR) 09/22/2018 Status post right knee replacement (09/22/18) Status post tonsillectomy Family History Mother Depression Hyperlipidemia Father Heart disease Brother Diabetes Depression Hyperlipidemia Brother Substance abuse Depression Heart disease Hyperlipidemia Brother , Gunshot wound No problems noted. 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 HEENT: NC/AT. Normal facial exam. Neck: Supple. Trachea midline. Lungs: Normal respiratory effort. Cor: RRR without murmur/gallop. GI: Soft. NT/ND. No guarding or rebound. : No hernia appreciated. Neuro: A+O x 3. Normal speech, mentation, gait. Cranial nerves II - XII grossly intact. No gross motor or sensory deficit. Skin: Warm and dry without rash. Course <Amador Schulz MD - Last Filed: 01/18/23 16:15> Vital Signs Vital signs: Vital Signs Temperature 98.4 F 01/17/23 20:41 Pulse 82 01/17/23 20:41 Respiratory Rate 22 01/17/23 20:41 Blood Pressure 151/51 H 01/17/23 20:41 Pulse Oximetry 96 01/17/23 20:41 Temperature 98.4 F 01/17/23 20:41 Temperature Source Oral 01/17/23 20:41 Pulse 82 01/17/23 20:41 Respiratory Rate 22 01/17/23 20:41 Respiratory Effort Normal 01/17/23 20:44 Blood Pressure 151/51 H 01/17/23 20:41 Blood Pressure Position Sitting 01/17/23 20:41 Pulse Oximetry 96 01/17/23 20:41 Oxygen Delivery Method Room Air 01/17/23 20:41 Oxygen Flow Rate 0 01/17/23 20:41 Pain Level 9 01/17/23 20:41
--- NOTE | 2023-01-17 21:00 | DI.CT_ITS ---
Exam(s) CT RENAL COLIC WO EXAM: CT RENAL COLIC WO CLINICAL HISTORY: urinary difficulty, left groin pain, hx stones. TECHNIQUE: Imaging Protocol: Axial computed tomography images with coronal and sagittal reformatted images were created and reviewed CONTRAST MATERIAL: Intravenous: none Oral: None COMPARISON: CT CT CHEST/ABD/PEL WO from 09/12/[address] THORACIC LUMBAR SPINE REC from 09/12/2022 FINDINGS: Images blurred by respiratory motion artifact. VISUALIZED LUNG BASES: No nodules nor pleural effusions evident. ABDOMEN: There is no ascites. LIVER: There are no obvious focal hepatic lesions evident of this noninfused study. GALLBLADDER/BILIARY: No obvious gallbladder pathology. CBD is not dilated. PANCREAS: No evidence of pancreatic mass nor dilatation of the pancreatic duct. SPLEEN: Spleen is not enlarged. No obvious intrasplenic lesions. ADRENALS: There are no significant adrenal masses. KIDNEYS:There are nonobstructive calculi in both kidneys. Largest is in the lower pole the left kidn ey measuring 4 millimeters. Also benign cysts again noted in both kidneys, 1 in each kidney. Larges t cyst is in the left kidney measuring 4 by 3.5 cm. No solid renal masses. No hydronephrosis. No h ydroureter. No calculi seen at the ureterovesical junctions. There are 2 calculi seen in the urinar y bladder.. These are unchanged in position from prior CT scan August 2022. Therefore may be in th e wall of the bladder as posterior free floating stones in the lumen. No obvious bladder wall mass e vident realized limitations of the study.. ABDOMINAL AORTA: Abdominal aorta is not enlarged. LYMPH NODES: There is no retroperitoneal nor paraaortic adenopathy. ABDOMINAL WALL: No evidence of significant anterior abdominal wall nor inguinal hernia. GI: There is no evidence of bowel obstruction, free air, nor abscess. PELVIS: LYMPH NODES: There is no intrapelvic nor inguinal adenopathy. GI: No evidence of appendicitis.No evidence of sigmoid diverticulitis. URINARY BLADDER: As above. REPRODUCTIVE: Prostate mildly enlarged. Seminal vesicles unremarkable. OSSEOUS: No significant osseous lesions. Anterolisthesis L5 upon S1 due to bilateral pars defects at L5 level. Multiple healed left-sided rib fractures. IMPRESSION: 1. There calculi in both kidneys as described above, nonobstructive. There are no calculi in the ure ters. Two tiny calculi are noted in the urinary bladder which were previously present 09/12/2022. RADIATION DOSE DELIVERED: 1,627.43mGy.cm Total DLP DATA REPOSITORY: All CT scans at this facility are submitted to the National Radiology Data Registry (NRDR) Dose Index Registry (DIR) with the [employer] (ACR). RADIATION OPTIMIZATION: All CT scans at this facility use at least one of these dose optimization te chniques: automated exposure control; mA and/or kV adjustment per patient size (includes targeted exa ms where dose is matched to clinical indication); or iterative reconstruction.
[2023-01-17 21:01] LABS: Bilirubin Negative (Negative); Blood Moderate (Negative); Clarity Sl Cloudy (Clear); Glucose 500 mg/dL (Negative); Ketones Negative (Negative); Leukocyte Esterase Negative (Negative); Nitrite Positive (Negative); Specific Gravity 1.015 (1.005-1.025); Urobilinogen 0.2 mg/dL (Up to 0.2); pH 5.5 (5-8)
[2023-01-17 21:09] LABS: Bacteria Many HPF (Negative); C & S Indicated? Yes; Casts Negative LPF (Negative); Crystals Negative HPF (Negative); Epithelial Cells Few HPF (Negative); Mucus Negative (Negative)
[2023-01-17 21:34] LABS: Abs Immature Grans 0.08 10^3/uL (0.0-0.06); Absolute Basophil Count 0.05 10^3/uL (0.0-0.2); Absolute Eosinophil Count 0.03 10^3/uL (0.0-0.7); Absolute Monocyte Count 1.37 10^3/uL (0.1-0.8); Basophils % 0.3; Eosinophils % 0.2; HCT 42.5 % (40.0-50.0); HGB 13.8 g/dL (13.5-17.5); Immature Grans % 0.5; Lymphocytes % 3.7; MCH 28.4 pg (27.0-33.0); MCHC 32.5 % (32.0-36.0); MCV 87 fL (80-95); MPV 9.8 fL (8.0-11.0); Monocytes % 8.8; Neutrophils % 86.5; Platelet Count 219 10^3/uL (130-400); RBC 4.86 10^6/uL (4.36-5.78); RDW 14.1 % (11.8-14.1); RDW-SD 45.5 fL; WBC 15.53 10^3/uL (4.4-10.8)
[2023-01-17] MEDS: Normal Saline 1,000 ML 1000 ML IV (21:36)
[2023-01-17] MEDS: Ketorolac 15 MG/ML VIAL IVP (21:36)
[2023-01-17] MEDS: Prochlorperazine 10 MG/2 ML VIAL IVP (21:37)
[2023-01-17 21:40] LABS: Absolute Lymphocyte Count 0.57 10^3/uL (1.2-3.4); Absolute Neutrophil Count 13.43 10^3/uL (1.2-6.7)
[2023-01-17 21:45] LABS: Anion Gap 8.2 mmol/L (3-11); BUN 29 mg/dL (7-18); CO2 29.8 mmol/L (21.0-32.0); CREATININE 1.2 mg/dL (0.70-1.30); Calcium 9.6 mg/dL (8.5-10.1); Chloride 101 mmol/L (98-107); Estimated GFR 66.28 (mL/min/1.73m2); Glucose 224 mg/dL (74-106); Potassium 3.8 mmol/L (3.5-5.1); Sodium 139 mmol/L (136-145)
--- NOTE | 2023-01-17 22:39 | DI.VRAD_ITS ---
PROCEDURE INFORMATION: Exam: CT Abdomen And Pelvis Without Contrast Exam date and time: 01/17/2023 10:03 PM Age: 67 years old Clinical indication: Abdominal pain; Localized; Lower; Prior surgery; Surgery date: 6+ months; Surgery type: Prior stone removal; Additional info: Urinary difficulty, left groin pain, HX stones TECHNIQUE: Imaging protocol: Computed tomography of the abdomen and pelvis without contrast. Radiation optimization: All CT scans at this facility use at least one of these dose optimization techniques: automated exposure control; mA and/or kV adjustment per patient size (includes targeted exams where dose is matched to clinical indication); or iterative reconstruction. COMPARISON: CT CHEST/ABD/PEL WO 09/12/2022 9:49 PM FINDINGS: Lungs: Lung bases are clear. Liver: Liver is large, 25 cm in length. Gallbladder and bile ducts: Normal. No calcified stones. No ductal dilation. Pancreas: Normal. No ductal dilation. Spleen: Normal. No splenomegaly. Adrenal glands: Normal. No mass. Kidneys and ureters: No hydronephrosis. The ureters are not dilated. Stones are present in the collecting systems bilaterally, including a 5 mm stone at the left inferior pole. A left renal cyst measures 4.3 cm. There are no ureteral stones. Stomach and bowel: The stomach is unremarkable. The small bowel is not dilated. There are no inflammatory changes observed around the colon. Appendix: Normal appendix. Intraperitoneal space: Unremarkable. No free air. No significant fluid collection. Vasculature: Mild vascular calcifications. Negative for abdominal aortic aneurysm. Lymph nodes: Unremarkable. No enlarged lymph nodes. Urinary bladder: Unremarkable. No stones. Reproductive: Mild fat stranding is observed around the prostate and seminal vesicles. Bones/joints: No compression fractures. Moderate multilevel degenerative disc disease and facet arthropathy is observed. Spinal canal stenosis is noted at L2-L3 and L3-L4. Bilateral pars defects are noted at L5. Anterolisthesis of L5 on S1 measures 9 mm. Soft tissues: The abdominal wall is partially visualized. No significant hernia observed. Other findings: Imaging limited by body habitus. Mild respiratory motion artifact also limits evaluation. IMPRESSION: 1. No hydronephrosis. No obstructing stones. Bilateral nonobstructing stones noted. 2. Correlate for possible prostatitis. Dictated and Authenticated by: Marcos Pinon MD. Ordering:ISABEL English MD
[2023-01-17] MEDS: Ciprofloxacin 500 MG TAB PO (23:13)
[2023-01-17 23:38] VITALS: BP 117/46; PULSE 96; RESP 20; TEMP 36.7; O2SAT 91
--- NOTE | 2023-01-18 10:50 | NUR.NOTE ---
Nursing Note: family member called looking for where patient's prescription was sent electronically. Prescription was sent to [facility]
== END 2023-01-17 23:41 | disposition home or self-care (01) ==
PROVIDERS: Emergency Provider Emergency Medicine; PCP Nurse Practitioner Family
DX: R51.9 Headache, unspecified (principal); N41.0 Acute prostatitis; R11.2 Nausea with vomiting, unspecified; R79.89 Other specified abnormal findings of blood chemistry; I10 Essential (primary) hypertension; E11.9 Type 2 diabetes mellitus without complications; J45.909 Unspecified asthma, uncomplicated; Z87.442 Personal history of urinary calculi; Z86.73 Personal history of transient ischemic attack (TIA), and cerebral infarction without residual deficits; Z79.82 Long term (current) use of aspirin; Z79.4 Long term (current) use of insulin; Z79.84 Long term (current) use of oral hypoglycemic drugs
CPT/HCPCS: 80048; 87077; 96361; 96374; 96375; 99284; 74176; 81003; 81015; 85025; 87086; 87186; J0780; J1885

== ENCOUNTER → 2023-01-21 10:45 | Outpatient (BNVA) | payer OTHER, MEDICAID, SELFPAY | PROVIDERS: PCP Nurse Practitioner Family; Referring Provider Nurse Practitioner Family; Visit Provider Urology | DX: N39.0 Urinary tract infection, site not specified (principal); B96.89 Other specified bacterial agents as the cause of diseases classified elsewhere; F51.5 Nightmare disorder; T36.8X5A Adverse effect of other systemic antibiotics, initial encounter | CPT/HCPCS: 99214 ==

== ENCOUNTER → 2023-02-07 07:50 | Outpatient (BNVA) | payer OTHER, MEDICAID, SELFPAY | PROVIDERS: PCP Nurse Practitioner Family; Referring Provider Nurse Practitioner Family; Visit Provider Urology | DX: N20.0 Calculus of kidney (principal) | CPT/HCPCS: 81003; 99213 ==

== ENCOUNTER 2023-02-07 08:30 | Outpatient (REF) | payer OTHER, MEDICAID, SELFPAY | END 2023-02-07 08:31 | disposition home or self-care (01) | LOC: LBN 08:30 | PROVIDERS: PCP Nurse Practitioner Family; Visit Provider Urology | DX: N39.0 Urinary tract infection, site not specified (principal) | CPT/HCPCS: 87077; 87086; 87186 ==

== ENCOUNTER 2023-03-26 14:28 | Outpatient (REF) | payer MEDICARE, MEDICAID, SELFPAY ==
[2023-03-26 21:21] LABS: Abs Immature Grans 0.07 10^3/uL (0.0-0.06); Absolute Basophil Count 0.06 10^3/uL (0.0-0.2); Absolute Eosinophil Count 0.33 10^3/uL (0.0-0.7); Absolute Monocyte Count 0.85 10^3/uL (0.1-0.8); Absolute Neutrophil Count 4.98 10^3/uL (1.2-6.7); Basophils % 0.7; Eosinophils % 4.1; HCT 43.6 % (40.0-50.0); HGB 14.2 g/dL (13.5-17.5); Immature Grans % 0.9; Lymphocytes % 22.2; MCH 28.3 pg (27.0-33.0); MCHC 32.6 % (32.0-36.0); MCV 87 fL (80-95); MPV 10.7 fL (8.0-11.0); Monocytes % 10.5; Neutrophils % 61.6; Platelet Count 313 10^3/uL (130-400); RBC 5.02 10^6/uL (4.36-5.78); RDW 14.6 % (11.8-14.1); RDW-SD 46.3 fL; WBC 8.09 10^3/uL (4.4-10.8)
[2023-03-26 21:38] LABS: ALT 31 U/L (16-63); AST 17 U/L (15-37); Albumin 3.6 g/dL (3.4-5.0); Alkaline Phosphatase 106 U/L (46-116); BUN 41 mg/dL (7-18); Bilirubin, Total 0.2 mg/dL (0.2-1.0); CREATININE 1.2 mg/dL (0.70-1.30); Calcium 9.6 mg/dL (8.5-10.1); Chloride 104 mmol/L (98-107); Creatine Kinase 161 U/L (39-308); Estimated GFR 66.28 (mL/min/1.73m2); Glucose 78 mg/dL (74-106); Magnesium 2.1 mg/dL (1.8-2.4); Potassium 4.5 mmol/L (3.5-5.1); Sodium 141 mmol/L (136-145); Total Protein 7.6 g/dL (6.4-8.2)
== END 2023-03-26 14:29 | disposition home or self-care (01) ==
LOC: LBN 14:28
PROVIDERS: PCP Nurse Practitioner Family; Visit Provider Physician Assistant
DX: M62.838 Other muscle spasm (principal); M79.89 Other specified soft tissue disorders; E11.9 Type 2 diabetes mellitus without complications; R20.0 Anesthesia of skin; R20.2 Paresthesia of skin; M54.2 Cervicalgia; I10 Essential (primary) hypertension
CPT/HCPCS: 80053; 82550; 83735; 85025

== ENCOUNTER 2023-03-27 01:36 | Outpatient (CLI) | payer MEDICARE, MEDICAID, SELFPAY ==
--- NOTE | 2023-03-27 07:00 | DI.US_ITS ---
Exam(s) US LOWER EXTREMITY VENOUS LT EXAM: US LOWER EXTREMITY VENOUS LT CLINICAL HISTORY: left leg pain and swelling,m79.89 TECHNIQUE: Grayscale, color, and doppler imaging of the deep venous system of the left lower extremi ty was performed. COMPARISON: US US RENAL from 01/24/2022 FINDINGS: There is no evidence of intraluminal thrombus and there is normal compression and augmentation demons trated within the common femoral vein, femoral vein, and popliteal vein. In the ipsilateral calf the interrogated veins also exhibit normal compression/ augmentation properti es. The ipsilateral saphenofemoral junction is patent. IMPRESSION: 1. No evidence of DVT in the left lower extremity. DATA REPOSITORY:
== END 2023-03-27 01:56 ==
PROVIDERS: PCP Nurse Practitioner Family; Visit Provider Physician Assistant
DX: R22.42 Localized swelling, mass and lump, left lower limb (principal); M79.605 Pain in left leg
CPT/HCPCS: 93971

== ENCOUNTER → 2023-04-22 08:19 | Outpatient (BNVA) | payer MEDICARE, MEDICAID, SELFPAY | PROVIDERS: PCP Nurse Practitioner Family; Visit Provider Urology | DX: R31.9 Hematuria, unspecified (principal); R39.89 Other symptoms and signs involving the genitourinary system; Z87.440 Personal history of urinary (tract) infections | CPT/HCPCS: 81003; 99213 ==

== ENCOUNTER 2023-04-22 12:53 | Outpatient (REF) | payer MEDICARE, MEDICAID, SELFPAY | END 2023-04-22 12:54 | disposition home or self-care (01) | LOC: LBN 12:53 | PROVIDERS: PCP Nurse Practitioner Family; Visit Provider Urology | DX: R31.9 Hematuria, unspecified (principal) | CPT/HCPCS: 87077; 87086; 87186 ==

== ENCOUNTER 2023-07-09 04:17 | Outpatient (CLI) | payer MEDICARE, MEDICAID, SELFPAY ==
[2023-07-09 12:03] LABS: Hemoglobin A1C 6.9 % (<5.7)
[2023-07-09 12:04] LABS: ALT 27 U/L (16-63); AST 17 U/L (15-37); Albumin 3.8 g/dL (3.4-5.0); Alkaline Phosphatase 78 U/L (46-116); Anion Gap 9.8 mmol/L (3-11); BUN 33 mg/dL (7-18); Bilirubin, Total 0.3 mg/dL (0.2-1.0); CO2 27.2 mmol/L (21.0-32.0); Calcium 9.8 mg/dL (8.5-10.1); Chloride 104 mmol/L (98-107); Estimated GFR 81.98 (mL/min/1.73m2); Glucose 59 mg/dL (74-106); Potassium 4.3 mmol/L (3.5-5.1); Sodium 141 mmol/L (136-145); Total Protein 7.9 g/dL (6.4-8.2)
[2023-07-09 21:52] LABS: PSA, Screening 1.9 ng/mL (<=4.5)
[2023-07-10 11:08] LABS: HIV-1/2 Ag & Ab Screen Negative (Negative)
[2023-07-10 11:33] LABS: Hepatitis C Ab w Rflx HCV PCR Negative (Negative)
== END 2023-07-09 04:18 | disposition home or self-care (01) ==
LOC: LOS 04:17
PROVIDERS: PCP Nurse Practitioner Family; Visit Provider Nurse Practitioner Family
DX: E11.9 Type 2 diabetes mellitus without complications (principal); Z11.4 Encounter for screening for human immunodeficiency virus [HIV]; Z11.59 Encounter for screening for other viral diseases; Z12.5 Encounter for screening for malignant neoplasm of prostate; I10 Essential (primary) hypertension; E78.5 Hyperlipidemia, unspecified
CPT/HCPCS: 36415; 80053; 84153; 86803; 87389; 83036

== ENCOUNTER → 2023-07-17 11:35 | Outpatient (BNVA) | payer MEDICARE, MEDICAID, SELFPAY | PROVIDERS: PCP Nurse Practitioner Family; Referring Provider Nurse Practitioner Family; Visit Provider Physical Therapy Assistant | DX: Z12.11 Encounter for screening for malignant neoplasm of colon (principal); Z86.010 Personal history of colon polyps ==

== ENCOUNTER 2023-09-11 10:18 | Day surgery (SDC) | payer MEDICARE, MEDICAID, SELFPAY ==
--- NOTE | 2023-09-10 17:05 | HPE_ITS ---
Assessment and Plan Assessment and plan (1) Screen for colon cancer: Status: Acute Assessment and plan: We reviewed the and for colonoscopy today as well as the risks and benefits. I think he has a good understanding of this. We will proceed as planned. History of Present Illness History of Present Illness Chief Complaint: Screening colonoscopy Narrative: 68 y/o male with history of asthma, type 2 DM, HTN, migraines, LEAH and diabetic neuropathy presents for colonoscopy screening pre-op. His last screening was in 2019 , which was remarkable for tubular adenoma. A 1 yr f/u was recommended secondary to poor prep. He denies a family history of colon cancer. He denies any changes in bowel habits including bloody or black tarry stools, abdominal pain, diarrhea or constipation. He denies constitutional symptoms. He denies chest pain, palpitations, dyspnea or dyspnea with exertion. He uses his CPAP nightly. He denies prior history or family history of adverse reactions or complications with anesthesia. The patient denies any history of [place], seizures, bleeding or clotting disorders. He has metal implanted in his right knee. [facility], [facility] All Active Problems Screen for colon cancer (Acute) Acid reflux disease (Chronic) Paresthesia and pain of both upper extremities (Acute) Neck pain (Acute) Pneumaturia (Acute) Type 2 diabetes mellitus (Chronic) Right hip pain (Acute) Diabetic neuropathy (Acute) both feet, balls of feet only Tubular adenoma (Acute ~10/2020) Arthritis of left knee (Acute) Steroid injection: 10/07/2022; 09/13/2021; 02/21/21; 10/27/2020 Diabetic retinopathy (Acute ~08/2019) [facility] retinologist: Dr. Trejo- [facility] non- proliferative (SEVERE)-07/13/20 Trochanteric bursitis, right hip (Acute 06/15/18) Right IT band lengthening and bursal debridement DOS: 01/21/19 Steroid Injection: 09/23/2022 Obstructive sleep apnea syndrome (Acute) Bells sleep study 08/14/11 - CPAP recommended Migraine (Acute) Blindness of one eye (Acute) LEFT Medical History Cough Hydroureter Hydronephrosis Kidney stone Adrenal mass Left sided sciatica Greater trochanteric bursitis injection 02/2021 Ortho Diverticulosis Cluster headache, chronic Hyperlipidemia Trochanteric bursitis, left hip Urinary retention Nausea and vomiting after administration of anesthetic agent Sleep apnea Uses CPAP machine Asthma Left eye trauma resulting in surgery many years ago Varicose veins of lower extremity Restless legs Morbid obesity (04/26/13) Essential hypertension (08/11/13) Erectile dysfunction (10/31/14) DM (diabetes mellitus), type 2, uncontrolled titrating insulin to achieve control Dr. Mtz every 3 months for foot care CVA (cerebral vascular accident) (07/20/14) crpytogenic F/U with PCP Bilateral primary osteoarthritis of knee (03/17/17) Surgical History Status post right knee replacement (09/22/18) Status post tonsillectomy History of total right knee replacement (TKR) 09/22/2018 History of ankle surgery as a child Family History Mother Depression Hyperlipidemia Father Heart disease Brother Diabetes Depression Hyperlipidemia Brother Substance abuse Depression Heart disease Hyperlipidemia Brother , Gunshot wound No problems noted. Brother Heart disease Diabetes Social History Smoking/Tobacco Use Status: Former Tobacco Use Quit Date: 11/17/69 Pack-years: 4 Second Hand Exposure: Yes Smoking risk assessment performed?: Yes Alcohol Intake: never Details: denies alcohol use Drug use: Never Substance use type: does not use Household members: none Housing: apartment current occupation: [employer] Current gender identity: male What type of physical activity do you participate in: additional Details: PT 2x/week Frequency: 1-2 times per week Sulema/Muslim: Pentecostalism Special sulema needs: No Do you feel safe at home: Yes Do you feel safe in your relationship?: Yes Meds Allergies and Home Medications Allergies Allergy/AdvReac Type Severity Reaction Status Date / Time ciprofloxacin AdvReac Severe Other (See Verified 09/11/23 11:13 Comment) Home Medications Medication Instructions Recorded Confirmed Type C Pap 04/08/16 09/08/23 History albuterol sulfate 90 mcg/actuation 2 puff inhalation QID PRN 07/07/20 09/11/23 Rx aerosol inhaler (ProAir HFA) bronchospasm #3 inhalations carbamazepine 200 mg 200 mg PO BID 12/28/20 09/11/23 History tablet,extended release,12 hr metoclopramide HCl 5 mg tablet 5 mg PO QAC #7 tabs 01/03/21 09/11/23 Rx (Reglan) onabotulinumtoxinA 200 unit 200 unit IM ONCE 09/13/21 09/11/23 History solution for injection (Botox) blood-glucose meter (OneTouch #1 ea 01/24/22 08/28/23 Rx Ultra2 Meter) transparent dressings 2 3/8 X 2 #20 ea 03/12/22 08/28/23 Rx 3/4 (Tegaderm Frame Style) blood-glucose meter,continuous #1 ea 05/22/22 08/28/23 Rx (Dexcom G6 Ux Designer) meclizine 12.5 mg tablet 12.5 mg PO TID PRN Vertigo #60 tabs 05/27/22 09/11/23 Rx docusate sodium 100 mg capsule 100 mg PO BID PRN constipation #30 09/16/22 09/11/23 Rx caps sennosides 8.6 mg tablet (Senokot) 8.6 mg PO DAILY PRN constipation 09/16/22 09/11/23 Rx #30 tabs lisinopril 40 mg tablet 40 mg PO DAILY #90 tabs 09/18/22 09/11/23 Rx Depo-Medrol 40 mg/mL suspension 40 mg intra-articular ONCE #1 mL 10/07/22 09/11/23 Clinic for injection (methylprednisolone acetate) galcanezumab-gnlm 120 mg/mL 120 mg subcut QMONTH 10/07/22 09/11/23 History subcutaneous pen injector (Emgality Pen) aspirin 81 mg tablet,delayed 81 mg PO DAILY #90 tab-caps 12/13/22 09/10/23 Rx release (Ecotrin Low Strength) blood-glucose transmitter (Dexcom #1 ea 12/17/22 08/28/23 Rx G6 Transmitter device) amlodipine 10 mg tablet 10 mg PO DAILY #90 tabs 01/08/23 09/11/23 Rx rosuvastatin 10 mg tablet 10 mg PO DAILY #90 tabs 01/08/23 09/11/23 Rx blood-glucose sensor (Dexcom G6 #3 ea 02/05/23 08/28/23 Rx Sensor device) insulin aspart U-100 100 unit/mL 20 unit (0.2 mL) subcut TID #15 mL 02/07/23 09/11/23 Rx (3 mL) subcutaneous pen (Novolog FlexPen U-100 Insulin aspart) diltiazem HCl 240 mg 240 mg PO DAILY #90 caps 03/04/23 09/11/23 Rx capsule,extended release 24 hr (Cardizem CD) metformin 1,000 mg tablet 1,000 mg PO BID #180 tab-caps 03/04/23 09/11/23 Rx semaglutide 0.25 mg or 0.5 mg (2 0.25 mg (0.368 mL) subcut QWEEK #3 03/07/23 09/10/23 Rx mg/3 mL) subcutaneous pen injector mL (Ozempic) insulin degludec 100 unit/mL (3 72 unit (0.72 mL) subcut DAILY #15 03/28/23 09/11/23 Rx mL) subcutaneous pen (Tresiba mL FlexTouch U-100 insulin) methocarbamol 750 mg tablet 750 mg PO QID #20 tabs 03/31/23 09/11/23 Rx insulin glargine U-300 conc 300 80 unit (0.2667 mL) subcut DAILY 04/16/23 09/11/23 Rx unit/mL (1.5 mL) subcutaneous pen #8 SYRGS (Toujeo SoloStar U-300 Insulin) blood sugar diagnostic (OneTouch #400 ea 04/17/23 08/28/23 Rx Ultra Test strips) lancets 33 gauge (BD Ultra Fine #400 ea 04/17/23 08/28/23 Rx Lancets) pen needle, diabetic 32 gauge x #400 ea 04/17/23 08/28/23 Rx 5/32 (1st Tier Unifine Pentips) potassium citrate 10 mEq (1,080 See Rx Instructions .Route 05/19/23 09/11/23 Rx mg) tablet,extended release .COMPLEX #56 tabs empagliflozin 25 mg tablet See Rx Instructions .Route 05/21/23 09/10/23 Rx (Jardiance) .COMPLEX #90 tabs dulaglutide 1.5 mg/0.5 mL 1.5 mg (0.5 mL) subcut QWEEK #2 mL 07/02/23 09/11/23 Rx subcutaneous pen injector (Trulicity) acetaminophen 500 mg tablet 1,000 mg PO Q8H PRN PRN 07/17/23 09/11/23 History melatonin 10 mg capsule 10 mg PO HS PRN 07/17/23 09/11/23 History ropinirole 1 mg tablet 1 mg PO QHS 07/17/23 09/11/23 History hydrochlorothiazide 25 mg tablet 25 mg PO QAM #90 tabs 08/12/23 09/11/23 Rx dulaglutide 1.5 mg/0.5 mL 1.5 mg (0.5 mL) subcut QWEEK #2 mL 08/29/23 09/10/23 Rx subcutaneous pen injector (Trulicity) insulin lispro 100 unit/mL 20 unit (0.2 mL) subcut TID #15 mL 08/29/23 09/11/23 Rx subcutaneous pen (Humalog KwikPen (U-100) Insulin) semaglutide 0.25 mg or 0.5 mg (2 0.25 mg (0.368 mL) subcut QWEEK #3 08/29/23 09/11/23 Rx mg/3 mL) subcutaneous pen injector mL (Ozempic) naproxen 500 mg tablet 500 mg PO BID PRN pain #30 tabs 09/08/23 09/11/23 Rx omeprazole 20 mg capsule,delayed 20 mg PO DAILY #90 caps 09/08/23 09/11/23 Rx release Exam Const General: cooperative and not in acute distress Neck Neck: normal visual inspection, no lymphadenopathy and supple Resp Effort & Inspection: normal respiratory effort Auscultation: clear to auscultation bilaterally Cardio Jugular venous pressure: no JVD Rate: regular rate Rhythm: regular rhythm Heart Sounds: S1 normal and S2 normal GI Inspection: normal to inspection Palpation: soft, no guarding, no hernias and nontender Percussion: normal to percussion Auscultation: normal bowel sounds Neuro General: patient alert, patient awake and patient oriented x3 Psych Appearance: grossly normal
--- NOTE | 2023-09-10 17:07 | PDOC.DSDIS_ITS ---
Date of service: 09/11/23 Time of Service: 14:36 Discharge Plan Disposition Patient Disposition: Home Condition: Good Discharge Details Reason For Visit: Screening colonoscopy Attending Provider: Morgan Rabago Primary Care Provider: Kenton Pitts Home Meds and New Rx's Prescriptions: Continued albuterol sulfate [ProAir HFA] 90 mcg/actuation HFA aerosol inhaler 2 puff Inhalation QID PRN (Reason: bronchospasm) Qty: 3 0RF Botox 200 unit recon soln 200 unit IM ONCE Rx Instructions: [id number] methylprednisolone acetate [Depo-Medrol] 40 mg/mL suspension 40 mg intra-articular ONCE Qty: 1 0RF Emgality Pen 120 mg/mL pen injector 120 mg subcut QMONTH Ozempic 0.25 mg or 0.5 mg (2 mg/3 mL) pen injector 0.25 mg subcut QWEEK Qty: 3 0RF Rx Instructions: for 4 weeks carbamazepine 200 mg tablet extended release 12 hr 200 mg PO BID methocarbamol 750 mg tablet 750 mg PO QID Qty: 20 0RF Rx Instructions: treatment failure with cyclobenzaprine omeprazole 20 mg capsule,delayed release(DR/EC) 20 mg PO DAILY Qty: 90 0RF Patient Comments: pt states this is as needed naproxen 500 mg tablet 500 mg PO BID PRN (Reason: pain) Qty: 30 3RF Hold Instructions: Home Medication placed on hold at Doctor's office acetaminophen 500 mg tablet 1,000 mg PO Q8H PRN PRN ropinirole 1 mg tablet 1 mg PO QHS Rx Instructions: administer 1-3 hours before bedtime melatonin 10 mg capsule 10 mg PO HS PRN insulin lispro [Humalog KwikPen Insulin] 100 unit/mL insulin pen 20 unit subcut TID MDD 20 units TID, use ICR Qty: 15 4RF Rx Instructions: Inject 10-20 units subcutaneously with meals Ozempic 0.25 mg or 0.5 mg (2 mg/3 mL) pen injector 0.25 mg subcut QWEEK MDD 0.5 mg Qty: 3 3RF Rx Instructions: Inject 0.25 mg subcutaneously once weekly for 4 weeks, then 0.5 mg as tolerated Trulicity 1.5 mg/0.5 mL pen injector 1.5 mg subcut QWEEK MDD 1.5 mg Qty: 2 2RF Rx Instructions: Inject 1.5 mg subcutaneously once weekly C PAP (DME) blood-glucose meter [OneTouch Ultra2 Meter] Misc See Rx Instructions .Route Qty: 1 0RF Rx Instructions: once daily (DME) transparent dressings [Tegaderm Frame Style] 2 3/8 X 2 3/4 bandage See Rx Instructions .Route Qty: 20 11RF Rx Instructions: Use to hold continuous glucose monitor in place (DME) Dexcom G6 Assistant Controller Misc See Rx Instructions .ROUTE .COMPLEX Qty: 1 0RF Dose Instruction: 4 TIMES DAILY CHECKS Rx Instructions: 4 TIMES DAILY CHECKS meclizine 12.5 mg tablet 12.5 mg PO TID PRN (Reason: Vertigo) Qty: 60 3RF docusate sodium 100 mg capsule 100 mg PO BID PRN (Reason: constipation) Qty: 30 0RF sennosides [Senokot] 8.6 mg tablet 8.6 mg PO DAILY PRN (Reason: constipation) Qty: 30 0RF lisinopril 40 mg tablet 40 mg PO DAILY Qty: 90 3RF aspirin [Ecotrin Low Strength] 81 mg tablet,delayed release (DR/EC) 81 mg PO DAILY Qty: 90 3RF (DME) Dexcom G6 Transmitter Device See Rx Instructions .ROUTE .COMPLEX Qty: 1 0RF Dose Instruction: DIRECTED Rx Instructions: DIRECTED amlodipine 10 mg tablet 10 mg PO DAILY Qty: 90 4RF rosuvastatin 10 mg tablet 10 mg PO DAILY Qty: 90 4RF Hold Instructions: Changed by Provider (DME) Dexcom G6 Sensor Device See Rx Instructions .ROUTE .COMPLEX Qty: 3 0RF Dose Instruction: FOR DIABETES; DIRECTED Rx Instructions: FOR DIABETES; DIRECTED insulin aspart U-100 [Novolog FlexPen U-100 Insulin] 100 unit/mL (3 mL) insulin pen 20 unit subcut TID Qty: 15 0RF Rx Instructions: inject up to 20 units TID per sliding scale instructions diltiazem HCl [Cardizem CD] 240 mg capsule,extended release 24hr 240 mg PO DAILY Qty: 90 3RF metformin 1,000 mg tablet 1,000 mg PO BID Qty: 180 3RF insulin degludec [Tresiba FlexTouch U-100] 100 unit/mL (3 mL) insulin pen 72 unit subcut DAILY MDD 80units Qty: 15 12RF Mima Gan U-300 Insulin 300 unit/mL (1.5 mL) insulin pen 80 unit subcut DAILY Qty: 8 4RF (DME) lancets [BD Ultra Fine Lancets] 33 gauge misc See Rx Instructions .ROUTE .MEDSUPPLY Qty: 400 3RF Rx Instructions: Check blood sugar four times daily (DME) OneTouch Ultra Test Strip See Rx Instructions .Route Qty: 400 3RF Rx Instructions: Check blood sugar four times daily (DME) pen needle, diabetic [1st Tier Unifine Pentips] 32 gauge x 5/32 needle See Rx Instructions .ROUTE .MEDSUPPLY Qty: 400 3RF Rx Instructions: Check blood sugar four times daily potassium citrate 10 mEq (1,080 mg) tablet extended release See Rx Instructions .ROUTE .COMPLEX Qty: 56 12RF Dose Instruction: TAKE 1 TABLET BY MOUTH TWICE A DAY FOR ALKALINIZE URINE Rx Instructions: TAKE 1 TABLET BY MOUTH TWICE A DAY FOR ALKALINIZE URINE Jardiance 25 mg tablet See Rx Instructions .ROUTE .COMPLEX Qty: 90 4RF Dose Instruction: TAKE 1 TABLET BY MOUTH EVERY MORNING Rx Instructions: TAKE 1 TABLET BY MOUTH EVERY MORNING Trulicity 1.5 mg/0.5 mL pen injector 1.5 mg subcut QWEEK Qty: 2 12RF hydrochlorothiazide 25 mg tablet 25 mg PO QAM Qty: 90 4RF metoclopramide HCl [Reglan] 5 mg tablet 5 mg PO QAC Qty: 7 0RF Rx Instructions: administer 30 minutes before meals Discontinued polyethylene glycol 3350 17 gram/dose powder 17 g PO ONCE Qty: 238 0RF Rx Instructions: Take per colonoscopy instructions provided by ordering providers office bisacodyl [Dulcolax (bisacodyl)] 5 mg tablet,delayed release (DR/EC) 5 mg PO ONCE Qty: 4 0RF Rx Instructions: Take per colonoscopy instructions provided by ordering providers office Discharge Instructions Additional Instructions: Jose, unfortunately the quality of your bowel prep was inadequate for complete visualization during your colonoscopy. Despite several attempts to cleanse the bowel, I am not confident that I saw everything and can rule out the presence of polyps in all segments. I did see 2 abnormalities. One was in your cecum, the other was in the ascending colon. I did perform biopsies of these areas, and I will certainly let you know when I have the results of the biopsies. However, the more important part will be rescheduling you with another extended bowel prep in an effort to completely examine your large intestine. I will have my office reach out to you to work on scheduling a colonoscopy in the future. 1. If tolerated, consume a soft, low fiber diet for 1-2 days. 2[address] Do not drive, drink alcohol, operate machinery, make critical decisions, or do activities that require coordination or balance for 24 hours. 3. Because air was put into your colon during the procedure, expelling air from your rectum (passing gas or farting) is normal. 4. You may not have a bowel movement for 1-3 days because of the colonoscopy prep. This is normal. 5. Go directly to the emergency room if you notice any of the following: Develop chills (warm to touch), or if you have a thermometer and your temperature is above 101 Difficulty breathing or difficultly swallowing Persistent vomiting Severe abdominal pain, other than gas cramps Severe chest pain Black, tarry stools Any bleeding ? exceeding one tablespoon 6. Call your physician if the site where your intravenous was started becomes red, swollen, painful, and warm to touch. 7. Your physician has reviewed your pre-procedure medications. Please continue to take those medications as previously ordered. You will be given specific information/education regarding any changes to your medications before leaving. Activity:: Activity as Tolerated Diet:: As Tolerated Discharge Orders Discharge Orders: Discharge Order (Routine); Ordered 09/10/23 Ordered By: Morgan Rabago DS: Diagnosis Discharge Diagnosis (1) Screen for colon cancer: Status: Acute Asessment and Plan: I will follow-up on polypectomy results, and he will need to be rescheduled with an extended bowel prep
--- NOTE | 2023-09-10 17:08 | COLE_ITS ---
Date of service: 09/11/23 Time of Service: 14:38 Colonoscopy Report Date of procedure: 09/11/23 Pre-op diagnosis general: Screening colonoscopy Post-op diagnosis procedure note: other (Incomplete colonoscopy; polyps in the cecum and ascending colon) Procedure: Colonoscopy Surgeon: Morgan Rabago Anesthesia Type: General:No Airway Estimated blood loss (mL): 5 Pathology: other (Polyp, ascending colon mass) Complications: None Disposition: same day Indications: Jose is a 68-year-old male who needs another screening colonoscopy Prep: Miralax/Dulcolax Procedure Start Time: 13:37 Procedure End Time: 14:11 Retraction Time: 26 Findings: Incomplete colonoscopy due to inadequate bowel prep, with a [place] prep score equaling 1; cecal polyp; ascending colon mass Procedure Description: After the induction of monitored anesthetic care, and with the patient in left lateral decubitus position, I began by performing an external anorectal exam.? Perineum and skin were normal, as was the anal verge.? There was no evidence of external hemorrhoids.? Next, I performed a digital rectal exam.? I did not appreciate any abnormal findings.? Next, I advanced a colonoscope into the rectal vault.? I performed retroflexion.? This appeared normal.? Using insufflation, I then advanced the colonoscope beyond the rectal folds and into the sigmoid colon before advancing towards the cecum.? Unfortunately, the prep was inadequate, with a [place] bowel prep score equaling a total of 1.? Despite the retained solid fecal matter, I was able to navigate through the descending colon, the transverse colon, and into the ascending colon. There did appear to be a polyp adjacent to the ileocecal valve. I was not able to completely advance to this because of the large burden of solid stool within the cecum. I was able to obtain a small portion of the mass for a biopsy, but it is incompletely resected. I then began withdrawing the colonoscope. In the ascending colon was another mass. It appeared to be submucosal. The overlying mucosa appeared normal and healthy. I suspect this is just a simple lipoma. I did perform some cold forceps biopsies here. ?I continued to withdraw the colonoscope attempting my best to irrigate, and evaluate the mucosa. However, all portions of the colon contained retained solid stool that precluded complete visualization of the mucosa. Finally, the scope was withdrawn and the patient was brought to the same-day surgery recovery unit as the anesthetic wore off. ?The findings and instructions were shared with the patient prior to discharge. We will attempt another prep in the future, and reschedule him for another colonoscopy. [place] Bowel Prep [place] Bowel Prep Right Colon: 0 Left Colon: 0 Transverse Colon: 1 Total Score: 1
[2023-09-11 11:14] VITALS: BP 156/74; PULSE 68; RESP 19; TEMP 36.5; O2SAT 95
--- NOTE | 2023-09-11 13:05 | W.ANESPRE ---
General Info Date of Service Date Performed: 09/11/23 Height: 5 ft 8 in Weight: 150.1 kg Body Mass Index (BMI): 50.3 Surgical Procedure: Operation Date: 09/11/23 12:20 Proposed Procedure Side Surgeon gretchen Rabago MD Meds Allergies and Home Medications Allergies Allergy/AdvReac Type Severity Reaction Status Date / Time ciprofloxacin AdvReac Severe Other (See Verified 09/11/23 11:13 Comment) Home Medication Medication Instructions Recorded C Pap 04/08/16 albuterol sulfate 90 mcg/actuation 2 puff inhalation QID PRN 07/07/20 aerosol inhaler (ProAir HFA) bronchospasm #3 inhalations carbamazepine 200 mg 200 mg PO BID 12/28/20 tablet,extended release,12 hr metoclopramide HCl 5 mg tablet 5 mg PO QAC #7 tabs 01/03/21 (Reglan) onabotulinumtoxinA 200 unit 200 unit IM ONCE 09/13/21 solution for injection (Botox) blood-glucose meter (OneTouch #1 ea 01/24/22 Ultra2 Meter) transparent dressings 2 3/8 X 2 #20 ea 03/12/22 3/4 (Tegaderm Frame Style) blood-glucose meter,continuous #1 ea 05/22/22 (Dexcom G6 Chief Sustainability Officer) meclizine 12.5 mg tablet 12.5 mg PO TID PRN Vertigo #60 tabs 05/27/22 docusate sodium 100 mg capsule 100 mg PO BID PRN constipation #30 09/16/22 caps sennosides 8.6 mg tablet (Senokot) 8.6 mg PO DAILY PRN constipation 09/16/22 #30 tabs lisinopril 40 mg tablet 40 mg PO DAILY #90 tabs 09/18/22 galcanezumab-gnlm 120 mg/mL 120 mg subcut QMONTH 10/07/22 subcutaneous pen injector (Emgality Pen) aspirin 81 mg tablet,delayed 81 mg PO DAILY #90 tab-caps 12/13/22 release (Ecotrin Low Strength) blood-glucose transmitter (Dexcom #1 ea 12/17/22 G6 Transmitter device) amlodipine 10 mg tablet 10 mg PO DAILY #90 tabs 01/08/23 rosuvastatin 10 mg tablet 10 mg PO DAILY #90 tabs 01/08/23 blood-glucose sensor (Dexcom G6 #3 ea 02/05/23 Sensor device) insulin aspart U-100 100 unit/mL 20 unit (0.2 mL) subcut TID #15 mL 02/07/23 (3 mL) subcutaneous pen (Novolog FlexPen U-100 Insulin aspart) diltiazem HCl 240 mg 240 mg PO DAILY #90 caps 03/04/23 capsule,extended release 24 hr (Cardizem CD) metformin 1,000 mg tablet 1,000 mg PO BID #180 tab-caps 03/04/23 semaglutide 0.25 mg or 0.5 mg (2 0.25 mg (0.368 mL) subcut QWEEK #3 03/07/23 mg/3 mL) subcutaneous pen injector mL (Ozempic) insulin degludec 100 unit/mL (3 72 unit (0.72 mL) subcut DAILY #15 03/28/23 mL) subcutaneous pen (Tresiba mL FlexTouch U-100 insulin) methocarbamol 750 mg tablet 750 mg PO QID #20 tabs 03/31/23 insulin glargine U-300 conc 300 80 unit (0.2667 mL) subcut DAILY 04/16/23 unit/mL (1.5 mL) subcutaneous pen #8 SYRGS (Toujeo SoloStar U-300 Insulin) blood sugar diagnostic (OneTouch #400 ea 04/17/23 Ultra Test strips) lancets 33 gauge (BD Ultra Fine #400 ea 04/17/23 Lancets) pen needle, diabetic 32 gauge x #400 ea 04/17/23 (1st Tier Unifine Pentips) potassium citrate 10 mEq (1,080 See Rx Instructions .Route 05/19/23 mg) tablet,extended release .COMPLEX #56 tabs empagliflozin 25 mg tablet See Rx Instructions .Route 05/21/23 (Jardiance) .COMPLEX #90 tabs dulaglutide 1.5 mg/0.5 mL 1.5 mg (0.5 mL) subcut QWEEK #2 mL 07/02/23 subcutaneous pen injector (Trulicity) acetaminophen 500 mg tablet 1,000 mg PO Q8H PRN PRN 07/17/23 melatonin 10 mg capsule 10 mg PO HS PRN 07/17/23 ropinirole 1 mg tablet 1 mg PO QHS 07/17/23 hydrochlorothiazide 25 mg tablet 25 mg PO QAM #90 tabs 08/12/23 dulaglutide 1.5 mg/0.5 mL 1.5 mg (0.5 mL) subcut QWEEK #2 mL 08/29/23 subcutaneous pen injector (Trulicity) insulin lispro 100 unit/mL 20 unit (0.2 mL) subcut TID #15 mL 08/29/23 subcutaneous pen (Humalog KwikPen (U-100) Insulin) semaglutide 0.25 mg or 0.5 mg (2 0.25 mg (0.368 mL) subcut QWEEK #3 08/29/23 mg/3 mL) subcutaneous pen injector mL (Ozempic) naproxen 500 mg tablet 500 mg PO BID PRN pain #30 tabs 09/08/23 omeprazole 20 mg capsule,delayed 20 mg PO DAILY #90 caps 09/08/23 release Current Visit Medications: Current Medications Generic Name Dose Route Start Last Admin Trade Name Freq PRN Reason Stop Dose Admin Hyoscyamine Sulfate 0.125 mg 09/10/23 17:09 Hyoscyamine 0.125 Mg Sl/Oral/Chew SL 10/10/23 17:08 DIRECTED PRN Ringer's Solution 1,000 mls @ 80 mls/hr 09/11/23 06:00 IV 09/11/23 23:59 [facility] IV Miscellaneous Supplies 1 each 09/11/23 06:00 Iv Access IV 09/11/23 23:59 DIRECTED [facility] Ondansetron HCl 4 mg 09/10/23 17:09 Ondansetron 4 Mg/2 Ml Vial IVP 10/10/23 17:08 Q4H PRN PRN Nausea / Vomiting Sodium Chloride 0 ml 09/11/23 06:00 Normal Saline Flush 10 Ml Syr IV 09/11/23 23:59 PRN PRN Sodium Chloride 0 ml 09/11/23 06:00 Normal Saline 10 Ml Vial IJ 09/11/23 23:59 DIRECTED PRN Sterile Water 0 ml 09/11/23 06:00 Water,Injection,Sterile 10 Ml Vial IJ 09/11/23 23:59 DIRECTED PRN PFSH Active Problems Active Problems: Problem Status Onset Code Screen for colon cancer Z12.11 Acid reflux disease K21.9 Paresthesia and pain of both upper extremities R20.2, M79.601, M79.602 Neck pain M54.2 Pneumaturia R39.89 Type 2 diabetes mellitus E11.9 Right hip pain M25.551 Diabetic neuropathy E11.40 Tubular adenoma ~10/2020 D36.9 Arthritis of left knee M17.12 Diabetic retinopathy ~08/2019 E11.319 Trochanteric bursitis, right hip 06/15/18 M70.61 Obstructive sleep apnea syndrome G47.33 Migraine G43.909 Blindness of one eye H54.40 Medical History Medical History Cough Hydroureter Hydronephrosis Kidney stone Adrenal mass Left sided sciatica Greater trochanteric bursitis injection 02/2021 Ortho Diverticulosis Cluster headache, chronic Hyperlipidemia Trochanteric bursitis, left hip Urinary retention Nausea and vomiting after administration of anesthetic agent Sleep apnea Uses CPAP machine Asthma Left eye trauma resulting in surgery many years ago Varicose veins of lower extremity Restless legs Morbid obesity (04/26/13) Essential hypertension (08/11/13) Erectile dysfunction (10/31/14) DM (diabetes mellitus), type 2, uncontrolled titrating insulin to achieve control Dr. Mtz every 3 months for foot care CVA (cerebral vascular accident) (07/20/14) crpytogenic F/U with PCP Bilateral primary osteoarthritis of knee (03/17/17) Medical History Comments:: Pt says pain of 8 because he has a headache. Surgical History Surgical History Status post right knee replacement (09/22/18) Status post tonsillectomy History of total right knee replacement (TKR) 09/22/2018 History of ankle surgery as a child Tobacco Smoking/Tobacco Use Status: Former Tobacco Use Passive smoking exposure: Yes Second hand exposure: Yes Alcohol Alcohol Intake: never Details: denies alcohol use Substance Use Substance use: Never Substance use type: does not use Vital Signs and Lab Results Vital Signs Most Recent Vital Signs in EMR: Most Recent Vital Signs Temp Pulse Resp BP Pulse Ox 36.5 C 68 19 156/74 H 95 09/11/23 11:14 09/11/23 11:14 09/11/23 11:14 09/11/23 11:14 09/11/23 11:14 Point of Care Results Point of Care Results: Finger Stick Blood Glucose 135 09/11/23 11:28 Lab Results Blood Type / Crossmatch: No Data to Display Complete Blood Count: No Data to Display Complete Metabolic Panel: No Data to Display Liver Function Panel: No Data to Display Coagulation Panel: No Data to Display Cardiac Panel: No Data to Display Arterial Blood Gas: No Data to Display Venous Blood Gas: No Data to Display Pancreas Panel: No Data to Display Thyroid Panel: No Data to Display Infectious Disease: No Data to Display Blood Cultures: No Data to Display Toxicology Panel: No Data to Display Imaging and Studies Imaging and Studies Study information below may be from another EMR and interpreted by another provider. Please see original notes in EMR for more complete details. EKG Summary: Conclusion Sinus rhythm...normal P axis, V-rate 60- 99 Right bundle branch block...QRSd>120, terminal axis(90,270) 11/02/21 Stress Test Summary: MPI Conclusion Apical thinning versus infarction. No additional myocardial ischemia 01/04/20 Anesthesia Assessment and Plan Anesthesia History Personal History: No History of Anesthesia Complications Family History: No Family History of Anesthesia Complications Exercise Tolerance Exercise Tolerance: Metabolic Equivalents<4 Pertinent Negatives Pertinent Negatives: No Major Cardiovascular Symptoms or Complaints Cardiac & Pulmonary Exam Cardiac Exam: Normal S1/S2 Heart Sounds Pulmonary Exam: Clear Bilateral Breath Sounds Implantable Cardiac Device Does patient have a Pacemaker or an ICD?: No Airway Exam Known Difficult Airway: No Mallampati Class: 3 Mouth Opening: Normal (> 3cm) Thyromental Distance: Greater than 3 cm Neck Range of Motion: Full ROM Neck Circumference: Thick Teeth Condition: Generalized Poor Dentition ASA Classification ASA Score: ASA 3 Emergency Case?: No NPO Status NPO Status: NPO Clears >2 hours, Solids >8 hours Anesthesia Plan Resuscitation Status: Full Code Anesthesia Technique: General Anesthesia Airway Planned: Natural Airway Monitors Used: Standard Monitors
[2023-09-11] MEDS: Lactated Ringers 1,000 ML 80 ML IV (13:09)
[2023-09-11 13:11] VITALS: BMI 50.3
--- NOTE | 2023-09-11 13:44 | BOWEL_PTH ---
PATIENT: Jose Jacobo LOC: [facility] U#:[id number] AGE/SX: 68/M ROOM: RE09/11/[address]: Morgan Rabago MD : 1955 BED: DIS: 09/11/2023 SPEC #: [id number] RECD: 09/11/23 14:34 STATUS: [place] RE #: [id number] BECKY: 09/11/23 13:[address]: Morgan Rabago DEPT: Surgical Specimen RECD BY: Allison Ramirez ENTERED: 09/11/23 14:35 SP TYPE: Bowel OTHR DR: Kenton Bose DNP Tissues: 1 - BIOPSY BOWEL 2 - BIOPSY BOWEL Procedures: GROSS AND MICRO LEVEL 4 Comments: [id number]
[2023-09-11 14:22] VITALS: BP 132/76; PULSE 82; RESP 17; TEMP 36.5; O2SAT 94
[2023-09-11] MEDS: Normal Saline 10 ML VIAL IJ (14:50)
[2023-09-11] MEDS: Ketorolac 30 MG/ML VIAL IVP (14:50)
[2023-09-11 15:10] VITALS: BP 129/98; PULSE 78; RESP 17; TEMP 36.6; O2SAT 97
--- NOTE | 2023-09-11 15:36 | W.ANESPOSTOP ---
Postoperative Evaluation Date, Time and Location Date Performed: 09/11/23 Time Performed: 14:52 Patient Location: Day Surgery Unit Vital Signs Most Recent Imported Vital Signs: Most Recent Vital Signs Temp Pulse Resp BP Pulse Ox 36.6 C 78 17 129/98 H 97 09/11/23 15:10 09/11/23 15:10 09/11/23 15:10 09/11/23 15:10 09/11/23 15:10 Pain Score Most Recent Pain Score: Most Recent Pain Score Pain Level 8 09/11/23 15:10 Assessment Mental Status: Awake (Alert & Oriented to Patient Baseline) Airway and Respiratory Function: Patent airway with normal (patient baseline) respiratory exam Cardiovascular Function: Hemodynamically Stable Hydration Status: Adequately Hydrated Nausea & Vomiting: No Nausea or Vomiting Pain: Pain is tolerable per patient Peripheral Nerve Block: Patient did not receive a nerve block
== END 2023-09-11 15:20 | disposition home or self-care (01) ==
PROVIDERS: PCP Nurse Practitioner Family; Visit Provider Surgery
PROC: 0DJD8ZZ Inspection of Lower Intestinal Tract, Via Natural or Artificial Opening Endoscopic (ICD-10-PCS; CPT 45378; principal; 2023-09-11 12:15)
DX: Z12.11 Encounter for screening for malignant neoplasm of colon (principal); K21.9 Gastro-esophageal reflux disease without esophagitis; D12.0 Benign neoplasm of cecum; G47.33 Obstructive sleep apnea (adult) (pediatric); K63.89 Other specified diseases of intestine
CPT/HCPCS: 45380; 88305; J1885; J2704

== ENCOUNTER 2023-09-15 11:02 | Day surgery (SDC) | payer MEDICARE, MEDICAID, SELFPAY ==
--- NOTE | 2023-09-14 18:57 | W.PM.DSUDISC ---
Date of service: 09/15/23 Time of Service: 14:25 Discharge Plan Disposition Patient Disposition: Home Condition: Good Discharge Details Reason For Visit: screening colonoscopy Attending Provider: Morgan Rabago Primary Care Provider: Kenton Pitts Home Meds and New Rx's Prescriptions: Continued albuterol sulfate [ProAir HFA] 90 mcg/actuation HFA aerosol inhaler 2 puff Inhalation QID PRN (Reason: bronchospasm) Qty: 3 0RF Botox 200 unit recon soln 200 unit IM ONCE Rx Instructions: M1ODOTFT methylprednisolone acetate [Depo-Medrol] 40 mg/mL suspension 40 mg intra-articular ONCE Qty: 1 0RF Emgality Pen 120 mg/mL pen injector 120 mg subcut QMONTH Ozempic 0.25 mg or 0.5 mg (2 mg/3 mL) pen injector 0.25 mg subcut QWEEK Qty: 3 0RF Rx Instructions: for 4 weeks carbamazepine 200 mg tablet extended release 12 hr 200 mg PO BID methocarbamol 750 mg tablet 750 mg PO QID Qty: 20 0RF Rx Instructions: treatment failure with cyclobenzaprine omeprazole 20 mg capsule,delayed release(DR/EC) 20 mg PO DAILY Qty: 90 0RF Patient Comments: pt states this is as needed naproxen 500 mg tablet 500 mg PO BID PRN (Reason: pain) Qty: 30 3RF Hold Instructions: Home Medication placed on hold at Doctor's office acetaminophen 500 mg tablet 1,000 mg PO Q8H PRN PRN ropinirole 1 mg tablet 1 mg PO QHS Rx Instructions: administer 1-3 hours before bedtime melatonin 10 mg capsule 10 mg PO HS PRN insulin lispro [Humalog KwikPen Insulin] 100 unit/mL insulin pen 20 unit subcut TID MDD 20 units TID, use ICR Qty: 15 4RF Rx Instructions: Inject 10-20 units subcutaneously with meals Ozempic 0.25 mg or 0.5 mg (2 mg/3 mL) pen injector 0.25 mg subcut QWEEK MDD 0.5 mg Qty: 3 3RF Rx Instructions: Inject 0.25 mg subcutaneously once weekly for 4 weeks, then 0.5 mg as tolerated Trulicity 1.5 mg/0.5 mL pen injector 1.5 mg subcut QWEEK MDD 1.5 mg Qty: 2 2RF Rx Instructions: Inject 1.5 mg subcutaneously once weekly C PAP (DME) blood-glucose meter [OneTouch Ultra2 Meter] Misc See Rx Instructions .Route Qty: 1 0RF Rx Instructions: once daily (DME) transparent dressings [Tegaderm Frame Style] 2 3/8 X 2 3/4 bandage See Rx Instructions .Route Qty: 20 11RF Rx Instructions: Use to hold continuous glucose monitor in place (DME) Dexcom G6 General Technician Misc See Rx Instructions .ROUTE .COMPLEX Qty: 1 0RF Dose Instruction: 4 TIMES DAILY CHECKS Rx Instructions: 4 TIMES DAILY CHECKS meclizine 12.5 mg tablet 12.5 mg PO TID PRN (Reason: Vertigo) Qty: 60 3RF docusate sodium 100 mg capsule 100 mg PO BID PRN (Reason: constipation) Qty: 30 0RF sennosides [Senokot] 8.6 mg tablet 8.6 mg PO DAILY PRN (Reason: constipation) Qty: 30 0RF lisinopril 40 mg tablet 40 mg PO DAILY Qty: 90 3RF aspirin [Ecotrin Low Strength] 81 mg tablet,delayed release (DR/EC) 81 mg PO DAILY Qty: 90 3RF (DME) Dexcom G6 Transmitter Device See Rx Instructions .ROUTE .COMPLEX Qty: 1 0RF Dose Instruction: DIRECTED Rx Instructions: DIRECTED amlodipine 10 mg tablet 10 mg PO DAILY Qty: 90 4RF rosuvastatin 10 mg tablet 10 mg PO DAILY Qty: 90 4RF Hold Instructions: Changed by Provider (DME) Dexcom G6 Sensor Device See Rx Instructions .ROUTE .COMPLEX Qty: 3 0RF Dose Instruction: FOR DIABETES; DIRECTED Rx Instructions: FOR DIABETES; DIRECTED insulin aspart U-100 [Novolog FlexPen U-100 Insulin] 100 unit/mL (3 mL) insulin pen 20 unit subcut TID Qty: 15 0RF Rx Instructions: inject up to 20 units TID per sliding scale instructions diltiazem HCl [Cardizem CD] 240 mg capsule,extended release 24hr 240 mg PO DAILY Qty: 90 3RF metformin 1,000 mg tablet 1,000 mg PO BID Qty: 180 3RF insulin degludec [Tresiba FlexTouch U-100] 100 unit/mL (3 mL) insulin pen 72 unit subcut DAILY MDD 80units Qty: 15 12RF Patient Comments: PT. STATES HE DOES NOT THINK HE IS TAKING (DME) lancets [BD Ultra Fine Lancets] 33 gauge misc See Rx Instructions .ROUTE .MEDSUPPLY Qty: 400 3RF Rx Instructions: Check blood sugar four times daily (DME) OneTouch Ultra Test Strip See Rx Instructions .Route Qty: 400 3RF Rx Instructions: Check blood sugar four times daily (DME) pen needle, diabetic [1st Tier Unifine Pentips] 32 gauge x 5/32 needle See Rx Instructions .ROUTE .MEDSUPPLY Qty: 400 3RF Rx Instructions: Check blood sugar four times daily potassium citrate 10 mEq (1,080 mg) tablet extended release See Rx Instructions .ROUTE .COMPLEX Qty: 56 12RF Dose Instruction: TAKE 1 TABLET BY MOUTH TWICE A DAY FOR ALKALINIZE URINE Rx Instructions: TAKE 1 TABLET BY MOUTH TWICE A DAY FOR ALKALINIZE URINE Jardiance 25 mg tablet See Rx Instructions .ROUTE .COMPLEX Qty: 90 4RF Dose Instruction: TAKE 1 TABLET BY MOUTH EVERY MORNING Rx Instructions: TAKE 1 TABLET BY MOUTH EVERY MORNING Trulicity 1.5 mg/0.5 mL pen injector 1.5 mg subcut QWEEK Qty: 2 12RF hydrochlorothiazide 25 mg tablet 25 mg PO QAM Qty: 90 4RF metoclopramide HCl [Reglan] 5 mg tablet 5 mg PO QAC Qty: 7 0RF Rx Instructions: administer 30 minutes before meals Toujeo SoloStar U-300 Insulin 300 unit/mL (1.5 mL) insulin pen 80 unit subcut HS Patient Comments: PT. DID NOT TAKE ANY GLARGINE LAST NIGHT BECAUSE HIS bS WAS 90 Discontinued peg-electrolyte soln 420 gram recon soln 240 ml PO Q10M Qty: 4000 0RF Rx Instructions: follow colonoscopy instructions until fecal effluent is clear bisacodyl [Dulcolax (bisacodyl)] 5 mg tablet,delayed release (DR/EC) 5 mg PO ONCE Qty: 4 0RF Rx Instructions: Take per colonoscopy instructions provided by ordering providers office Discharge Instructions Additional Instructions: Jose, we were able to complete your colonoscopy today. Your prep was markedly better than when we attempted last week. I did find 4 more polyps that I removed completely. I was also able to see the area in your cecum that I was worried about much better than on her previous attempt. In your cecum, which is the first part of your large intestine, there is a large mass of polyps, typically described as a polypoid lesion. I was able to obtain a large specimen of this to test regarding its pathology. However, regardless of the pathology, because I am not able to completely remove it with the colonoscope, you will need more treatment for this area. I think that the best option is removal of this portion of your large intestine. Given your other medical conditions, I think the safest plan of action is referral down to [facility] for their opinion regarding treatment options. Therefore, I will place a consultation with the colorectal surgeons there. Just like last week, I will send everything that I removed off to the pathologist for complete analysis. Once I have that information I will be in touch, I will also be sure to provide your records down to [facility] to help facilitate timely treatment with them. 1. If tolerated, consume a soft, low fiber diet for 1-2 days. [address] Do not drive, drink alcohol, operate machinery, make critical decisions, or do activities that require coordination or balance for 24 hours. 3. Because air was put into your colon during the procedure, expelling air from your rectum (passing gas or farting) is normal. 4. You may not have a bowel movement for 1-3 days because of the colonoscopy prep. This is normal. 5. Go directly to the emergency room if you notice any of the following: Develop chills (warm to touch), or if you have a thermometer and your temperature is above 101 Difficulty breathing or difficultly swallowing Persistent vomiting Severe abdominal pain, other than gas cramps Severe chest pain Black, tarry stools Any bleeding ? exceeding one tablespoon 6. Call your physician if the site where your intravenous was started becomes red, swollen, painful, and warm to touch. 7. Your physician has reviewed your pre-procedure medications. Please continue to take those medications as previously ordered. You will be given specific information/education regarding any changes to your medications before leaving. Activity:: Activity as Tolerated Diet:: As Tolerated Discharge Orders Discharge Orders: Discharge Order (Routine); Ordered 09/14/23 Ordered By: Morgan Rabago DS: Diagnosis Discharge Diagnosis (1) Encounter for screening colonoscopy: Status: Acute Asessment and Plan: Follow-up on pathology results; refer to [facility] as I suspect he will need a right hemicolectomy
--- NOTE | 2023-09-14 19:06 | W.COLOREPORT ---
Date of service: 09/15/23 Time of Service: 14:28 Colonoscopy Report Date of procedure: 09/15/23 Pre-op diagnosis general: screening colonoscopy Post-op diagnosis procedure note: other (Diverticulosis, colon and rectal polyps, cecal mass) Procedure: Colonoscopy with polypectomy and biopsies Surgeon: Morgan Rabago Anesthesia Type: General:No Airway Estimated blood loss (mL): 10 Pathology: other (0.25 cm rectal polyp, ascending colon polyps, polypoid mass in the cecum, 0.75 cm hepatic flexure polyp, 0.25 cm hepatic flexure polyp, 0.75 cm ascending colon polyp, 0.25 cm polyp at 90 cm from the anus) Complications: None Disposition: same day Indications: Jose is an 68-year-old man with previous history of adenomatous polyps, who was undergoing screening colonoscopy 4 days ago. However, the prep was inadequate. Therefore, we are repeating colonoscopy today. Prep: NuLYTELY Procedure Start Time: 13:01 Procedure End Time: 14:00 Retraction Time: 23 Findings: Diverticulosis,0.25 cm rectal polyp, ascending colon polyps, polypoid mass in the cecum, 0.75 cm hepatic flexure polyp, 0.25 cm hepatic flexure polyp, 0.75 cm ascending colon polyp, 0.25 cm polyp at 90 cm from the anus Procedure Description: After the induction of general anesthesia with a natural airway, with the patient in left lateral decubitus position, I began by performing an external anorectal exam.? This was normal. Next, I introduced the colonoscope into the rectal vault. Towards the upper portion was a 0.25 cm rectal polyp which was removed with cold forceps. There was minimal bleeding. Next, I advanced the camera through the sigmoid colon into the descending colon. Again seen was sigmoid diverticulosis. The camera was advanced up and across the transverse colon to the area of the hepatic flexure. Within the hepatic flexure were 2 polyps. 1 was 0.25 cm and sessile. The other was about 0.75 cm, with slight elevation around the surrounding mucosa. The smaller of the 2 was removed with cold forceps, and the larger polyp was removed with energized snare polypectomy. There was minimal bleeding here. The camera was then advanced into the ascending colon. Again seen was a smooth, submucosal lesion with some mild mucosal ulceration, that seems consistent with the previous biopsy. I did perform more biopsies of the overlying mucosa. Again, clinically, this appears most consistent with a lipoma separate from this was another 0.75 cm sessile polyp. This was also removed with energized snare polypectomy and minimal bleeding. I then continued to advance towards the cecum. The patient was repositioned onto his backside, with multiple assistance applying abdominal pressure to help advance the scope. Again we had quite a bit of difficulty getting into the true cecum. Patient was moved back to the left lateral decubitus position once again, and with great care, I was able to advance into the cecum. The appendix was visualized. Along the ileocecal valve, slightly opposite it was a polypoid mass that I would estimate greater than 3 cm x 4 cm in its largest dimensions. Not able to remove this colonoscopically. I did used energized snare polypectomy to obtain a healthy specimen to help with tissue diagnosis, however, this lesion is incompletely resected. There was a small area of irritation along the ileocecal valve that I suspect was from my previous attempted biopsies of this mass. There was no active bleeding. Next, I began retracting the colonoscope along the length of the colon. I did find 1 another 0.25 cm polyp around 90 cm from the anus. This was removed with cold forceps without any difficulty. The remainder of the colonoscopy was normal aside from what is previously mentioned here. [place] Bowel Prep [place] Bowel Prep Right Colon: 1 Left Colon: 2 Transverse Colon: 2 Total Score: 5
[2023-09-15 12:08] VITALS: BP 143/76; PULSE 73; RESP 18; TEMP 36.6; O2SAT 96
--- NOTE | 2023-09-15 12:28 | W.ANESPRE ---
General Info Date of Service Date Performed: 09/15/23 Height: 5 ft 8 in Weight: 149.3 kg Body Mass Index (BMI): 50.0 Surgical Procedure: Operation Date: 09/15/23 12:50 Proposed Procedure Side Surgeon gretchen Rabago MD Meds Allergies and Home Medications Allergies Allergy/AdvReac Type Severity Reaction Status Date / Time ciprofloxacin AdvReac Severe Other (See Verified 09/15/23 11:56 Comment) Home Medication Medication Instructions Recorded C Pap 04/08/16 albuterol sulfate 90 mcg/actuation 2 puff inhalation QID PRN 07/07/20 aerosol inhaler (ProAir HFA) bronchospasm #3 inhalations carbamazepine 200 mg 200 mg PO BID 12/28/20 tablet,extended release,12 hr metoclopramide HCl 5 mg tablet 5 mg PO QAC #7 tabs 01/03/21 (Reglan) onabotulinumtoxinA 200 unit 200 unit IM ONCE 09/13/21 solution for injection (Botox) blood-glucose meter (OneTouch #1 ea 01/24/22 Ultra2 Meter) transparent dressings 2 3/8 X 2 #20 ea 03/12/22 3/4 (Tegaderm Frame Style) blood-glucose meter,continuous #1 ea 05/22/22 (Dexcom G6 Daycare Manager) meclizine 12.5 mg tablet 12.5 mg PO TID PRN Vertigo #60 tabs 05/27/22 docusate sodium 100 mg capsule 100 mg PO BID PRN constipation #30 09/16/22 caps sennosides 8.6 mg tablet (Senokot) 8.6 mg PO DAILY PRN constipation 09/16/22 #30 tabs lisinopril 40 mg tablet 40 mg PO DAILY #90 tabs 09/18/22 galcanezumab-gnlm 120 mg/mL 120 mg subcut QMONTH 10/07/22 subcutaneous pen injector (Emgality Pen) aspirin 81 mg tablet,delayed 81 mg PO DAILY #90 tab-caps 12/13/22 release (Ecotrin Low Strength) blood-glucose transmitter (Dexcom #1 ea 12/17/22 G6 Transmitter device) amlodipine 10 mg tablet 10 mg PO DAILY #90 tabs 01/08/23 rosuvastatin 10 mg tablet 10 mg PO DAILY #90 tabs 01/08/23 blood-glucose sensor (Dexcom G6 #3 ea 02/05/23 Sensor device) insulin aspart U-100 100 unit/mL 20 unit (0.2 mL) subcut TID #15 mL 02/07/23 (3 mL) subcutaneous pen (Novolog FlexPen U-100 Insulin aspart) diltiazem HCl 240 mg 240 mg PO DAILY #90 caps 03/04/23 capsule,extended release 24 hr (Cardizem CD) metformin 1,000 mg tablet 1,000 mg PO BID #180 tab-caps 03/04/23 semaglutide 0.25 mg or 0.5 mg (2 0.25 mg (0.368 mL) subcut QWEEK #3 03/07/23 mg/3 mL) subcutaneous pen injector mL (Ozempic) insulin degludec 100 unit/mL (3 72 unit (0.72 mL) subcut DAILY #15 03/28/23 mL) subcutaneous pen (Tresiba mL FlexTouch U-100 insulin) methocarbamol 750 mg tablet 750 mg PO QID #20 tabs 03/31/23 blood sugar diagnostic (OneTouch #400 ea 04/17/23 Ultra Test strips) lancets 33 gauge (BD Ultra Fine #400 ea 04/17/23 Lancets) pen needle, diabetic 32 gauge x #400 ea 04/17/23 (1st Tier Unifine Pentips) potassium citrate 10 mEq (1,080 See Rx Instructions .Route 05/19/23 mg) tablet,extended release .COMPLEX #56 tabs empagliflozin 25 mg tablet See Rx Instructions .Route 05/21/23 (Jardiance) .COMPLEX #90 tabs dulaglutide 1.5 mg/0.5 mL 1.5 mg (0.5 mL) subcut QWEEK #2 mL 07/02/23 subcutaneous pen [facility]or ([facility]) acetaminophen 500 mg tablet 1,000 mg PO Q8H PRN PRN 07/17/23 melatonin 10 mg capsule 10 mg PO HS PRN 07/17/23 ropinirole 1 mg tablet 1 mg PO QHS 07/17/23 hydrochlorothiazide 25 mg tablet 25 mg PO QAM #90 tabs 08/12/23 dulaglutide 1.5 mg/0.5 mL 1.5 mg (0.5 mL) subcut QWEEK #2 mL 08/29/23 subcutaneous pen injector (Trulicity) insulin lispro 100 unit/mL 20 unit (0.2 mL) subcut TID #15 mL 08/29/23 subcutaneous pen (Humalog KwikPen (U-100) Insulin) semaglutide 0.25 mg or 0.5 mg (2 0.25 mg (0.368 mL) subcut QWEEK #3 08/29/23 mg/3 mL) subcutaneous pen injector mL (Ozempic) naproxen 500 mg tablet 500 mg PO BID PRN pain #30 tabs 09/08/23 omeprazole 20 mg capsule,delayed 20 mg PO DAILY #90 caps 09/08/23 release insulin glargine U-300 conc 300 80 unit subcut HS 09/12/23 unit/mL (1.5 mL) subcutaneous pen (Toujeo SoloStar U-300 Insulin) Current Visit Medications: Current Medications Generic Name Dose Route Start Last Admin Trade Name Freq PRN Reason Stop Dose Admin Hyoscyamine Sulfate 0.125 mg 09/14/23 19:07 Hyoscyamine 0.125 Mg Sl/Oral/Chew SL 10/14/23 19:06 DIRECTED PRN Ringer's Solution 1,000 mls @ 80 mls/hr 09/15/23 06:00 IV 10/12/23 23:59 INFUSION [facility] IV Miscellaneous Supplies 1 each 09/15/23 06:00 Iv Access IV 10/12/23 23:59 DIRECTED ZHEN Ondansetron HCl 4 mg 09/14/23 19:07 Ondansetron 4 Mg/2 Ml Vial IVP 10/14/23 19:06 Q4H PRN PRN Nausea / Vomiting Sodium Chloride 0 ml 09/15/23 06:00 Normal Saline Flush 10 Ml Syr IV 10/12/23 23:59 PRN PRN Sodium Chloride 0 ml 09/15/23 06:00 Normal Saline 10 Ml Vial IJ 10/12/23 23:59 DIRECTED PRN Sterile Water 0 ml 09/15/23 06:00 Water,Injection,Sterile 10 Ml Vial IJ 10/12/23 23:59 DIRECTED PRN PFSH Active Problems Active Problems: Problem Status Onset Code Encounter for screening colonoscopy Z12.11 Screen for colon cancer Z12.11 Acid reflux disease K21.9 Paresthesia and pain of both upper extremities R20.2, M79.601, M79.602 Neck pain M54.2 Pneumaturia R39.89 Type 2 diabetes mellitus E11.9 Right hip pain M25.551 Diabetic neuropathy E11.40 Tubular adenoma ~10/2020 D36.9 Arthritis of left knee M17.12 Diabetic retinopathy ~08/2019 E11.319 Trochanteric bursitis, right hip 06/15/18 M70.61 Obstructive sleep apnea syndrome G47.33 Migraine G43.909 Blindness of one eye H54.40 Medical History Medical History Cough Hydroureter Hydronephrosis Kidney stone Adrenal mass Left sided sciatica Greater trochanteric bursitis injection 02/2021 Ortho Diverticulosis Cluster headache, chronic Hyperlipidemia Trochanteric bursitis, left hip Urinary retention Nausea and vomiting after administration of anesthetic agent Sleep apnea Uses CPAP machine Asthma Left eye trauma resulting in surgery many years ago Varicose veins of lower extremity Restless legs Morbid obesity (04/26/13) Essential hypertension (08/11/13) Erectile dysfunction (10/31/14) DM (diabetes mellitus), type 2, uncontrolled titrating insulin to achieve control Dr. Mtz every 3 months for foot care CVA (cerebral vascular accident) (07/20/14) crpytogenic F/U with PCP Bilateral primary osteoarthritis of knee (03/17/17) Surgical History Surgical History History of colonoscopy (~08/2023) Poor prep needed to have it done again Status post right knee replacement (09/22/18) Status post tonsillectomy History of total right knee replacement (TKR) 09/22/2018 History of ankle surgery as a child Tobacco Smoking/Tobacco Use Status: Former Tobacco Use Passive smoking exposure: Yes Second hand exposure: Yes Alcohol Alcohol Intake: never Details: denies alcohol use Substance Use Substance use: Never Substance use type: does not use Vital Signs and Lab Results Vital Signs Most Recent Vital Signs in EMR: Most Recent Vital Signs Temp Pulse Resp BP Pulse Ox 36.6 C 73 18 143/76 H 96 09/15/23 12:08 09/15/23 12:08 09/15/23 12:08 09/15/23 12:08 09/15/23 12:08 Lab Results Blood Type / Crossmatch: No Data to Display Complete Blood Count: No Data to Display Complete Metabolic Panel: No Data to Display Liver Function Panel: No Data to Display Coagulation Panel: No Data to Display Cardiac Panel: No Data to Display Arterial Blood Gas: No Data to Display Venous Blood Gas: No Data to Display Pancreas Panel: No Data to Display Thyroid Panel: No Data to Display Infectious Disease: No Data to Display Blood Cultures: No Data to Display Toxicology Panel: No Data to Display Imaging and Studies Imaging and Studies Study information below may be from another EMR and interpreted by another provider. Please see original notes in EMR for more complete details. EKG Summary: Conclusion Sinus rhythm...normal P axis, V-rate 60- 99 Right bundle branch block...QRSd>120, terminal axis(90,270) 11/02/21 Stress Test Summary: MPI Conclusion Apical thinning versus infarction. No additional myocardial ischemia 01/04/20 Anesthesia Assessment and Plan Anesthesia History Personal History: No History of Anesthesia Complications Family History: No Family History of Anesthesia Complications Exercise Tolerance Exercise Tolerance: Metabolic Equivalents<4 Pertinent Negatives Pertinent Negatives: No Major Cardiovascular Symptoms or Complaints Cardiac & Pulmonary Exam Cardiac Exam: Normal S1/S2 Heart Sounds Pulmonary Exam: Clear Bilateral Breath Sounds Implantable Cardiac Device Does patient have a Pacemaker or an ICD?: No Airway Exam Known Difficult Airway: No Mallampati Class: 3 Mouth Opening: Normal (> 3cm) Thyromental Distance: Greater than 3 cm Neck Range of Motion: Full ROM Neck Circumference: Thick Teeth Condition: Generalized Poor Dentition ASA Classification ASA Score: ASA 3 Emergency Case?: No NPO Status NPO Status: NPO Clears >2 hours, Solids >8 hours Anesthesia Plan Resuscitation Status: Full Code Anesthesia Technique: General Anesthesia Airway Planned: Natural Airway Monitors Used: Standard Monitors
[2023-09-15] MEDS: Lactated Ringers 1,000 ML 80 ML IV (12:45)
[2023-09-15 12:51] VITALS: BMI 50.0
--- NOTE | 2023-09-15 13:02 | BOWEL_PTH ---
PATIENT: Jose Jacobo LOC: [facility] U#:[id number] AGE/SX: 68/M ROOM: RE09/15/[address]: Morgan Rabago MD : 1955 BED: DIS: 09/15/2023 SPEC #: [id number] RECD: 09/15/23 17:51 STATUS: [place] RE #: [id number] BECKY: 09/15/23 13:[address]: Morgan Rabago DEPT: Surgical Specimen RECD BY: Allison Ramirez ENTERED: 09/15/23 17:53 SP TYPE: Bowel OTHR DR: Kenton Bose DNP Tissues: 1 - BIOPSY BOWEL 2 - BIOPSY BOWEL 3 - BIOPSY BOWEL 4 - BIOPSY BOWEL 5 - BIOPSY BOWEL Procedures: GROSS AND MICRO LEVEL 4 Comments: [id number]
[2023-09-15 14:10] VITALS: BP 119/73; PULSE 73; RESP 18; TEMP 36.5; O2SAT 95
--- NOTE | 2023-09-15 14:28 | W.ANESPOSTOP ---
Postoperative Evaluation Date, Time and Location Date Performed: 09/15/23 Time Performed: 14:10 Patient Location: Day Surgery Unit Vital Signs Most Recent Imported Vital Signs: Most Recent Vital Signs Temp Pulse Resp BP Pulse Ox 36.5 C 73 18 119/73 95 09/15/23 14:10 09/15/23 14:10 09/15/23 14:10 09/15/23 14:10 09/15/23 14:10 Pain Score Most Recent Pain Score: Most Recent Pain Score Pain Level 0 09/15/23 14:10 Assessment Mental Status: Awake (Alert & Oriented to Patient Baseline) Airway and Respiratory Function: Patent airway with normal (patient baseline) respiratory exam Cardiovascular Function: Hemodynamically Stable Hydration Status: Adequately Hydrated Nausea & Vomiting: No Nausea or Vomiting Pain: Pt. Denies Any Pain Peripheral Nerve Block: Patient did not receive a nerve block
[2023-09-15 14:40] VITALS: BP 145/76; PULSE 73; RESP 14; TEMP 36.5; O2SAT 94
== END 2023-09-15 16:03 | disposition home or self-care (01) ==
LOC: SUR 11:03
PROVIDERS: PCP Nurse Practitioner Family; Visit Provider Surgery
PROC: 0DJD8ZZ Inspection of Lower Intestinal Tract, Via Natural or Artificial Opening Endoscopic (ICD-10-PCS; CPT 45378; principal; 2023-09-15 12:45)
DX: Z12.11 Encounter for screening for malignant neoplasm of colon (principal); Z86.010 Personal history of colon polyps; D12.3 Benign neoplasm of transverse colon; K57.30 Diverticulosis of large intestine without perforation or abscess without bleeding; K21.9 Gastro-esophageal reflux disease without esophagitis; G47.33 Obstructive sleep apnea (adult) (pediatric); D12.2 Benign neoplasm of ascending colon; D37.4 Neoplasm of uncertain behavior of colon
CPT/HCPCS: 45385; 45380; 88305; J2704

== ENCOUNTER → 2023-09-16 01:25 | Outpatient (CLI) | payer MEDICARE, MEDICAID, SELFPAY ==
--- NOTE | 2023-09-16 07:30 | DI.RAD_ITS ---
Exam(s) XR CERVICAL SP COMP W FLEX/EXT EXAM: XR CERVICAL SP COMP W FLEX/EXT CLINICAL HISTORY: increasing in severity and frequency NECK PAIN, PARESTHESIA/PAIN UPPER EXT. TECHNIQUE: 2D digital imaging was performed. Six images were obtained. AP, odontoid, lateral and archie ateral oblique images were obtained. COMPARISON: CR CERV SP.WITH OBL OR FLEX/EXT from 12/16/2012 FINDINGS: The odontoid is intact. The lateral masses are well aligned. There is normal alignment of the cervi patience spine. There is disc space narrowing at C5-6 and C6-C7. Endplate osteophytes are seen at C5-C6 a nd C6-C7. There are degenerative changes of the facets at multiple levels. No acute fracture or sub luxation is present. There is [id number] neural foraminal narrowing at C5-6 and C6-7 on the rig ht. There is mild neural foraminal narrowing on the left at C5-6 and C6-C7. The cervical thoracic ju nction is well maintained. The prevertebral soft tissues are unremarkable. Lung apices are clear. IMPRESSION: Moderate degenerative changes in the cervical spine resulting in bilateral neural foraminal stenosis seen at C5-6 and C6-C7. DATA REPOSITORY: RADIATION DOSE DELIVERED:
== END ==
PROVIDERS: PCP Nurse Practitioner Family; Visit Provider Family Medicine
DX: M48.02 Spinal stenosis, cervical region (principal)
CPT/HCPCS: 72052

== ENCOUNTER 2023-11-06 13:53 | Outpatient (CLI) | payer MEDICARE, SELFPAY ==
--- NOTE | 2023-11-06 13:30 | DI.RAD_ITS ---
Exam(s) XR HIP RT COMPLETE AP PELVIS EXAM: XR HIP RT COMPLETE AP PELVIS CLINICAL HISTORY: TROCHANTERIC BURSITIS RIGHT HIP. TECHNIQUE: 2D digital imaging was performed of the right hip. Two images were obtained. AP pelvis a nd lateral right hip views were obtained. COMPARISON: CR BILATERAL HIPS ADULT from 11/29/2016 FINDINGS: BONES: No acute fracture is present. No bony destructive lesion is seen. JOINTS: No dislocation present. There is axial joint space narrowing of the right hip. Mild acetabul ar spurring is present. Degenerative changes are seen in the sacroiliac joints, right greater than l eft. SOFT TISSUE: Soft tissue calcification is seen adjacent to the greater trochanter which may represent calcific tendinitis. Atherosclerosis. IMPRESSION: 1. Calcific tendinitis at the greater trochanter. 2. Mild right hip arthrosis. DATA REPOSITORY: RADIATION DOSE DELIVERED:
== END 2023-11-06 13:54 | disposition home or self-care (01) ==
LOC: DIORS 13:53
PROVIDERS: PCP Nurse Practitioner Family; Referring Provider Nurse Practitioner Family
DX: M70.61 Trochanteric bursitis, right hip (principal); M25.851 Other specified joint disorders, right hip
CPT/HCPCS: 20610; 73502; J1040

== ENCOUNTER 2024-03-19 05:42 | Outpatient (CLI) | payer MEDICARE, SELFPAY ==
[2024-03-24 16:37] LABS: Apolipoprotein B, Serum 133 mg/dL; Beta VLDL Cholesterol Not Detected mg/dL (<15); Beta VLDL Triglycerides Not Detected mg/dL (<15); Cholesterol, Total, CDC 221 mg/dL; Chylomicron Cholesterol 2 mg/dL; Chylomicron Triglycerides 45 mg/dL; HDL Cholesterol, CDC 30 mg/dL (>=40); LDL Cholesterol 148 mg/dL; LDL Triglycerides 59 mg/dL (<=50); Lp(a) Cholesterol <5 mg/dL (<5); LpX Not detected; Triglycerides, CDC 236 mg/dL; VLDL Cholesterol 41 mg/dL (<30); VLDL Triglycerides 112 mg/dL (<120)
== END 2024-03-19 05:43 | disposition home or self-care (01) ==
LOC: LOS 05:42
PROVIDERS: PCP Nurse Practitioner Family; Visit Provider Nurse Practitioner Family
DX: E11.69 Type 2 diabetes mellitus with other specified complication (principal); E78.2 Mixed hyperlipidemia
CPT/HCPCS: 36415; 80061; 82172; 82664

== ENCOUNTER → 2024-06-09 12:58 | Outpatient (BNVA) | payer MEDICARE, SELFPAY | PROVIDERS: PCP Nurse Practitioner Family; Referring Provider Nurse Practitioner Family; Visit Provider Nurse Practitioner Gerontology | DX: R10.32 Left lower quadrant pain (principal); N20.1 Calculus of ureter | CPT/HCPCS: 96372; 99215; J1885 ==

== ENCOUNTER → 2024-06-10 12:31 | Outpatient (BNVA) | payer MEDICARE, SELFPAY | PROVIDERS: PCP Nurse Practitioner Family; Referring Provider Nurse Practitioner Family; Visit Provider Nurse Practitioner Adult Health | DX: G43.711 Chronic migraine without aura, intractable, with status migrainosus (principal) | CPT/HCPCS: 99215; G2212 ==

== ENCOUNTER 2024-06-14 07:59 | Day surgery (SDC) | payer MEDICARE, SELFPAY ==
[2024-06-14 08:29] VITALS: BP 143/74; PULSE 65; RESP 18; TEMP 36.6; O2SAT 94
--- NOTE | 2024-06-14 09:27 | ANES.PREOP_ITS ---
General Info Date of Service Date Performed: 06/14/24 Height: 5 ft 8.11 in Weight: 145 kg Body Mass Index (BMI): 48.4 Surgical Procedure: Operation Date: 06/14/24 09:55 Proposed Procedure Side Surgeon p Cystoscopy/Retrograde/Ureteroscopy/Stone Manipulation Left Eddie Pinon MD Meds Allergies and Home Medications Allergies Allergy/AdvReac Type Severity Reaction Status Date / Time ciprofloxacin AdvReac Severe Other (See Verified 06/14/24 08:22 Comment) Home Medication ?Medication ?Instructions ?Recorded C Pap 04/08/16 carbamazepine 200 mg 200 mg PO BID 12/28/20 tablet,extended release,12 hr metoclopramide HCl 5 mg tablet 5 mg PO QAC #7 tabs 01/03/21 (Reglan) onabotulinumtoxinA 200 unit 200 unit IM ONCE 09/13/21 solution for injection (Botox) blood-glucose meter (OneTouch #1 ea 01/24/22 Ultra2 Meter) transparent dressings 2 3/8 X 2 #20 ea 03/12/22 3/4 (Tegaderm Frame Style) meclizine 12.5 mg tablet 12.5 mg PO TID PRN Vertigo #60 tabs 05/27/22 docusate sodium 100 mg capsule 100 mg PO BID PRN constipation #30 09/16/22 caps sennosides 8.6 mg tablet (Senokot) 8.6 mg PO DAILY PRN constipation 09/16/22 #30 tabs insulin aspart U-100 100 unit/mL 20 unit (0.2 mL) subcut TID #15 mL 02/07/23 (3 mL) subcutaneous pen (Novolog FlexPen U-100 Insulin aspart) methocarbamol 750 mg tablet 750 mg PO QID #20 tabs 03/31/23 blood sugar diagnostic (OneTouch #400 ea 04/17/23 Ultra Test strips) lancets 33 gauge (BD Ultra Fine #400 ea 04/17/23 Lancets) pen needle, diabetic 32 gauge x #400 ea 04/17/2332 (1st Tier Unifine Pentips) acetaminophen 500 mg tablet 1,000 mg PO Q8H PRN PRN 07/17/23 ropinirole 1 mg tablet 1 mg PO QHS 07/17/23 hydrochlorothiazide 25 mg tablet 25 mg PO QAM #90 tabs 08/12/23 insulin glargine U-300 conc 300 80 unit (0.2667 mL) subcut HS #3 10/06/23 unit/mL (1.5 mL) subcutaneous pen SYRGS (Toujeo SoloStar U-300 Insulin) lisinopril 40 mg tablet See Rx Instructions .Route 10/06/23 .COMPLEX #90 tabs aspirin 81 mg tablet,delayed 81 mg PO DAILY #90 tab-caps 11/12/23 release (Ecotrin Low Strength) galcanezumab-gnlm 120 mg/mL 120 mg subcut QMONTH #1 mL 12/12/23 subcutaneous pen injector (Emgality Pen) insulin lispro 100 unit/mL 20 unit (0.2 mL) subcut TID #30 mL 01/09/24 subcutaneous pen (Humalog KwikPen (U-100) Insulin) amlodipine 10 mg tablet 10 mg PO DAILY #90 tabs 01/26/24 rosuvastatin 10 mg tablet 10 mg PO DAILY #90 tabs 01/26/24 diltiazem HCl 240 mg 240 mg PO DAILY #90 caps 02/04/24 capsule,extended release 24 hr (Cardizem CD) metformin 1,000 mg tablet 1,000 mg PO BID #180 tab-caps 02/04/24 omeprazole 20 mg capsule,delayed 20 mg PO DAILY #90 caps 02/04/24 release albuterol sulfate 90 mcg/actuation 2 puff inhalation QID PRN 03/12/24 aerosol inhaler (ProAir HFA) bronchospasm #3 inhalations pen needle, diabetic 31 gauge x #400 ea 03/23/2401/30 (Comfort EZ Pen Equality) semaglutide 2 mg/dose (8 mg/3 mL) 2 mg (0.75 mL) subcut QWEEK 28 04/14/24 subcutaneous pen injector (Ozempic) days #3 mL potassium citrate 10 mEq (1,080 See Rx Instructions .Route 05/11/24 mg) tablet,extended release .COMPLEX #56 tabs empagliflozin 25 mg tablet See Rx Instructions .Route 06/09/24 (Jardiance) .COMPLEX #90 tabs ondansetron 4 mg disintegrating 4 mg PO Q8H PRN nausea and 06/09/24 tablet vomiting #20 tabs tamsulosin 0.4 mg capsule (Flomax) 0.4 mg PO DAILY 06/09/24 oxycodone 5 mg tablet 5 mg PO Q6H #20 tabs 06/10/24 Current Visit Medications: Current Medications Generic Name Dose Route Start Last Admin Trade Name Freq PRN Reason Stop Dose Admin Ringer's Solution 1,000 mls @ 80 mls/hr 06/14/24 06:00 IV 06/14/24 23:59 INFUSION ZHEN Cefazolin Sodium/Dextrose 2 gm in 50 mls @ 100 mls/hr 06/14/24 06:00 Ancef Duplex IVPB 06/14/24 23:59 PREOP ZHEN IV Miscellaneous Supplies 1 each 06/14/24 06:00 Iv Access IV 06/14/24 23:59 DIRECTED ZHEN Sodium Chloride 0 ml 06/14/24 06:00 Normal Saline Flush 10 Ml Syr IV 06/14/24 23:59 PRN PRN Sodium Chloride 0 ml 06/14/24 06:00 Normal Saline 10 Ml Vial IJ 06/14/24 23:59 DIRECTED PRN Sterile Water 0 ml 06/14/24 06:00 Water,Injection,Sterile 10 Ml Vial IJ 06/14/24 23:59 DIRECTED PRN PFSH Active Problems Active Problems: Problem Status Onset Code Femoroacetabular impingement of right hip Acute M25.851 Tubulovillous adenoma Acute ~09/15/23 D36.9 Acid reflux disease Chronic K21.9 Paresthesia and pain of both upper extremities Acute R20.2, M79.601, M79.602 Neck pain Acute M54.2 Pneumaturia Acute R39.89 Type 2 diabetes mellitus Chronic E11.9 Right hip pain Acute M25.551 Diabetic neuropathy Acute E11.40 Tubular adenoma Acute ~10/2020 D36.9 Arthritis of left knee Acute M17.12 Diabetic retinopathy Acute ~08/2019 E11.319 Trochanteric bursitis, right hip Acute 06/15/18 M70.61 Obstructive sleep apnea syndrome Acute G47.33 Migraine Acute G43.909 Blindness of one eye Acute H54.40 Medical History Medical History Encounter for screening colonoscopy Screen for colon cancer Cough Hydroureter Hydronephrosis Kidney stone Adrenal mass Left sided sciatica Greater trochanteric bursitis injection 02/2021 Ortho Diverticulosis Cluster headache, chronic Hyperlipidemia Trochanteric bursitis, left hip Urinary retention Nausea and vomiting after administration of anesthetic agent Sleep apnea Uses CPAP machine Asthma Left eye trauma resulting in surgery many years ago Varicose veins of lower extremity Restless legs Morbid obesity (04/26/13) Essential hypertension (08/11/13) Erectile dysfunction (10/31/14) DM (diabetes mellitus), type 2, uncontrolled titrating insulin to achieve control Dr. Mtz every 3 months for foot care CVA (cerebral vascular accident) (07/20/14) crpytogenic F/U with PCP Bilateral primary osteoarthritis of knee (03/17/17) Surgical History Surgical History History of colonoscopy (~08/2023) Biopies taken Status post right knee replacement (09/22/18) Status post tonsillectomy History of total right knee replacement (TKR) 09/22/2018 History of ankle surgery as a child Tobacco Smoking/Tobacco Use Status: Former Tobacco Use Passive smoking exposure: Yes Second hand exposure: Yes Alcohol Alcohol Intake: never Details: denies alcohol use Substance Use Substance use: Never Substance use type: does not use Vital Signs and Lab Results Vital Signs Most Recent Vital Signs in EMR: Most Recent Vital Signs Temp Pulse Resp BP Pulse Ox 36.6 C 65 18 143/74 H 94 06/14/24 08:29 06/14/24 08:29 06/14/24 08:29 06/14/24 08:29 06/14/24 08:29 Lab Results Blood Type / Crossmatch: No Data to Display Complete Blood Count: No Data to Display Complete Metabolic Panel: No Data to Display Liver Function Panel: No Data to Display Coagulation Panel: No Data to Display Cardiac Panel: No Data to Display Arterial Blood Gas: No Data to Display Venous Blood Gas: No Data to Display Pancreas Panel: No Data to Display Thyroid Panel: No Data to Display Infectious Disease: No Data to Display Blood Cultures: No Data to Display Toxicology Panel: No Data to Display Imaging and Studies Imaging and Studies Study information below may be from another EMR and interpreted by another provider. Please see original notes in EMR for more complete details. EKG Summary: Conclusion Sinus rhythm...normal P axis, V-rate 60- 99 Right bundle branch block...QRSd>120, terminal axis(90,270) 11/02/21 Stress Test Summary: MPI Conclusion Apical thinning versus infarction. No additional myocardial ischemia 01/04/20 Anesthesia Assessment and Plan Anesthesia History Personal History: PONV (none with recent procedures) Family History: No Family History of Anesthesia Complications Exercise Tolerance Exercise Tolerance: Metabolic Equivalents<4 Pertinent Negatives Pertinent Negatives: No Symptoms of GERD, No Major Cardiovascular Symptoms or Complaints and No Major Pulmonary Symptoms or Complaints Cardiac & Pulmonary Exam Cardiac Exam: Normal S1/S2 Heart Sounds Pulmonary Exam: Clear Bilateral Breath Sounds Cardiac and Pulmonary Comment:: LEAH, CPAP Implantable Cardiac Device Does patient have a Pacemaker or an ICD?: No Airway Exam Known Difficult Airway: No Mallampati Class: 3 Mouth Opening: Normal (> 3cm) Thyromental Distance: Greater than 3 cm Neck Range of Motion: Full ROM Neck Circumference: Thick Teeth Condition: Generalized Poor Dentition (only 4 teeth present , bottom only) ASA Classification ASA Score: ASA 3 Emergency Case?: No NPO Status NPO Status: NPO Clears >2 hours, Solids >8 hours Anesthesia Plan Resuscitation Status: Full Code Anesthesia Technique: General Anesthesia Airway Planned: Natural Airway Monitors Used: Standard Monitors Preoperative Comments:: Gluc check 160
--- NOTE | 2024-06-14 10:11 | W.PM.HP.N ---
Date of service: 06/14/24 Time of Service: 10:26 Assessment and Plan Assessment and plan (1) Left ureteral stone: Status: Acute Assessment and plan: We should be able to treat his stone as long as we can access his left ureter. In the past, have not been able to do so with a rigid cystoscope. I have had my office send down the flexible cystoscope set up so that I might be able to place a guidewire using the flexible cystoscope. I could then pass my other scopes over the guidewire to potentially treat his stone. History of Present Illness History of Present Illness Chief Complaint: Left ureteral stone Narrative: This is a 69-year-old gentleman who has a history of uric acid stones. In the past, I was only able to place a ureteral stent with a flexible cystoscope as we did not have access to a long cystoscope. He was referred to a tertiary care center but never underwent ureteroscopy. We subsequently removed his ureteral stent. He now comes in with left flank pain. He was seen at an outside hospital and was found to have a left distal ureteral stone. He has had persistent pain, nausea and vomiting. He is not having any fever or chills. He has no gross hematuria, frequency or urgency. He has required a combination of ketorolac and oxycodone for pain control. He presents now for stone manipulation. Review of Systems Narrative: No fevers or chills Retinopathy. No dysphasia Diabetes. No thyroid dysfunction Sleep apnea. No hemoptysis No chest pain or palpitations No nausea, vomiting, hepatitis, ulcers, jaundice Peripheral neuropathy. Migraine headaches. No seizures, strokes No bleeding disorders or anemia No gout PFSH All Active Problems (Updated 06/14/24 @ 10:13 by Eddie Pinon MD) Left ureteral stone (Acute) Femoroacetabular impingement of right hip (Acute) Tubulovillous adenoma (Acute ~09/15/23) Acid reflux disease (Chronic) Paresthesia and pain of both upper extremities (Acute) Neck pain (Acute) Pneumaturia (Acute) Type 2 diabetes mellitus (Chronic) Right hip pain (Acute) Diabetic neuropathy (Acute) both feet, balls of feet only Tubular adenoma (Acute ~10/2020) Arthritis of left knee (Acute) Steroid injection: 10/07/2022; 09/13/2021; 02/21/21; 10/27/2020 Diabetic retinopathy (Acute ~08/2019) [facility] retinologist: Dr. Trejo- [facility] non- proliferative (SEVERE)-07/13/20 Trochanteric bursitis, right hip (Acute 06/15/18) Right IT band lengthening and bursal debridement DOS: 01/21/19 Steroid Injection: 11/06/23; 09/23/2022 Obstructive sleep apnea syndrome (Acute) Lani sleep study 08/14/11 - CPAP recommended Migraine (Acute) Blindness of one eye (Acute) LEFT Medical History Encounter for screening colonoscopy Screen for colon cancer Cough Hydroureter Hydronephrosis Kidney stone Adrenal mass Left sided sciatica Greater trochanteric bursitis injection 02/2021 Ortho Diverticulosis Cluster headache, chronic Hyperlipidemia Trochanteric bursitis, left hip Urinary retention Nausea and vomiting after administration of anesthetic agent Sleep apnea Uses CPAP machine Asthma Left eye trauma resulting in surgery many years ago Varicose veins of lower extremity Restless legs Morbid obesity (04/26/13) Essential hypertension (08/11/13) Erectile dysfunction (10/31/14) DM (diabetes mellitus), type 2, uncontrolled titrating insulin to achieve control Dr. Mtz every 3 months for foot care CVA (cerebral vascular accident) (07/20/14) crpytogenic F/U with PCP Bilateral primary osteoarthritis of knee (03/17/17) Surgical History History of colonoscopy (~08/2023) Biopies taken Status post right knee replacement (09/22/18) Status post tonsillectomy History of total right knee replacement (TKR) 09/22/2018 History of ankle surgery as a child Family History Mother Depression Hyperlipidemia Father Heart disease Brother Diabetes Depression Hyperlipidemia Brother Substance abuse Depression Heart disease Hyperlipidemia Brother , Gunshot wound No problems noted. 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 Current gender identity: male What type of physical activity do you participate in: additional Details: PT 2x/week Frequency: 1-2 times per week Sulema/Rastafari: Jewish Special sulema needs: No Do you feel safe at home: Yes Do you feel safe in your relationship?: Yes Meds Allergies and Home Medications Allergies Allergy/AdvReac Type Severity Reaction Status Date / Time ciprofloxacin AdvReac Severe Other (See Verified 06/14/24 08:22 Comment) Home Medications ?Medication ?Instructions ?Recorded ?Confirmed ?Type C Pap 04/08/16 06/10/24 History carbamazepine 200 mg 200 mg PO BID 12/28/20 06/14/24 History tablet,extended release,12 hr metoclopramide HCl 5 mg tablet 5 mg PO QAC #7 tabs 01/03/21 06/11/24 Rx (Reglan) onabotulinumtoxinA 200 unit 200 unit IM ONCE 09/13/21 06/11/24 History solution for injection (Botox) blood-glucose meter (OneTouch #1 ea 01/24/22 06/10/24 Rx Ultra2 Meter) transparent dressings 2 3/8 X 2 #20 ea 03/12/22 06/10/24 Rx 3/4 (Tegaderm Frame Style) meclizine 12.5 mg tablet 12.5 mg PO TID PRN Vertigo #60 tabs 05/27/22 06/11/24 Rx docusate sodium 100 mg capsule 100 mg PO BID PRN constipation #30 09/16/22 06/14/24 Rx caps sennosides 8.6 mg tablet (Senokot) 8.6 mg PO DAILY PRN constipation 09/16/22 06/14/24 Rx #30 tabs Depo-Medrol 40 mg/mL suspension 40 mg intra-articular ONCE #1 mL 10/07/22 06/11/24 Clinic for injection (methylprednisolone acetate) insulin aspart U-100 100 unit/mL 20 unit (0.2 mL) subcut TID #15 mL 02/07/23 06/14/24 Rx (3 mL) subcutaneous pen (Novolog FlexPen U-100 Insulin aspart) methocarbamol 750 mg tablet 750 mg PO QID #20 tabs 03/31/23 06/14/24 Rx blood sugar diagnostic (OneTouch #400 ea 04/17/23 06/10/24 Rx Ultra Test strips) lancets 33 gauge (BD Ultra Fine #400 ea 04/17/23 06/10/24 Rx Lancets) pen needle, diabetic 32 gauge x #400 ea 04/17/23 06/10/24 Rx 5/32 (1st Tier Unifine Pentips) acetaminophen 500 mg tablet 1,000 mg PO Q8H PRN PRN 07/17/23 06/11/24 History ropinirole 1 mg tablet 1 mg PO QHS 07/17/23 06/14/24 History hydrochlorothiazide 25 mg tablet 25 mg PO QAM #90 tabs 08/12/23 06/14/24 Rx insulin glargine U-300 conc 300 80 unit (0.2667 mL) subcut HS #3 10/06/23 06/14/24 Rx unit/mL (1.5 mL) subcutaneous pen SYRGS (Toujeo SoloStar U-300 Insulin) lisinopril 40 mg tablet See Rx Instructions .Route 10/06/23 06/14/24 Rx .COMPLEX #90 tabs aspirin 81 mg tablet,delayed 81 mg PO DAILY #90 tab-caps 11/12/23 06/11/24 Rx release (Ecotrin Low Strength) galcanezumab-gnlm 120 mg/mL 120 mg subcut QMONTH #1 mL 12/12/23 06/14/24 Rx subcutaneous pen injector (Emgality Pen) insulin lispro 100 unit/mL 20 unit (0.2 mL) subcut TID #30 mL 01/09/24 06/14/24 Rx subcutaneous pen (Humalog KwikPen (U-100) Insulin) amlodipine 10 mg tablet 10 mg PO DAILY #90 tabs 01/26/24 06/14/24 Rx rosuvastatin 10 mg tablet 10 mg PO DAILY #90 tabs 01/26/24 06/14/24 Rx diltiazem HCl 240 mg 240 mg PO DAILY #90 caps 02/04/24 06/14/24 Rx capsule,extended release 24 hr (Cardizem CD) metformin 1,000 mg tablet 1,000 mg PO BID #180 tab-caps 02/04/24 06/14/24 Rx omeprazole 20 mg capsule,delayed 20 mg PO DAILY #90 caps 02/04/24 06/14/24 Rx release albuterol sulfate 90 mcg/actuation 2 puff inhalation QID PRN 03/12/24 06/14/24 Rx aerosol inhaler (ProAir HFA) bronchospasm #3 inhalations pen needle, diabetic 31 gauge x #400 ea 03/23/24 06/10/24 Rx 3/16 (Comfort EZ Pen [place]) semaglutide 2 mg/dose (8 mg/3 mL) 2 mg (0.75 mL) subcut QWEEK 28 04/14/24 06/11/24 Rx subcutaneous pen injector (Ozempic) days #3 mL potassium citrate 10 mEq (1,080 See Rx Instructions .Route 05/11/24 06/14/24 Rx mg) tablet,extended release .COMPLEX #56 tabs empagliflozin 25 mg tablet See Rx Instructions .Route 06/09/24 06/11/24 Rx (Jardiance) .COMPLEX #90 tabs ondansetron 4 mg disintegrating 4 mg PO Q8H PRN nausea and 06/09/24 06/14/24 Rx tablet vomiting #20 tabs tamsulosin 0.4 mg capsule (Flomax) 0.4 mg PO DAILY 06/09/24 06/14/24 History oxycodone 5 mg tablet 5 mg PO Q6H #20 tabs 06/10/24 06/14/24 Rx Exam Const Nutritional Appearance: obese Neck Neck: supple Resp Effort & Inspection: normal respiratory effort Auscultation: clear to auscultation bilaterally Cardio Rate: regular rate Rhythm: regular rhythm GI Inspection: obesity Palpation: soft and no masses Neuro General: patient alert, patient awake and patient oriented x3 Results Imaging Imaging Studies: I reviewed the CT scan that was done at [facility]. There is a left distal ureteral stone Last Vital Signs Temp 36.6 C 06/14/24 08:29 Pulse 65 06/14/24 08:29 Resp 18 06/14/24 08:29 BP 143/74 H 06/14/24 08:29 Pulse Ox 94 06/14/24 08:29 Time Spent Time spent with Patient: <40 minutes Time was spent: other
[2024-06-14 10:40] VITALS: BMI 48.4
[2024-06-14] MEDS: Lactated Ringers 1,000 ML 80 ML IV (10:45)
[2024-06-14] MEDS: ceFAZolin 2 GM/50 ML BAG IVPB (10:49)
[2024-06-14] MEDS: Omnipaque 300 MG/ML 50 ML BTL (11:17)
[2024-06-14] MEDS: Lidocaine 2% Jelly 11 ML SYR (11:17)
[2024-06-14 12:12] VITALS: BP 111/38; PULSE 75; RESP 18; TEMP 36.5; O2SAT 94
--- NOTE | 2024-06-14 12:14 | ROE_ITS ---
Date of service: 06/14/24 Time of Service: 12:14 Operative Note Operative Note DATE OF PROCEDURE: 06/14/24 PRE-OP DIAGNOSIS: Left ureteral stone POST-OP DIAGNOSIS: same PROCEDURE: cystoscopy SURGEON: Eddie Pinon ANESTHESIA TYPE: Local By Surgeon and General:No Airway Refer to Anesthesia Record ESTIMATED BLOOD LOSS: 5 PATHOLOGY: none sent COMPLICATIONS: None (unable to access left ureter ) Patient was transported to: same day Patient's condition: stable Implants: none Indications: This is a 69-year-old gentleman who has a past history of uric acid stones. In the past, he had a right ureteral stone that I attempted to treat here at our facility. I was then able to pass our rigid cystoscope into the bladder due to the length of the patient's urethra. I was able to get a wire into the right ureteral orifice and placed a ureteral stent. We then referred him to a tertiary care facility for additional treatment. He never actually had ureteroscopy at another facility, so we wound up removing his ureteral stent when it had been in place for up to 6 months. He recently had an emergency room visit for left renal colic. He was found to have a 5 mm stone in the left distal ureter. His symptoms persisted and he presents now for possible stone manipulation Findings: Unable to access the left ureteral orifice Procedure Description: The patient was given IV antibiotics and brought to the operating room on 06/14/2024. After successful induction of general anesthesia without intubation, he was placed in the dorsal lithotomy position. His genitalia was prepped with Betadine. 2% Xylocaine jelly was instilled into the urethra to act as a local anesthetic. A 22 [place] rigid cystoscope was passed through the urethra but given the length of the urethra, I was unable to enter the bladder. This was not an unexpected event as it had happened with his previous procedure as well. I then passed the flexible cystoscope through the urethra into the bladder. I was able to visualize the trigone and the right ureteral orifice. At the expected location of the left ureteral orifice however, there was bulging but no obvious ureteral opening. I attempted to pass a wire at the expected location of the ureteral orifice, but despite multiple attempts, I was unable to gain access to the left ureter. I then took the patient out of [facility] and placed him supine but again, was unable to access the left ureter. It was then decided to stop the procedure and make arrangements for the patient to be seen at a tertiary care center that has access to long endoscopic equipment and interventional radiology if needed.
--- NOTE | 2024-06-14 12:22 | W.PM.DSUDISC ---
Date of service: 06/14/24 Time of Service: 12:22 Discharge Plan Disposition Patient Disposition: Home Discharge Details Reason For Visit: ureteral stone Attending Provider: Eddie Pinon Primary Care Provider: Kenton Pitts Home Meds and New Rx's Prescriptions: No Action Botox 200 unit recon soln 200 unit IM ONCE Rx Instructions: [id number] methylprednisolone acetate [Depo-Medrol] 40 mg/mL suspension 40 mg intra-articular ONCE Qty: 1 0RF insulin lispro [Humalog KwikPen Insulin] 100 unit/mL insulin pen 20 unit subcut TID MDD 60 Qty: 30 12RF Rx Instructions: Inject 20 units Humalog subcutaneously with each meal as directed albuterol sulfate [ProAir HFA] 90 mcg/actuation HFA aerosol inhaler 2 puff Inhalation QID PRN (Reason: bronchospasm) Qty: 3 0RF tamsulosin [Flomax] 0.4 mg capsule 0.4 mg PO DAILY ondansetron 4 mg tablet,disintegrating 4 mg PO Q8H PRN (Reason: nausea and vomiting) Qty: 20 0RF oxycodone 5 mg tablet 5 mg PO Q6H MDD 4 tabs/day Qty: 20 0RF carbamazepine 200 mg tablet extended release 12 hr 200 mg PO BID methocarbamol 750 mg tablet 750 mg PO QID Qty: 20 0RF Rx Instructions: treatment failure with cyclobenzaprine acetaminophen 500 mg tablet 1,000 mg PO Q8H PRN PRN ropinirole 1 mg tablet 1 mg PO QHS Rx Instructions: administer 1-3 hours before bedtime (DME) pen needle, diabetic [Comfort EZ Pen [place]] 31 gauge x 3/16 needle See Rx Instructions .Route Qty: 400 12RF Rx Instructions: Pen needles for injecting insulin 4x daily. Ozempic 2 mg/dose (8 mg/3 mL) pen injector 2 mg subcut QWEEK MDD 2.0 28 Days Qty: 3 12RF Rx Instructions: Inject 2.0 mg subcutaneously once weekly as directed. C PAP (DME) blood-glucose meter [OneTouch Ultra2 Meter] [facility] See Rx Instructions .Route Qty: 1 0RF Rx Instructions: once daily (DME) transparent dressings [Tegaderm Frame Style] 2 3/8 X 2 3/4 bandage See Rx Instructions .Route Qty: 20 11RF Rx Instructions: Use to hold continuous glucose monitor in place meclizine 12.5 mg tablet 12.5 mg PO TID PRN (Reason: Vertigo) Qty: 60 3RF docusate sodium 100 mg capsule 100 mg PO BID PRN (Reason: constipation) Qty: 30 0RF sennosides [Senokot] 8.6 mg tablet 8.6 mg PO DAILY PRN (Reason: constipation) Qty: 30 0RF insulin aspart U-100 [Novolog FlexPen U-100 Insulin] 100 unit/mL (3 mL) insulin pen 20 unit subcut TID Qty: 15 0RF Rx Instructions: inject up to 20 units TID per sliding scale instructions (DME) lancets [BD Ultra Fine Lancets] 33 gauge misc See Rx Instructions .ROUTE .MEDSUPPLY Qty: 400 3RF Rx Instructions: Check blood sugar four times daily (DME) OneTouch Ultra Test Strip See Rx Instructions .Route Qty: 400 3RF Rx Instructions: Check blood sugar four times daily (DME) pen needle, diabetic [1st Tier Unifine Pentips] 32 gauge x 5/32 needle See Rx Instructions .ROUTE .MEDSUPPLY Qty: 400 3RF Rx Instructions: Check blood sugar four times daily hydrochlorothiazide 25 mg tablet 25 mg PO QAM Qty: 90 4RF insulin glargine U-300 conc [Toujeo SoloStar U-300 Insulin] 300 unit/mL (1.5 mL) insulin pen 80 unit subcut HS Qty: 3 12RF lisinopril 40 mg tablet See Rx Instructions .ROUTE .COMPLEX Qty: 90 4RF Dose Instruction: TAKE 1 TABLET BY MOUTH DAILY Rx Instructions: TAKE 1 TABLET BY MOUTH DAILY aspirin [Ecotrin Low Strength] 81 mg tablet,delayed release (DR/EC) 81 mg PO DAILY Qty: 90 3RF Emgality Pen 120 mg/mL pen injector 120 mg subcut QMONTH Qty: 1 12RF rosuvastatin 10 mg tablet 10 mg PO DAILY Qty: 90 4RF amlodipine 10 mg tablet 10 mg PO DAILY Qty: 90 4RF diltiazem HCl [Cardizem CD] 240 mg capsule,extended release 24hr 240 mg PO DAILY Qty: 90 3RF metformin 1,000 mg tablet 1,000 mg PO BID Qty: 180 3RF omeprazole 20 mg capsule,delayed release(DR/EC) 20 mg PO DAILY Qty: 90 4RF Patient Comments: pt states this is as needed potassium citrate 10 mEq (1,080 mg) tablet extended release See Rx Instructions .ROUTE .COMPLEX Qty: 56 12RF Dose Instruction: TAKE 1 TABLET BY MOUTH TWICE A DAY FOR ALKALINIZE URINE Rx Instructions: TAKE 1 TABLET BY MOUTH TWICE A DAY FOR ALKALINIZE URINE Jardiance 25 mg tablet See Rx Instructions .ROUTE .COMPLEX Qty: 90 4RF Dose Instruction: TAKE 1 TABLET BY MOUTH EVERY MORNING Rx Instructions: TAKE 1 TABLET BY MOUTH EVERY MORNING metoclopramide HCl [Reglan] 5 mg tablet 5 mg PO QAC Qty: 7 0RF Rx Instructions: administer 30 minutes before meals Discharge Instructions Additional Instructions: I was unable to treat your stone today with the equipment I have available at our facility. I have made a stat referral for you to see the urology team at [facility]. You should expect a phone call from them within the next 24 hours. In the meantime, I have refilled your pain medication prescription. Discharge Orders Discharge Orders: Discharge Order (Routine); Ordered 06/14/24 Ordered By: Eddie Pinon DS: Diagnosis Discharge Diagnosis (1) Left ureteral stone: Status: Acute
[2024-06-14 12:45] VITALS: BP 155/65; PULSE 63; RESP 18; TEMP 36.4; O2SAT 95
--- NOTE | 2024-06-14 13:09 | W.ANESPOSTOP ---
Postoperative Evaluation Date, Time and Location Date Performed: 06/14/24 Time Performed: 12:58 Patient Location: Day Surgery Unit Vital Signs Most Recent Imported Vital Signs: Most Recent Vital Signs Temp Pulse Resp BP Pulse Ox 36.4 C L 63 18 155/65 H 95 06/14/24 12:45 06/14/24 12:45 06/14/24 12:45 06/14/24 12:45 06/14/24 12:45 Pain Score Most Recent Pain Score: Most Recent Pain Score Pain Level 0 06/14/24 12:45 Assessment Mental Status: Awake (Alert & Oriented to Patient Baseline) Airway and Respiratory Function: Patent airway with normal (patient baseline) respiratory exam Cardiovascular Function: Hemodynamically Stable Hydration Status: Adequately Hydrated Nausea & Vomiting: No Nausea or Vomiting Pain: Pt. Denies Any Pain Peripheral Nerve Block: Patient did not receive a nerve block
== END 2024-06-14 13:05 | disposition home or self-care (01) ==
PROVIDERS: PCP Nurse Practitioner Family; Visit Provider Urology
PROC: (CPT 52351; principal; 2024-06-14 09:45)
DX: N20.1 Calculus of ureter (principal); Z53.8 Procedure and treatment not carried out for other reasons; E11.319 Type 2 diabetes mellitus with unspecified diabetic retinopathy without macular edema; G47.33 Obstructive sleep apnea (adult) (pediatric); K21.9 Gastro-esophageal reflux disease without esophagitis; I10 Essential (primary) hypertension; E66.01 Morbid (severe) obesity due to excess calories; Z68.42 Body mass index [BMI] 45.0-49.9, adult
CPT/HCPCS: 52351; J0690; J1100; J1885; J2001; J2250; J2405; J2704; J3010; Q9967

== ENCOUNTER → 2024-06-30 11:49 | Outpatient (BNVA) | payer MEDICARE, SELFPAY | PROVIDERS: PCP Nurse Practitioner Family; Referring Provider Nurse Practitioner Family; Visit Provider Nurse Practitioner Gerontology | DX: N20.1 Calculus of ureter (principal) | CPT/HCPCS: 99442 ==

== ENCOUNTER → 2024-07-15 15:42 | Outpatient (BNVA) | payer MEDICARE, SELFPAY | PROVIDERS: PCP Nurse Practitioner Family; Referring Provider Nurse Practitioner Family; Visit Provider Urology | DX: N20.1 Calculus of ureter (principal); R82.90 Unspecified abnormal findings in urine; R39.15 Urgency of urination | CPT/HCPCS: 81003; 99214 ==

== ENCOUNTER 2024-07-15 20:19 | Outpatient (REF) | payer MEDICARE, SELFPAY | END 2024-07-15 20:20 | disposition home or self-care (01) | LOC: LBN 20:19 | PROVIDERS: PCP Nurse Practitioner Family; Visit Provider Urology | DX: R39.15 Urgency of urination (principal); R82.998 Other abnormal findings in urine | CPT/HCPCS: 87086 ==

== ENCOUNTER → 2024-07-27 13:08 | Outpatient (BNVA) | payer MEDICARE, SELFPAY | PROVIDERS: PCP Nurse Practitioner Family; Referring Provider Nurse Practitioner Family; Visit Provider Urology | DX: N20.1 Calculus of ureter (principal) | CPT/HCPCS: 99213 ==

== ENCOUNTER 2024-07-27 13:27 | Outpatient (REF) | payer MEDICARE, SELFPAY | END 2024-07-27 13:28 | disposition home or self-care (01) | LOC: LBN 13:27 | PROVIDERS: PCP Nurse Practitioner Family; Visit Provider Urology | DX: R30.0 Dysuria (principal); N20.1 Calculus of ureter | CPT/HCPCS: 87086 ==

== ENCOUNTER → 2024-08-03 07:59 | Outpatient (BNVA) | payer MEDICARE, SELFPAY | PROVIDERS: PCP Nurse Practitioner Family; Referring Provider Nurse Practitioner Family; Visit Provider Nurse Practitioner Gerontology | DX: N20.1 Calculus of ureter (principal); N40.1 Benign prostatic hyperplasia with lower urinary tract symptoms; R30.0 Dysuria | CPT/HCPCS: 99213 ==

== ENCOUNTER 2024-08-27 13:41 | Outpatient (CLI) | payer MEDICARE, SELFPAY ==
--- NOTE | 2024-08-27 12:45 | DI.RAD_ITS ---
Exam(s) XR CHEST 2V PA LATERAL EXAM: XR CHEST 2V PA LATERAL CLINICAL HISTORY: evaluate pna,covid,U07.1. TECHNIQUE: 2D digital imaging was performed. COMPARISON: CR XR CHEST 2V PA LATERAL from 09/06/2022 FINDINGS: 2 views: Heart size is upper normal. The mediastinum is not widened. Lungs are clear. No infiltrates nor pleural effusions. IMPRESSION: No acute pulmonary findings.No significant radiographic change from chest x-ray of 09/06/2022. DATA REPOSITORY: RADIATION DOSE DELIVERED:
== END 2024-08-27 14:01 ==
LOC: DI 13:41
PROVIDERS: PCP Nurse Practitioner Family; Visit Provider Nurse Practitioner Family
DX: U07.1 COVID-19 (principal)
CPT/HCPCS: 71046

== ENCOUNTER → 2024-09-09 10:09 | Outpatient (BNVA) | payer MEDICARE, SELFPAY | PROVIDERS: PCP Nurse Practitioner Family; Referring Provider Nurse Practitioner Family; Visit Provider Nurse Practitioner Adult Health | DX: M54.2 Cervicalgia (principal) | CPT/HCPCS: 64405 ==

== ENCOUNTER 2024-09-28 09:21 | Outpatient (CLI) | payer MEDICARE, SELFPAY ==
[2024-09-28 12:23] LABS: HCT 43.4 % (40.0-50.0); HGB 13.9 g/dL (13.5-17.5); MCH 28.7 pg (27.0-33.0); MCV 90 fL (80-95); MPV 10.4 fL (8.0-11.0); Platelet Count 232 10^3/uL (130-400); RBC 4.84 10^6/uL (4.36-5.78); RDW 14.8 % (11.8-14.1); RDW-SD 49.1 fL; WBC 6.29 10^3/uL (4.4-10.8)
[2024-09-28 12:38] LABS: ALT 26 U/L (16-63); AST 11 U/L (15-37); Albumin 3.5 g/dL (3.4-5.0); Alkaline Phosphatase 99 U/L (46-116); Anion Gap 8.5 mmol/L (3-11); BUN 36 mg/dL (7-18); Bilirubin, Total 0.24 mg/dL (0.2-1.0); CO2 29.5 mmol/L (21.0-32.0); CREATININE 1.3 mg/dL (0.70-1.30); Calcium 9.6 mg/dL (8.5-10.1); Chloride 106 mmol/L (98-107); Estimated GFR 59.47 (mL/min/1.73m2); Glucose 137 mg/dL (74-106); Magnesium 2.1 mg/dL (1.8-2.4); Potassium 4.6 mmol/L (3.5-5.1); Sodium 144 mmol/L (136-145); Total Protein 7.7 g/dL (6.4-8.2)
[2024-09-28 12:56] LABS: Hemoglobin A1C 6.7 % (<5.7)
[2024-09-28 22:34] LABS: PSA, Screening 2.5 ng/mL (<=4.5)
== END 2024-09-28 09:22 | disposition home or self-care (01) ==
LOC: LOS 09:21
PROVIDERS: PCP Nurse Practitioner Family; Referring Provider Nurse Practitioner Family; Visit Provider Nurse Practitioner Family
DX: E11.9 Type 2 diabetes mellitus without complications (principal); R29.6 Repeated falls; Z12.5 Encounter for screening for malignant neoplasm of prostate; J45.901 Unspecified asthma with (acute) exacerbation; G43.711 Chronic migraine without aura, intractable, with status migrainosus; H26.9 Unspecified cataract
CPT/HCPCS: 36415; 80053; 84153; 85027; 83036; 83735

== ENCOUNTER → 2024-10-05 10:07 | Outpatient (BNVA) | payer MEDICARE, SELFPAY | PROVIDERS: PCP Nurse Practitioner Family; Referring Provider Nurse Practitioner Family; Visit Provider Nurse Practitioner Adult Health | DX: M54.81 Occipital neuralgia (principal) | CPT/HCPCS: 64405 ==

== ENCOUNTER → 2024-12-13 14:14 | Outpatient (BNVA) | payer MEDICARE, SELFPAY | PROVIDERS: PCP Nurse Practitioner Family; Referring Provider Nurse Practitioner Family; Visit Provider Nurse Practitioner Gerontology | DX: N40.1 Benign prostatic hyperplasia with lower urinary tract symptoms (principal); N20.0 Calculus of kidney | CPT/HCPCS: 99213 ==

== ENCOUNTER → 2024-12-17 09:20 | Outpatient (BNVA) | payer MEDICARE, SELFPAY | PROVIDERS: PCP Nurse Practitioner Family; Referring Provider Nurse Practitioner Family; Visit Provider Physical Therapy Assistant | DX: R22.41 Localized swelling, mass and lump, right lower limb (principal) | CPT/HCPCS: 99213 ==

== ENCOUNTER 2024-12-29 02:21 | Outpatient (CLI) | payer MEDICARE, SELFPAY ==
--- NOTE | 2024-12-29 07:16 | DI.US_ITS ---
Exam(s) US SOFT TISSUE EXTREMITY EXAM: US SOFT TISSUE EXTREMITY CLINICAL HISTORY: Right lower mosley, skin mass unknown etiology,r22.41. TECHNIQUE: Ultrasound was performed using standard protocol. COMPARISON: US US LOWER EXTREMITY VENOUS LT from 03/27/2023 FINDINGS: Sonographic assessment utilizing grayscale and color Doppler imaging was performed and targeted to th e area of clinical concern. This is over the anterior right mosley level where there is presently a mild skin indentation no eviden ce of puncture wound. The patient claims of this finding was due to a remote non puncture injury occa sionally flares up and swells (which is not the case at this time). Today's ultrasound exam reveals an oblique tract in the subcutaneous fat extending from the sub dermi s to just anterior to the tibial cortex, with intact overlying skin and no channel in the skin. The l ength of this subcutaneous channel is 1 cm and the channel contains multiple hyperechoic foci increas ing in size as the tract progresses deeper for a maximum size of 5 mm and these hyperechoic findings exhibit shadowing. Probably represent calcifications. There is no obvious visible break in the subjac ent anterior tibial cortex. There is a nearby vein which is not thrombosed. IMPRESSION: There is a 1 cm subcutaneous tract as described above which does not penetrate through the skin but a ppears confined to the subdermal/subcutaneous layer. This contains multiple stacked hyperechoic foci the smallest being the most superficial and the largest measuring 5 mm and being the deepest. Possibl y representing foreign body versus is calcified hematoma or calcification within another structure. I feel that performing CT scan through this region may add specificity. DATA REPOSITORY:
== END 2024-12-29 02:41 ==
LOC: DI 02:21
PROVIDERS: PCP Nurse Practitioner Family; Visit Provider Physical Therapy Assistant
DX: R22.41 Localized swelling, mass and lump, right lower limb (principal)
CPT/HCPCS: 76881

== ENCOUNTER → 2025-01-05 08:02 | Outpatient (BNVA) | payer MEDICARE, SELFPAY | PROVIDERS: PCP Nurse Practitioner Family; Referring Provider Nurse Practitioner Family; Visit Provider Nurse Practitioner Adult Health | DX: G43.901 Migraine, unspecified, not intractable, with status migrainosus (principal); G43.719 Chronic migraine without aura, intractable, without status migrainosus | CPT/HCPCS: 64405; 99214; J2550; 96372 ==

== ENCOUNTER 2025-01-10 01:26 | Outpatient (CLI) | payer MEDICARE, SELFPAY ==
--- NOTE | 2025-01-10 07:45 | DI.CT_ITS ---
Exam(s) CT LOWER EXTREMITY RT WO EXAM: CT LOWER EXTREMITY RT WO CLINICAL HISTORY: ? FB of R LE, F/U ABLN US,MASS RT LOWER LEG,r22.41. TECHNIQUE: Imaging Protocol: Axial computed tomography images with coronal and sagittal reformatted images were created and reviewed. COMPARISON: US US SOFT TISSUE EXTREMITY from 12/29/2024 FINDINGS: A marker was placed on the skin surface in the area of concern. Bones: The osseous structures and articular surfaces are intact. Bony alignment is satisfactory. N o cellulitic or osteomyelitic changes are identified. There is no evidence of joint space narrowing or cystic degeneration seen. No lytic or sclerotic lesions are identified. Soft Tissues: There are soft tissue calcifications seen in the soft tissues anterior to the tibia. T here is a 7 mm calcification amongst a collection of calcifications corresponding to the marker on th e skin surface. Vascular calcifications are present. There is edema seen in the soft tissues of the lower extremity. IMPRESSION: 1. Soft tissue calcifications in the anterior lower leg corresponding to the palpable abnormality. T hese also correspond to the finding seen on the ultrasound. 2. No suspicious soft tissue mass or osseous abnormality. 3. Mild subcutaneous edema in the lower extremity. No focal fluid collection is seen to suggest an a bscess. RADIATION DOSE DELIVERED: Total DLP Total DLP DATA REPOSITORY: All CT scans at this facility are submitted to the National Radiology Data Registry (NRDR) Dose Index Registry (DIR) with the [employer] ([employer]). RADIATION OPTIMIZATION: All CT scans at this facility use at least one of these dose optimization te chniques: automated exposure control; mA and/or kV adjustment per patient size (includes targeted exa ms where dose is matched to clinical indication); or iterative reconstruction.
== END 2025-01-10 01:46 ==
LOC: DI 01:26
PROVIDERS: PCP Nurse Practitioner Family; Visit Provider Physical Therapy Assistant
DX: R22.41 Localized swelling, mass and lump, right lower limb (principal)
CPT/HCPCS: 73700

== ENCOUNTER → 2025-01-20 12:16 | Outpatient (BNVA) | payer MEDICARE, SELFPAY | PROVIDERS: PCP Nurse Practitioner Family; Referring Provider Nurse Practitioner Family; Visit Provider Nurse Practitioner Adult Health | DX: M54.81 Occipital neuralgia (principal) | CPT/HCPCS: 64405 ==

== ENCOUNTER 2025-01-24 17:00 | Emergency (ER) | payer MEDICARE, SELFPAY ==
[2025-01-24] VITALS (12 sets, daily range): BP systolic 104–132; BP diastolic 26–60; PULSE 75–87; RESP 18–20; TEMP 36.3–36.7; O2SAT 91–96
[2025-01-24] MEDS: Ondansetron O.D.T. 4 MG TABEF 8 MG PO (18:17)
[2025-01-24] MEDS: MORPHine IR 15 MG TAB PO (18:17)
--- NOTE | 2025-01-24 18:50 | DI.RAD_ITS ---
Exam(s) XR HIP RT COMPLETE AP PELVIS EXAM: XR HIP RT COMPLETE AP PELVIS CLINICAL HISTORY: R HIP PAIN. TECHNIQUE: 2D digital imaging was performed. COMPARISON: CR XR HIP RT COMPLETE AP PELVIS from 11/06/2023 FINDINGS: Two views. There is no evidence of pelvic nor hip fracture. There is mild narrowing of the right hip joint space. There is also a small 3 millimeter calcific de nsity just above the greater trochanter of the right hip. This may be within the gluteus medius tend on or possibly capsular location. There are no lytic osseous lesions. No blastic osseous lesions. IMPRESSION: Right hip findings as above. No acute fracture. DATA REPOSITORY: RADIATION DOSE DELIVERED:
--- NOTE | 2025-01-24 18:50 | DI.RAD_ITS ---
Exam(s) XR KNEE RT 3V AP,LAT,RICHY EXAM: XR KNEE RT 3V AP,LAT,RICHY CLINICAL HISTORY: R KNEE PAIN. TECHNIQUE: 2D digital imaging was performed. COMPARISON: CR XR KNEE RT 3V AP,LAT,RICHY from 10/27/2020 FINDINGS: 3 views There is a right knee prosthesis. There is no fracture or loosening evident. No radiographic eviden ce of osteomyelitis. Bone density is normal. No osseous lesions. No obvious effusion. IMPRESSION: Stable satisfactory appearance without significant change compared to images of October 2020. DATA REPOSITORY: RADIATION DOSE DELIVERED:
--- NOTE | 2025-01-24 20:15 | DI.CT_ITS ---
Exam(s) CT PELVIC WO EXAM: CT PELVIC WO CLINICAL HISTORY: HIP PAIN, EVAL FOR FX. TECHNIQUE: Imaging Protocol: Axial computed tomography images with coronal and sagittal reformatted images were created and reviewed. COMPARISON: CT CT CHEST/ABD/PEL WO from 09/12/[address] RENAL COLIC WO from 01/17/[address] RENAL COLIC from 06/08/2024 CR XR HIP RT COMPLETE AP PELVIS from 01/24/2025 FINDINGS: Bones: The osseous structures and articular surfaces are intact. Calcifications are seen adjacent t o both greater trochanters likely reflecting calcific tendinitis. There also dystrophic calcificatio ns seen in the tendons at the insertion sites of both ischial tuberosities bilaterally. Bony alignme nt is satisfactory. No cellulitic or osteomyelitic changes are identified. The sacroiliac joints an d symphysis pubis are intact. Minimal degenerative changes are seen in the hips bilaterally. There is L5 spondylolysis and grade 1 spondylolisthesis of L5 on S1. Soft Tissues: There is again seen a cyst in the inferior pole of the left kidney. This is incomplete ly visualized. There is diverticulosis seen in the colon. No evidence of acute diverticulitis. No evidence of bowel obstruction is seen. There is a normal appendix present. There is a moderate amou nt of stool seen in the rectum. Atherosclerotic calcification is seen of the aorta. There is diffus e thickening of the wall of the urinary bladder. The prostate gland appears mildly enlarged. IMPRESSION: 1. No acute fracture or dislocation is identified. 2. Incidental finding seen in the pelvis as described above. RADIATION DOSE DELIVERED: 738.7mGy.cm Total DLP 738.7mGy.cmTotal DLP DATA REPOSITORY: All CT scans at this facility are submitted to the National Radiology Data Registry (NRDR) Dose Index Registry (DIR) with the [employer] (ACR). RADIATION OPTIMIZATION: All CT scans at this facility use at least one of these dose optimization te chniques: automated exposure control; mA and/or kV adjustment per patient size (includes targeted exa ms where dose is matched to clinical indication); or iterative reconstruction.
[2025-01-24] MEDS: Acetaminophen 500 MG TAB 1000 MG PO (22:16)
--- NOTE | 2025-01-24 22:39 | DI.VRAD_ITS ---
PROCEDURE INFORMATION: Exam: CT Pelvis Without Contrast, Skeleton Exam date and time: 01/24/2025 7:59 PM Age: 69 years old Clinical indication: Other: Hip pain, eval for FX TECHNIQUE: Imaging protocol: Computed tomography of the pelvis without contrast. Exam focused on the skeleton. COMPARISON: CT RENAL COLIC 06/08/2024 10:02 AM FINDINGS: Bones/joints: Unremarkable. No acute fracture. No dislocation. Soft tissues: Unremarkable. IMPRESSION: No acute findings. Dictated and Authenticated by: Topher Figueroa MD. Orderin Argelia Bingham MD
--- NOTE | 2025-01-24 22:48 | ED.GENADUL_ITS ---
Discharge Plan Disposition Patient Disposition: Home Condition: Stable Discharge Details Clinical Impression: Acute pain of right hip Primary Care Provider: Kenton Pitts ED Provider: Kate Stout Home Meds and New Rx's Prescriptions: No Action Botox 200 unit recon soln 200 unit IM ONCE Rx Instructions: [id number] methylprednisolone acetate [Depo-Medrol] 40 mg/mL suspension 40 mg intra-articular ONCE Qty: 1 0RF albuterol sulfate [ProAir HFA] 90 mcg/actuation HFA aerosol inhaler 2 puff Inhalation QID PRN (Reason: bronchospasm) Qty: 3 0RF ondansetron 4 mg tablet,disintegrating 4 mg PO Q8H PRN (Reason: nausea and vomiting) Qty: 20 0RF oxycodone 5 mg tablet 5 mg PO Q6H MDD 4 tabs/day Qty: 20 0RF bupivacaine (PF) 0.25 % (2.5 mg/mL) solution 2 ml SQ ONB ONCE Qty: 2 0RF lidocaine (PF) 20 mg/mL (2 %) solution 40 mg SQ ONB ONCE Qty: 2 0RF Comirnaty (12y up)(PF) 30 mcg/0.3 mL syringe 0.3 ml IM ONCE Rx Instructions: as a single dose Fluad Triv (65y up)(PF) 45 mcg (15 mcg x 3)/0.5 mL syringe 0.5 ml IM ONCE Rx Instructions: as a single dose neomycin-polymyxin B-dexameth Drops,Suspension 4 drp ophthalmic (eye) DAILY prednisone 20 mg tablet 40 mg PO DAILY Qty: 10 0RF Rx Instructions: take in the morning with food. take 2 pills daily x 5 days budesonide-formoterol [Symbicort] 80-4.5 mcg/actuation HFA aerosol inhaler 2 puff inhalation Q12H Qty: 10.2 0RF acetaminophen 500 mg tablet 1,000 mg PO Q8H PRN PRN ropinirole 1 mg tablet 1 mg PO QHS Rx Instructions: administer 1-3 hours before bedtime (DME) pen needle, diabetic [Comfort EZ Pen [place]] 31 gauge x 3/16 needle See Rx Instructions .Route Qty: 400 12RF Rx Instructions: Pen needles for injecting insulin 4x daily. ketorolac 10 mg tablet 10 mg PO Q8H Patient Comments: Leanna reports 10 mg TID #15. They told him to hold his aspirin. Rx Instructions: maximum total duration of 5 days from all oral, intranasal, or parenteral formulations tamsulosin [Flomax] 0.4 mg capsule 0.4 mg PO DAILY Qty: 90 4RF Rx Instructions: Take one 0.4 mg capsule by mouth once daily. Nurtec ODT 75 mg tablet,disintegrating 75 mg PO ONCE PRN (Reason: migraine headache) Qty: 10 3RF Rx Instructions: As a single dose. No more than one dose in 24 hours. Vyepti 100 mg/mL solution 300 mg IV [id number] Rx Instructions: administer over 30 mins semaglutide 1 mg/dose (4 mg/3 mL) pen injector 1 mg subcut QWEEK Qty: 3 0RF Rx Instructions: for 4 weeks insulin lispro [Humalog KwikPen Insulin] 100 unit/mL insulin pen 20 unit subcut TID MDD 60 Qty: 30 12RF Rx Instructions: Inject 20 units Humalog subcutaneously with each meal as directed insulin glargine U-300 conc [Toujeo SoloStar U-300 Insulin] 300 unit/mL (1.5 mL) insulin pen 80 unit subcut HS Qty: 3 12RF amlodipine 10 mg tablet 10 mg PO DAILY Qty: 90 4RF omeprazole 20 mg capsule,delayed release(DR/EC) 20 mg PO DAILY Qty: 90 4RF Patient Comments: pt states this is as needed rosuvastatin 10 mg tablet 10 mg PO DAILY Qty: 90 4RF semaglutide 2 mg/dose (8 mg/3 mL) pen injector 2 mg subcut QWEEK 28 Days Qty: 3 12RF Rx Instructions: Inject 2.0 mg subcutaneously once weekly as directed. C PAP 1 unit inhalation QHS (DME) blood-glucose meter [OneTouch Ultra2 Meter] Misc See Rx Instructions .Route Qty: 1 0RF Rx Instructions: once daily (DME) transparent dressings [Tegaderm Frame Style] 2 3/8 X 2 3/4 bandage See Rx Instructions .Route Qty: 20 11RF Rx Instructions: Use to hold continuous glucose monitor in place meclizine 12.5 mg tablet 12.5 mg PO TID PRN (Reason: Vertigo) Qty: 60 3RF docusate sodium 100 mg capsule 100 mg PO BID PRN (Reason: constipation) Qty: 30 0RF (DME) lancets [BD Ultra Fine Lancets] 33 gauge misc See Rx Instructions .ROUTE .MEDSUPPLY Qty: 400 3RF Rx Instructions: Check blood sugar four times daily (DME) OneTouch Ultra Test Strip See Rx Instructions .Route Qty: 400 3RF Rx Instructions: Check blood sugar four times daily (DME) pen needle, diabetic [1st Tier Unifine Pentips] 32 gauge x / needle See Rx Instructions .ROUTE .MEDSUPPLY Qty: 400 3RF Rx Instructions: Check blood sugar four times daily potassium citrate 10 mEq (1,080 mg) tablet extended release See Rx Instructions .ROUTE .COMPLEX Qty: 56 12RF Dose Instruction: TAKE 1 TABLET BY MOUTH TWICE A DAY FOR ALKALINIZE URINE Rx Instructions: TAKE 1 TABLET BY MOUTH TWICE A DAY FOR ALKALINIZE URINE Jardiance 25 mg tablet See Rx Instructions .ROUTE .COMPLEX Qty: 90 4RF Dose Instruction: TAKE 1 TABLET BY MOUTH EVERY MORNING Rx Instructions: TAKE 1 TABLET BY MOUTH EVERY MORNING hydrochlorothiazide 25 mg tablet 25 mg PO QAM Qty: 90 4RF aspirin [Ecotrin Low Strength] 81 mg tablet,delayed release (DR/EC) 81 mg PO DAILY Qty: 90 3RF carbamazepine 200 mg tablet extended release 12 hr 200 mg PO BID Qty: 180 3RF lisinopril 40 mg tablet See Rx Instructions .ROUTE .COMPLEX Qty: 90 4RF Dose Instruction: TAKE 1 TABLET BY MOUTH DAILY Rx Instructions: TAKE 1 TABLET BY MOUTH DAILY diltiazem HCl [Cardizem CD] 240 mg capsule,extended release 24hr 240 mg PO DAILY Qty: 90 3RF Emgality Syringe 120 mg/mL syringe 120 mg subcut QMONTH Qty: 1 12RF metformin 1,000 mg tablet 1,000 mg PO BID Qty: 180 3RF Discharge Instructions Instructions: Hip Pain ED Additional Instructions: Your x-ray and CT scans do not reveal an acute fracture that is causing your hip pain. At this time I recommend continued Tylenol for pain, follow back up with your primary doctor for referral to physical therapy and potentially orthopedic surgery if your symptoms are not improving. Ambulate with a walker that you have at home as needed HPI General Date/Time Provider Initiated Documentation: 01/24/25 17:22 . Limitations to Documentation: no limitations . Information obtained by: patient . HPI Narrative: 69-year-old gentleman with past medical history of obesity, migraine headaches, diabetes presents for a ration of acute right knee and hip pain. Patient reports that 3 days ago he fell forward and landed on his right knee. This caused pain in his right knee as well as pain in his right hip. He states that the pain is severe and has been causing him pain and and difficulty with walking. He is still walking and able to do so without an assistive device. He followed up with his PCP who referred him to the emergency to make sure that you did not have a fracture of his hip. Related Data Home Medications ?Medication ?Instructions ?Recorded ?Confirmed C Pap 1 unit inhalation QHS 04/08/16 01/24/25 onabotulinumtoxinA 200 unit 200 unit IM ONCE 09/13/21 01/24/25 solution for injection (Botox) blood-glucose meter (OneTouch #1 ea 01/24/22 01/24/25 Ultra2 Meter) transparent dressings 2 3/8 X 2 #20 ea 03/12/22 01/24/25 3/4 (Tegaderm Frame Style) meclizine 12.5 mg tablet 12.5 mg PO TID PRN Vertigo #60 tabs 05/27/22 01/24/25 docusate sodium 100 mg capsule 100 mg PO BID PRN constipation #30 09/16/22 01/24/25 caps blood sugar diagnostic (OneTouch #400 ea 04/17/23 01/24/25 Ultra Test strips) lancets 33 gauge (BD Ultra Fine #400 ea 04/17/23 01/24/25 Lancets) pen needle, diabetic 32 gauge x #400 ea 04/17/23 01/24/25 5/32 (1st Tier Unifine Pentips) acetaminophen 500 mg tablet 1,000 mg PO Q8H PRN PRN 07/17/23 01/24/25 ropinirole 1 mg tablet 1 mg PO QHS 07/17/23 01/24/25 albuterol sulfate 90 mcg/actuation 2 puff inhalation QID PRN 03/12/24 01/24/25 aerosol inhaler (ProAir HFA) bronchospasm #3 inhalations pen needle, diabetic 31 gauge x #400 ea 03/23/24 01/24/2516 (Comfort EZ Pen [place]) potassium citrate 10 mEq (1,080 See Rx Instructions .Route 05/11/24 01/24/25 mg) tablet,extended release .COMPLEX #56 tabs empagliflozin 25 mg tablet See Rx Instructions .Route 06/09/24 01/24/25 (Jardiance) .COMPLEX #90 tabs ondansetron 4 mg disintegrating 4 mg PO Q8H PRN nausea and 06/09/24 01/24/25 tablet vomiting #20 tabs oxycodone 5 mg tablet 5 mg PO Q6H #20 tabs 06/14/24 01/24/25 ketorolac 10 mg tablet 10 mg PO Q8H 06/18/24 01/24/25 tamsulosin 0.4 mg capsule (Flomax) 0.4 mg PO DAILY #90 caps 08/03/24 01/24/25 prednisone 20 mg tablet 40 mg (2 x 20 mg) PO DAILY #10 tabs 08/27/24 01/24/25 hydrochlorothiazide 25 mg tablet 25 mg PO QAM #90 tabs 09/03/24 01/24/25 budesonide-formoterol HFA 80 2 puff inhalation Q12H #10.2 grams 09/28/24 01/24/25 mcg-4.5 mcg/actuation aerosol inhaler (Symbicort) COVID vac -25(12up)(Pfi)(PF) 30 0.3 ml IM ONCE 10/01/24 01/24/25 mcg/0.3 mL IM syringe (Comirnaty (12y up)(PF)) flu vacc (65yr 0.5 ml IM ONCE 10/01/24 01/24/25 up)-MF59C(PF) 45 mcg(15 mcgx3)/0.5 mL IM syringe (Fluad Triv (65y up)(PF)) neomycin-polymyxin B-dexameth eye 4 drp ophthalmic (eye) DAILY 10/01/24 01/24/25 drops,suspension aspirin 81 mg tablet,delayed 81 mg PO DAILY #90 tab-caps 10/06/24 01/24/25 release (Ecotrin Low Strength) carbamazepine 200 mg 200 mg PO BID #180 tabs 10/12/24 01/24/25 tablet,extended release,12 hr lisinopril 40 mg tablet See Rx Instructions .Route 11/05/24 01/24/25 .COMPLEX #90 tabs semaglutide 1 mg/dose (4 mg/3 mL) 1 mg (0.75 mL) subcut QWEEK #3 mL 12/03/24 01/24/25 subcutaneous pen injector diltiazem HCl 240 mg 240 mg PO DAILY #90 caps 12/21/24 01/24/25 capsule,extended release 24 hr (Cardizem CD) galcanezumab-gnlm 120 mg/mL 120 mg subcut QMONTH #1 mL 12/21/24 01/24/25 subcutaneous syringe (Emgality) metformin 1,000 mg tablet 1,000 mg PO BID #180 tab-caps 12/23/24 01/24/25 eptinezumab-jjmr 100 mg/mL 300 mg (3 mL) IV [id number] 01/05/25 01/24/25 intravenous solution (Vyepti) rimegepant 75 mg disintegrating 75 mg PO ONCE PRN migraine 01/05/25 01/24/25 tablet (Nurtec ODT) headache #10 tabs amlodipine 10 mg tablet 10 mg PO DAILY #90 tabs 01/17/25 01/24/25 insulin glargine U-300 conc 300 80 unit (0.2667 mL) subcut HS #3 01/17/25 01/24/25 unit/mL (1.5 mL) subcutaneous pen SYRGS (Toujeo SoloStar U-300 Insulin) insulin lispro 100 unit/mL 20 unit (0.2 mL) subcut TID #30 mL 01/17/25 01/24/25 subcutaneous pen (Humalog KwikPen (U-100) Insulin) omeprazole 20 mg capsule,delayed 20 mg PO DAILY #90 caps 01/17/25 01/24/25 release rosuvastatin 10 mg tablet 10 mg PO DAILY #90 tabs 01/17/25 01/24/25 semaglutide 2 mg/dose (8 mg/3 mL) 2 mg (0.75 mL) subcut QWEEK 28 01/19/25 01/24/25 subcutaneous pen injector days #3 mL Previous Rx's ?Medication ?Instructions ?Recorded blood-glucose meter (OneTouch #1 ea 01/24/22 Ultra2 Meter) transparent dressings 2 3/8 X 2 #20 ea 03/12/22 3/4 (Tegaderm Frame Style) meclizine 12.5 mg tablet 12.5 mg PO TID PRN Vertigo #60 tabs 05/27/22 docusate sodium 100 mg capsule 100 mg PO BID PRN constipation #30 09/16/22 caps blood sugar diagnostic (OneTouch #400 ea 04/17/23 Ultra Test strips) lancets 33 gauge (BD Ultra Fine #400 ea 04/17/23 Lancets) pen needle, diabetic 32 gauge x #400 ea 04/17/23 (1st Tier Unifine Pentips) albuterol sulfate 90 mcg/actuation 2 puff inhalation QID PRN 03/12/24 aerosol inhaler (ProAir HFA) bronchospasm #3 inhalations pen needle, diabetic 31 gauge x #400 ea 03/23/2401/30 (Comfort EZ Pen [place]) potassium citrate 10 mEq (1,080 See Rx Instructions .Route 05/11/24 mg) tablet,extended release .COMPLEX #56 tabs empagliflozin 25 mg tablet See Rx Instructions .Route 06/09/24 (Jardiance) .COMPLEX #90 tabs ondansetron 4 mg disintegrating 4 mg PO Q8H PRN nausea and 06/09/24 tablet vomiting #20 tabs oxycodone 5 mg tablet 5 mg PO Q6H #20 tabs 06/14/24 tamsulosin 0.4 mg capsule (Flomax) 0.4 mg PO DAILY #90 caps 08/03/24 prednisone 20 mg tablet 40 mg (2 x 20 mg) PO DAILY #10 tabs 08/27/24 hydrochlorothiazide 25 mg tablet 25 mg PO QAM #90 tabs 09/03/24 budesonide-formoterol HFA 80 2 puff inhalation Q12H #10.2 grams 09/28/24 mcg-4.5 mcg/actuation aerosol inhaler (Symbicort) aspirin 81 mg tablet,delayed 81 mg PO DAILY #90 tab-caps 10/06/24 release (Ecotrin Low Strength) carbamazepine 200 mg 200 mg PO BID #180 tabs 10/12/24 tablet,extended release,12 hr lisinopril 40 mg tablet See Rx Instructions .Route 11/05/24 .COMPLEX #90 tabs semaglutide 1 mg/dose (4 mg/3 mL) 1 mg (0.75 mL) subcut QWEEK #3 mL 12/03/24 subcutaneous pen injector diltiazem HCl 240 mg 240 mg PO DAILY #90 caps 12/21/24 capsule,extended release 24 hr (Cardizem CD) galcanezumab-gnlm 120 mg/mL 120 mg subcut QMONTH #1 mL 12/21/24 subcutaneous syringe (Emgality) metformin 1,000 mg tablet 1,000 mg PO BID #180 tab-caps 12/23/24 eptinezumab-jjmr 100 mg/mL 300 mg (3 mL) IV [id number] 01/05/25 intravenous solution (Vyepti) rimegepant 75 mg disintegrating 75 mg PO ONCE PRN migraine 01/05/25 tablet (Nurtec ODT) headache #10 tabs amlodipine 10 mg tablet 10 mg PO DAILY #90 tabs 01/17/25 insulin glargine U-300 conc 300 80 unit (0.2667 mL) subcut HS #3 01/17/25 unit/mL (1.5 mL) subcutaneous pen SYRGS (Toujeo SoloStar U-300 Insulin) insulin lispro 100 unit/mL 20 unit (0.2 mL) subcut TID #30 mL 01/17/25 subcutaneous pen (Humalog KwikPen (U-100) Insulin) omeprazole 20 mg capsule,delayed 20 mg PO DAILY #90 caps 01/17/25 release rosuvastatin 10 mg tablet 10 mg PO DAILY #90 tabs 01/17/25 semaglutide 2 mg/dose (8 mg/3 mL) 2 mg (0.75 mL) subcut QWEEK 28 01/19/25 subcutaneous pen injector days #3 mL Allergies Allergy/AdvReac Type Severity Reaction Status Date / Time ciprofloxacin AdvReac Severe Other (See Verified 01/24/25 17:25 Comment) grapefruit AdvReac Intermediate Other (See Verified 01/24/25 17:25 Comment) General Stated Complaint: Orthopedic JAI: 3 Exam Narrative Exam Narrative: Review of Systems: All systems reviewed & are unremarkable except as noted in HPI and below Obese, no acute distress NCAT RRR Unlabored respiratory effort Right knee with anterior surgical scar, no effusion or deformity, no significant tenderness to palpation, full range of motion in knee and hip and gait seems to be fairly normal, he does have some lateral hip tenderness on the right Course Vital Signs Vital signs: Vital Signs Temperature 36.7 C 01/24/25 17:09 Pulse 78 01/24/25 17:09 Respiratory Rate 20 01/24/25 17:09 Blood Pressure 104/26 L 01/24/25 17:09 Pulse Oximetry 96 01/24/25 17:09 Temperature 36.3 C L 01/24/25 21:39 Temperature Source Skin 01/24/25 21:39 Pulse 81 01/24/25 21:39 Respiratory Rate 18 01/24/25 21:39 Blood Pressure 132/57 L 01/24/25 21:39 Blood Pressure Mean 70 01/24/25 17:16 Blood Pressure Position Sitting 01/24/25 17:09 Pulse Oximetry 93 01/24/25 21:39 Oxygen Delivery Method Room Air 01/24/25 21:39 Oxygen Flow Rate 0 01/24/25 21:39 Pain Level 10 01/24/25 18:17 Medical Decision Making Emergent evaluation of acute right hip and knee pain after a fall 3 days ago. Patient has been ambulatory since that time the concern would be for an occult fracture., Contusion, no evidence of dislocation. X-ray imaging was obtained of the pelvis, hip and knee, these did not reveal an acute fracture however on attempted ambulation with a walker, the patient was complaining of continued pain. He had been receiving oral narcotics for pain medication which seemed to help a little bit. A CT scan of his pelvis was obtained to evaluate for an occult fracture, this did not reveal an occult fracture based on the V rad radiology read. At this time he feels more comfortable going home and he will be discharged in good condition. He was offered a walker but he says that he has 1 at home that he can continue using. Quality:SDOH Health Related Social Needs: No Data to Display PFSH All Active Problems (Updated 01/24/25 @ 22:48 by Kate Stout MD) Acute pain of right hip (Acute) Headache, chronic migraine without aura, intractable (Acute) Mass of right lower leg (Acute) Encounter for weight management (Acute) Bilateral tinnitus (Acute) Status migrainosus (Acute) Cataracts, bilateral (Acute) Asthma exacerbation (Acute) Frequent falls (Acute) Asthma (Chronic) Lower urinary tract symptoms (LUTS) (Acute) Left ureteral stone (Acute) Femoroacetabular impingement of right hip (Acute) Tubulovillous adenoma (Acute ~09/15/23) Acid reflux disease (Chronic) Paresthesia and pain of both upper extremities (Acute) Neck pain (Acute) Pneumaturia (Acute) Type 2 diabetes mellitus (Chronic) Right hip pain (Acute) Diabetic neuropathy (Acute) both feet, balls of feet only Tubular adenoma (Acute ~10/2020) Arthritis of left knee (Acute) Steroid injection: 10/07/2022; 09/13/2021; 02/21/21; 10/27/2020 Diabetic retinopathy (Acute ~08/2019) [facility] retinologist: Dr. Trejo- [facility] non- proliferative (SEVERE)-07/13/20 Trochanteric bursitis, right hip (Acute 06/15/18) Right IT band lengthening and bursal debridement DOS: 01/21/19 Steroid Injection: 11/06/23; 09/23/2022 Obstructive sleep apnea syndrome (Acute) [place] sleep study 08/14/11 - CPAP recommended Migraine (Acute) Blindness of one eye (Acute) LEFT Medical History Encounter for screening colonoscopy Screen for colon cancer Cough Hydroureter Hydronephrosis Kidney stone Adrenal mass Left sided sciatica Greater trochanteric bursitis injection 02/2021 Ortho Diverticulosis Cluster headache, chronic Hyperlipidemia Trochanteric bursitis, left hip Urinary retention Nausea and vomiting after administration of anesthetic agent Sleep apnea Uses CPAP machine Left eye trauma resulting in surgery many years ago Varicose veins of lower extremity Restless legs Morbid obesity (04/26/13) Essential hypertension (08/11/13) Erectile dysfunction (10/31/14) DM (diabetes mellitus), type 2, uncontrolled titrating insulin to achieve control Dr. Mtz every 3 months for foot care CVA (cerebral vascular accident) (07/20/14) crpytogenic F/U with PCP Bilateral primary osteoarthritis of knee (03/17/17) Surgical History History of colonoscopy (~08/2023) Biopies taken Status post right knee replacement (09/22/18) Status post tonsillectomy History of total right knee replacement (TKR) 09/22/2018 History of ankle surgery as a child Family History Mother Depression Hyperlipidemia Father Heart disease Brother Diabetes Depression Hyperlipidemia Brother Substance abuse Depression Heart disease Hyperlipidemia Brother , Gunshot wound No problems noted. 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
== END 2025-01-24 22:59 | disposition home or self-care (01) ==
PROVIDERS: Emergency Provider Emergency Medicine; PCP Nurse Practitioner Family
DX: M25.551 Pain in right hip (principal); M25.561 Pain in right knee; I10 Essential (primary) hypertension; E78.5 Hyperlipidemia, unspecified; E11.9 Type 2 diabetes mellitus without complications; Z86.73 Personal history of transient ischemic attack (TIA), and cerebral infarction without residual deficits; Z79.84 Long term (current) use of oral hypoglycemic drugs; Z79.85 Long-term (current) use of injectable non-insulin antidiabetic drugs; Z79.82 Long term (current) use of aspirin; Z87.891 Personal history of nicotine dependence
CPT/HCPCS: 73562; 99284; 72192; 73502

== ENCOUNTER 2025-02-07 02:23 | Outpatient (RCR) | payer MEDICARE, SELFPAY ==
[2025-02-07 09:51] VITALS: BP 136/71; PULSE 90; RESP 18; TEMP 37.3; O2SAT 95
[2025-02-07] MEDS: EPTINEZUMAB-JJMR 300 MG in Normal Saline 100 ML 206 MG IVPB (10:08)
[2025-02-07] MEDS: Normal Saline Flush 10 ML SYR IVP (10:08)
== END 2025-02-14 23:59 | disposition home or self-care (01) ==
LOC: INF 02:23
PROVIDERS: PCP Nurse Practitioner Family; Visit Provider Nurse Practitioner Adult Health
DX: G43.709 Chronic migraine without aura, not intractable, without status migrainosus (principal)
CPT/HCPCS: 96365; J3032

== ENCOUNTER → 2025-02-15 08:49 | Outpatient (BNVA) | payer MEDICARE, SELFPAY | PROVIDERS: PCP Nurse Practitioner Family; Referring Provider Nurse Practitioner Family; Visit Provider Nurse Practitioner Adult Health | DX: G43.711 Chronic migraine without aura, intractable, with status migrainosus (principal); G43.901 Migraine, unspecified, not intractable, with status migrainosus | CPT/HCPCS: 64405 ==

== ENCOUNTER → 2025-02-24 13:56 | Outpatient (BNVA) | payer MEDICARE, SELFPAY | PROVIDERS: PCP Nurse Practitioner Family; Referring Provider Nurse Practitioner Family | DX: M70.61 Trochanteric bursitis, right hip (principal) | CPT/HCPCS: 20610; 99213; J1010 ==

== ENCOUNTER 2025-05-09 13:24 | Emergency (ER) | payer MEDICARE, SELFPAY ==
[2025-05-09 13:29] VITALS: BP 114/62; PULSE 88; RESP 20; TEMP 36.5; O2SAT 98
--- NOTE | 2025-05-09 13:30 | DI.CT_ITS ---
Exam(s) CT RENAL COLIC WO EXAM: CT RENAL COLIC WO CLINICAL HISTORY: L flank pain. TECHNIQUE: Imaging Protocol: Axial computed tomography images with coronal and sagittal reformatted images were created and reviewed. COMPARISON: CT CT RENAL COLIC from 06/08/2024 FINDINGS: Lung Bases: No acute findings. Liver: Enlarged. Normal density. No measurable mass. Gallbladder and biliary tract: Few tiny stones versus sludge at the tendon portion of the gallbladder. No biliary ductal dilation. Pancreas: No abnormal calcifications or inflammatory process. Spleen: Normal size. Kidneys: Normal size, contour and axis.No radiodense stones or obstructive uropathy. Stable bilateral renal cysts. No suspicious masses seen. Adrenal glands: stable 2.3 centimeter nodule on the left adrenal gland. Stable fatty density lesion on right adrenal gland. Lymph nodes: Within normal limits. Vasculature: Abdominal aorta non-dilated. Bladder:No stones. wall thickening. No evidence of mass. Bowel: No obstruction. No bowel wall thickening. Appendix normal. Diverticulosis without evidence of diverticulitis. Peritoneal cavity: No ascites.No free air. No focal collection. No mesenteric inflammatory response. Reproductive organs: Prostate is enlarged. Bones: Prominent endplate osteophytes. Bilateral L5 spondylolysis stable slight L5-S1 spondylolisthesis. Old left T12 rib fracture. Soft Tissues: A portion of the right side of the abdomen is not included in the field of view. IMPRESSION: No evidence of hydronephrosis or urinary tract calculi. Enlarged prostate. Bladder wall thickening again noted. Stable adrenal nodules. RADIATION DOSE DELIVERED: 1,419.84mGy.cm Total DLP 1,419.84mGy.cm Total DLP DATA REPOSITORY: All CT scans at this facility are submitted to the National Radiology Data Registry (NRDR) Dose Index Registry (DIR) with the [employer] ([employer]). RADIATION OPTIMIZATION: All CT scans at this facility use at least one of these dose optimization techniques: automated exposure control; mA and/or kV adjustment per patient size (includes targeted exams where dose is matched to clinical indication); or iterative reconstruction.
[2025-05-09 13:40] VITALS: BP 114/62; PULSE 88; RESP 20; TEMP 36.5; O2SAT 98
--- NOTE | 2025-05-09 13:43 | ED.GENADUL_ITS ---
Discharge Plan Disposition Patient Disposition: Home Condition: Stable Discharge Details Clinical Impression: Urinary tract infection Primary Care Provider: Kenton Pitts ED Provider: Darrick Ware Home Meds and New Rx's Prescriptions: New cephalexin 500 mg capsule 500 mg PO QID 10 Days Qty: 40 0RF ketorolac 10 mg tablet 10 mg PO QID 5 Days Qty: 20 0RF Rx Instructions: maximum total duration of 5 days from all oral, intranasal, or parenteral formulations Continued Botox 200 unit recon soln 200 unit IM ONCE Rx Instructions: [id number] methylprednisolone acetate [Depo-Medrol] 40 mg/mL suspension 40 mg intra-articular ONCE Qty: 1 0RF albuterol sulfate [ProAir HFA] 90 mcg/actuation HFA aerosol inhaler 2 puff Inhalation QID PRN (Reason: bronchospasm) Qty: 3 0RF ondansetron 4 mg tablet,disintegrating 4 mg PO Q8H PRN (Reason: nausea and vomiting) Qty: 20 0RF bupivacaine (PF) 0.25 % (2.5 mg/mL) solution 2 ml SQ ONB ONCE Qty: 2 0RF lidocaine (PF) 20 mg/mL (2 %) solution 40 mg SQ ONB ONCE Qty: 2 0RF Comirnaty (12y up)(PF) 30 mcg/0.3 mL syringe 0.3 ml IM ONCE Rx Instructions: as a single dose Fluad Triv (65y up)(PF) 45 mcg (15 mcg x 3)/0.5 mL syringe 0.5 ml IM ONCE Rx Instructions: as a single dose neomycin-polymyxin B-dexameth Drops,Suspension 4 drp ophthalmic (eye) DAILY prednisone 20 mg tablet 40 mg PO DAILY Qty: 10 0RF Rx Instructions: take in the morning with food. take 2 pills daily x 5 days budesonide-formoterol [Symbicort] 80-4.5 mcg/actuation HFA aerosol inhaler 2 puff inhalation Q12H Qty: 10.2 0RF acetaminophen 500 mg tablet 1,000 mg PO Q8H PRN PRN ropinirole 1 mg tablet 1 mg PO QHS Rx Instructions: administer 1-3 hours before bedtime (DME) pen needle, diabetic [Comfort EZ Pen Fedscreek] 31 gauge x 3/16 needle See Rx Instructions .Route Qty: 400 12RF Rx Instructions: Pen needles for injecting insulin 4x daily. ketorolac 10 mg tablet 10 mg PO Q8H Patient Comments: Leanna reports 10 mg TID #15. They told him to hold his aspirin. Rx Instructions: maximum total duration of 5 days from all oral, intranasal, or parenteral formulations tamsulosin [Flomax] 0.4 mg capsule 0.4 mg PO DAILY Qty: 90 4RF Rx Instructions: Take one 0.4 mg capsule by mouth once daily. Vyepti 100 mg/mL solution 300 mg IV [id number] Rx Instructions: administer over 30 mins semaglutide 1 mg/dose (4 mg/3 mL) pen injector 1 mg subcut QWEEK Qty: 3 0RF Rx Instructions: for 4 weeks insulin lispro [Humalog KwikPen Insulin] 100 unit/mL insulin pen 20 unit subcut TID MDD 60 Qty: 30 12RF Rx Instructions: Inject 20 units Humalog subcutaneously with each meal as directed insulin glargine U-300 conc [Toujeo SoloStar U-300 Insulin] 300 unit/mL (1.5 mL) insulin pen 80 unit subcut HS Qty: 3 12RF amlodipine 10 mg tablet 10 mg PO DAILY Qty: 90 4RF omeprazole 20 mg capsule,delayed release(DR/EC) 20 mg PO DAILY Qty: 90 4RF Patient Comments: pt states this is as needed rosuvastatin 10 mg tablet 10 mg PO DAILY Qty: 90 4RF semaglutide 2 mg/dose (8 mg/3 mL) pen injector 2 mg subcut QWEEK 28 Days Qty: 3 12RF Rx Instructions: Inject 2.0 mg subcutaneously once weekly as directed. C PAP 1 unit inhalation QHS (DME) blood-glucose meter [OneTouch Ultra2 Meter] Misc See Rx Instructions .Route Qty: 1 0RF Rx Instructions: once daily (DME) transparent dressings [Tegaderm Frame Style] 2 3/8 X 2 3/4 bandage See Rx Instructions .Route Qty: 20 11RF Rx Instructions: Use to hold continuous glucose monitor in place meclizine 12.5 mg tablet 12.5 mg PO TID PRN (Reason: Vertigo) Qty: 60 3RF docusate sodium 100 mg capsule 100 mg PO BID PRN (Reason: constipation) Qty: 30 0RF (DME) lancets [BD Ultra Fine Lancets] 33 gauge misc See Rx Instructions .ROUTE .MEDSUPPLY Qty: 400 3RF Rx Instructions: Check blood sugar four times daily (DME) OneTouch Ultra Test Strip See Rx Instructions .Route Qty: 400 3RF Rx Instructions: Check blood sugar four times daily (DME) pen needle, diabetic [1st Tier Unifine Pentips] 32 gauge x 5/32 needle See Rx Instructions .ROUTE .MEDSUPPLY Qty: 400 3RF Rx Instructions: Check blood sugar four times daily Jardiance 25 mg tablet See Rx Instructions .ROUTE .COMPLEX Qty: 90 4RF Dose Instruction: TAKE 1 TABLET BY MOUTH EVERY MORNING Rx Instructions: TAKE 1 TABLET BY MOUTH EVERY MORNING hydrochlorothiazide 25 mg tablet 25 mg PO QAM Qty: 90 4RF aspirin [Ecotrin Low Strength] 81 mg tablet,delayed release (DR/EC) 81 mg PO DAILY Qty: 90 3RF carbamazepine 200 mg tablet extended release 12 hr 200 mg PO BID Qty: 180 3RF lisinopril 40 mg tablet See Rx Instructions .ROUTE .COMPLEX Qty: 90 4RF Dose Instruction: TAKE 1 TABLET BY MOUTH DAILY Rx Instructions: TAKE 1 TABLET BY MOUTH DAILY diltiazem HCl [Cardizem CD] 240 mg capsule,extended release 24hr 240 mg PO DAILY Qty: 90 3RF metformin 1,000 mg tablet 1,000 mg PO BID Qty: 180 3RF No Action potassium citrate 10 mEq (1,080 mg) tablet extended release See Rx Instructions .ROUTE .COMPLEX Qty: 56 12RF Dose Instruction: TAKE 1 TABLET BY MOUTH TWICE A DAY FOR ALKALINIZE URINE Rx Instructions: TAKE 1 TABLET BY MOUTH TWICE A DAY FOR ALKALINIZE URINE oxycodone 5 mg tablet 5 mg PO Q6H MDD 4 tabs/day Qty: 20 0RF Discharge Instructions Instructions: Ketorolac (Systemic), Cephalexin, Urinary Tract Infection, Adult ED Additional Instructions: You were seen in the emergency department for your left-sided renal colic, there is a stone in your bladder perhaps he passed it, your urine also shows some infection, we are going to treat this with IV antibiotics today and continuing with cephalexin tablets tomorrow. I have sent a prescription for 5 days worth of ketorolac to take 4 times per day, you may add in your at home doses of Tylenol with this medicine. Please stay well-hydrated, please return to the emergency department immediately for any significant fevers, nausea, weakness, complete lack of urinary output or any other emergent concerns, it would be umaña to place a call for outpatient neurology follow-up should you continue have subacute symptoms. Referrals: [facility] [Provider Group] Kenton Pitts NP [Primary Care Provider, Medicine] Discharge Data Discharge Date/Time-TO BE ENTERED AT DEPARTURE: 05/09/25 15:48 HPI General Date/Time Provider Initiated Documentation: 05/09/25 13:36 . HPI Narrative: 70 year-old male presents to ED today by POV/ambulating with a chief complaint of bilateral flank pain- history of renal stones, some dark urine, followed by Dr. Pinon with onset for about 1 month, worsening. Quality described as deep aching pain in flanks, dark urine, no radiation to urinary obstruction/lack of urinary output, fever, nausea, weakness. Severity is described as severe. Palliating factors include takes OTC analgesics. Provoking factors include nothing specific. Events leading up to the incident/Associated Symptoms: Patient has had stone retrieval in the past. Patient not anticoagulated. Related Data Home Medications ?Medication ?Instructions ?Recorded ?Confirmed C Pap 1 unit inhalation QHS 05/09/25 onabotulinumtoxinA 200 unit 200 unit IM ONCE 09/13/21 05/09/25 solution for injection (Botox) blood-glucose meter (OneTouch #1 ea 01/24/22 05/09/25 Ultra2 Meter) transparent dressings 2 3/8 X 2 #20 ea 03/12/2205/09/ (Tegaderm Frame Style) meclizine 12.5 mg tablet 12.5 mg PO TID PRN Vertigo # 60 tabs 05/27/22 05/09/25 docusate sodium 100 mg capsule 100 mg PO BID PRN const ipation #30 09/16/22 05/09/25 caps blood sugar diagnostic (OneTouch #400 ea 04/17/23 0602/08 Ultra Test strips) lancets 33 gauge (BD Ultra Fine #400 ea 04/17/2305/09 Lancets) pen needle, diabetic 32 gauge x #400 ea 04/17/2305/09/32 (1st Tier Unifine Pentips) acetaminophen 500 mg tablet 1,000 mg PO Q8H PRN PRN 05/09/25 ropinirole 1 mg tablet 1 mg PO QHS 07/17/23 5 albuterol sulfate 90 mcg/actuation 2 puff inhalation Q ID PRN 03/12/24 05/09/25 aerosol inhaler (ProAir HFA) bronchospasm #3 inhalatio ns pen needle, diabetic 31 gauge x #400 ea 03/23/2405/09 (Comfort EZ Pen Fedscreek) empagliflozin 25 mg tablet See Rx Instructions .Route 06/09/24 05/09/25 (Jardiance) .COMPLEX #90 tabs ondansetron 4 mg disintegrating 4 mg PO Q8H PRN nausea and 06/09/24 05/09/25 tablet vomiting #20 tabs ketorolac 10 mg tablet 10 mg PO Q8H 06/18/24 tamsulosin 0.4 mg capsule (Flomax) 0.4 mg PO DAILY #90 caps 08/03/24 05/09/25 prednisone 20 mg tablet 40 mg (2 x 20 mg) PO DAILY # 10 tabs 08/27/24 05/09/25 hydrochlorothiazide 25 mg tablet 25 mg PO QAM #90 tabs 09/03/24 05/09/25 budesonide-formoterol HFA 80 2 puff inhalation Q12H #1 0.2 grams 09/28/24 05/09/25 mcg-4.5 mcg/actuation aerosol inhaler (Symbicort) COVID vac -25(12up)(Pfi)(PF) 30 0.3 ml IM ONCE 10/0105/09/25 mcg/0.3 mL IM syringe (Comirnaty (12y up)(PF)) flu vacc (65yr 0.5 ml IM ONCE 10/01/24/02/08 up)-MF59C(PF) 45 mcg(15 mcgx3)/0.5 mL IM syringe (Fluad Triv (65y up)(PF)) neomycin-polymyxin B-dexameth eye 4 drp ophthalmic (ey e) DAILY 10/01/24 05/09/25 drops,suspension aspirin 81 mg tablet,delayed 81 mg PO DAILY #90 tab-ca ps 10/06/24 05/09/25 release (Ecotrin Low Strength) carbamazepine 200 mg 200 mg PO BID #180 tabs 09/1805/09/25 tablet,extended release,12 hr lisinopril 40 mg tablet See Rx Instructions .Route 1 01/06/24 05/09/25 .COMPLEX #90 tabs semaglutide 1 mg/dose (4 mg/3 mL) 1 mg (0.75 mL) subcu t QWEEK #3 mL 12/03/24 05/09/25 subcutaneous pen injector diltiazem HCl 240 mg 240 mg PO DAILY #90 caps 03/1105/09/25 capsule,extended release 24 hr (Cardizem CD) metformin 1,000 mg tablet 1,000 mg PO BID #180 tab-cap s 12/23/24 05/09/25 eptinezumab-jjmr 100 mg/mL 300 mg (3 mL) IV [id number] 0 01/05/25 05/09/25 intravenous solution (Vyepti) amlodipine 10 mg tablet 10 mg PO DAILY #90 tabs 03/0 02/0805/09/25 insulin glargine U-300 conc 300 80 unit (0.2667 mL) lugo bcut HS #3 01/17/25 05/09/25 unit/mL (1.5 mL) subcutaneous pen SYRGS (Toujeo SoloStar U-300 Insulin) insulin lispro 100 unit/mL 20 unit (0.2 mL) subcut TID #30 mL 01/17/25 05/09/25 subcutaneous pen (Humalog KwikPen (U-100) Insulin) omeprazole 20 mg capsule,delayed 20 mg PO DAILY #90 ca ps 01/17/25 05/09/25 release rosuvastatin 10 mg tablet 10 mg PO DAILY #90 tabs 03/0 02/0805/09/25 semaglutide 2 mg/dose (8 mg/3 mL) 2 mg (0.75 mL) subcu t QWEEK 28 01/19/25 05/09/25 subcutaneous pen injector days #3 mL cephalexin 500 mg capsule 500 mg PO QID 10 days #40 ca ps 05/09/25 ketorolac 10 mg tablet 10 mg PO QID 5 days #20 tabs 05/09/25 oxycodone 5 mg tablet 5 mg PO Q6H #20 tabs 05/10/ 5 potassium citrate 10 mEq (1,080 See Rx Instructions .R oute 05/10/25 mg) tablet,extended release .COMPLEX #56 tabs Previous Rx's ?Medication ?Instructions ?Recorded blood-glucose meter (OneTouch #1 ea 01/24/22 Ultra2 Meter) transparent dressings 2 3/8 X 2 #20 ea 03/12/22 3/4 (Tegaderm Frame Style) meclizine 12.5 mg tablet 12.5 mg PO TID PRN Vertigo # 60 tabs 05/27/22 docusate sodium 100 mg capsule 100 mg PO BID PRN const ipation #30 09/16/22 caps blood sugar diagnostic (OneTouch #400 ea 04/17/23 Ultra Test strips) lancets 33 gauge (BD Ultra Fine #400 ea 04/17/23 Lancets) pen needle, diabetic 32 gauge x #400 ea 04/17/23/32 (1st Tier Unifine Pentips) albuterol sulfate 90 mcg/actuation 2 puff inhalation Q ID PRN 03/12/24 aerosol inhaler (ProAir HFA) bronchospasm #3 inhalatio ns pen needle, diabetic 31 gauge x #400 ea 03/23/2401/30 (Comfort EZ Pen Fedscreek) empagliflozin 25 mg tablet See Rx Instructions .Route 06/09/24 (Jardiance) .COMPLEX #90 tabs ondansetron 4 mg disintegrating 4 mg PO Q8H PRN nausea and 06/09/24 tablet vomiting #20 tabs tamsulosin 0.4 mg capsule (Flomax) 0.4 mg PO DAILY #90 caps 08/03/24 prednisone 20 mg tablet 40 mg (2 x 20 mg) PO DAILY # 10 tabs 08/27/24 hydrochlorothiazide 25 mg tablet 25 mg PO QAM #90 tabs 09/03/24 budesonide-formoterol HFA 80 2 puff inhalation Q12H #1 0.2 grams 09/28/24 mcg-4.5 mcg/actuation aerosol inhaler (Symbicort) aspirin 81 mg tablet,delayed 81 mg PO DAILY #90 tab-ca ps 10/06/24 release (Ecotrin Low Strength) carbamazepine 200 mg 200 mg PO BID #180 tabs 09/18 05/10 tablet,extended release,12 hr lisinopril 40 mg tablet See Rx Instructions .Route 1 01/06/24 .COMPLEX #90 tabs semaglutide 1 mg/dose (4 mg/3 mL) 1 mg (0.75 mL) subcu t QWEEK #3 mL 12/03/24 subcutaneous pen injector diltiazem HCl 240 mg 240 mg PO DAILY #90 caps 03/11 capsule,extended release 24 hr (Cardizem CD) metformin 1,000 mg tablet 1,000 mg PO BID #180 tab-cap s 12/23/24 eptinezumab-jjmr 100 mg/mL 300 mg (3 mL) IV [id number] 0 01/05/25 intravenous solution (Vyepti) amlodipine 10 mg tablet 10 mg PO DAILY #90 tabs 02/08 insulin glargine U-300 conc 300 80 unit (0.2667 mL) lugo bcut HS #3 01/17/25 unit/mL (1.5 mL) subcutaneous pen SYRGS (Toujeo SoloStar U-300 Insulin) insulin lispro 100 unit/mL 20 unit (0.2 mL) subcut TID #30 mL 01/17/25 subcutaneous pen (Humalog KwikPen (U-100) Insulin) omeprazole 20 mg capsule,delayed 20 mg PO DAILY #90 ca ps 01/17/25 release rosuvastatin 10 mg tablet 10 mg PO DAILY #90 tabs 02/08 semaglutide 2 mg/dose (8 mg/3 mL) 2 mg (0.75 mL) subcu t QWEEK 28 01/19/25 subcutaneous pen injector days #3 mL cephalexin 500 mg capsule 500 mg PO QID 10 days #40 ca ps 05/09/25 ketorolac 10 mg tablet 10 mg PO QID 5 days #20 tabs 05/09/25 oxycodone 5 mg tablet 5 mg PO Q6H #20 tabs 5 potassium citrate 10 mEq (1,080 See Rx Instructions .R oute 05/10/25 mg) tablet,extended release .COMPLEX #56 tabs Allergies Allergy/AdvReac Type Severity Reaction Status Date / Time ciprofloxacin AdvReac Severe Other (See Verified 05/13/25 11:11 Comment) grapefruit AdvReac Intermediate Other (See Verified 05/13/25 11:11 Comment) General Stated Complaint: Urinary JAI: 3 Review of Systems All systems reviewed & are unremarkable except as noted in HPI and below Exam Narrative Exam Narrative: GENERAL APPEARANCE: Well-nourished, non-toxic, awake and alert, atraumatic, no acute distress. SKIN: Warm, pink, dry, intact, without rashes/lesions/ulcerations. HEAD: Normocephalic, atraumatic, normal hair distribution for gender/age. EYES: Normal conjunctiva, no exudates on lids/lashes. ENT: Nares patent, no circumoral cyanosis, no facial swelling NECK: Supple, trachea midline, painless cervical ROM. LUNGS/CHEST: Lungs CTA bilaterally-no rhonchi/rales/wheezes diffusely, non- labored respirations, normal A/P diameter, symmetrical expansion, no chest wall deformity HEART (CV/PV): Regular rate and rhythm without murmur, no peripheral edema, no JVD. ABDOMEN: Soft, non-distended, no guarding, bilateral CVA tenderness mildly. MSK: Normal ROM, no swelling/deformity to bilateral UEs or LEs, moving all extremities without weakness, no cyanosis, spine midline without tenderness, normal curvature. NEURO: Mental Status AAOx4 - alert to person, place, time, events No facial droop, no forehead involvement. Motor: No focal weakness - strength 5/5 in bilateral UEs and LEs, proximal and distal, symmetric. Sensory: sensation intact to light touch globally. Gait normal: patient ambulated without ataxia into ED room. PSYCH: euthymic, cooperative, pleasant, appropriate speech Course Vital Signs Vital signs: Vital Signs Temperature 36.5 C 05/09/25 13:29 Pulse 88 05/09/25 13:29 Respiratory Rate 05/09/25 13:29 Blood Pressure 114/62 05/09/25 13:29 Pulse Oximetry 98 05/09/25 13:29 Temperature 36.5 C 05/09/25 13:40 Temperature Source Oral 05/09/25 13:40 Pulse 88 05/09/25 13:40 Respiratory Rate 20 05/09/25 13:40 Blood Pressure 114/62 05/09/25 13:40 Blood Pressure Position Sitting 05/09/25 13:40 Pulse Oximetry 98 05/09/25 13:40 Oxygen Delivery Method Room Air 05/09/25 13:40 Oxygen Flow Rate 0 05/09/25 13:40 Pain Level 10 05/09/25 13:40 Medical Decision Making This dictation utilizes [id number] dictation software and may contain unedited grammatical errors. 70 year-old male presents to ED today by POV/ambulating with a chief complaint of bilateral flank pain- history of renal stones, some dark urine, followed by Dr. Pinon with onset for about 1 month, worsening. Quality described as deep aching pain in flanks, dark urine, no radiation to urinary obstruction/lack of urinary output, fever, nausea, weakness. Severity is described as severe. Palliating factors include takes OTC analgesics. Provoking factors include nothing specific. Events leading up to the incident/Associated Symptoms: Patient has had stone retrieval in the past. Patients' medical history: hydronephrosis/kidney stones, adrenal mass, diverticulosis, history of CVA, asthma. Family and social history: noncontributory. Pertinent exam findings / vital signs include Bilateral CVA tenderness, mild lower abdominal tenderness, negative Gilbert's, nontoxic vitals, afebrile, benign cardiopulmonary exam. Differential / pathologies of concern include ureteral stone/renal colic, UTI, pyelonephritis, not sepsis. Diagnostic studies of: -CBC, CMP, Lipase, Magnesium, UA, CT Renal study. - CBC shows no leukocytosis, no actionable abnormality - CMP shows no SCr of 1.3, mildly elevated BUN - Lipase WNL - Magnesium WNL - UA shows UTI - Renal study shows no stones, no hydro Interventions of: -15mg IVP ketorolac, 650mg PO Tylenol, 2gm IV Ceftriaxone > outpatient Rx for cephalexin & outpt Toradol ED Course/Assessment/Plan: 70-year-old male presents with dark urine and bilateral flank pain with history of renal stones, no stone seen on CT, labs show no leukocytosis, urine shows UTI, he was treated with ceftriaxone and outpatient prescription for cephalexin, recommend urology follow-up, strict return criteria for any acute worsening with severe flank pain and fever, lack of urine output or other emergent concerns. Findings not consistent with pyelonephritis-afebrile, sepsis, hydronephrosis or obstructive uropathy. Disposition of Urinary Tract Infection. Patient verbalized understanding of the plan and return to ED criteria and engaged in shared decision making. Medical Records Medical records reviewed: Yes I reviewed the patient's medical records. Imaging Data Radiologic Study: Attestation: I personally reviewed and interpreted this imaging study as follows: Imaging: CT Scan Radiologist's impression: EXAM: CT RENAL COLIC WO CLINICAL HISTORY: L flank pain. TECHNIQUE: Imaging Protocol: Axial computed tomography images with coronal and sagittal reformatted images were created and reviewed. COMPARISON: CT CT RENAL COLIC from 06/08/2024 FINDINGS: Lung Bases: No acute findings. Liver: Enlarged. Normal density. No measurable mass. Gallbladder and biliary tract: Few tiny stones versus sludge at the tendon portion of the gallbladder. No biliary ductal dilation. Pancreas: No abnormal calcifications or inflammatory process. Spleen: Normal size. Kidneys: Normal size, contour and axis.No radiodense stones or obstructive uropathy. Stable bilateral renal cysts. No suspicious masses seen. Adrenal glands: stable 2.3 centimeter nodule on the left adrenal gland. Stable fatty density lesion on right adrenal gland. Lymph nodes: Within normal limits. Vasculature: Abdominal aorta non-dilated. Bladder:No stones. wall thickening. No evidence of mass. Bowel: No obstruction. No bowel wall thickening. Appendix normal. Diverticulosis without evidence of diverticulitis. Peritoneal cavity: No ascites.No free air. No focal collection. No mesenteric inflammatory response. Reproductive organs: Prostate is enlarged. Bones: Prominent endplate osteophytes. Bilateral L5 spondylolysis stable slight L5-S1 spondylolisthesis. Old left T12 rib fracture. Soft Tissues: A portion of the right side of the abdomen is not included in the field of view. IMPRESSION: No evidence of hydronephrosis or urinary tract calculi. Enlarged prostate. Bladder wall thickening again noted. Stable adrenal nodules. Lab Data Lab results reviewed: Yes I reviewed the patient's lab results. Labs: 05/09/25 14:31 Urine - Reflex from Ua Urine Culture - Pending Laboratory Tests Range/Units 05/09/25 05/09/25 14:22 14:31 WBC (4.4-10.8) 10^3/uL 9.19 RBC (4.36-5.78) 10^6/uL 4.66 Hgb (13.5-17.5) g/dL 13.4 L Hct (40.0-50.0) % 41.8 MCV (80-95) fL 90 MCH (27.0-33.0) pg 28.8 MCHC (32.0-36.0) % 32.1 RDW (11.8-14.1) % 14.8 H Plt Count (130-400) 10^3/uL 270 MPV (8.0-11.0) fL 9.8 Immature Gran % % 0.3 Neutrophils % % 66.9 Lymphocytes % % 18.8 Monocytes % % 10.9 Eosinophils % % 2.7 Basophils % % 0.4 Nucleated RBC % (0.0-0.3) % 0.0 Absolute Neutrophils (1.2-6.7) 10^3/uL 6.14 Absolute Lymphocytes (1.2-3.4) 10^3/uL 1.73 Absolute Monocytes (0.1-0.8) 10^3/uL 1.00 H Absolute Eosinophils (0.0-0.7) 10^3/uL 0.25 Absolute Basophils (0.0-0.2) 10^3/uL 0.04 Sodium (136-145) mmol/L 139 Potassium (3.5-5.1) mmol/L 4.6 Chloride (98-107) mmol/L 101 Carbon Dioxide (21.0-32.0) mmol/L 26.9 Anion Gap (3-11) mmol/L 11.1 H BUN (7-18) mg/dL 50 H Creatinine (0.70-1.30) mg/dL 1.3 Est GFR (CKD-EPI 2020) (mL/min/1.73m2) 59.10 Glucose (74-106) mg/dL 123 H Calcium (8.5-10.1) mg/dL 9.4 Magnesium (1.8-2.4) mg/dL 2.2 Total Bilirubin (0.2-1.0) mg/dL 0.3 AST (15-37) U/L 15 ALT (16-63) U/L 27 Alkaline Phosphatase (46-116) U/L 111 Total Protein (6.4-8.2) g/dL 7.7 Albumin (3.4-5.0) g/dL 3.6 Lipase (<78) U/L 144 H Urine Color (Yellow) Yellow Urine Clarity (Clear) Cloudy Urine pH (5-8) 5.5 Ur Specific [place] (1.005-1.025) 1.015 Urine Protein (Neg-Trace) mg/dL 100 H Urine Ketones (Negative) mg/dL Negative Urine Blood (Negative) Moderate H Urine Nitrite (Negative) Negative Urine Bilirubin (Negative) Negative Urine Urobilinogen (Up to 0.2) mg/dL 0.2 Ur Leukocyte Esterase (Negative) Small H Urine RBC (0-2) HPF 5-10 H Urine WBC (0-5) HPF >50 H Ur Epithelial Cells (Negative) HPF Rare Urine Crystals (Negative) HPF Negative Urine Bacteria (Negative) HPF Few Urine Casts (Negative) LPF Negative Urine Mucus (Negative) Negative Ur Culture Indicated? Yes Urine Glucose (Negative) mg/dL 500 H PFSH All Active Problems (Updated 05/13/25 @ 11:45 by Kenton Holman NP) Lower back pain (Acute) Urinary tract infection (Acute) Left flank pain (Acute) Headache, chronic migraine without aura, intractable (Acute) Mass of right lower leg (Acute) Encounter for weight management (Acute) Bilateral tinnitus (Acute) Status migrainosus (Acute) Cataracts, bilateral (Acute) Asthma exacerbation (Acute) Frequent falls (Acute) Asthma (Chronic) Lower urinary tract symptoms (LUTS) (Acute) Left ureteral stone (Acute) Femoroacetabular impingement of right hip (Acute) Tubulovillous adenoma (Acute ~09/15/23) Acid reflux disease (Chronic) Paresthesia and pain of both upper extremities (Acute) Neck pain (Acute) Pneumaturia (Acute) Type 2 diabetes mellitus (Chronic) Right hip pain (Acute) Diabetic neuropathy (Acute) both feet, balls of feet only Tubular adenoma (Acute ~10/2020) Arthritis of left knee (Acute) Steroid injection: 10/07/2022; 09/13/2021; 02/21/21; 10/27/2020 Diabetic retinopathy (Acute ~08/2019) [facility] retinologist: Dr. Trejo- [facility] non- proliferative (SEVERE)-07/13/20 Trochanteric bursitis, right hip (Acute 06/15/18) Right IT band lengthening and bursal debridement DOS: 01/21/19 Steroid Injection: 11/06/23; 09/23/2022 Obstructive sleep apnea syndrome (Acute) Sieper sleep study 08/14/11 - CPAP recommended Migraine (Acute) Blindness of one eye (Acute) LEFT Medical History Encounter for screening colonoscopy Screen for colon cancer Cough Hydroureter Hydronephrosis Kidney stone Adrenal mass Left sided sciatica Greater trochanteric bursitis injection 02/2021 Ortho Diverticulosis Cluster headache, chronic Hyperlipidemia Trochanteric bursitis, left hip Urinary retention Nausea and vomiting after administration of anesthetic agent Sleep apnea Uses CPAP machine Left eye trauma resulting in surgery many years ago Varicose veins of lower extremity Restless legs Morbid obesity (04/26/13) Essential hypertension (08/11/13) Erectile dysfunction (10/31/14) DM (diabetes mellitus), type 2, uncontrolled titrating insulin to achieve control Dr. Mtz every 3 months for foot care CVA (cerebral vascular accident) (07/20/14) crpytogenic F/U with PCP Bilateral primary osteoarthritis of knee (03/17/17) Surgical History History of colonoscopy (~08/2023) Biopies taken Status post right knee replacement (09/22/18) Status post tonsillectomy History of total right knee replacement (TKR) 09/22/2018 History of ankle surgery as a child Family History Mother Depression Hyperlipidemia Father Heart disease Brother Diabetes Depression Hyperlipidemia Brother Substance abuse Depression Heart disease Hyperlipidemia Brother , Gunshot wound No problems noted. 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
[2025-05-09 14:39] LABS: Abs Immature Grans 0.03 10^3/uL (0.0-0.06); Absolute Basophil Count 0.04 10^3/uL (0.0-0.2); Absolute Eosinophil Count 0.25 10^3/uL (0.0-0.7); Absolute Lymphocyte Count 1.73 10^3/uL (1.2-3.4); Absolute Neutrophil Count 6.14 10^3/uL (1.2-6.7); Basophils % 0.4 %; Eosinophils % 2.7 %; HCT 41.8 % (40.0-50.0); HGB 13.4 g/dL (13.5-17.5); Immature Grans % 0.3 %; Lymphocytes % 18.8 %; MCH 28.8 pg (27.0-33.0); MCHC 32.1 % (32.0-36.0); MCV 90 fL (80-95); MPV 9.8 fL (8.0-11.0); Monocytes % 10.9 %; Neutrophils % 66.9 %; Platelet Count 270 10^3/uL (130-400); RBC 4.66 10^6/uL (4.36-5.78); RDW 14.8 % (11.8-14.1); RDW-SD 47.8 fL; WBC 9.19 10^3/uL (4.4-10.8)
[2025-05-09 14:51] LABS: Bilirubin Negative (Negative); Blood Moderate (Negative); Clarity Cloudy (Clear); Glucose 500 mg/dL (Negative); Ketones Negative (Negative); Leukocyte Esterase Small (Negative); Nitrite Negative (Negative); Specific Gravity 1.015 (1.005-1.025); Urobilinogen 0.2 mg/dL (Up to 0.2); pH 5.5 (5-8)
[2025-05-09 14:52] LABS: ALT 27 U/L (16-63); AST 15 U/L (15-37); Albumin 3.6 g/dL (3.4-5.0); Alkaline Phosphatase 111 U/L (46-116); Anion Gap 11.1 mmol/L (3-11); BUN 50 mg/dL (7-18); Bilirubin, Total 0.3 mg/dL (0.2-1.0); CO2 26.9 mmol/L (21.0-32.0); CREATININE 1.3 mg/dL (0.70-1.30); Calcium 9.4 mg/dL (8.5-10.1); Chloride 101 mmol/L (98-107); Glucose 123 mg/dL (74-106); Lipase 144 U/L (<78); Magnesium 2.2 mg/dL (1.8-2.4); Potassium 4.6 mmol/L (3.5-5.1); Sodium 139 mmol/L (136-145); Total Protein 7.7 g/dL (6.4-8.2)
[2025-05-09] MEDS: Ketorolac 15 MG/ML VIAL IVP (15:12)
[2025-05-09] MEDS: Normal Saline 1,000 ML 1000 ML IV (15:12)
[2025-05-09] MEDS: Acetaminophen 325 MG TAB 650 MG PO (15:12)
[2025-05-09 15:13] LABS: Bacteria Few HPF (Negative); C & S Indicated? Yes; Casts Negative LPF (Negative); Crystals Negative HPF (Negative); Epithelial Cells Rare HPF (Negative); Mucus Negative (Negative); WBC >50 HPF (0-5)
[2025-05-09] MEDS: cefTRIAXone 2 GM/50 ML BAG IVPB (15:19)
== END 2025-05-09 15:48 | disposition home or self-care (01) ==
PROVIDERS: Emergency Provider Physician Assistant; PCP Nurse Practitioner Family
DX: N39.0 Urinary tract infection, site not specified (principal); E78.5 Hyperlipidemia, unspecified; I10 Essential (primary) hypertension; E11.9 Type 2 diabetes mellitus without complications; Z86.73 Personal history of transient ischemic attack (TIA), and cerebral infarction without residual deficits; Z87.442 Personal history of urinary calculi; Z79.4 Long term (current) use of insulin; Z79.85 Long-term (current) use of injectable non-insulin antidiabetic drugs
CPT/HCPCS: 36415; 80053; 83690; 96374; 96375; 99284; 74176; 81003; 81015; 83735; 85025; 87086; J0696; J1885

== ENCOUNTER 2025-05-09 15:44 | Outpatient (REF) | payer MEDICARE, SELFPAY | END 2025-05-09 15:45 | disposition home or self-care (01) | LOC: LBN 15:44 | PROVIDERS: PCP Nurse Practitioner Family; Visit Provider Nurse Practitioner Family | DX: N39.0 Urinary tract infection, site not specified (principal) | CPT/HCPCS: 87086 ==

== ENCOUNTER 2025-05-10 02:49 | Outpatient (RCR) | payer MEDICARE, SELFPAY ==
[2025-05-10] MEDS: EPTINEZUMAB-JJMR 300 MG in Normal Saline 100 ML 206 MG IVPB (10:12)
[2025-05-10] MEDS: Normal Saline Flush 10 ML SYR IVP (11:43)
== END 2025-05-16 23:59 | disposition home or self-care (01) ==
LOC: INF 02:49
PROVIDERS: PCP Nurse Practitioner Family; Visit Provider Nurse Practitioner Adult Health
DX: G43.709 Chronic migraine without aura, not intractable, without status migrainosus (principal)
CPT/HCPCS: 96365; J3032

== ENCOUNTER → 2025-05-18 09:39 | Outpatient (BNVA) | payer MEDICARE, SELFPAY | PROVIDERS: PCP Nurse Practitioner Family; Referring Provider Nurse Practitioner Family; Visit Provider Nurse Practitioner Adult Health | DX: R51.9 Headache, unspecified (principal) | CPT/HCPCS: 64405 ==

== ENCOUNTER → 2025-06-13 14:09 | Outpatient (BNVA) | payer MEDICARE, SELFPAY | PROVIDERS: PCP Nurse Practitioner Family; Referring Provider Nurse Practitioner Family; Visit Provider Nurse Practitioner Gerontology | DX: N20.1 Calculus of ureter (principal); N40.1 Benign prostatic hyperplasia with lower urinary tract symptoms; R29.6 Repeated falls; R39.9 Unspecified symptoms and signs involving the genitourinary system | CPT/HCPCS: 99214 ==

== ENCOUNTER → 2025-06-16 14:26 | Outpatient (BNVA) | payer MEDICARE, SELFPAY | PROVIDERS: PCP Nurse Practitioner Family; Referring Provider Nurse Practitioner Family; Visit Provider Student in an Organized Health Care Education/Training Program | DX: M70.61 Trochanteric bursitis, right hip (principal); M70.62 Trochanteric bursitis, left hip | CPT/HCPCS: 20610; J1010 ==

== ENCOUNTER → 2025-06-30 08:45 | Outpatient (BNVA) | payer MEDICARE, SELFPAY | PROVIDERS: PCP Nurse Practitioner Family; Referring Provider Nurse Practitioner Family; Visit Provider Nurse Practitioner Adult Health | DX: R51.9 Headache, unspecified (principal) | CPT/HCPCS: 64405 ==

== ENCOUNTER 2025-07-28 10:06 | Outpatient (CLI) | payer MEDICARE, SELFPAY ==
[2025-07-28 16:21] LABS: D-Dimer 1116 ng/mlFEU (<500)
[2025-07-28 16:33] LABS: Anion Gap 11.9 mmol/L (3-11); BUN 34 mg/dL (7-18); CO2 25.1 mmol/L (21.0-32.0); Calcium 9.9 mg/dL (8.5-10.1); Chloride 104 mmol/L (98-107); Estimated GFR 65.06 (mL/min/1.73m2); Glucose 154 mg/dL (74-106); Potassium 4.8 mmol/L (3.5-5.1); Sodium 141 mmol/L (136-145); Uric Acid 5.9 mg/dL (3.5-7.2)
[2025-07-28 16:51] LABS: Abs Immature Grans 0.03 10^3/uL (0.0-0.06); HCT 41.6 % (40.0-50.0); HGB 13.0 g/dL (13.5-17.5); Immature Grans % 0.4 %; MCH 28.4 pg (27.0-33.0); MCHC 31.3 % (32.0-36.0); MCV 91 fL (80-95); MPV 10.3 fL (8.0-11.0); Platelet Count 302 10^3/uL (130-400); RBC 4.57 10^6/uL (4.36-5.78); RDW 15.6 % (11.8-14.1); RDW-SD 51.1 fL; WBC 8.53 10^3/uL (4.4-10.8)
[2025-07-29 12:29] LABS: Lyme Ab w Rflx to Lyme Confirm Negative (Negative)
[2025-07-30 23:38] LABS: B. miyamotoi PCR Negative (Negative); Babesia divergens/MO-1 Negative (Negative); Ehrlichia muris eauclairensis Negative (Negative)
== END 2025-07-28 10:07 | disposition home or self-care (01) ==
PROVIDERS: PCP Nurse Practitioner Family; Referring Provider Nurse Practitioner Family; Visit Provider Nurse Practitioner Family
DX: M79.89 Other specified soft tissue disorders (principal)
CPT/HCPCS: 36415; 80048; 87798; 84550; 85025; 85379; 86618

== ENCOUNTER 2025-07-28 11:00 | Outpatient (CLI) | payer MEDICARE, SELFPAY ==
--- NOTE | 2025-07-28 10:45 | DI.RAD_ITS ---
Exam(s) XR FOREARM RT EXAM: XR FOREARM RT CLINICAL HISTORY: pain and swelling upper ext x 3 weeks.m79.89. TECHNIQUE: 2D digital imaging was performed. COMPARISON: No exams were available for comparison FINDINGS: Two views No evidence of acute fracture. Radius and ulna appear unremarkable. Vascular calcifications noted in the forearm. No other soft tissue findings. IMPRESSION: No acute osseous findings in the right forearm bones. DATA REPOSITORY: RADIATION DOSE DELIVERED:
--- NOTE | 2025-07-28 10:45 | DI.RAD_ITS ---
Exam(s) XR HAND RT COMPLETE EXAM: XR HAND RT COMPLETE CLINICAL HISTORY: pain, swelling rue,m79.89,x 3 weeks. TECHNIQUE: 2D digital imaging was performed. COMPARISON: CR XR hand RT complete from 04/27/2019 FINDINGS: 3 views No evidence of acute fractures nor dislocation.. Mild degenerative changes noted. No osseous lesions nor erosions. Vascular calcifications noted in the radial artery at the wrist and there is calcification the triangular fibrocartilage on the medial aspect of the wrist. There are multiple thin wire opacities noted in the soft tissues in the distal aspect of the thumb at the level of the medial tuft of the distal phalanx. No fracture nor evidence of osteomyelitis. IMPRESSION: Multiple foreign bodies in the distal thumb soft tissues. No fracture nor radiographic evidence of osteomyelitis. DATA REPOSITORY: RADIATION DOSE DELIVERED:
== END 2025-07-28 11:20 ==
LOC: DI 11:00
PROVIDERS: PCP Nurse Practitioner Family; Visit Provider Nurse Practitioner Family
DX: M79.89 Other specified soft tissue disorders (principal)
CPT/HCPCS: 73090; 73130

== ENCOUNTER 2025-07-29 14:50 | Outpatient (CLI) | payer MEDICARE, SELFPAY ==
--- NOTE | 2025-07-29 12:30 | DI.US_ITS ---
Exam(s) US UPPER EXTREMITY VENOUS RT EXAM: US UPPER EXTREMITY VENOUS RT CLINICAL HISTORY: elevated d-dimer M79.89 SWELLING RT UPPER EXTREMITY TECHNIQUE: GRAYSCALE, COLOR, DOPPLER IMAGING OF THE VENOUS SYSTEM OF THE UPPER EXTREMITY-RIGHT COMPARISON: US US SOFT TISSUE EXTREMITY from 12/29/2024 FINDINGS: Basilic vein: Patent. Normal color-flow and normal compression and augmentation properties. Brachial vein(s):Patent. Normal color flow. Normal compression and augmentation properties. Cephalic vein:Patent. Normal color flow. Normal compression and augmentation properties. Axillary vein: Patent. Normal color flow. Normal compression and augmentation properties. Visualized subclavian vein: Patent. No obvious intraluminal thrombus. IMPRESSION: 1. No evidence of venous thrombosis in the right upper extremity. DATA REPOSITORY:
== END 2025-07-29 15:10 ==
LOC: DI 14:51
PROVIDERS: PCP Nurse Practitioner Family; Visit Provider Nurse Practitioner Family
DX: M79.89 Other specified soft tissue disorders (principal)
CPT/HCPCS: 93971

== ENCOUNTER 2025-08-10 03:51 | Outpatient (RCR) | payer MEDICARE, SELFPAY ==
[2025-08-10] MEDS: Normal Saline Flush 10 ML SYR IVP (13:21)
[2025-08-10] MEDS: EPTINEZUMAB-JJMR 300 MG in Normal Saline 100 ML 206 MG IVPB (13:21)
== END 2025-08-16 23:59 | disposition home or self-care (01) ==
LOC: INF 03:51
PROVIDERS: PCP Nurse Practitioner Family; Visit Provider Nurse Practitioner Adult Health
DX: G43.709 Chronic migraine without aura, not intractable, without status migrainosus (principal)
CPT/HCPCS: 96365; J3032

== ENCOUNTER 2025-08-30 10:33 | Outpatient (CLI) | payer MEDICARE, SELFPAY ==
--- NOTE | 2025-08-30 11:30 | DI.CT_ITS ---
Exam(s) CT UPPER EXTREMITY RT WO EXAM: CT UPPER EXTREMITY RT WO CLINICAL HISTORY: persistent severe pain in RUE from elbow to finger TECHNIQUE: Imaging Protocol: Axial computed tomography images with coronal and sagittal reformatted images were created and reviewed. CONTRAST MATERIAL: Noncontrast COMPARISON: CR XR hand RT complete from 04/27/2019 CR XR FOREARM RT from 07/28/2025 CR XR HAND RT COMPLETE from 07/28/2025 US US UPPER EXTREMITY VENOUS RT from 07/29/2025 FINDINGS: Bones: There is no evidence of fracture or dislocation. The bones appear osteopenic. There are multiple lucent areas seen in multiple bones, particularly the capitate and hamate as well as distal radius. Findings could represent inflammatory erosions however infectious causes oral should also be considered. Joints: Underlying mild degenerative changes. Considerable sized wrist joint effusion. Soft Tissues: soft tissue swelling, greatest at the dorsum of the hand. Some swelling also seen at the dorsum of the elbow. Vascular calcifications. Chondrocalcinosis. IMPRESSION: Large wrist joint effusion. Infectious versus inflammatory erosions involving the carpal bones.. RADIATION DOSE DELIVERED: 363.26mGy.cm Total DLP DATA REPOSITORY: All CT scans at this facility are submitted to the National Radiology Data Registry (NRDR) Dose Index Registry (DIR) with the [employer] ([employer]). RADIATION OPTIMIZATION: All CT scans at this facility use at least one of these dose optimization techniques: automated exposure control; mA and/or kV adjustment per patient size (includes targeted exams where dose is matched to clinical indication); or iterative reconstruction.
== END 2025-08-30 10:53 ==
LOC: DI 10:33
PROVIDERS: PCP Nurse Practitioner Family; Visit Provider Nurse Practitioner Family
DX: M79.89 Other specified soft tissue disorders (principal)
CPT/HCPCS: 73200

== ENCOUNTER 2025-09-01 00:32 | Outpatient (CLI) | payer MEDICARE, SELFPAY ==
[2025-09-01 14:01] LABS: Abs Immature Grans 0.03 10^3/uL (0.0-0.06); ESR 65 mm/hr (0-20); HCT 38.2 % (40.0-50.0); HGB 12.2 g/dL (13.5-17.5); Immature Grans % 0.4 %; MCH 28.8 pg (27.0-33.0); MCHC 31.9 % (32.0-36.0); MCV 90 fL (80-95); MPV 10.5 fL (8.0-11.0); Platelet Count 316 10^3/uL (130-400); RBC 4.23 10^6/uL (4.36-5.78); RDW 15.2 % (11.8-14.1); RDW-SD 50.5 fL; WBC 7.95 10^3/uL (4.4-10.8)
[2025-09-01 14:17] LABS: C-Reactive Protein 8.50 mg/dL (<or=0.5)
== END 2025-09-01 00:33 | disposition home or self-care (01) ==
LOC: LOS 00:34
PROVIDERS: PCP Nurse Practitioner Family; Visit Provider Nurse Practitioner Family
DX: M79.89 Other specified soft tissue disorders (principal)
CPT/HCPCS: 36415; 85652; 85025; 86140

== ENCOUNTER → 2025-09-05 10:56 | Outpatient (BNVA) | payer MEDICARE, SELFPAY | PROVIDERS: PCP Nurse Practitioner Family; Referring Provider Nurse Practitioner Family; Visit Provider Nurse Practitioner Adult Health | DX: R51.9 Headache, unspecified (principal) | CPT/HCPCS: 64405 ==

== ENCOUNTER → 2025-09-05 13:17 | Outpatient (BNVA) | payer MEDICARE, SELFPAY | PROVIDERS: PCP Nurse Practitioner Family; Referring Provider Nurse Practitioner Family; Visit Provider Student in an Organized Health Care Education/Training Program | DX: R22.31 Localized swelling, mass and lump, right upper limb (principal); M65.931 Unspecified synovitis and tenosynovitis, right forearm | CPT/HCPCS: 20605 ×2; J1010 ==

== ENCOUNTER 2025-10-01 22:17 | Emergency (ER) | payer MEDICARE, SELFPAY ==
[2025-10-01] VITALS (18 sets, daily range): BP systolic 111–150; BP diastolic 40–86; PULSE 67–75; RESP 20; TEMP 36.3; O2SAT 89–99
--- NOTE | 2025-10-01 22:30 | RT.EKG_ITS ---
APPROVED REPORT Exam: Resting ECG Reason for Exam: weakness Patient Location: E HR:69 bpm ECG Measurements Heart Rate 69 AXIS MA 241 P -77 QRSd 80 QRS 97 QT 428 T 9 QTc 459 Conclusion Sinus or ectopic atrial rhythm...P axis (-45,135) Prolonged MA interval...MA >220, V-rate 50- 90 Low voltage, precordial leads...precordial leads <1.0mV Probable right ventricular hypertrophy...prominent R or R' w/ RAD or [facility]YLAN Physician: morphology similiar to prior ekg on 09/06/22
--- NOTE | 2025-10-01 22:47 | W.ED.GENAD ---
Discharge Plan Disposition Patient Disposition: Home Condition: Good Discharge Details Clinical Impression: Acute UTI Primary Care Provider: Kenton Pitts ED Provider: Darrick Knight Home Meds and New Rx's Prescriptions: New cephalexin 500 mg capsule 500 mg PO QID 7 Days Qty: 28 0RF No Action Botox 200 unit recon soln 200 unit IM ONCE Rx Instructions: [id number] methylprednisolone acetate [Depo-Medrol] 40 mg/mL suspension 40 mg intra-articular ONCE Qty: 1 0RF naproxen 500 mg tablet 500 mg PO BID Qty: 14 0RF Rx Instructions: Take 1 tablet twice a day for 7 days ondansetron 4 mg tablet,disintegrating 4 mg PO Q8H PRN (Reason: nausea and vomiting) Qty: 20 0RF bupivacaine (PF) 0.25 % (2.5 mg/mL) solution 2 ml SQ ONB ONCE Qty: 2 0RF lidocaine (PF) 20 mg/mL (2 %) solution 40 mg SQ ONB ONCE Qty: 2 0RF budesonide-formoterol [Symbicort] 80-4.5 mcg/actuation HFA aerosol inhaler 2 puff inhalation Q12H Qty: 10.2 0RF acetaminophen 500 mg tablet 1,000 mg PO Q8H PRN PRN (DME) pen needle, diabetic [Comfort EZ Pen [place]] 31 gauge x 3/16 needle See Rx Instructions .Route Qty: 400 12RF Rx Instructions: Pen needles for injecting insulin 4x daily. Vyepti 100 mg/mL solution 300 mg IV [id number] Rx Instructions: administer over 30 mins amlodipine 10 mg tablet 10 mg PO DAILY Qty: 90 4RF (DME) Dexcom G7 Sensor Device See Rx Instructions .Route Qty: 3 12RF Rx Instructions: As directed for blood glucose ketorolac 10 mg tablet 10 mg PO QID Rx Instructions: maximum total duration of 5 days from all oral, intranasal, or parenteral formulations hydrochlorothiazide 25 mg tablet 25 mg PO QAM Qty: 90 4RF Jardiance 25 mg tablet See Rx Instructions .ROUTE .COMPLEX Qty: 90 4RF Dose Instruction: TAKE 1 TABLET BY MOUTH EVERY MORNING Rx Instructions: TAKE 1 TABLET BY MOUTH EVERY MORNING C PAP 1 unit inhalation QHS (DME) blood-glucose meter [OneTouch Ultra2 Meter] Misc See Rx Instructions .Route Qty: 1 0RF Rx Instructions: once daily (DME) transparent dressings [Tegaderm Frame Style] 2 3/8 X 2 3/4 bandage See Rx Instructions .Route Qty: 20 11RF Rx Instructions: Use to hold continuous glucose monitor in place meclizine 12.5 mg tablet 12.5 mg PO TID PRN (Reason: Vertigo) Qty: 60 3RF docusate sodium 100 mg capsule 100 mg PO BID PRN (Reason: constipation) Qty: 30 0RF (DME) lancets [BD Ultra Fine Lancets] 33 gauge misc See Rx Instructions .ROUTE .MEDSUPPLY Qty: 400 3RF Rx Instructions: Check blood sugar four times daily (DME) OneTouch Ultra Test Strip See Rx Instructions .Route Qty: 400 3RF Rx Instructions: Check blood sugar four times daily (DME) pen needle, diabetic [1st Tier Unifine Pentips] 32 gauge x 5/32 needle See Rx Instructions .ROUTE .MEDSUPPLY Qty: 400 3RF Rx Instructions: Check blood sugar four times daily diltiazem HCl [Cardizem CD] 240 mg capsule,extended release 24hr 240 mg PO DAILY Qty: 90 3RF potassium citrate 10 mEq (1,080 mg) tablet extended release See Rx Instructions .ROUTE .COMPLEX Qty: 56 12RF Dose Instruction: TAKE 1 TABLET BY MOUTH TWICE A DAY FOR ALKALINIZE URINE Rx Instructions: TAKE 1 TABLET BY MOUTH TWICE A DAY FOR ALKALINIZE URINE methocarbamol 750 mg tablet 750 mg PO QID Qty: 20 0RF Rx Instructions: treatment failure with cyclobenzaprine tamsulosin [Flomax] 0.4 mg capsule 0.8 mg PO DAILY Qty: 180 4RF Rx Instructions: Take one 0.4 mg capsule by mouth once daily. insulin glargine U-300 conc [Toujeo SoloStar U-300 Insulin] 300 unit/mL (1.5 mL) insulin pen 80 unit subcut HS Qty: 3 12RF insulin lispro [Humalog KwikPen Insulin] 100 unit/mL insulin pen 20 unit subcut TID MDD 60 Qty: 30 12RF Rx Instructions: Inject 20 units Humalog subcutaneously with each meal as directed omeprazole 20 mg capsule,delayed release(DR/EC) 20 mg PO DAILY Qty: 90 4RF Patient Comments: pt states this is as needed rosuvastatin 10 mg tablet 10 mg PO DAILY Qty: 90 4RF semaglutide 2 mg/dose (8 mg/3 mL) pen injector 2 mg subcut QWEEK 28 Days Qty: 3 12RF Rx Instructions: Inject 2.0 mg subcutaneously once weekly as directed. metformin 1,000 mg tablet 1,000 mg PO BID Qty: 180 3RF lisinopril 40 mg tablet See Rx Instructions .ROUTE .COMPLEX Qty: 90 4RF Dose Instruction: TAKE 1 TABLET BY MOUTH DAILY Rx Instructions: TAKE 1 TABLET BY MOUTH DAILY carbamazepine 200 mg tablet extended release 12 hr 200 mg PO BID Qty: 180 3RF aspirin [Ecotrin Low Strength] 81 mg tablet,delayed release (DR/EC) 81 mg PO DAILY Qty: 90 3RF ropinirole 1 mg tablet 1 mg PO QHS Qty: 90 4RF Rx Instructions: administer 1-3 hours before bedtime prednisone 5 mg tablet 5 mg PO DAILY Qty: 30 0RF Rx Instructions: TAKE 2 TABLETS PO DAILY FOR 10 DAYS, THEN TAKE 1 TABLET PO FOR 10 DAYS oxycodone 10 mg tablet 10 mg PO Q6H MDD 4 tabs/day PRN (Reason: pain) Qty: 30 0RF Discharge Instructions Instructions: Urinary Tract Infection, Adult ED Additional Instructions: At this time you were dehydrated and you do have a urinary tract infection. Please drink plenty of fluids and stay well-hydrated. Drink 10 to 12 cups of water per day. Avoid caffeine products, excessive cheese or processed meats. Please take the antibiotic as prescribed for your urinary tract infection. Has been sent to your pharmacy on file. If you notice any worsening of your symptoms, or any new symptoms such as vomiting, diarrhea, fever, chills, shortness of breath, chest pain, numbness, weakness, or fainting , please return immediately to the emergency department for reevaluation. Please follow up with your primary care provider as soon as possible for reassessment and reevaluation. As always, it was a pleasure participating in your medical care today. Stand Alone Forms: Portal Information Referrals: Kenton Pitts NP [Primary Care Provider, Medicine] HPI General Date/Time Provider Initiated Documentation: 10/01/25 22:37. HPI Narrative: This is a 70-year-old male with a past medical history of diabetes mellitus type 2, diabetic retinopathy, lower urinary tract symptoms, previous adrenal mass, previous kidney stones, hypertension, previous CVA, who presents today for evaluation of dysuria, frequency, nausea and vomiting. Patient states the symptoms have been going on for the last week in regards to the frequency and dysuria, however he has had nausea and vomiting over the last 24 to 48 hours. He denies any diarrhea. He denies any blood in his urine or vomit. He denies any fever or chills. He also admits to mild headaches, he has a history of cluster headaches. Pain is made worse with light. He has no other complaints at this time. No other modifying factors. The patient denies any headache red flags of worst headache of life, thunderclap headache, neck pain, fever, chills, concerning family history of polycystic kidney disease, Marfan syndrome, Aliyah-Danlos syndrome, abdominal aortic aneurysm, aortic dissection, or intracranial aneurysm. The patient states that headache has been going on for the last 2 weeks, and feels identical to his previous cluster headaches with episodic icepick like sensation behind his left eye. No pain in the eyeball itself though. He denies any neck pain or neck stiffness. Related Data Home Medications Medication Instructions Recorded Confirmed C Pap 1 unit inhalation QHS 04/08/16 09/06/25 onabotulinumtoxinA 200 unit 200 unit IM ONCE 09/13/21 09/06/25 solution for injection (Botox) blood-glucose meter (OneTouch #1 ea 01/24/22 09/06/25 Ultra2 Meter) transparent dressings 2 3/8 X 2 #20 ea 03/12/22 09/06/25 3/4 (Tegaderm Frame Style) meclizine 12.5 mg tablet 12.5 mg PO TID PRN Vertigo #60 tabs 05/27/22 09/06/25 docusate sodium 100 mg capsule 100 mg PO BID PRN constipation #30 09/16/22 09/06/25 caps blood sugar diagnostic (OneTouch #400 ea 04/17/23 09/06/25 Ultra Test strips) lancets 33 gauge (BD Ultra Fine #400 ea 04/17/23 09/06/25 Lancets) pen needle, diabetic 32 gauge x #400 ea 06/01/23 10/21/25 5/32 (1st Tier Unifine Pentips) acetaminophen 500 mg tablet 1,000 mg PO Q8H PRN PRN 07/17/23 09/06/25 pen needle, diabetic 31 gauge x #400 ea 03/23/24 09/06/25/16 (Comfort EZ Pen [place]) ondansetron 4 mg disintegrating 4 mg PO Q8H PRN nausea and 06/09/24 09/06/25 tablet vomiting #20 tabs budesonide-formoterol HFA 80 2 puff inhalation Q12H #10.2 grams 09/28/24 09/06/25 mcg-4.5 mcg/actuation aerosol inhaler (Symbicort) diltiazem HCl 240 mg 240 mg PO DAILY #90 caps 12/21/24 09/06/25 capsule,extended release 24 hr (Cardizem CD) eptinezumab-jjmr 100 mg/mL 300 mg (3 mL) IV [id number] 01/05/25 09/06/25 intravenous solution (Vyepti) amlodipine 10 mg tablet 10 mg PO DAILY #90 tabs 01/17/25 09/06/25 potassium citrate 10 mEq (1,080 See Rx Instructions .Route 05/10/25 09/06/25 mg) tablet,extended release .COMPLEX #56 tabs blood-glucose sensor (Dexcom G7 #3 ea 05/25/25 09/06/25 Sensor device) naproxen 500 mg tablet 500 mg PO BID #14 tabs 05/25/25 09/06/25 methocarbamol 750 mg tablet 750 mg PO QID #20 tabs 06/07/25 09/06/25 empagliflozin 25 mg tablet See Rx Instructions .Route 06/17/25 09/06/25 (Jardiance) .COMPLEX #90 tabs tamsulosin 0.4 mg capsule (Flomax) 0.8 mg (2 x 0.4 mg) PO DAILY #180 06/23/25 09/06/25 caps insulin glargine U-300 conc 300 80 unit (0.2667 mL) subcut HS #3 07/01/25 09/06/25 unit/mL (1.5 mL) subcutaneous pen SYRGS (Toujeo SoloStar U-300 Insulin) insulin lispro 100 unit/mL 20 unit (0.2 mL) subcut TID #30 mL 07/01/25 09/06/25 subcutaneous pen (Humalog KwikPen (U-100) Insulin) lisinopril 40 mg tablet See Rx Instructions .Route 07/01/25 09/06/25 .COMPLEX #90 tabs metformin 1,000 mg tablet 1,000 mg PO BID #180 tab-caps 07/01/25 09/06/25 omeprazole 20 mg capsule,delayed 20 mg PO DAILY #90 caps 07/01/25 09/06/25 release rosuvastatin 10 mg tablet 10 mg PO DAILY #90 tabs 07/01/25 09/06/25 semaglutide 2 mg/dose (8 mg/3 mL) 2 mg (0.75 mL) subcut QWEEK 28 07/01/25 09/06/25 subcutaneous pen injector days #3 mL hydrochlorothiazide 25 mg tablet 25 mg PO QAM #90 tabs 08/26/25 09/06/25 ketorolac 10 mg tablet 10 mg PO QID 08/26/25 09/06/25 carbamazepine 200 mg 200 mg PO BID #180 tabs 08/31/25 09/06/25 tablet,extended release,12 hr aspirin 81 mg tablet,delayed 81 mg PO DAILY #90 tab-caps 09/12/25 release (Ecotrin Low Strength) ropinirole 1 mg tablet 1 mg PO QHS #90 tabs 09/13/25 prednisone 5 mg tablet 5 mg PO DAILY #30 tabs 09/22/25 oxycodone 10 mg tablet 10 mg PO Q6H PRN pain #30 tabs 09/27/25 cephalexin 500 mg capsule 500 mg PO QID 7 days #28 caps 10/02/25 Previous Rx's Medication Instructions Recorded blood-glucose meter (OneTouch #1 ea 01/24/22 Ultra2 Meter) transparent dressings 2 3/8 X 2 #20 ea 03/12/22 3/4 (Tegaderm Frame Style) meclizine 12.5 mg tablet 12.5 mg PO TID PRN Vertigo #60 tabs 05/27/22 docusate sodium 100 mg capsule 100 mg PO BID PRN constipation #30 09/16/22 caps blood sugar diagnostic (OneTouch #400 ea 04/17/23 Ultra Test strips) lancets 33 gauge (BD Ultra Fine #400 ea 04/17/23 Lancets) pen needle, diabetic 32 gauge x #400 ea 04/17/23 (1st Tier Unifine Pentips) pen needle, diabetic 31 gauge x #400 ea 03/23/2401/30 (Comfort EZ Pen [place]) ondansetron 4 mg disintegrating 4 mg PO Q8H PRN nausea and 06/09/24 tablet vomiting #20 tabs budesonide-formoterol HFA 80 2 puff inhalation Q12H #10.2 grams 09/28/24 mcg-4.5 mcg/actuation aerosol inhaler (Symbicort) diltiazem HCl 240 mg 240 mg PO DAILY #90 caps 12/21/24 capsule,extended release 24 hr (Cardizem CD) eptinezumab-jjmr 100 mg/mL 300 mg (3 mL) IV [id number] 01/05/25 intravenous solution (Vyepti) amlodipine 10 mg tablet 10 mg PO DAILY #90 tabs 01/17/25 potassium citrate 10 mEq (1,080 See Rx Instructions .Route 05/10/25 mg) tablet,extended release .COMPLEX #56 tabs blood-glucose sensor (Dexcom G7 #3 ea 05/25/25 Sensor device) naproxen 500 mg tablet 500 mg PO BID #14 tabs 05/25/25 methocarbamol 750 mg tablet 750 mg PO QID #20 tabs 06/07/25 empagliflozin 25 mg tablet See Rx Instructions .Route 06/17/25 (Jardiance) .COMPLEX #90 tabs tamsulosin 0.4 mg capsule (Flomax) 0.8 mg (2 x 0.4 mg) PO DAILY #180 06/23/25 caps insulin glargine U-300 conc 300 80 unit (0.2667 mL) subcut HS #3 07/01/25 unit/mL (1.5 mL) subcutaneous pen SYRGS (Toujeo SoloStar U-300 Insulin) insulin lispro 100 unit/mL 20 unit (0.2 mL) subcut TID #30 mL 07/01/25 subcutaneous pen (Humalog KwikPen (U-100) Insulin) lisinopril 40 mg tablet See Rx Instructions .Route 07/01/25 .COMPLEX #90 tabs metformin 1,000 mg tablet 1,000 mg PO BID #180 tab-caps 07/01/25 omeprazole 20 mg capsule,delayed 20 mg PO DAILY #90 caps 07/01/25 release rosuvastatin 10 mg tablet 10 mg PO DAILY #90 tabs 07/01/25 semaglutide 2 mg/dose (8 mg/3 mL) 2 mg (0.75 mL) subcut QWEEK 28 07/01/25 subcutaneous pen injector days #3 mL hydrochlorothiazide 25 mg tablet 25 mg PO QAM #90 tabs 08/26/25 carbamazepine 200 mg 200 mg PO BID #180 tabs 08/31/25 tablet,extended release,12 hr aspirin 81 mg tablet,delayed 81 mg PO DAILY #90 tab-caps 09/12/25 release (Ecotrin Low Strength) ropinirole 1 mg tablet 1 mg PO QHS #90 tabs 09/13/25 prednisone 5 mg tablet 5 mg PO DAILY #30 tabs 09/22/25 oxycodone 10 mg tablet 10 mg PO Q6H PRN pain #30 tabs 09/27/25 cephalexin 500 mg capsule 500 mg PO QID 7 days #28 caps 10/02/25 Allergies Allergy/AdvReac Type Severity Reaction Status Date / Time ciprofloxacin AdvReac Severe Other (See Verified 09/05/25 13:28 Comment) grapefruit AdvReac Intermediate Other (See Verified 09/05/25 13:28 Comment) General Stated Complaint: GenMedical JAI: 3 Exam Narrative Exam Narrative: 1.Const: Well-nourished, Well-developed, appearing stated age 2.Eyes: PERRL, no conjunctival injection, and symmetrical lids. 3.ENT: Atraumatic external nose and ears. Moist MM. Neck: Symmetric, trachea midline, No thyromegaly. 4.CVS: +S1/S2, Peripheral pulses 2+ and equal in all extremities. Brisk capillary refill in all extremities. 5.RESP: Unlabored respiratory effort. Clear to auscultation bilaterally. No wheezes rales or rhonchi 6.GI: Soft, Nontender, No hepatosplenomegaly. No guarding or rebound. Mildly bloated appearing abdomen. 7.MSK: Normocephalic/Atraumatic, Extremities w/o deformity or ttp No cyanosis or clubbing, Normal movement of all extremities. Right forearm and right arm is soft, no tense compartments. Normal sensation throughout, brisk capillary refill in all fingers, +2 radial pulses bilaterally. Normal movement of the arm without tenderness. No redness or warmth or swelling to suggest infection. 8.Skin: Warm, Dry. No rashes or lesions. 9.Neuro: custom ski maker II-XII grossly intact. Sensation grossly intact, no focal neurologic deficits. 10.Psych: (AAO) x3. Appropriate mood and affect Course Vital Signs Vital signs: Vital Signs Temperature 36.3 C L 10/01/25 22: Pulse 74 10/01/25 22:22 Respiratory Rate 20 10/01/25 22:22 Blood Pressure 131/40 L 10/01/25 22:22 Pulse Oximetry 95 10/01/25 22:22 Temperature 36.3 C L 10/01/25 22:26 Pulse 74 10/01/25 22:26 Respiratory Rate 20 10/01/25 22:27 Respiratory Effort Normal 10/01/25 22:27 Respiratory Depth Normal 10/01/25 22: Respiratory Pattern Normal 10/01/25 22:27 Blood Pressure 131/40 L 10/01/25 22:26 Blood Pressure Position Sitting 10/01/25 22:26 Pulse Oximetry 95 10/01/25 22:26 Oxygen Delivery Method Room Air 10/01/25 22:26 Oxygen Flow Rate 0 10/01/25 22:26 Medical Decision Making This is a 70-year-old male with a past medical history of diabetes mellitus type 2, diabetic retinopathy, lower urinary tract symptoms, previous adrenal mass, previous kidney stones, hypertension, previous CVA, who presents today for evaluation of dysuria, frequency, nausea and vomiting. Patient states the symptoms have been going on for the last week in regards to the frequency and dysuria, however he has had nausea and vomiting over the last 24 to 48 hours. He denies any diarrhea. He denies any blood in his urine or vomit. He denies any fever or chills. He also admits to mild headaches, he has a history of cluster headaches. Pain is made worse with light. He has no other complaints at this time. No other modifying factors. The patient denies any headache red flags of worst headache of life, thunderclap headache, neck pain, fever, chills, concerning family history of polycystic kidney disease, Marfan syndrome, Laiyah-Danlos syndrome, abdominal aortic aneurysm, aortic dissection, or intracranial aneurysm. The patient states that headache has been going on for the last 2 weeks, and feels identical to his previous cluster headaches with episodic icepick like sensation behind his left eye. No pain in the eyeball itself though. He denies any neck pain or neck stiffness. Exam demonstrates an otherwise well-appearing male with no guarding or rebound of the abdomen despite mild bloating. Normal extremities with no evidence of claudication, compartment syndrome, or neurovascular compromise. No nuchal rigidity or neck stiffness to suggest meningitis. Vital signs are notably stable with no significant hypoxemia or tachypnea or fever. Differential for the patient's symptomatology is includes viral etiology, urinary tract infection, renal stone, or pancreatitis. Will evaluate for these etiologies, rehydrate, treat his pain, treat his nausea, monitor closely and reassess. 1:37 AM Laboratory workup has returned, no significant white count, bandemia, or significant left shift. VBG stable. Electrolytes normal. BUN and creatinine are slightly higher than normal. He was rehydrated with an IV fluid bolus here. Troponins normal, procalcitonin is 0.123. Urinalysis shows notable infection. CT scan shows evidence of cystitis, but no other acute process. Patient feels much better on reassessment. Patient feels well and feels comfortable going home. 2 g of ceftriaxone were given here, and we will give prescription for Keflex for home use. Patient shows no tachycardia or fever or significant white count or bandemia to suggest urosepsis. No stone to suggest urolithiasis. Patient will be discharged home. Discussed red flags which to return. Patient stable for discharge no current clinical indication for admission at this time based on assessment. I have extensively reviewed the treatment plan and discharge instructions with the patient. I have addressed all patient concerns at this time. The patient was made aware of what symptoms to monitor for that would warrant a return to the emergency department. Discussed the plan with the patient, they demonstrate verbal understanding and agreement with our assessment and plan at this time. The documentation in this chart was dictated using [employer] dictation software. Please excuse any dictation errors. FINDINGS: Brain: Sizable area of right parietal encephalomalacia/gliosis. No intracranial hemorrhage or brain edema. Cerebral ventricles: No ventriculomegaly. Paranasal sinuses: Visualized sinuses are unremarkable. No fluid levels. Mastoid air cells: Unremarkable. Bones: Unremarkable. No acute fracture. Soft tissues: Unremarkable. IMPRESSION: No acute findings. Thank you for allowing us to participate in the care of your patient. Dictated and Authenticated by: Osmin Suero MD 10/02/2025 12:23 AM Eastern Time ([place] & [place]) FINDINGS: Liver: Normal. No mass. Gallbladder and biliary ducts: Cholelithiasis. No cholecystitis or biliary ductal dilatation. Pancreas: Unremarkable. Spleen: Normal. Adrenal glands: 2.1 cm right adrenal myelolipoma. Isodense nodular thickening of left adrenal gland is indeterminate, likely benign. Kidneys and ureters: Bilateral renal cysts. No obstructive uropathy. Stomach and bowel: There is very low-attenuation semi solid stool throughout the nondilated colon, compatible with steatorrhea suggesting malabsorption. Colonic diverticulosis. No diverticulitis. No bowel wall thickening or intestinal obstruction. No pneumatosis or portal/mesenteric venous gas. Appendix: Normal appendix. Intraperitoneal space: No pneumoperitoneum or abscess. Vasculature: See Stomach and bowel finding. Lymph nodes: Unremarkable. Urinary bladder: Inflammatory thickening of the wall of the urinary bladder consistent with cystitis. Reproductive: Prostatomegaly. Bones/joints: Chronic bilateral L5 pars defects with grade 1 anterolisthesis of L5 on S1. Degenerative changes of the spine. Soft tissues: Unremarkable. IMPRESSION: 1. Cystitis. 2. There is very low-attenuation semi solid stool throughout the nondilated colon, compatible with steatorrhea suggesting malabsorption. Thank you for allowing us to participate in the care of your patient. Dictated and Authenticated by: Osmin Suero MD 10/02/2025 12:30 AM Eastern Time ([place] & [place]) [facility] All Active Problems (Updated 10/02/25 @ 01:15 by Darrick Knight DO) Acute UTI (Acute) Synovitis of right wrist (Acute) Effusion, right elbow (Acute) Right wrist effusion (Acute) Swelling of right upper extremity (Acute) Trochanteric bursitis, left hip (Acute) Lower back pain (Acute) Left flank pain (Acute) Headache, chronic migraine without aura, intractable (Acute) Mass of right lower leg (Acute) Encounter for weight management (Acute) Bilateral tinnitus (Acute) Status migrainosus (Acute) Cataracts, bilateral (Acute) Asthma exacerbation (Acute) Frequent falls (Acute) Asthma (Chronic) Lower urinary tract symptoms (LUTS) (Acute) Left ureteral stone (Acute) Femoroacetabular impingement of right hip (Acute) Tubulovillous adenoma (Acute ~09/15/23) Acid reflux disease (Chronic) Paresthesia and pain of both upper extremities (Acute) Neck pain (Acute) Pneumaturia (Acute) Type 2 diabetes mellitus (Chronic) Right hip pain (Acute) Diabetic neuropathy (Acute) both feet, balls of feet only Tubular adenoma (Acute ~10/2020) Arthritis of left knee (Acute) Steroid injection: 10/07/2022; 09/13/2021; 02/21/21; 10/27/2020 Diabetic retinopathy (Acute ~08/2019) [facility] retinologist: Dr. Trejo- [facility] non- proliferative ([facility])-07/13/20 Trochanteric bursitis, right hip (Acute 06/15/18) Right IT band lengthening and bursal debridement DOS: 01/21/19 Steroid Injection: 11/06/23; 09/23/2022 Obstructive sleep apnea syndrome (Acute) Lani sleep study 08/14/11 - CPAP recommended Migraine (Acute) Blindness of one eye (Acute) LEFT Medical History Encounter for screening colonoscopy Screen for colon cancer Cough Hydroureter Hydronephrosis Kidney stone Adrenal mass Left sided sciatica Greater trochanteric bursitis injection 02/2021 Ortho Diverticulosis Cluster headache, chronic Hyperlipidemia Urinary retention Nausea and vomiting after administration of anesthetic agent Sleep apnea Uses CPAP machine Left eye trauma resulting in surgery many years ago Varicose veins of lower extremity Restless legs Morbid obesity (04/26/13) Essential hypertension (08/11/13) Erectile dysfunction (10/31/14) DM (diabetes mellitus), type 2, uncontrolled titrating insulin to achieve control Dr. Mtz every 3 months for foot care CVA (cerebral vascular accident) (07/20/14) crpytogenic F/U with PCP Bilateral primary osteoarthritis of knee (03/17/17) Surgical History History of colonoscopy (~08/2023) Biopies taken Status post right knee replacement (09/22/18) Status post tonsillectomy History of total right knee replacement (TKR) 09/22/2018 History of ankle surgery as a child Family History Mother Depression Hyperlipidemia Father Heart disease Brother Diabetes Depression Hyperlipidemia Brother Substance abuse Depression Heart disease Hyperlipidemia Brother , Gunshot wound No problems noted. Brother Heart disease Diabetes Other Migraine Social History Smoking/Tobacco Use Status: Former Tobacco Use Quit Date: 11/17/69 Pack-years: 4 Tobacco: How many years used: 4 Second Hand Exposure: Yes Smoking risk assessment performed?: Yes Alcohol Intake: never Details: denies alcohol use Drug use: Never Substance use type: does not use Household members: none Housing: apartment current occupation: [employer] Current gender identity: male What type of physical activity do you participate in: additional Details: PT 2x/week Frequency: 1-2 times per week Sulema/Nondenominational: Pentecostalism Special sulema needs: No Do you feel safe at home: Yes Do you feel safe in your relationship?: Yes
[2025-10-01 22:59] LABS: Abs Immature Grans 0.03 10^3/uL (0.0-0.06); HCT 36.2 % (40.0-50.0); HGB 11.6 g/dL (13.5-17.5); Immature Grans % 0.3 %; MCH 28.2 pg (27.0-33.0); MCHC 32.0 % (32.0-36.0); MCV 88 fL (80-95); MPV 9.3 fL (8.0-11.0); Platelet Count 288 10^3/uL (130-400); RBC 4.11 10^6/uL (4.36-5.78); RDW 15.2 % (11.8-14.1); RDW-SD 49.1 fL; WBC 9.39 10^3/uL (4.4-10.8)
--- NOTE | 2025-10-01 23:00 | DI.CT_ITS ---
Exam(s) CT HEAD WO EXAM: CT HEAD WO CLINICAL HISTORY: headache, eval for mass or bleed. TECHNIQUE: Imaging Protocol: Axial computed tomography images with coronal and sagittal reformatted images were created and reviewed COMPARISON: CT HEAD WITHOUT CONTRAST from 06/28/2018 FINDINGS: There are no skull fractures. There is no fluid in the visualized paranasal sinuses. There is no evidence of intracranial hemorrhage, mass effect, or shift of midline structures. There are no extra-axial fluid collections. The ventricles are not enlarged or shifted and there is no blood within the ventricular system nor within the basal cisterns. Main finding here is an asymmetric area of abnormal hypodensity in the right parietal lobe consistent with prior infarct, this finding unchanged from prior CT scan of June 2018. No associated mass effect. No hemorrhage. Calcification in the falx cerebri is again noted but no evidence of meningioma. IMPRESSION: No acute intracranial findings on this noninfused CT scan of the brain. 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 Preliminary virtual Radiology report was reviewed RADIATION DOSE DELIVERED: 866.57mGy.cm Total DLP DATA REPOSITORY: All CT scans at this facility are submitted to the National Radiology Data Registry (NRDR) Dose Index Registry (DIR) with the [employer] (A[employer]). RADIATION OPTIMIZATION: All CT scans at this facility use at least one of these dose optimization techniques: automated exposure control; mA and/or kV adjustment per patient size (includes targeted exams where dose is matched to clinical indication); or iterative reconstruction.
[2025-10-01 23:06] LABS: BE (Venous) -3 mmol/L (-2-3); HCO3 (Venous) 23 mmol/L (23-28); O2 Sat (Venous) 73 %; TCO2 (Venous) 24 mmol/L (24-29); pCO2 (Venous) 44 mmHg (41-51); pO2 (Venous) 41 mmHg
[2025-10-01] MEDS: Metoclopramide 10 MG/2 ML VIAL IVP (23:09)
[2025-10-01] MEDS: Normal Saline 500 ML IV (23:09)
[2025-10-01] MEDS: Ketorolac 15 MG/ML VIAL IVP (23:19)
[2025-10-01] MEDS: Diclofenac 1% Gel 100 GM TUBE TP (23:19)
--- NOTE | 2025-10-01 23:30 | DI.CT_ITS ---
Exam(s) CT ABDOMEN PELVIS WO EXAM: CT ABDOMEN PELVIS WO CLINICAL HISTORY: vomtiing, abdominal pain, kidney stones, uti. TECHNIQUE: Imaging Protocol: Axial computed tomography images with coronal and sagittal reformatted images were created and reviewed CONTRAST MATERIAL: Intravenous: none Oral: None COMPARISON: CT CT RENAL COLIC WO from 05/09/2025 FINDINGS: VISUALIZED LUNG BASES: No nodules nor pleural effusions evident. ABDOMEN: There is no ascites. LIVER: There are no obvious focal hepatic lesions evident of this noninfused study. There are no dilated intrahepatic ducts evident. GALLBLADDER/BILIARY: There are tiny gallstones on the dependent wall of the gallbladder. The gallbladder wall is not edematous and there is no pericholecystic fluid. The CBD is not dilated . PANCREAS: No evidence of pancreatic mass nor dilatation of the pancreatic duct. SPLEEN: Spleen size normal. Few calcified granulomas are noted in the spleen but no significant intrasplenic lesions. ADRENALS: Previously described nodule in left adrenal gland is unchanged. Previously described fat containing myelolipoma in the right adrenal gland is unchanged KIDNEYS:Stable benign-appearing cysts in both kidneys again noted. Stable cyst in posterior inferior lower pole left kidney again noted. There is also again noted an exophytic well-defined uniformly hyperdense probably hemorrhagic cyst off the lateral cortex of the left kidney measuring 1.5 x 1.3 cm, similar to previous. No hydronephrosis nor hydroureter. No radiopaque calculi in the kidneys nor along the course of the ureters.. Urinary bladder wall is diffusely thickened suspicious for cystitis. There is also a small 2 millimeter calcification in the anterior right side of the urinary bladder wall. There are no calculi at the ureterovesical junctions nor with in the actual bladder lumen. ABDOMINAL AORTA: Abdominal aorta is not enlarged. LYMPH NODES: There is no retroperitoneal nor paraaortic adenopathy. ABDOMINAL WALL: No evidence of significant anterior abdominal wall nor inguinal hernia. GI: There is no evidence of bowel obstruction, free air, nor abscess. PELVIS: LYMPH NODES: There is no intrapelvic nor inguinal adenopathy. GI: No evidence of appendicitis.Sigmoid is redundant and reaches the right upper quadrant of the abdomen. There is no significant diverticular disease in the sigmoid. URINARY BLADDER: Abnormal almost uniform thickening of the urinary bladder wall consistent with probable cystitis. No radiopaque calculi in the bladder lumen. Small calculus noted in the anterior right wall of the bladder. REPRODUCTIVE: Enlarged prostate. Measures 5.7 cm wide. OSSEOUS: No significant osseous lesions. No fractures. There is mild anterolisthesis L5 upon S1 related to pars defects. IMPRESSION: 1. Compared to the prior CT scan of 05/09/2025 the bladder wall is again noted be abnormally thickened and contain single calcification. Also enlarged prostate. Suspect cystitis. Cannot exclude bladder lesion. Urology consult recommended. 2. There is no evidence of hydronephrosis nor urinary tract calculi. 3. Stable adrenal nodules. Cholelithiasis with no evidence of acute cholecystitis nor significant dilatation of the biliary tree. Other findings as above. RADIATION DOSE DELIVERED: 1,473.64mGy.cm Total DLP DATA REPOSITORY: All CT scans at this facility are submitted to the National Radiology Data Registry (NRDR) Dose Index Registry (DIR) with the [employer] (ACR). RADIATION OPTIMIZATION: All CT scans at this facility use at least one of these dose optimization techniques: automated exposure control; mA and/or kV adjustment per patient size (includes targeted exams where dose is matched to clinical indication); or iterative reconstruction.
[2025-10-01 23:31] LABS: Procalcitonin 0.13 ng/mL; Troponin I 9 ng/L (<54)
[2025-10-01 23:32] LABS: Lipase 40 U/L (<53)
[2025-10-01 23:35] LABS: ALT 14 U/L (10-49); AST 15 U/L (<34); Albumin 4.2 g/dL (3.4-5.0); Alkaline Phosphatase 90 U/L (46-116); Anion Gap 10.5 mmol/L (3-11); BUN 68 mg/dL (9-23); Bilirubin, Total 0.30 mg/dL (0.2-1.2); CO2 24.5 mmol/L (20.0-31.0); Calcium 9.2 mg/dL (8.3-10.6); Chloride 102 mmol/L (98-107); Glucose 67 mg/dL (74-106); Potassium 4.1 mmol/L (3.5-5.1); Sodium 137 mmol/L (136-145); Total Protein 7.3 g/dL (5.7-8.2)
[2025-10-01 23:41] LABS: Glucose 250 mg/dL (Negative)
[2025-10-01 23:48] LABS: WBC >50 HPF (0-5)
[2025-10-02] VITALS (15 sets, daily range): BP systolic 104–133; BP diastolic 33–46; PULSE 69–78; O2SAT 92–95
[2025-10-02 00:19] LABS: Troponin I 8 ng/L (<54)
--- NOTE | 2025-10-02 00:24 | DI.VRAD_ITS ---
PROCEDURE INFORMATION: Exam: CT Head Without Contrast Exam date and time: 10/01/2025 11:58 PM Age: 70 years old Clinical indication: Pain; Headache not specified; Additional info: Headache, eval for mass or bleed TECHNIQUE: Imaging protocol: Computed tomography of the head without contrast. COMPARISON: MR BRAIN^ADULT 06/28/2019 3:44 PM FINDINGS: Brain: Sizable area of right parietal encephalomalacia/gliosis. No intracranial hemorrhage or brain edema. Cerebral ventricles: No ventriculomegaly. Paranasal sinuses: Visualized sinuses are unremarkable. No fluid levels. Mastoid air cells: Unremarkable. Bones: Unremarkable. No acute fracture. Soft tissues: Unremarkable. IMPRESSION: No acute findings. Dictated and Authenticated by: Osmin Suero MD. Orderin Antonia Hollingsworth MD
--- NOTE | 2025-10-02 00:31 | DI.VRAD_ITS ---
PROCEDURE INFORMATION: Exam: CT Abdomen And Pelvis Without Contrast Exam date and time: 10/02/2025 12:00 AM Age: 70 years old Clinical indication: Vomiting; Additional info: Vomtiing, abdominal pain, kidney stones, UTI TECHNIQUE: Imaging protocol: Computed tomography of the abdomen and pelvis without contrast. COMPARISON: CT RENAL COLIC WO 05/09/2025 2:00 PM FINDINGS: Liver: Normal. No mass. Gallbladder and biliary ducts: Cholelithiasis. No cholecystitis or biliary ductal dilatation. Pancreas: Unremarkable. Spleen: Normal. Adrenal glands: 2.1 cm right adrenal myelolipoma. Isodense nodular thickening of left adrenal gland is indeterminate, likely benign. Kidneys and ureters: Bilateral renal cysts. No obstructive uropathy. Stomach and bowel: There is very low-attenuation semi solid stool throughout the nondilated colon, compatible with steatorrhea suggesting malabsorption. Colonic diverticulosis. No diverticulitis. No bowel wall thickening or intestinal obstruction. No pneumatosis or portal/mesenteric venous gas. Appendix: Normal appendix. Intraperitoneal space: No pneumoperitoneum or abscess. Vasculature: See Stomach and bowel finding. Lymph nodes: Unremarkable. Urinary bladder: Inflammatory thickening of the wall of the urinary bladder consistent with cystitis. Reproductive: Prostatomegaly. Bones/joints: Chronic bilateral L5 pars defects with grade 1 anterolisthesis of L5 on S1. Degenerative changes of the spine. Soft tissues: Unremarkable. IMPRESSION: 1. Cystitis. 2. There is very low-attenuation semi solid stool throughout the nondilated colon, compatible with steatorrhea suggesting malabsorption. Dictated and Authenticated by: Osmin Suero MD. Orderin Antonia Hollingsworth MD
[2025-10-02] MEDS: cefTRIAXone 2 GM/50 ML BAG IVPB (00:45)
--- NOTE | 2025-10-04 09:13 | NUR.NOTE ---
Accessed Pt. chart to document antibiotics on Specimen Report. Report given to providers.
== END 2025-10-02 06:30 | disposition home or self-care (01) ==
PROVIDERS: Emergency Provider Student in an Organized Health Care Education/Training Program; PCP Nurse Practitioner Family
DX: N39.0 Urinary tract infection, site not specified (principal)
CPT/HCPCS: 99283; 99285; 36415; 36416; 82962; 96375; 80053; 82803; 82805; 83690; 84145; 93005; 96361; 96365; 70450; 74176; 81003; 81015; 84484; 85025; 87086; 93010; J0696; J1885; J2765

== ENCOUNTER 2025-10-08 11:26 | Outpatient (CLI) | payer MEDICARE, SELFPAY ==
--- NOTE | 2025-10-08 11:15 | RT.EKG_ITS ---
APPROVED REPORT Exam: Resting ECG Reason for Exam: pre-op evaluation Patient Location: O HR:81 bpm ECG Measurements Heart Rate 81 AXIS NV 234 P -23 QRSd 164 QRS 102 QT 406 T 2 QTc 472 Conclusion Sinus rhythm...normal P axis, V-rate 50- 99 Atrial premature complexes in couplets...pair SV complexes w/ short R-R Prolonged NV interval...NV >220, V-rate 50- 90 RBBB and LPFB...QRSd >120mS, axis(90,210)
== END 2025-10-08 11:27 | disposition home or self-care (01) ==
LOC: DI.CM 11:28
PROVIDERS: PCP Nurse Practitioner Family; Visit Provider Nurse Practitioner Family
DX: Z01.818 Encounter for other preprocedural examination (principal); I45.10 Unspecified right bundle-branch block; I44.5 Left posterior fascicular block
CPT/HCPCS: 93010

== ENCOUNTER → 2025-10-11 01:35 | Outpatient (CLI) | payer MEDICARE, SELFPAY ==
--- NOTE | 2025-10-11 06:30 | DI.US_ITS ---
Exam(s) US RENAL EXAM: US RENAL CLINICAL HISTORY: PVR,BLADDER WALL THICKENING,URINARY INCONTINENCE,N32.89,R32. TECHNIQUE: Wright scale, color and spectral Doppler were used. COMPARISON: US US RENAL from 01/24/[address] ABDOMEN PELVIS WO from 10/02/2025 FINDINGS: Renal size in cm: Right: 13.8. Left: 12.4. Echogenicity: Normal. Hydronephrosis: No. Cyst or mass: There are bilateral simple renal cysts. The largest on the right measures 4.1 x 3.1 x 3.0 cm. The largest on the left measures 4.0 x 3.3 x 4.4 cm. No follow-up is recommended. Nephrolithiasis: No. Other findings: None. Bladder:The bladder was not distended and could not be evaluated. Ureteral jets: Right: Not visualized on this examination. Left: Not visualized on this examination. Prevoid vol:The bladder was empty and could not be visualized sonographically. Renal color flow: Symmetric and within normal limits. IMPRESSION: 1. There is no evidence of nephrolithiasis or obstructive uropathy. 2. The urinary bladder was not distended and cannot be evaluated. DATA REPOSITORY:
--- NOTE | 2025-10-11 06:30 | DI.RAD_ITS ---
Exam(s) XR TIB/FIB RT EXAM: XR TIB/FIB RT CLINICAL HISTORY: MASS RT LOWER LEG, ?METAL,r22.41. TECHNIQUE: 2D digital imaging was performed of the right tibia and fibula. Two images were obtained. AP and lateral views were obtained. COMPARISON: CR XR KNEE RT 3V AP,LAT,RICHY from 01/24/2025 FINDINGS: BONES: No acute fracture is present. No bony destructive lesion is seen. There again seen findings of a right total knee arthroplasty which appears unchanged. There is an enthesophyte at the posterior calcaneus. SOFT TISSUE: No metallic foreign bodies are identified. Vascular calcifications are present. There is mild edema in the soft tissues of the lower leg. IMPRESSION: 1. No acute fracture or dislocation. 2. No radiopaque foreign bodies are identified. DATA REPOSITORY: RADIATION DOSE DELIVERED:
== END ==
LOC: DI 01:35
PROVIDERS: PCP Nurse Practitioner Family; Visit Provider Nurse Practitioner Family
DX: R22.41 Localized swelling, mass and lump, right lower limb (principal); N32.89 Other specified disorders of bladder; R32 Unspecified urinary incontinence
CPT/HCPCS: 76770; 73590

== ENCOUNTER → 2025-10-17 11:38 | Outpatient (BNVA) | payer MEDICARE, SELFPAY | PROVIDERS: PCP Nurse Practitioner Family; Referring Provider Nurse Practitioner Family; Visit Provider Nurse Practitioner Gerontology | DX: N20.0 Calculus of kidney (principal); R32 Unspecified urinary incontinence | CPT/HCPCS: 99213 ==

== ENCOUNTER 2025-10-28 08:05 | Outpatient (CLI) | payer MEDICARE, SELFPAY ==
--- NOTE | 2025-10-28 08:00 | RT.EKG_ITS ---
APPROVED REPORT Exam: Resting ECG Reason for Exam: Pre Op for MRI w/ sedation Patient Location: O HR:78 bpm ECG Measurements Heart Rate 78 AXIS OK 228 P -33 QRSd 163 QRS 97 QT 409 T 12 QTc 466 Conclusion Sinus rhythm...normal P axis, V-rate 50- 99 Prolonged OK interval...OK >220, V-rate 50- 90 RBBB and LPFB...QRSd >120mS, axis(90,210)
== END 2025-10-28 08:06 | disposition home or self-care (01) ==
LOC: DI.CM 08:05
PROVIDERS: PCP Nurse Practitioner Family; Visit Provider Nurse Practitioner Family
DX: Z01.818 Encounter for other preprocedural examination (principal); M25.551 Pain in right hip; M16.11 Unilateral primary osteoarthritis, right hip; M16.12 Unilateral primary osteoarthritis, left hip
CPT/HCPCS: 93010

== ENCOUNTER → 2025-10-28 10:11 | Outpatient (CLI) | payer MEDICARE, SELFPAY ==
--- NOTE | 2025-10-28 10:14 | DI.RAD_ITS ---
Exam(s) XR HIP RT COMPLETE AP PELVIS EXAM: XR HIP RT COMPLETE AP PELVIS CLINICAL HISTORY: fall, has had replacement, RT HIP PAIN, M25.551. TECHNIQUE: 2D digital imaging was performed. Two views COMPARISON: CT CT PELVIC WO from 01/24/2025 FINDINGS: Exam is limited by patient body habitus. BONES: No acute fracture is present. No bony destructive lesion is seen. JOINTS: No dislocation present. There is mild narrowing of the right hip joint space. There is bilateral acetabular spurring, right greater than left. There is some spurring of both SI joints. Pubic symphysis is unremarkable. SOFT TISSUE: Normal. 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 Mild degenerative changes of the left hip. DATA REPOSITORY: RADIATION DOSE DELIVERED:
== END ==
LOC: DI 10:11
PROVIDERS: PCP Nurse Practitioner Family; Visit Provider Nurse Practitioner Family
DX: M25.551 Pain in right hip (principal); M16.11 Unilateral primary osteoarthritis, right hip; M16.12 Unilateral primary osteoarthritis, left hip
CPT/HCPCS: 73502

== ENCOUNTER → 2025-11-09 00:12 | Outpatient (CLI) | payer MEDICARE, SELFPAY ==
--- NOTE | 2025-11-09 12:00 | DI.US_ITS ---
Exam(s) US RENAL EXAM: US RENAL CLINICAL HISTORY: [id number] URINARY INCONTINENCE N32.89 DISORDER BLADDER. TECHNIQUE: Wright scale, color and spectral Doppler were used. COMPARISON: US US RENAL from 10/11/2025 FINDINGS: Renal size in cm: Right: 15.2. Left: 14.2. Echogenicity: Normal. Hydronephrosis: No. Cyst or mass: There are bilateral simple renal cysts. The largest on the right measures 3.8 x 3.6 x 3.8 cm. The largest on the left measures 4.1 x 3.1 x 4.3 cm. No follow-up is recommended. Nephrolithiasis: No. Other findings: None. Bladder:There is mild thickening of the wall of the urinary bladder. Ureteral jets: Right: The right ureteral jet was not visualized on this examination. Left: The left ureteral jet was not visualized on this examination. Prevoid vol:364 cc Postvoid vol:53 cc Prostate: The prostate gland was not visualized on this examination. Renal color flow: Symmetric and within normal limits. IMPRESSION: 1. There is mild thickening of the wall of the urinary bladder. This can be seen with chronic bladder outlet obstruction or cystitis. Please correlate clinically. 2. Simple bilateral renal cysts. No follow-up is recommended. 3. Small postvoid urinary bladder residual. 4. No evidence of nephrolithiasis or obstructive uropathy. DATA REPOSITORY:
== END ==
LOC: DI 00:12
PROVIDERS: PCP Nurse Practitioner Family; Visit Provider Nurse Practitioner Family
DX: R32 Unspecified urinary incontinence (principal); N32.89 Other specified disorders of bladder
CPT/HCPCS: 76770

== ENCOUNTER 2025-11-12 01:43 | Emergency (ER) | payer MEDICARE, SELFPAY ==
--- NOTE | 2025-11-12 01:30 | RT.EKG_ITS ---
APPROVED REPORT Exam: Resting ECG Reason for Exam: Patient Location: E HR:78 bpm ECG Measurements Heart Rate 78 AXIS DE 210 P -57 QRSd 154 QRS 101 QT 410 T 10 QTc 467 Conclusion Sinus or ectopic atrial rhythm...P axis (-45,135) RBBB and LPFB...QRSd >120mS, axis(90,210) There are no significant changes compared to prior EKG performed on 10/08/2025 at 11:40.
--- NOTE | 2025-11-12 01:41 | W.ED.GENAD ---
Discharge Plan Disposition Patient Disposition: Home Condition: Good Discharge Details Clinical Impression: Left-sided chest wall pain Primary Care Provider: Kenton Pitts ED Provider: Amador Schulz Home Meds and New Rx's Prescriptions: New methocarbamol 750 mg tablet 750 mg PO Q8H PRN (Reason: muscle spasm) Qty: 20 0RF Continued Botox 200 unit recon soln 200 unit IM ONCE Rx Instructions: [id number] ondansetron 4 mg tablet,disintegrating 4 mg PO Q8H PRN (Reason: nausea and vomiting) Qty: 20 0RF budesonide-formoterol [Symbicort] 80-4.5 mcg/actuation HFA aerosol inhaler 2 puff inhalation Q12H Qty: 10.2 0RF acetaminophen 500 mg tablet 1,000 mg PO Q8H PRN PRN (DME) pen needle, diabetic [Comfort EZ Pen Mcadoo] 31 gauge x 3/16 needle See Rx Instructions .Route Qty: 400 12RF Rx Instructions: Pen needles for injecting insulin 4x daily. Vyepti 100 mg/mL solution 300 mg IV [id number] Rx Instructions: administer over 30 mins amlodipine 10 mg tablet 10 mg PO DAILY Qty: 90 4RF (DME) Dexcom G7 Sensor Device See Rx Instructions .Route Qty: 3 12RF Rx Instructions: As directed for blood glucose hydrochlorothiazide 25 mg tablet 25 mg PO QAM Qty: 90 4RF Jardiance 25 mg tablet See Rx Instructions .ROUTE .COMPLEX Qty: 90 4RF Dose Instruction: TAKE 1 TABLET BY MOUTH EVERY MORNING Rx Instructions: TAKE 1 TABLET BY MOUTH EVERY MORNING oxycodone 10 mg tablet 10 mg PO Q4H MDD 6 tabs/day PRN (Reason: pain) Qty: 100 0RF naloxone [Narcan] 4 mg/actuation spray,non-aerosol 1 spray intranasal Q2-3M PRN (Reason: opioid overdose) Qty: 2 4RF Rx Instructions: spray 1 dose into ONE nostril; alternate nostrils w each dose until help arrives C PAP 1 unit inhalation QHS (DME) blood-glucose meter [OneTouch Ultra2 Meter] Misc See Rx Instructions .Route Qty: 1 0RF Rx Instructions: once daily (DME) transparent dressings [Tegaderm Frame Style] 2 3/8 X 2 3/4 bandage See Rx Instructions .Route Qty: 20 11RF Rx Instructions: Use to hold continuous glucose monitor in place meclizine 12.5 mg tablet 12.5 mg PO TID PRN (Reason: Vertigo) Qty: 60 3RF docusate sodium 100 mg capsule 100 mg PO BID PRN (Reason: constipation) Qty: 30 0RF (DME) lancets [BD Ultra Fine Lancets] 33 gauge misc See Rx Instructions .ROUTE .MEDSUPPLY Qty: 400 3RF Rx Instructions: Check blood sugar four times daily (DME) OneTouch Ultra Test Strip See Rx Instructions .Route Qty: 400 3RF Rx Instructions: Check blood sugar four times daily (DME) pen needle, diabetic [1st Tier Unifine Pentips] 32 gauge x 5/32 needle See Rx Instructions .ROUTE .MEDSUPPLY Qty: 400 3RF Rx Instructions: Check blood sugar four times daily diltiazem HCl [Cardizem CD] 240 mg capsule,extended release 24hr 240 mg PO DAILY Qty: 90 3RF potassium citrate 10 mEq (1,080 mg) tablet extended release See Rx Instructions .ROUTE .COMPLEX Qty: 56 12RF Dose Instruction: TAKE 1 TABLET BY MOUTH TWICE A DAY FOR ALKALINIZE URINE Rx Instructions: TAKE 1 TABLET BY MOUTH TWICE A DAY FOR ALKALINIZE URINE tamsulosin [Flomax] 0.4 mg capsule 0.8 mg PO DAILY Qty: 180 4RF Rx Instructions: Take one 0.4 mg capsule by mouth once daily. insulin glargine U-300 conc [Toujeo SoloStar U-300 Insulin] 300 unit/mL (1.5 mL) insulin pen 80 unit subcut HS Qty: 3 12RF insulin lispro [Humalog KwikPen Insulin] 100 unit/mL insulin pen 20 unit subcut TID MDD 60 Qty: 30 12RF Rx Instructions: Inject 20 units Humalog subcutaneously with each meal as directed omeprazole 20 mg capsule,delayed release(DR/EC) 20 mg PO DAILY Qty: 90 4RF Patient Comments: pt states this is as needed rosuvastatin 10 mg tablet 10 mg PO DAILY Qty: 90 4RF semaglutide 2 mg/dose (8 mg/3 mL) pen injector 2 mg subcut QWEEK 28 Days Qty: 3 12RF Rx Instructions: Inject 2.0 mg subcutaneously once weekly as directed. metformin 1,000 mg tablet 1,000 mg PO BID Qty: 180 3RF lisinopril 40 mg tablet See Rx Instructions .ROUTE .COMPLEX Qty: 90 4RF Dose Instruction: TAKE 1 TABLET BY MOUTH DAILY Rx Instructions: TAKE 1 TABLET BY MOUTH DAILY carbamazepine 200 mg tablet extended release 12 hr 200 mg PO BID Qty: 180 3RF aspirin [Ecotrin Low Strength] 81 mg tablet,delayed release (DR/EC) 81 mg PO DAILY Qty: 90 3RF ropinirole 1 mg tablet 1 mg PO QHS Qty: 90 4RF Rx Instructions: administer 1-3 hours before bedtime Discharge Instructions Instructions: Chest Pain, Adult ED Additional Instructions: You were seen in the ED for upper left chest pain that seems likely to be related to muscle spasm as you have experienced in the neck. Your exam, EKG, laboratory studies, CT scan are all reassuring. A prescription for the muscle relaxer that seem to help here has been sent to your pharmacy. Follow-up with primary care next week. Return to ED for any new or worsening pain, shortness of breath, neurologic change, syncope, other concerns Stand Alone Forms: Portal Information HPI General Mode of arrival: EMS. Date/Time Provider Initiated Documentation: 11/12/25 01:57. Limitations to Documentation: no limitations. Information obtained by: patient, EMS, RN notes reviewed and old records reviewed. HPI Narrative: Patient presents to ED with left upper spasmodic chest pain which was first present in the morning. He does have a long and complicated history of migraines which at times will cause muscle spasm in the neck. He thought originally that this was related to his migraines and previous spasms though he had not ever had them in the upper chest. Pain comes and goes and does feel like spasm and catching to him. Movement and deep breaths do cause the pain. He does not feel short of breath. He denies fever or cough. Denies any nausea or vomiting. Denies any lightheadedness or diaphoresis. There is nothing new or different about his headaches. Reports this one is relatively severe but not out of the ordinary for him. He denies any new neurologic deficits. Related Data Home Medications ?Medication ?Instructions ?Recorded ?Confirmed C Pap 1 unit inhalation QHS 04/08/16 11/12/25 onabotulinumtoxinA 200 unit 200 unit IM ONCE 09/13/21 11/12/25 solution for injection (Botox) blood-glucose meter (OneTouch #1 ea 01/24/22 10/31/25 Ultra2 Meter) transparent dressings 2 3/8 X 2 #20 ea 03/12/22 10/31/25 3/4 (Tegaderm Frame Style) meclizine 12.5 mg tablet 12.5 mg PO TID PRN Vertigo #60 tabs 05/27/22 11/12/25 docusate sodium 100 mg capsule 100 mg PO BID PRN constipation #30 09/16/22 11/12/25 caps blood sugar diagnostic (OneTouch #400 ea 04/17/23 10/31/25 Ultra Test strips) lancets 33 gauge (BD Ultra Fine #400 ea 04/17/23 10/31/25 Lancets) pen needle, diabetic 32 gauge x #400 ea 04/17/23 10/31/25 5/32 (1st Tier Unifine Pentips) acetaminophen 500 mg tablet 1,000 mg PO Q8H PRN PRN 07/17/23 11/12/25 pen needle, diabetic 31 gauge x #400 ea 03/23/24 10/31/25 3/16 (Comfort EZ Pen Mcadoo) ondansetron 4 mg disintegrating 4 mg PO Q8H PRN nausea and 06/09/24 11/12/25 tablet vomiting #20 tabs budesonide-formoterol HFA 80 2 puff inhalation Q12H #10.2 grams 09/28/24 11/12/25 mcg-4.5 mcg/actuation aerosol inhaler (Symbicort) diltiazem HCl 240 mg 240 mg PO DAILY #90 caps 12/21/24 11/12/25 capsule,extended release 24 hr (Cardizem CD) eptinezumab-jjmr 100 mg/mL 300 mg (3 mL) IV [id number] 01/05/25 10/31/25 intravenous solution (Vyepti) amlodipine 10 mg tablet 10 mg PO DAILY #90 tabs 01/17/25 11/12/25 potassium citrate 10 mEq (1,080 See Rx Instructions .Route 05/10/25 11/12/25 mg) tablet,extended release .COMPLEX #56 tabs blood-glucose sensor (Dexcom G7 #3 ea 05/25/25 10/31/25 Sensor device) empagliflozin 25 mg tablet See Rx Instructions .Route 06/17/25 11/12/25 (Jardiance) .COMPLEX #90 tabs tamsulosin 0.4 mg capsule (Flomax) 0.8 mg (2 x 0.4 mg) PO DAILY #180 06/23/25 11/12/25 caps insulin glargine U-300 conc 300 80 unit (0.2667 mL) subcut HS #3 07/01/25 11/12/25 unit/mL (1.5 mL) subcutaneous pen SYRGS (Toujeo SoloStar U-300 Insulin) insulin lispro 100 unit/mL 20 unit (0.2 mL) subcut TID #30 mL 07/01/25 11/12/25 subcutaneous pen (Humalog KwikPen (U-100) Insulin) lisinopril 40 mg tablet See Rx Instructions .Route 07/01/25 11/12/25 .COMPLEX #90 tabs metformin 1,000 mg tablet 1,000 mg PO BID #180 tab-caps 07/01/25 11/12/25 omeprazole 20 mg capsule,delayed 20 mg PO DAILY #90 caps 07/01/25 11/12/25 release rosuvastatin 10 mg tablet 10 mg PO DAILY #90 tabs 07/01/25 11/12/25 semaglutide 2 mg/dose (8 mg/3 mL) 2 mg (0.75 mL) subcut QWEEK 28 07/01/25 11/12/25 subcutaneous pen injector days #3 mL hydrochlorothiazide 25 mg tablet 25 mg PO QAM #90 tabs 08/26/25 11/12/25 carbamazepine 200 mg 200 mg PO BID #180 tabs 08/31/25 11/12/25 tablet,extended release,12 hr aspirin 81 mg tablet,delayed 81 mg PO DAILY #90 tab-caps 09/12/25 11/12/25 release (Ecotrin Low Strength) ropinirole 1 mg tablet 1 mg PO QHS #90 tabs 09/13/25 11/12/25 naloxone 4 mg/actuation nasal 1 spray intranasal Q2-3M PRN 10/08/25 11/12/25 spray (Narcan) opioid overdose #2 ea oxycodone 10 mg tablet 10 mg PO Q4H PRN pain #100 tabs 10/08/25 11/12/25 methocarbamol 750 mg tablet 750 mg PO Q8H PRN muscle spasm #20 11/12/25 tabs Previous Rx's ?Medication ?Instructions ?Recorded blood-glucose meter (OneTouch #1 ea 01/24/22 Ultra2 Meter) transparent dressings 2 3/8 X 2 #20 ea 03/12/22 3/4 (Tegaderm Frame Style) meclizine 12.5 mg tablet 12.5 mg PO TID PRN Vertigo #60 tabs 05/27/22 docusate sodium 100 mg capsule 100 mg PO BID PRN constipation #30 09/16/22 caps blood sugar diagnostic (OneTouch #400 ea 04/17/23 Ultra Test strips) lancets 33 gauge (BD Ultra Fine #400 ea 04/17/23 Lancets) pen needle, diabetic 32 gauge x #400 ea 04/17/23 (1st Tier Unifine Pentips) pen needle, diabetic 31 gauge x #400 ea 03/23/2401/30 (Comfort EZ Pen Mcadoo) ondansetron 4 mg disintegrating 4 mg PO Q8H PRN nausea and 06/09/24 tablet vomiting #20 tabs budesonide-formoterol HFA 80 2 puff inhalation Q12H #10.2 grams 09/28/24 mcg-4.5 mcg/actuation aerosol inhaler (Symbicort) diltiazem HCl 240 mg 240 mg PO DAILY #90 caps 12/21/24 capsule,extended release 24 hr (Cardizem CD) eptinezumab-jjmr 100 mg/mL 300 mg (3 mL) IV [id number] 01/05/25 intravenous solution (Vyepti) amlodipine 10 mg tablet 10 mg PO DAILY #90 tabs 01/17/25 potassium citrate 10 mEq (1,080 See Rx Instructions .Route 05/10/25 mg) tablet,extended release .COMPLEX #56 tabs blood-glucose sensor (Dexcom G7 #3 ea 05/25/25 Sensor device) empagliflozin 25 mg tablet See Rx Instructions .Route 06/17/25 (Jardiance) .COMPLEX #90 tabs tamsulosin 0.4 mg capsule (Flomax) 0.8 mg (2 x 0.4 mg) PO DAILY #180 06/23/25 caps insulin glargine U-300 conc 300 80 unit (0.2667 mL) subcut HS #3 07/01/25 unit/mL (1.5 mL) subcutaneous pen SYRGS (Toujeo SoloStar U-300 Insulin) insulin lispro 100 unit/mL 20 unit (0.2 mL) subcut TID #30 mL 07/01/25 subcutaneous pen (Humalog KwikPen (U-100) Insulin) lisinopril 40 mg tablet See Rx Instructions .Route 07/01/25 .COMPLEX #90 tabs metformin 1,000 mg tablet 1,000 mg PO BID #180 tab-caps 07/01/25 omeprazole 20 mg capsule,delayed 20 mg PO DAILY #90 caps 07/01/25 release rosuvastatin 10 mg tablet 10 mg PO DAILY #90 tabs 07/01/25 semaglutide 2 mg/dose (8 mg/3 mL) 2 mg (0.75 mL) subcut QWEEK 28 07/01/25 subcutaneous pen injector days #3 mL hydrochlorothiazide 25 mg tablet 25 mg PO QAM #90 tabs 08/26/25 carbamazepine 200 mg 200 mg PO BID #180 tabs 08/31/25 tablet,extended release,12 hr aspirin 81 mg tablet,delayed 81 mg PO DAILY #90 tab-caps 09/12/25 release (Ecotrin Low Strength) ropinirole 1 mg tablet 1 mg PO QHS #90 tabs 09/13/25 naloxone 4 mg/actuation nasal 1 spray intranasal Q2-3M PRN 10/08/25 spray (Narcan) opioid overdose #2 ea oxycodone 10 mg tablet 10 mg PO Q4H PRN pain #100 tabs 10/08/25 methocarbamol 750 mg tablet 750 mg PO Q8H PRN muscle spasm #20 11/12/25 tabs Allergies Allergy/AdvReac Type Severity Reaction Status Date / Time ciprofloxacin AdvReac Severe Other (See Verified 11/12/25 02:31 Comment) grapefruit AdvReac Intermediate Other (See Verified 11/12/25 02:31 Comment) General JAI: 3 Exam Narrative Exam Narrative: Const: Obese male in NAD. VS per triage. HEENT: NC/AT. Normal facial exam. Neck: Supple. Trachea midline. Lungs: Normal respiratory effort. Lungs are clear. Tender in the left upper pectoral area. Cor: RRR without murmur. Good radial pulses. GI: Soft/ND/NT. Neuro: A+O x 3. Normal speech, mentation. Cranial nerves II - XII grossly intact. No gross motor or sensory deficit. Medical Decision Making Patient is presenting to ED with left upper chest pain that is described as spasmodic in nature. He has no associated symptoms. He does have a history of neck spasms associated with his chronic migraine headaches. He has not previously had chest spasms but states this otherwise feels similar to what occurs in his neck. He does have a headache for which he has been taking his medication. He denies any fever or cough or URI type symptoms. Pain is reproducible. EKG on arrival shows right bundle branch block and is unchanged from previous per my read. He had taken acetaminophen and oxycodone earlier. I have reviewed previous meds. Will give IV ketorolac and p.o. methocarbamol for his pain and spasms pending results of labs including a D-dimer. Chest imaging per D-dimer results. 03:15 - Patient does report doing better with the medications. Did receive IV prochlorperazine for some nausea/retching that started here. Inital labs reassuring with normal troponin, stable anemia, normal liver function and electrolytes/renal function. D-dimer is positive at greater than 1900. Have discussed with patient and will proceed with CTA of the chest. Repeat troponin pending. 05:00 - Patient's second troponin remains flat, not likely cardiac in nature. CTA is negative for anything acute per radiology prelim read. Patient continues to feel better. Will send prescription for Robaxin to pharmacy. Follow up with PCP next week. Return precautions given. Medical Records Medical records reviewed: Yes I reviewed the patient's medical records. Medical records narrative: recent cardiology visit and PCP visit for pre op clearance Lab Data Lab results reviewed: Yes I reviewed the patient's lab results. Lab results narrative: see [facility] ECG Data Attestation: I personally reviewed and interpreted this ECG (s) as follows: Prior ECG tracings: available for review Interpretation: see EKG/MDM [facility] All Active Problems (Updated 11/12/25 @ 05:10 by Amador Schulz MD) Left-sided chest wall pain (Acute) Weakness (Acute) Tremor (Acute) Pre-op evaluation (Acute) Urinary incontinence (Acute) Bladder wall thickening (Acute) Synovitis of right wrist (Acute) Effusion, right elbow (Acute) Right wrist effusion (Acute) Swelling of right upper extremity (Acute) Trochanteric bursitis, left hip (Acute) Lower back pain (Acute) Left flank pain (Acute) Headache, chronic migraine without aura, intractable (Acute) Mass of right lower leg (Acute) Encounter for weight management (Acute) Bilateral tinnitus (Acute) Status migrainosus (Acute) Cataracts, bilateral (Acute) Asthma exacerbation (Acute) Frequent falls (Acute) Asthma (Chronic) Lower urinary tract symptoms (LUTS) (Acute) Left ureteral stone (Acute) Femoroacetabular impingement of right hip (Acute) Tubulovillous adenoma (Acute ~09/15/23) Acid reflux disease (Chronic) Paresthesia and pain of both upper extremities (Acute) Neck pain (Acute) Pneumaturia (Acute) Type 2 diabetes mellitus (Chronic) Right hip pain (Acute) Diabetic neuropathy (Acute) both feet, balls of feet only Tubular adenoma (Acute ~10/2020) Arthritis of left knee (Acute) Steroid injection: 10/07/2022; 09/13/2021; 02/21/21; 10/27/2020 Diabetic retinopathy (Acute ~08/2019) [facility] retinologist: Dr. Trejo- [facility] non- proliferative ([facility])-07/13/20 Trochanteric bursitis, right hip (Acute 06/15/18) Right IT band lengthening and bursal debridement DOS: 01/21/19 Steroid Injection: 11/06/23; 09/23/2022 Obstructive sleep apnea syndrome (Acute) [place] sleep study 08/14/11 - CPAP recommended Migraine (Acute) Blindness of one eye (Acute) LEFT Medical History Encounter for screening colonoscopy Screen for colon cancer Cough Hydroureter Hydronephrosis Kidney stone Adrenal mass Left sided sciatica Greater trochanteric bursitis injection 02/2021 Ortho Diverticulosis Cluster headache, chronic Hyperlipidemia Urinary retention Nausea and vomiting after administration of anesthetic agent Sleep apnea Uses CPAP machine Left eye trauma resulting in surgery many years ago Varicose veins of lower extremity Restless legs Morbid obesity (04/26/13) Essential hypertension (08/11/13) Erectile dysfunction (10/31/14) DM (diabetes mellitus), type 2, uncontrolled titrating insulin to achieve control Dr. Mtz every 3 months for foot care CVA (cerebral vascular accident) (07/20/14) crpytogenic F/U with PCP Bilateral primary osteoarthritis of knee (03/17/17) Surgical History History of colonoscopy (~08/2023) Biopies taken Status post right knee replacement (09/22/18) Status post tonsillectomy History of total right knee replacement (TKR) 09/22/2018 History of ankle surgery as a child Family History Mother Depression Hyperlipidemia Father Heart disease Brother Diabetes Depression Hyperlipidemia Brother Substance abuse Depression Heart disease Hyperlipidemia Brother , Gunshot wound No problems noted. 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
[2025-11-12 01:43] VITALS: BP 175/68; PULSE 75; RESP 17; TEMP 36.4; O2SAT 97
[2025-11-12 02:28] LABS: Abs Immature Grans 0.03 10^3/uL (0.0-0.06); HCT 38.2 % (40.0-50.0); HGB 12.0 g/dL (13.5-17.5); Immature Grans % 0.4 %; MCH 28.2 pg (27.0-33.0); MCHC 31.4 % (32.0-36.0); MCV 90 fL (80-95); MPV 9.4 fL (8.0-11.0); Platelet Count 301 10^3/uL (130-400); RBC 4.25 10^6/uL (4.36-5.78); RDW 15.0 % (11.8-14.1); RDW-SD 49.0 fL; WBC 6.85 10^3/uL (4.4-10.8)
[2025-11-12] MEDS: Prochlorperazine 10 MG/2 ML VIAL IVP (02:31)
[2025-11-12] MEDS: Ketorolac 15 MG/ML VIAL IVP (02:33)
[2025-11-12 02:43] LABS: Troponin I 12 ng/L (<54)
[2025-11-12 02:45] LABS: ALT 14 U/L (10-49); AST 13 U/L (<34); Albumin 4.4 g/dL (3.2-5.0); Alkaline Phosphatase 92 U/L (46-116); Anion Gap 9.7 mmol/L (3-11); BUN 25 mg/dL (9-23); Bilirubin, Total 0.3 mg/dL (0.2-1.2); CO2 30.3 mmol/L (20.0-31.0); Calcium 9.7 mg/dL (8.3-10.6); Chloride 102 mmol/L (98-107); Glucose 142 mg/dL (74-106); Magnesium 1.9 mg/dL (1.6-2.6); Potassium 4.4 mmol/L (3.5-5.1); Sodium 142 mmol/L (136-145); Total Protein 7.7 g/dL (5.7-8.2)
[2025-11-12 02:46] VITALS: BP 179/91; PULSE 81; PULSE 83; RESP 30; O2SAT 94
[2025-11-12] MEDS: Methocarbamol 500 MG TAB 1000 MG PO (02:48)
[2025-11-12 02:51] LABS: D-Dimer 1910 ng/mlFEU (<500)
[2025-11-12 03:01] VITALS: BP 195/91; PULSE 72; RESP 11; O2SAT 93
[2025-11-12 03:16] VITALS: BP 191/85; PULSE 70; PULSE 75; RESP 19; O2SAT 96
[2025-11-12] MEDS: Midazolam 2 MG/2 ML VIAL IVP (03:34)
[2025-11-12 03:42] LABS: Troponin I 10 ng/L (<54)
[2025-11-12 03:51] VITALS: BP 171/71; PULSE 72; PULSE 76; RESP 14; O2SAT 95
[2025-11-12] MEDS: Omnipaque 350 MG/ML 100 ML BTL IJ (03:52)
[2025-11-12] MEDS: Normal Saline Flush 10 ML SYR IVP (03:53)
[2025-11-12] MEDS: Normal Saline - Diluent 50 ML VIAL IJ (03:53)
--- NOTE | 2025-11-12 03:55 | DI.CT_ITS ---
Exam(s) CT CHEST PE CTA EXAM: CT CHEST PE CTA CLINICAL HISTORY: CP, elevated d-dimer. TECHNIQUE: Imaging Protocol: CT angiography of the chest was performed using pulmonary embolus protocol. Multi planar reconstructions were performed. CONTRAST MATERIAL: Intravenous: Omnipaque 350 Contrast volume: 90 cc COMPARISON: CT CT CHEST/ABD/PEL WO from 09/12/2022 FINDINGS: CHEST: PULMONARY ARTERIES: There are no intraluminal filling defects to suggest acute pulmonary emboli. LUNGS: There are no infiltrates nor evidence of pulmonary infarction.. No significant pulmonary nodules. There are no pleural effusions. MEDIASTINUM: There is no hilar nor mediastinal adenopathy. CARDIAC: Heart size upper normal. There is no pericardial effusion. Caliber of thoracic aorta is within normal limits and there is no evidence of aortic dissection.There is no significant shift of the interventricular septum. Left- sided coronary artery calcifications noted. PARTIALLY VISUALIZED UPPERMOST ABDOMEN: There is no significant contrast reflux into the intrahepatic IVC. No obvious findings. No ascites. OSSEOUS: No significant osseous lesions.. IMPRESSION: 1. No evidence of acute pulmonary emboli. No evidence of pulmonary infarction.No pleural effusions. No lung lesions 2. No evidence of aortic dissection nor pericardial effusion. Preliminary V rad report was reviewed RADIATION DOSE DELIVERED: 297.73mGy.cm Total DLP DATA REPOSITORY: All CT scans at this facility are submitted to the National Radiology Data Registry (NRDR) Dose Index Registry (DIR) with the [employer] (ACR). RADIATION OPTIMIZATION: All CT scans at this facility use at least one of these dose optimization techniques: automated exposure control; mA and/or kV adjustment per patient size (includes targeted exams where dose is matched to clinical indication); or iterative reconstruction.
--- NOTE | 2025-11-12 04:57 | DI.VRAD_ITS ---
PROCEDURE INFORMATION: Exam: CTA Chest With Contrast Exam date and time: 11/12/2025 3:15 AM Age: 70 years old Clinical indication: Pain; Chest pressure; Cp, elevated d-dimer TECHNIQUE: Imaging protocol: Computed tomographic angiography of the chest with contrast. Exam focused on the arteries. 3D rendering (Not supervised by radiologist): MIP and/or 3D reconstructed images were created by the technologist. Radiation optimization: All CT scans at this facility use at least one of these dose optimization techniques: automated exposure control; mA and/or kV adjustment per patient size (includes targeted exams where dose is matched to clinical indication); or iterative reconstruction. Contrast material: [id number]; Contrast volume: 90 ml; Contrast route: INTRAVENOUS (IV); COMPARISON: CT CHEST PE CTA 09/06/2022 4:53 PM FINDINGS: Pulmonary arteries: Normal. No pulmonary emboli. Aorta: Unremarkable. No aortic aneurysm. No aortic dissection. Lungs: Lungs are clear allowing for expiratory phase imaging. Pleural spaces: Unremarkable. No pneumothorax. No pleural effusion. Heart: Unremarkable. No pericardial effusion. Esophagus: Unremarkable. Lymph nodes: Unremarkable. No enlarged lymph nodes. Bones/joints: Unremarkable. No acute fracture. Soft tissues: Unremarkable. IMPRESSION: No acute findings. Dictated and Authenticated by: Osmin Suero MD. Orderin Zeus English MD
[2025-11-12 05:12] VITALS: BP 181/83; PULSE 74; RESP 26; O2SAT 97
== END 2025-11-12 06:24 | disposition home or self-care (01) ==
PROVIDERS: Emergency Provider Emergency Medicine; PCP Nurse Practitioner Family
DX: R07.89 Other chest pain (principal)
CPT/HCPCS: 99284; 99285; 96374; 96375; 36415; 71275; 80053; 93005; 83735; 84484; 85025; 85379; 93010; J0780; J1885; J2250; J3490